=== PATIENT | female | born 1935 | race Caucasian/White ===

== ENCOUNTER → 2016-10-25 | Outpatient (CLI) | payer OTHER ==
[~2016-10-25] MED LIST: ARGI1CAP2 PO; B COCAP3 PO; BIOTCAP2 PO; CHOL100041 PO; COEN1CAP17 PO; CRAN1CHW PO; CRAN1TAB; DEXL60CA4 PO; DONE10TA12 PO; FLV400 PO; LEVO75TA5 PO; LUTE20CA PO; LXP10 PO; MELA1TAB5 PO; MISCTAB26 PO; POTA-327 PO; POTA10TA30 PO; TRAM-10 PO
--- NOTE | 2016-10-26 06:59 | SPLIT NIGHT TECHNICIAN REPORT ---
[facility] Split Night Polysomnogram - Dev Technical Mgr Report Study date: 10/25/2016 Referring Physician: Jm Galo M.D. Name: QUAN CASTRO Dev Technical Mgr: Janny Childs, PSGT. Date of : 1935 Height: 81 years, Height 4' 9" Sex: Female Weight: 156 lbs Age: 81 BMI: Medications: 33.75 SEE LIST OF 24 MEDICATIONS LISTED IN CHART Patient History 81 YR. OLD FEMALE IN ROOM 5 WITH DAMIAN , IS HERE FOR A SPLIT NIGHT STUDY.PT. STATES THAT HER C-PAP MACHINE HAS STOPPED WORKING. SHE HAS LOST WEIGHT SINCE HER LAST STUDY AND FEELS SHE MAY NO LONGER NEED THE MACHINE. Parameters Monitored NPSG: E1-M2, E2-M1, Fp1-M2, Fp2-M1, F3-M2, F4-M2, F4-M1, C3-M2, C4-M2, C4-M1, O1-M2, O2-M2, O2-M1, T3-M2, T4-M1, P3-M2, P4-M1, CHIN1, CHIN2, HR, EKG, Legs, PFLOW, SNOR, FLOW, CFLOW, Tidal Volume, THOR, ABDO, SpO2, PLTH, CPRESS, ETCO2 Wave, ETCO2, pH SLEEP SUMMARY DATA DIAGNOSTIC TREATMENT Lights Out: 11:15:41 PM 2:23:11 AM Lights On: 1:56:11 AM 5:23:11 AM Total Recording Time (TRT): 160.8 min. 205.2 min. Total Sleep Time (TST): 136.5 min. 153.5 min. NREM Time: 100.5 min. 116.0 min. REM Time: 36.0 min. 37.5 min. Sleep Period Time (SPT): 140.5 min. 178.0 min. Sleep Efficiency (SE): 85 % 86 % Sleep Latency: 19.5 min. 0.0 min. Arousal Index: 5.7 14.1 PAP Treatment Levels: 5, 7, 9, 8/4, 9/4, 10/5, 11/5 * Optimal Pressure(s) SLEEP STAGING DATA DIAGNOSTIC TREATMENT Duration (min) TST % Duration (min) TST % Stage Wake: 24.3 min. -- 51.7 min. -- WASO: 4.5 min. -- 24.5 min. -- NREM: 100.5 min. 74 % 116.0 min. 76 % Stage N1: 1.5 min. 1 % 20.5 min. 13 % Stage N2: 99.0 min. 73 % 95.5 min. 62 % Stage N3: 0.0 min. 0 % 0.0 min. 0 % REM: 36.0 min. 26 % 37.5 min. 24 % POSITIONAL DATA Event Count Index Event Count Index Supine: N/A N/A 71 27.8 Supine NREM: N/A N/A 56 29.0 Supine REM: N/A N/A 15 24 Non-Supine: 76 33.4 N/A N/A Non-Supine NREM: 50 29.9 N/A N/A Non-Supine REM: 26 43.3 N/A N/A AROUSAL SUMMARY DATA: Event Count Index Event Count Index Apnea Arousals: 1 5.3 2 15.2 Hypopnea Arousals: 1 0.4 2 0.8 Snore Arousals: 1 0.4 7 2.7 PLM Arousals: 0 0.0 3 1.2 Non-Specific Arousals: 9 4.0 19 7.4 Total Arousals: 13 5.7 36 14.1 MYOCLONUS (PLM) Event Count Index Event Count Index PLM: 59 25.9 76 29.7 PLM AROUSAL: 0 0.0 3 1.2 PLM W/O AROUSAL 59 25.9 73 28.5 PLM W/RESP EVENT 2 0.0 4 0.0 MYOCLONUS (PLM) Event Count Index Event Count Index LM: 1 16.7 54 21.1 LM AROUSAL: 1 0.4 3 1.2 LM W/O AROUSAL LM W/RESP EVENT LM NON SPECIFIC 90 39.6 110 43.0 HEART RATE DATA DIAGNOSTIC TREATMENT Sleep (bpm): 52 52 REM (bpm): 90 92 NREM (bpm): 91 93 Tachycardia Count: 0 0 Tachycardia Duration: 0.00 0 Bradycardia Count: 0 0 Bradycardia Duration: 0.00 0 DIAGNOSTIC PORTION TREATMENT PORTION RESPIRATORY DATA Event Count Index Event Count Index AHI: -- 33.4 -- 27.8 RDI: -- 33.4 -- 28 Obstructive Apnea: 12 5.3 4 1.6 Central Apnea: 0 0.0 35 13.7 Mixed Apnea: 0 0.0 0 0.0 Hypopnea: 64 28.1 32 12.5 RERA: 0 0.0 0 0.0 Total Apneas: 12 5.3 39 15.2 RESPIRATORY DATA REM NREM SLEEP REM NREM SLEEP Supine Position: Obstructive Apneas: N/A N/A N/A 0 4 4 Central Apneas: N/A N/A N/A 1 34 35 Mixed Apneas: N/A N/A N/A 0 0 0 Hypopneas: N/A N/A N/A 14 18 32 RERA N/A N/A N/A 0 0 0 Total Supine Events: N/A N/A N/A 15 56 71 Supine AHI: N/A N/A N/A 24 29.0 27.8 Supine RDI: N/A N/A N/A 24.0 29.0 27.8 REM NREM SLEEP REM NREM SLEEP Non-Supine Position: Obstructive Apneas: 0 12 12 N/A N/A N/A Central Apneas: 0 0 0 N/A N/A N/A Mixed Apneas: 0 0 0 N/A N/A N/A Hypopneas: 26 38 64 N/A N/A N/A RERA 0 0 0 N/A N/A N/A Total Supine Events: 26 50 76 N/A N/A N/A Supine AHI: 43.3 29.9 33.4 N/A N/A N/A Supine RDI: 43.3 29.9 33.4 N/A N/A N/A OXYGEN DESTAURATION DATA: Event Count Index Event Count Index REM Desaturations: 23 38.3 15 24.0 NREM Desaturations: 51 30.4 54 27.9 SNORE DATA DIAGNOSTIC TREATMENT Snore Time: 8.9 2:23:11 AM Snore TST%: 4 2 Snore Arousal Count: 1 7 Snore Arousal Index: 0.4 2.7 Desaturation Event Summary: Minimum %SpO2 Event Count Mean/Min/Max Duration(sec.) Desaturation Index % Time In Bed > 90 140 31.1 / 12.0 / 60.0 33.4 74.8 86 - 90 17 20.6 / 6.0 / 38.3 12.7 23.8 81 - 85 0 N/A 0.0 1.3 76 - 80 0 N/A 0.0 0.1 71 - 75 0 N/A 0.0 0.0 66 - 70 0 N/A 0.0 0.0 61 - 65 0 N/A 0.0 0.0 56 - 60 0 N/A 0.0 0.0 51 - 55 0 N/A 0.0 0.0 < 50 0 N/A 0.0 0.0 OXYGEN SATURATION DATA DIAGNOSTIC TREATMENT SpO2 Mean Sleep: 91 % 93 % SpO2 Mean REM: 90 % 92 % SpO2 Mean NREM: 91 % 93 % SpO2 Minimum Sleep: 79 % 83 % SpO2 Minimum REM: 80 % 83 % SpO2 Minimum NREM: 79 % 85 % Time Below 90% (TST): 35.6 12.2 Time Below 88% (TST): 12.2 3.4 Total REM NREM Awake <50% 0.0 min. 0.0 min. 0.0 min. 0.0 min. 51 - 60% 0.0 min. 0.0 min. 0.0 min. 0.0 min. 61 - 70% 0.0 min. 0.0 min. 0.0 min. 0.0 min. 71 - 80% 0.3 min. 0.1 min. 0.2 min. 0.0 min. 81 - 90% 84.6 min. 24.4 min. 56.6 min. 3.5 min. 91 - 100% 251.7 min. 49.0 min. 159.5 min. 43.2 min. Average 92 91 92 93 Minimum SpO2 79 80 79 81 Desaturation Event Index 25.3 31.0 29.1 0.0 # Desat. Events below 89% 85 30 55 N/A Time(%) with Saturation below 89% 8.1 3.3 4.6 0.2 Time(min.) with Saturation below 89% 27.4 11.2 15.6 0.6 Recording Dev Technical Mgr Comments: Split -Night: MS. Castro slept in the right, left, and supine positions. No cardiac arrhythmia or PLM's noted. No bruxism noted. Snoring was noted and scored as a 2 on a scale of 1 through 5. (0=no snoring, 5=snoring loud enough to be heard through a closed door or down the rodriguez way) At 1:56 am, MS. Castro has met specific Split-Night criteria during the diagnostic portion of this study. CPAP was initiated at +4 CMH2O and up-titrated to an l level of +9 CMH2O, which central apneas continued so Bi-pap was started at 8/4 cm h20 ending at I-pap 11 cm E-pap 5 cm. A F&P small Simplus was used during titration Ms. Castro awoke to use the restroom one time during the night. The final report will be interpreted and signed by a sleep physician. The completed physician report will then be placed in the patient medical record. It was difficult to get the pt. into bed, her blood sugar dropped and she had to eat and drink before bed and that took her awhile to accomplish. slept supine the entire night, she displays severe DAMIAN. C-pap was started with nasal pillows but patient was not able to keep her mouth closed so a full face mask was used, which she tolerated well.Pt. was up titrated on c-pap to 9 cm, she continued to have central apneas so bi-pap was started and she was only able to get to 11/8 cm H20 before test ended, pt. had to get up at 5:30 am to be ready for her ride at 6:00 am.Titration was inconclusive at that time, patient will need to come back for a full night of titration to achieve the proper settings needed. Therapy Event: Therapy (cm H20) 0 5 7 9 8/4 9/4 10/5 11/5 Total Time at Pressure (min.) 160.0 41.5 25.2 7.3 20.3 7.8 16.3 60.0 TST at Pressure (min.) 136.5 23.0 23.2 7.3 17.8 7.8 16.3 58.0 # Periods 1 1 1 1 1 1 1 1 Sleep Onset (min.) 19.5 0.0 2.3 0.0 0.0 0.0 0.0 0.0 REM Onset (min.) 68.0 N/A N/A N/A N/A 5.1 0.0 0.0 Sleep Efficiency % 85 55 92 100 87 100 100 96 Wakefulness (%) 14.7 44.6 7.9 0.0 12.3 0.0 0.0 3.3 Wakefulness (min.) 23.5 18.5 2.0 0.0 2.5 0.0 0.0 2.0 NREM 1 (%) 0.9 30.1 21.8 0.0 4.9 0.0 0.0 2.5 NREM 1 (min.) 1.5 12.5 5.5 0.0 1.0 0.0 0.0 1.5 NREM 2 (%) 61.9 25.3 70.3 100.0 82.8 65.8 0.0 63.3 NREM 2 (min.) 99.0 10.5 17.7 7.3 16.8 5.1 0.0 38.0 NREM 3 (%) 0.0 0.0 0.0 0.0 0.0 0.0 0.0 0.0 NREM 3 (min.) 0.0 0.0 0.0 0.0 0.0 0.0 0.0 0.0 REM (%) 22.5 0.0 0.0 0.0 0.0 34.2 100.0 30.8 REM (min.) 36.0 0.0 0.0 0.0 0.0 2.7 16.3 18.5 # Arousals 13 3 5 1 8 1 5 13 Arousal Index 5.7 7.8 12.9 8.2 26.9 7.7 18.4 13.4 # Snore 446 5 5 4 9 2 18 83 Snore Index 196.0 13.0 12.9 33.0 30.3 15.4 66.1 85.9 AHI 33.4 23.5 23.2 8.2 33.6 38.4 36.7 27.9 AHI Supine N/A 23.5 23.2 8.2 33.6 38.4 36.7 27.9 AHI Non-Supine 33.4 N/A N/A N/A N/A N/A N/A N/A NREM AHI 29.9 23.5 23.2 8.2 33.6 23.3 N/A 38.0 REM AHI 43.3 N/A N/A N/A N/A 67.5 36.7 6.5 RDI 33.4 23.5 23.2 8.2 33.6 38.4 36.7 27.9 # Obstructive 12 2 2 0 0 0 0 0 # Central Ap 0 2 5 0 8 1 1 18 # Mixed 0 0 0 0 0 0 0 0 # Hypopneas 64 5 2 1 2 4 9 9 RERAS 0 0 0 0 0 0 0 0 Total Respiratory Events 76 9 9 1 10 5 10 27 Time Below SpO2 89.00% (min.) 20.0 0.0 0.5 0.0 1.9 0.9 1.8 1.7 Mean NREM SpO2 (%) 91 93 92 92 92 91 N/A 94 Mean REM SpO2 (%) 90 N/A N/A N/A N/A 90 92 92 Mean Sleep SpO2 (%) 91 93 92 92 92 91 92 93 Min NREM SpO2 (%) 79 89 87 91 85 86 N/A 86 Min REM SpO2 (%) 80 N/A N/A N/A N/A 83 85 87 Position Supine (min.) 0.0 23.0 23.2 7.3 17.8 7.8 16.3 58.0 Position Non-supine (min.) 136.5 0.0 0.0 0.0 0.0 0.0 0.0 0.0 LM Index Sleep 42.6 36.5 74.9 98.9 70.6 30.7 18.4 46.6 LM Index NREM 47.8 36.5 74.9 98.9 70.6 35.0 N/A 62.3 LM Index REM 28.3 N/A N/A N/A N/A 22.5 18.4 13.0 Mean Heart Rate (bpm) 52 50 51 48 50 55 58 52 Min Heart Rate (bpm) 43 45 45 45 44 46 45 41
--- NOTE | 2016-10-27 15:21 | POLYSOMNOGRAPH REPORT ---
CLINICAL DATA: A 81-year-old female with BMI of 33.75 referred for a split night study. Her CPAP has stopped working. She has lost weight since her last study and thought she may not need it. This was a split night study. SLEEP ARCHITECTURE: For the diagnostic portion of the study, total sleep period was 140.5 minutes. Total sleep time was 136.5 minutes divided between 100.5 minutes of non-REM sleep and 36 minutes of REM sleep. Sleep latency was 19.5 minutes. Sleep efficiency was 85%. Sleep consisted of stage N1 1%, N2 73%, REM 26%. For the treatment portion of the study, total sleep period was 178 minutes. Total sleep time was 153.5 minutes divided between 116 minutes of non-REM sleep and 37.5 minutes of REM sleep. Sleep latency was immediate. Sleep efficiency was 86%. Sleep consisted of stage N1 12%, N2 62%, REM 24%. AROUSAL DATA: Prior to treatment, 38 arousals were recorded for an index of 5.7 per hour. Following treatment, 36 arousals were recorded for an index of 14.1 per hour. PERIODIC LIMB MOVEMENT DATA: Prior to treatment, 90 limb movements during sleep were noted for an index of 39.6 per hour. Following treatment, 110 limb movements were noted for an index of 43 per hour. ELECTROCARDIOGRAM: Heart rates ranged from 52-93 beats per minute. No arrhythmias were noted. RESPIRATORY DATA: Prior to treatment, severe sleep apnea was documented. The AHI was 33.4. There were 12 obstructive apneic episodes and 64 hypopneic episodes recorded. Following treatment, the mean AHI was 27.8. There were 4 obstructive, and 35 central apneic episodes. There were 32 hypopneic episodes. OXIMETRY DATA: Nocturnal hypoxemia was seen prior to treatment. Oxygen belkys was 79%. Mean saturation after treatment was 93%. SYSTEMS INTEGRATION ADVISOR'S COMMENTS AND TREATMENT SUMMARY: The patient slept in the right, left, and supine positions. Snoring was [id number], rated 2 on a scale of 1-5. At 1:56 a.m., she met split night criteria. She was started on CPAP 4 cm of water pressure and was then titrated up to 9 cm of water pressure. She then developed central apneic episodes and BiPAP was started initially at 8/4 and then ending at 11/5. A [employer] small Simplus mask was used. She had difficulty with low blood sugars prior to sleep. She could not use nasal pillows because her mouth kept opening. She did not reach an adequate level of BiPAP prior to end of the study. At her final pressure setting of 11/5, she slept for 58 minutes with an AHI of 27.9. Her best AHI achieved was 8.2 at 9 cm of water pressure. 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 RECOMMENDATIONS: The patient could be considered for use of auto CPAP with a full facemask or a repeat sleep study with BiPAP titration. Clinical correlation is needed. IVAN
== END | disposition home or self-care (01) ==
LOC: C.NEUR 21:00
PROVIDERS: ATTEND Internal Medicine Pulmonary Disease
DX: G47.33 Obstructive sleep apnea (adult) (pediatric) (principal)

== ENCOUNTER → 2016-12-14 | Outpatient (CLI) | payer OTHER ==
[~2016-12-14] VITALS: Ht 152.4 cm; Wt 66.3 kg
[2016-12-14 12:52] VITALS: BP 122/62; PULSE 71; Ht 152.4 cm; Wt 66.3 kg
== END | disposition home or self-care (01) ==
LOC: C.NEUR 11:54
PROVIDERS: ATTEND Internal Medicine Pulmonary Disease
DX: G47.33 Obstructive sleep apnea (adult) (pediatric) (principal)

== ENCOUNTER → 2017-01-11 | Outpatient (CLI) | payer OTHER ==
[~2017-01-11] MED LIST changes: +ULT50X PO
[2017-01-11 13:11] LABS: HEMATOCRIT 29.4 % (37-47); MEAN CELL VOLUME 83.5 fL (80-100); MEAN CORPUSCULAR HEMOGLOBIN 24.1 pg (25-34); MEAN CORPUSCULAR HGB CONC 28.9 g/dl (32-36); MEAN PLATELET VOLUME 10.2 fL (7.4-10.4); PLATELET COUNT 478 K/uL (130-400); RED BLOOD COUNT 3.52 M/uL (4.2-5.4); WHITE BLOOD COUNT 5.94 K/uL (4.8-10.8)
[2017-01-11 13:13] LABS: ANISOCYTOSIS PRESENT; BASO % 0.5 %; BASO ABS # 0.03 K/uL (0-0.2); COMPLETE YES; EOS % 1.7 %; IG% 0.3 %; LYMPH % 9.3 %; LYMPH ABS # 0.55 K/uL (1.2-3.4); MONO % 10.9 %; NEUT % 77.3 %; POLYCHROMASIA 1+
[2017-01-11 15:08] LABS: TOTAL IRON BINDING CAPACITY 429 mcg/dl (250-450)
== END | disposition home or self-care (01) ==
LOC: C.LAB1850 09:47
PROVIDERS: ATTEND Internal Medicine Cardiovascular Disease
DX: D50.9 Iron deficiency anemia, unspecified (principal)

== ENCOUNTER → 2017-03-03 | Outpatient (CLI) | payer OTHER ==
--- NOTE | 2017-03-03 12:06 | DIAGNOSTIC IMAGING REPORT ---
SINGLE VIEW PELVIS; 2 VIEWS RIGHT HIP; 2 VIEWS LEFT HIP CLINICAL HISTORY: Pelvic pain. FINDINGS: An AP view of the pelvis with AP and frog-leg views of the right hip as well as AP and frog-leg views of the left hip are correlated with pelvic CT dated 12/14/2015. The skeletal structures are osteopenic. No fracture is seen in the hips or bony pelvis. Mild arthritic change and joint space narrowing is seen in both hips. Small enthesophytes arise from the greater trochanters of the proximal femora and the anterior superior iliac spine bilaterally. The sacroiliac joints and pubic symphysis are normal as imaged. Lumbosacral spondylosis and fusion hardware is partially visualized. The overlying soft tissues are within normal limits. Suture material projects over the right lower quadrant. There is a nonobstructed abdominal bowel gas pattern. A pill fragment projects of the sacrum. IMPRESSION: 1. No acute bony abnormal is seen in the hips or pelvis. 2. Osteopenia and degenerative change as above. Electronically signed by: Luc Michaud M.D. 03/03/2017 12:04 PM Dictated Date/Time: 03/03/2017 12:02 PM
[2017-03-03 12:40] LABS: URINE APPEARANCE CLEAR (CLEAR); URINE BILIRUBIN NEG (NEG); URINE COLOR YELLOW; URINE NITRITE NEG (NEG); URINE SPECIFIC GRAVITY 1.007 (1.000-1.030); UROBILINOGEN NEG (NEG)
[2017-03-03 12:54] LABS: MANUAL MICROSCOPIC REQUIRED? NO; REVIEW REQ? NO
--- NOTE | 2017-03-03 13:02 | DIAGNOSTIC IMAGING REPORT ---
KUB CLINICAL HISTORY: Pelvic pain. COMPARISON STUDY: CT of the abdomen and pelvis December 15, 2015 and KUB March 28, 2016. FINDINGS: Cholecystectomy clips and lumbosacral fusion are incidentally noted. There is a moderate amount of stool within the colon and the rectum. There is no evidence for a bowel obstruction. Bowel anastomoses projecting over the gastroesophageal junction are noted. Pelvic calcifications likely reflect phleboliths. A 3 mm right pelvic calcification is indeterminate. A 9 x 3 mm calculus within lower pole of the right kidney is noted. There is a punctate adjacent calculus. IMPRESSION: 1. 9 mm x 3 mm right renal calculus. 2. 3 mm right pelvic calcific density. This could reflect a phlebolith or distal right ureteral calculus. 3. No bowel obstruction. Electronically signed by: Joe Galvin M.D. 03/03/2017 1:01 PM Dictated Date/Time: 03/03/2017 12:07 PM
[2017-03-03 14:18] LABS: ALB/GLOB RATIO 1.1 (0.9-2); ALKALINE PHOSPHATASE 112 U/L (45-117); ALT/SGPT 36 U/L (12-78); AST/SGOT 28 U/L (15-37); BLOOD UREA NITROGEN 13 mg/dl (7-18); BUN/CREATININE RATIO 26.9 (10-20); CARBON DIOXIDE 31 mmol/L (21-32); CHLORIDE 104 mmol/L (98-107); GLUCOSE 80 mg/dl (70-99); POTASSIUM 4.1 mmol/L (3.5-5.1); SODIUM 140 mmol/L (136-145)
== END | disposition home or self-care (01) ==
LOC: C.RAD 11:07
PROVIDERS: ATTEND Nurse Practitioner Family
DX: R10.2 Pelvic and perineal pain (principal); M85.88 Other specified disorders of bone density and structure, other site; N20.0 Calculus of kidney

== ENCOUNTER → 2017-03-08 | Outpatient (CLI) | payer OTHER ==
[~2017-03-08] VITALS: Ht 149.9 cm; Wt 65.0 kg
[2017-03-08 14:13] VITALS: BP 110/61; PULSE 60; Ht 149.9 cm; Wt 65.0 kg
== END | disposition home or self-care (01) ==
LOC: C.NEUR 13:00
PROVIDERS: ATTEND Physician Assistant Medical
DX: G47.33 Obstructive sleep apnea (adult) (pediatric) (principal)

== ENCOUNTER 2017-05-03 14:16 | Emergency (ER) | payer OTHER ==
[~2017-05-03] VITALS: Ht 149.9 cm; Wt 65.5 kg
[~2017-05-03 14:16] MED LIST changes: -ARGI1CAP2 PO; -B COCAP3 PO; -BIOTCAP2 PO; -CHOL100041 PO; -COEN1CAP17 PO; -CRAN1CHW PO; -CRAN1TAB; -DONE10TA12 PO; -LEVO75TA5 PO; -LUTE20CA PO; -LXP10 PO; -MELA1TAB5 PO; -MISCTAB26 PO; -POTA10TA30 PO; -ULT50X PO
[2017-05-03 14:28] VITALS: TEMP 36.6; Ht 149.9 cm; Wt 65.5 kg
[2017-05-03] MEDS ORDERED: SODIUM CHLORIDE 0.9% 1000ML 1,000 ML IV STA (14:43)
[2017-05-03] MEDS ORDERED: OPTIRAY 320 IV PRN (15:00)
[2017-05-03 15:26] LABS: BASO % 0.3 %; BASO ABS # 0.02 K/uL (0-0.2); COMPLETE YES; EOS % 0.6 %; HEMATOCRIT 34.2 % (37-47); IG% 0.3 %; LYMPH % 3.6 %; LYMPH ABS # 0.29 K/uL (1.2-3.4); MEAN CELL VOLUME 88.6 fL (80-100); MEAN CORPUSCULAR HEMOGLOBIN 27.2 pg (25-34); MEAN CORPUSCULAR HGB CONC 30.7 g/dl (32-36); MEAN PLATELET VOLUME 9.2 fL (7.4-10.4); MONO % 4.3 %; NEUT % 90.9 %; PLATELET COUNT 403 K/uL (130-400); RED BLOOD COUNT 3.86 M/uL (4.2-5.4)
--- NOTE | 2017-05-03 15:26 | EMERGENCY ROOM VISIT NOTE ---
History Report prepared by Christiane: Leydi Hernandez Under the Supervision of: Dr. Ena Cruz M.D. 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 She started to get upset while talking and was not looking where she was going. She states that her foot twisted underneath her and she tripped, landing in a laundry basket full of clothes. The patient hit her lower back on the edge of the basket when she fell. She is currently complaining of lower back pain that she rates as a 10/10 in severity. She has a history of lower back surgery and states that she has hardware in her back. She did not walk after the incident. The patient was brought to the ED by ambulance for further evaluation. She denies any other injury occurring from her fall. She denies hitting her head or LOC. She does not take any blood thinners. She does not take any pain medications regularly. 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 Review of Systems See HPI for pertinent positives & negatives. A total of 10 systems reviewed and were otherwise negative. 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 Family History Kidney disease Social History Smoking Status: Never Smoker Alcohol Use: none Drug Use: none Marital Status: Housing Status: lives alone Occupation Status: retired Current/Historical Medications Scheduled Arginine (L-Arginine), 1 CAP PO DAILY B Complex W/ C (Vitamin B Complex-C), 1 CAP PO DAILY Biotin (Biotin 5000), 5 MG PO DAILY Cholecalciferol (D 1000), 1 CAP PO BID Coenzyme Q10 (Ubidecarenone) (Co Q 10), 200 MG PO DAILY Cranberry (Vaccinium Macrocarp (Cranberry Soft Chews), 1 TAB PO DAILY Dexlansoprazole (Dexilant), 1 TAB PO BID Donepezil Hydrochloride (Aricept), 10 MG PO BID Escitalopram Oxalate (Escitalopram Oxalate), 10 MG PO DAILY Folic Acid (Folic Acid), 1 TAB PO DAILY Levothyroxine Sodium (Levothyroxine Sodium), 75 MCG PO QAM Lutein (Lutein), 20 MG PO DAILY Melatonin (Kp Melatonin), 1 TAB PO HS Misc Natural Products (Ginkgo Biloba), 1 TAB PO DAILY Potassium Chloride (Potassium Chloride Cr), 10 MEQ PO QID Scheduled PRN Tramadol (Ultram), 50 MG PO Q8H PRN for Pain Tramadol (Ultram), 1 TABS PO Q6 PRN for Pain Allergies Coded Allergies: Iron (Verified Allergy, Severe, chest pain, felt hot (tolerates Venofer), 08/17/16) Procaine (Verified Allergy, Severe, THROAT SWELLING WITH NOVOCAINE, ) Hydrocodone (Verified Allergy, Unknown, 08/17/16) Oxycodone (Verified Allergy, Unknown, 08/17/16) Codeine (Verified Adverse Reaction, Unknown, NAUSEA, 08/17/16) Physical Exam Vital Signs Date Time Temp Pulse Resp B/P (MAP) Pulse Ox O2 Delivery O2 Flow Rate FiO2 05/03/17 17:52 89 18 128/71 97 05/03/17 17:15 61 18 126/63 98 Room Air 05/03/17 15:31 53 19 160/69 96 Room Air 05/03/17 14:28 36.6 55 20 127/51 98 Room Air Physical Exam Vital signs reviewed. General: Well-appearing elderly female, in no significant distress. HEENT: No scleral icterus, PERRLA, neck supple. Atraumatic. Cardiovascular: Regular rate and rhythm, no extra sounds. Pulmonary: Clear to auscultation bilaterally, normal work of breathing. Abdomen: Soft, nontender, nondistended, positive bowel sounds. Musculoskeletal: Tender to the left lower ribs. Cervical/thoracic/lumbar spine nontender, no step-offs, no deformity. Neurologic: Patient awake alert and oriented x 3, full strength in all 4 extremities. Cranial nerves 2 through 12 grossly intact. Skin: Warm, dry, no rash Medical Decision & Procedures ER Provider Diagnostic Interpretation: Radiology results as stated below per my review and radiologist interpretation: (CHEST) THORAX WITH CT DOSE: 610.41 mGy.cm HISTORY: Trauma. Pain. trauma TECHNIQUE: Multiaxial CT images of the chest were performed following the intravenous administration of contrast. A dose lowering technique was utilized adhering to the principles of ALARA. COMPARISON: 06/29/2016 FINDINGS: Nondisplaced cortical fractures left ninth 10th and 11th ribs. Considerable degenerative change of the thoracic spine with no acute bony abnormality. Prior gastric bypass type procedure. Unchanging left lower lobe nodule having a maximum diameter of 11 mm. Additional nodularity which has been described previously is stable. There are no new or interval findings. Lungs are considered clear. There are no focal infiltrative changes. There is no evidence for parenchymal contusion. IMPRESSION: 1. Nondisplaced fractures left ninth 10th and 11th ribs. 2. No evidence pneumothorax. 3. Stable pulmonary nodularity. The above report was generated using voice recognition software. It may contain grammatical, syntax or spelling errors. Electronically signed by: Lemuel Gunn M.D. 05/03/2017 4:28 PM Dictated Date/Time: 05/03/2017 4:23 PM ABD/PELVIS IV AND ORAL CONT HISTORY: 81 years-old Female trauma prep, LUQ pain, fall COMPARISON: CT chest of same day, CTA abdomen and pelvis 12/15/2015 TECHNIQUE: Multiple axial CT images of the abdomen and pelvis were obtained following the intravenous administration of 119 mL Optiray 320. A dose lowering technique was used consistent with the principals of ALARA. FINDINGS: The exam is mildly limited secondary to patient motion, position of patient's arms and streak artifact from lumbar spine hardware. Circumscribed noncalcified pulmonary nodule of the posterior basal segment left lower lobe is redemonstrated, 11 x 7 mm which appears unchanged from comparison study dated 12/15/2015. Additional scattered noncalcified pulmonary nodules are again seen within the left lung base with subsegmental dependent bibasilar atelectasis. No pneumoperitoneum is identified. Inferior cardiac chambers demonstrate no acute abnormality. Prior cholecystectomy. 8 mm low attenuating lesion of the medial left hepatic lobe is again seen, unchanged and nonspecific statistically favoring a cyst or hemangioma. The spleen, pancreas and adrenal glands are unremarkable. Dilation of the common bile duct is likely secondary to reservoir effect status post cholecystectomy. Calculus of the inferior pole right kidney is again seen, 7 x 5 mm. No hydronephrosis or renal parenchymal injury. There is moderate atherosclerosis and tortuosity of the abdominal aorta without bulky adenopathy. Urinary bladder is unremarkable. Prior hysterectomy. 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 No bowel obstruction. Noninflamed appearing colonic diverticula are noted. There is been prior posterior decompression with interbody fusion at the L4-S1 levels. There is grade 2 anterolisthesis of L4 on L5 with hardware appearing to be intact. This is an unchanged finding from comparison. Bones are moderately demineralized without acute fracture identified. Multilevel advanced degenerative changes of the spine are seen. IMPRESSION: 1. No acute intra-abdominal or pelvic abnormality identified. No evidence of solid organ injury or acute displaced fracture. 2. 11 x 7 mm noncalcified pulmonary nodule of the posterior basal segment left lower lobe redemonstrated, unchanged from comparison study dated 12/15/2015. 3. 7 mm right renal calculus. 4. Postsurgical changes of prior cholecystectomy, hysterectomy and Luciano-en-Y gastric bypass. The above report was generated using voice recognition software. It may contain grammatical, syntax or spelling errors. Electronically signed by: Kirk Padilla M.D. 05/03/2017 4:33 PM Dictated Date/Time: 05/03/2017 4:23 PM Laboratory Results 05/03/17 15:15 Red Blood Count 3.86, Mean Corpuscular Volume 88.6, Mean Corpuscular Hemoglobin 27.2, Mean Corpuscular Hemoglobin Concent 30.7, Mean Platelet Volume 9.2, Neutrophils (%) (Auto) 90.9, Lymphocytes (%) (Auto) 3.6, Monocytes (%) (Auto) 4.3, Eosinophils (%) (Auto) 0.6, Basophils (%) (Auto) 0.3, Neutrophils # (Auto) 7.28, Lymphocytes # (Auto) 0.29, Monocytes # (Auto) 0.34, Eosinophils # (Auto) 0.05, Basophils # (Auto) 0.02 05/03/17 15:15 Test 05/03/17 15:15 White Blood Count 8.00 K/uL (4.8-10.8) Red Blood Count 3.86 M/uL (4.2-5.4) Hemoglobin 10.5 g/dL (12.0-16.0) Hematocrit 34.2 % (37-47) Mean Corpuscular Volume 88.6 fL (80-100) Mean Corpuscular Hemoglobin 27.2 pg (25-34) Mean Corpuscular Hemoglobin Concent 30.7 g/dl (32-36) Platelet Count 403 K/uL (130-400) Mean Platelet Volume 9.2 fL (7.4-10.4) Neutrophils (%) (Auto) 90.9 % Lymphocytes (%) (Auto) 3.6 % Monocytes (%) (Auto) 4.3 % Eosinophils (%) (Auto) 0.6 % Basophils (%) (Auto) 0.3 % Neutrophils # (Auto) 7.28 K/uL (1.4-6.5) Lymphocytes # (Auto) 0.29 K/uL (1.2-3.4) Monocytes # (Auto) 0.34 K/uL (0.11-0.59) Eosinophils # (Auto) 0.05 K/uL (0-0.5) Basophils # (Auto) 0.02 K/uL (0-0.2) RDW Standard Deviation 47.1 fL (36.4-46.3) RDW Coefficient of Variation 14.5 % (11.5-14.5) Immature Granulocyte % (Auto) 0.3 % Immature Granulocyte # (Auto) 0.02 K/uL (0.00-0.02) Prothrombin Time 10.5 SECONDS (9.0-12.0) Prothromb Time International Ratio 1.0 (0.9-1.1) Activated Partial Thromboplast Time 29.2 SECONDS (21.0-31.0) Partial Thromboplastin Ratio 1.1 Urine Color YELLOW Urine Appearance CLEAR (CLEAR) Urine pH 5.5 (4.5-7.5) Urine Specific Harmon 1.017 (1.000-1.030) Urine Protein NEG (NEG) Urine Glucose (UA) NEG (NEG) Urine Ketones NEG (NEG) Urine Occult Blood NEG (NEG) Urine Nitrite NEG (NEG) Urine Bilirubin NEG (NEG) Urine Urobilinogen NEG (NEG) Urine Leukocyte Esterase TRACE (NEG) Urine WBC (Auto) 1-5 /hpf (0-5) Urine RBC (Auto) 5-10 /hpf (0-4) Urine Hyaline Casts (Auto) 1-5 /lpf (0-5) Urine Epithelial Cells (Auto) >30 /lpf (0-5) Urine Bacteria (Auto) NEG (NEG) Anion Gap 5.0 mmol/L (3-11) Est Creatinine Clear Calc Drug Dose 76.6 ml/min Estimated GFR () 107.4 Estimated GFR (Non- 92.7 BUN/Creatinine Ratio 23.2 (10-20) Calcium Level 9.8 mg/dl (8.5-10.1) Magnesium Level 2.2 mg/dl (1.8-2.4) Total Bilirubin 0.4 mg/dl (0.2-1) Direct Bilirubin 0.1 mg/dl (0-0.2) Aspartate Amino Transf (AST/SGOT) 19 U/L (15-37) Alanine Aminotransferase (ALT/SGPT) 25 U/L (12-78) Alkaline Phosphatase 126 U/L (45-117) Total Creatine Kinase 62 U/L (26-192) Total Protein 6.6 gm/dl (6.4-8.2) Albumin 2.9 gm/dl (3.4-5.0) Laboratory results per my review. Medications Administered Medications (Trade) Dose Ordered Sig/Ricardo Route Start Time Stop Time Status Last Admin Dose Admin Sodium Chloride 1,000 ml @ 150 mls/hr Q6H40M STAT IV 05/03/17 14:43 05/03/17 18:31 DC 05/03/17 14:43 150 MLS/HR Tramadol HCl (Ultram Tab) 50 mg NOW STAT PO 05/03/17 17:01 05/03/17 17:02 DC 05/03/17 17:12 50 MG ECG Indication: back/shoulder pain Rate (beats per minute): 49 Rhythm: sinus bradycardia Findings: no acute ischemic change, no ectopy ED Course 1439: Past medical records reviewed. The patient was evaluated in room C12B. A complete history and physical examination was performed. 1443: NSS 1000 ml @ 150 mls/hr IV 1701: Ultram 50 mg PO 1749: I reassessed the patient at this time. She is feeling better and resting comfortably. I discussed the results and treatment plan with the patient. I answered all pertaining questions that she had. She expressed understanding and verbalized agreement. The patient will be discharged home. Medical Decision Differential diagnosis: Etiologies such as fracture, dislocation, intra-abdominal, pneumothorax, intrathoracic , intracranial, neurologic, as well as other traumatic pathologies were entertained. This patient was evaluated and appeared to be in no significant distress. IV access was obtained and laboratory work was drawn. The patient was placed on the threat monitoring analyst and found to be in a normal sinus rhythm. EKG reveals no evidence of acute ischemia. Patient was hydrated with normal saline solution. CT scan of the chest and abdomen/pelvis was performed and reveals 3 left-sided nondisplaced rib fractures. This is consistent with the location of the patient 's pain. There is no evidence of pneumothorax or solid organ injury. Patient was advised of the findings. She was instructed on the incentive spirometer given a prescription for Ultram to use as needed for pain. She will follow-up with her physician this week for reevaluation return to the ER for worsening of symptoms or any medical concerns. Medication Reconcilliation Current Medication List: was personally reviewed by me Blood Pressure Screening Patient's blood pressure: Normal blood pressure Impression Primary Impression: Multiple fractures of ribs, left side, initial encounter for closed fracture Scribe Attestation The scribe's documentation has been prepared under my direction and personally reviewed by me in its entirety. I confirm that the note above accurately reflects all work, treatment, procedures, and medical decision making performed by me. Departure Information Dispostion Home / Self-Care Prescriptions Tramadol (Ultram) 50 Mg Tab 1 TABS PO Q6 Y for Pain, #30 TAB Prov: Ena Cruz M.D. 05/03/17 Referrals Kiki Foy DO (PCP) Forms HOME CARE DOCUMENTATION FORM, IMPORTANT VISIT INFORMATION Patient Instructions Fx Rib, My [facility] Additional Instructions Diagnosis: Left rib fractures, 9, 10 and 11. Please drink plenty of clear fluids. Use your incentive spirometer several times every hour while awake. Tylenol 650 mg every 6 hours as needed for pain. Ultram 50 mg every 6 hours as needed for more severe pain. Follow-up with your primary care physician this week for reevaluation. Return to the ER for worsening of symptoms or any medical concerns
[2017-05-03 15:36] LABS: PARTIAL THROMBOPLASTIN RATIO 1.1; PROTHROMBIN TIME (PATIENT) 10.5 SECONDS (9.0-12.0)
[2017-05-03 15:48] LABS: BUN/CREATININE RATIO 23.2 (10-20); CALCIUM 9.8 mg/dl (8.5-10.1)
[2017-05-03 15:49] LABS: CREATININE 0.49 mg/dl (0.60-1.20)
[2017-05-03 15:56] LABS: URINE APPEARANCE CLEAR (CLEAR); URINE BILIRUBIN NEG (NEG); URINE COLOR YELLOW; URINE EPITHELIAL CELL AUTO >30 /lpf (0-5); URINE NITRITE NEG (NEG); URINE PH 5.5 (4.5-7.5); URINE SPECIFIC GRAVITY 1.017 (1.000-1.030); UROBILINOGEN NEG (NEG); ZZUR CULT IF INDIC CLEAN CATCH NO
[2017-05-03 16:12] LABS: MAGNESIUM 2.2 mg/dl (1.8-2.4); POTASSIUM 4.6 mmol/L (3.5-5.1)
[2017-05-03 16:13] LABS: MANUAL MICROSCOPIC REQUIRED? NO; REVIEW REQ? NO
--- NOTE | 2017-05-03 16:30 | DIAGNOSTIC IMAGING REPORT ---
(CHEST) THORAX WITH CT DOSE: 610.41 mGy.cm HISTORY: Trauma. Pain. trauma TECHNIQUE: Multiaxial CT images of the chest were performed following the intravenous administration of contrast. A dose lowering technique was utilized adhering to the principles of ALARA. COMPARISON: 06/29/2016 FINDINGS: Nondisplaced cortical fractures left ninth 10th and 11th ribs. Considerable degenerative change of the thoracic spine with no acute bony abnormality. Prior gastric bypass type procedure. Unchanging left lower lobe nodule having a maximum diameter of 11 mm. Additional nodularity which has been described previously is stable. There are no new or interval findings. Lungs are considered clear. There are no focal infiltrative changes. There is no evidence for parenchymal contusion. IMPRESSION: 1. Nondisplaced fractures left ninth 10th and 11th ribs. 2. No evidence pneumothorax. 3. Stable pulmonary nodularity. The above report was generated using voice recognition software. It may contain grammatical, syntax or spelling errors. Electronically signed by: Lemuel Gunn M.D. 05/03/2017 4:28 PM Dictated Date/Time: 05/03/2017 4:23 PM
--- NOTE | 2017-05-03 16:34 | DIAGNOSTIC IMAGING REPORT ---
ABD/PELVIS IV AND ORAL CONT HISTORY: 81 years-old Female trauma prep, LUQ pain, fall COMPARISON: CT chest of same day, CTA abdomen and pelvis 12/15/2015 TECHNIQUE: Multiple axial CT images of the abdomen and pelvis were obtained following the intravenous administration of 119 mL Optiray 320. A dose lowering technique was used consistent with the principals of FAHAD. FINDINGS: The exam is mildly limited secondary to patient motion, position of patient's arms and streak artifact from lumbar spine hardware. Circumscribed noncalcified pulmonary nodule of the posterior basal segment left lower lobe is redemonstrated, 11 x 7 mm which appears unchanged from comparison study dated 12/15/2015. Additional scattered noncalcified pulmonary nodules are again seen within the left lung base with subsegmental dependent bibasilar atelectasis. No pneumoperitoneum is identified. Inferior cardiac chambers demonstrate no acute abnormality. Prior cholecystectomy. 8 mm low attenuating lesion of the medial left hepatic lobe is again seen, unchanged and nonspecific statistically favoring a cyst or hemangioma. The spleen, pancreas and adrenal glands are unremarkable. Dilation of the common bile duct is likely secondary to reservoir effect status post cholecystectomy. Calculus of the inferior pole right kidney is again seen, 7 x 5 mm. No hydronephrosis or renal parenchymal injury. There is moderate atherosclerosis and tortuosity of the abdominal aorta without bulky adenopathy. Urinary bladder is unremarkable. Prior hysterectomy. 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 No bowel obstruction. Noninflamed appearing colonic diverticula are noted. There is been prior posterior decompression with interbody fusion at the L4-S1 levels. There is grade 2 anterolisthesis of L4 on L5 with hardware appearing to be intact. This is an unchanged finding from comparison. Bones are moderately demineralized without acute fracture identified. Multilevel advanced degenerative changes of the spine are seen. IMPRESSION: 1. No acute intra-abdominal or pelvic abnormality identified. No evidence of solid organ injury or acute displaced fracture. 2. 11 x 7 mm noncalcified pulmonary nodule of the posterior basal segment left lower lobe redemonstrated, unchanged from comparison study dated 12/15/2015. 3. 7 mm right renal calculus. 4. Postsurgical changes of prior cholecystectomy, hysterectomy and Luciano-en-Y gastric bypass. The above report was generated using voice recognition software. It may contain grammatical, syntax or spelling errors. Electronically signed by: Kirk Padilla M.D. 05/03/2017 4:33 PM Dictated Date/Time: 05/03/2017 4:23 PM
[2017-05-03] MEDS ORDERED: TRAMADOL HCL 50 MG TAB PO STA (17:01)
[2017-05-03] MEDS ORDERED: TRAM-10 PO (17:28)
[2017-05-03 17:52] VITALS: BP 128/71; PULSE 89; O2SAT 97
[2017-05-10] MEDS ORDERED: COEN1CAP17 PO (00:30)
[2017-05-10] MEDS ORDERED: BIOTCAP2 PO (00:30)
[2017-05-10] MEDS ORDERED: MELA1TAB5 PO (08:09)
[2017-05-10] MEDS ORDERED: DONE10TA12 PO (08:09)
[2017-05-10] MEDS ORDERED: ARGI1CAP2 PO (08:09)
[2017-05-10] MEDS ORDERED: B COCAP3 PO (08:09)
[2017-05-10] MEDS ORDERED: MISCTAB26 PO (08:09)
[2017-05-10] MEDS ORDERED: CHOL100041 PO (08:09)
[2017-06-13] MEDS ORDERED: CRAN1TAB (13:41)
== END 2017-05-03 17:55 | disposition home or self-care (01) ==
LOC: EDBD 14:16 → C.EDC 14:17
DX: S22.42XA Multiple fractures of ribs, left side, initial encounter for closed fracture (principal); W01.0XXA Fall on same level from slipping, tripping and stumbling without subsequent striking against object, initial encounter; Y92.009 Unspecified place in unspecified non-institutional (private) residence as the place of occurrence of the external cause; I11.0 Hypertensive heart disease with heart failure; I50.9 Heart failure, unspecified; E11.9 Type 2 diabetes mellitus without complications; D50.9 Iron deficiency anemia, unspecified; R00.1 Bradycardia, unspecified; Z87.442 Personal history of urinary calculi; Z98.84 Bariatric surgery status; Z86.73 Personal history of transient ischemic attack (TIA), and cerebral infarction without residual deficits

== ENCOUNTER 2017-05-10 09:22 | Emergency (ER) | payer OTHER ==
[~2017-05-10] VITALS: Ht 149.9 cm; Wt 67.0 kg
[~2017-05-10 09:22] MED LIST changes: +ARGI1CAP2 PO; +B COCAP3 PO; +BIOTCAP2 PO; +CHOL100041 PO; +COEN1CAP17 PO; +DONE10TA12 PO; +MELA1TAB5 PO; +MISCTAB26 PO; -POTA-327 PO
[2017-05-10 09:25] VITALS: TEMP 37; O2SAT 97; Ht 149.9 cm; Wt 67.0 kg
--- NOTE | 2017-05-10 09:44 | EMERGENCY ROOM VISIT NOTE ---
History Report prepared by Christiane: Deidra Rivers Under the Supervision of: Dr. Santana Villa D.O. First contact with patient: 09:32 Chief Complaint: SYNCOPE (NEAR SYNCOPE) Stated Complaint: NEAR SYNCOPE History of Present Illness The patient is a 81 year old female who presents to the Emergency Room with complaints of an episode of near syncope that occurred prior to arrival. She reports she woke up later than normal this morning and after using the bathroom , as she went to get up off the toilet, she became very diaphoretic and experienced a near syncopal episode. She does feel better here in the ED currently, stating "I feel good now". The patient denies any headache, neck pain or abdominal. She also denies any recent illnesses or dehydration. She has not experienced any hematuria or dysuria. The patient lives alone at [facility] with her cat. She notes she fell recently and experienced "3 cracked ribs" which are still causing her pain. 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 A total of 10 systems reviewed and were otherwise negative. 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 Family History Kidney disease Social History Smoking Status: Never Smoker Alcohol Use: none Drug Use: none Marital Status: Housing Status: lives alone Occupation Status: retired Current/Historical Medications Scheduled Arginine (L-Arginine), 1 CAP PO DAILY B Complex W/ C (Vitamin B Complex-C), 1 CAP PO DAILY Biotin (Biotin 5000), 5 MG PO DAILY Cholecalciferol (D 1000), 1 CAP PO BID Coenzyme Q10 (Ubidecarenone) (Co Q 10), 200 MG PO DAILY Cranberry (Vaccinium Macrocarp (Cranberry Soft Chews), 1 TAB PO DAILY Donepezil Hydrochloride (Aricept), 10 MG PO BID Escitalopram Oxalate (Escitalopram Oxalate), 10 MG PO DAILY Levothyroxine Sodium (Levothyroxine Sodium), 75 MCG PO QAM Lutein (Lutein), 20 MG PO DAILY Melatonin (Kp Melatonin), 1 TAB PO HS Misc Natural Products (Ginkgo Biloba), 1 TAB PO DAILY Potassium Chloride (Potassium Chloride Cr), 10 MEQ PO QID Allergies Coded Allergies: Iron (Verified Allergy, Severe, chest pain, felt hot (tolerates Venofer), 05/10/17) Procaine (Verified Allergy, Severe, THROAT SWELLING WITH NOVOCAINE, ) Hydrocodone (Verified Allergy, Unknown, 05/10/17) Oxycodone (Verified Allergy, Unknown, 05/10/17) Codeine (Verified Adverse Reaction, Unknown, NAUSEA, 05/10/17) Physical Exam Vital Signs Date Time Temp Pulse Resp B/P (MAP) Pulse Ox O2 Delivery O2 Flow Rate FiO2 05/10/17 12:35 70 20 117/53 94 05/10/17 11:10 63 15 117/58 96 Room Air 05/10/17 09:34 65 05/10/17 09:25 37.0 60 16 118/56 97 Room Air 05/10/17 09:25 97 Room Air 05/10/17 09:25 60 118/56 71 92/48 Physical Exam GENERAL: Patient is awake, alert, in no acute distress patient is resting comfortably and showing no signs of anxiety EYES: The conjunctivae are clear. The pupils are round and reactive. EARS, NOSE, MOUTH AND THROAT: The nose is without any evidence of any deformity. Mucous membranes are dry, tongue is midline NECK: The neck is nontender and supple. RESPIRATORY: Normal respiratory effort is noted there is no evidence of wheezing rhonchi or rales CARDIOVASCULAR: Regular rate and rhythm noted there no murmurs rubs or gallops normal S1 normal S2 GASTROINTESTINAL: The abdomen is soft. Bowel sounds are present in all quadrants. Abdomen is nontender BACK: There was no midline tenderness noted, tenderness over the left lower rib cage. Range of motion in flexion, extension as well as rotation no signs of muscle spasm noted MUSCULOSKELETAL/EXTREMITIES: There is no evidence of gross deformity full range of motion is noted in the hips and shoulders SKIN: Pedal edema bilaterally. No calf tenderness. There is no obvious evidence of any rash. There are no petechiae, pallor or cyanosis noted. NEUROLOGIC: Patient is awake alert and oriented x3 strength is symmetric, no drift or facial droop noted. Medical Decision & Procedures ER Provider Diagnostic Interpretation: Radiology results as stated below per my review and radiologist interpretation: SINGLE VIEW CHEST CLINICAL HISTORY: Weakness. Change in mental status. FINDINGS: An AP, portable, upright chest radiograph is compared to study dated 08/17/2016 and correlated with chest CT dated 05/03/2017. The examination is degraded by portable technique and patient rotation. The heart is enlarged. The pulmonary vasculature is noncongested. Chronic interstitial thickening is similar to previous. No airspace consolidation or pleural effusion is identified. No pneumothorax is seen. The skeletal structures are osteopenic. Advanced arthritic change and deformity is present in the shoulders. Degenerative change is also seen throughout the thoracic spine. IMPRESSION: Cardiomegaly with no active disease in the chest. Electronically signed by: Luc Michaud M.D. 05/10/2017 10:04 AM HEAD WITHOUT CONTRAST (CT) CLINICAL HISTORY: 81 years-old Female presenting with EVALUATE ALTERED MENTAL STATUS/WEAKNESS. TECHNIQUE: Multidetector CT imaging of the head was performed without the use of intravenous contrast. IV contrast: None. A dose lowering technique was used consistent with the principles of ALARA (as low as reasonably achievable). COMPARISON: 04/20/2016. CT DOSE (mGy.cm): The estimated cumulative dose is 729.78 mGycm. 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 Mild asymmetric prominence of the left lateral ventricle within the range of normal. Proportional ventricular and sulcal prominence likely indicating age-related parenchymal volume loss. Brain parenchyma normal in appearance with preserved bansal-white differentiation. No mass effect or midline shift. No hemorrhage or acute territorial infarct. No extra-axial fluid collection. Paranasal sinuses and mastoid air cells clear. Calvarium intact. Calcification or surgical material noted at the lateral globes bilaterally. IMPRESSION: 1. No acute intracranial pathology. Electronically signed by: Blane Crane M.D. 05/10/2017 10:[address] SCAN OF THE ABDOMEN AND PELVIS WITHOUT IV CONTRAST CLINICAL HISTORY: Syncope. COMPARISON STUDY: Abdominal CT dated 05/03/2017. TECHNIQUE: CT scan of the abdomen and pelvis is performed from the lung bases to the proximal femora. Images are reviewed in the axial, sagittal, and coronal planes. IV contrast was not administered for this examination as per the referring clinician. Note that the examination was performed in significantly suboptimal fashion without oral and IV contrast. The examination is also degraded by streak artifact from the patient's arms which could not be elevated above the abdomen as well as motion artifact. Automated dose control exposure was utilized. A dose lowering technique was utilized adhering to the principles of ALARA. CT DOSE: 669.41 mGycm FINDINGS: Lung bases: The heart is normal in size and without pericardial effusion. There is diminished attenuation of the cardiac blood pool as compared to the myocardium suggesting anemia. Coronary artery calcifications are observed. There is a trace left pleural effusion. Scarring/atelectasis is present at both lung bases. Liver: Evaluation of the liver is degraded by streak artifact. The unenhanced liver is normal in size, contour, and attenuation. There is mild central intrahepatic biliary ductal dilatation. Gallbladder: Surgically absent noting clips in the gallbladder fossa. Spleen: Normal in size and attenuation. Pancreas: The unenhanced pancreas is grossly unremarkable. Adrenal glands: Unremarkable. Kidneys: The unenhanced kidneys are atrophic. 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 A calcification seen on image #186 is likely related to the gonadal vein. No ureteral calculus is clearly identified. A 7 mm nonobstructing calculus is present in the right lower pole. No left renal calculi are identified and there is no left-sided hydronephrosis. There is no evidence of contour deforming renal mass lesion. Abdominal vasculature: The abdominal aorta is normal in course and caliber noting advanced atherosclerotic calcification. Bowel: Postoperative changes suggest a history of Luciano-en-Y gastric bypass surgery. No bowel obstruction is seen. There is moderate colonic fecal retention. There is mild sigmoid diverticulosis without CT evidence of acute diverticulitis. The appendix is not visualized. Peritoneum: There is no intraperitoneal free air or abdominal ascites. Lymphadenopathy: None. Pelvic viscera: The bladder is normal as visualized. The uterus is surgically absent. No adnexal lesion is seen. Findings suggest pelvic floor prolapse. Skeletal structures: The skeletal structures are osteopenic. There is advanced lumbosacral spondylosis as well as mild scoliosis. There are postoperative changes from L4 to S1 spinal fusion. Grade 1 anterolisthesis is present at L4-L5. No lytic or blastic lesions are seen. IMPRESSION: 1. Suboptimal examination without oral and IV contrast. The examination is also degraded by streak and motion artifact. 2. No acute posttraumatic and around is identified. Note that assessment for subtle renal injury is suboptimal without IV contrast. 3. There is mild right-sided hydronephrosis. 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 4. A nonobstructing right renal calculus is observed. No left renal calculi are seen. 5. Trace left pleural effusion. 6. Moderate constipation. 7. Additional findings as above. Electronically signed by: Luc Michaud M.D. 05/10/2017 11:16 AM Laboratory Results 05/10/17 09:55 Red Blood Count 3.14, Mean Corpuscular Volume 90.4, Mean Corpuscular Hemoglobin 28.0, Mean Corpuscular Hemoglobin Concent 31.0, Mean Platelet Volume 9.5, Neutrophils (%) (Auto) 89.5, Lymphocytes (%) (Auto) 4.4, Monocytes (%) (Auto) 5.0, Eosinophils (%) (Auto) 0.3, Basophils (%) (Auto) 0.3, Neutrophils # (Auto) 10.24, Lymphocytes # (Auto) 0.50, Monocytes # (Auto) 0.57, Eosinophils # (Auto) 0.03, Basophils # (Auto) 0.03 05/10/17 09:55 Test 05/10/17 09:28 05/10/17 09:55 05/10/17 10:55 Bedside Glucose 170 mg/dl (70-90) White Blood Count 11.43 K/uL (4.8-10.8) Red Blood Count 3.14 M/uL (4.2-5.4) Hemoglobin 8.8 g/dL (12.0-16.0) Hematocrit 28.4 % (37-47) Mean Corpuscular Volume 90.4 fL (80-100) Mean Corpuscular Hemoglobin 28.0 pg (25-34) Mean Corpuscular Hemoglobin Concent 31.0 g/dl (32-36) Platelet Count 397 K/uL (130-400) Mean Platelet Volume 9.5 fL (7.4-10.4) Neutrophils (%) (Auto) 89.5 % Lymphocytes (%) (Auto) 4.4 % Monocytes (%) (Auto) 5.0 % Eosinophils (%) (Auto) 0.3 % Basophils (%) (Auto) 0.3 % Neutrophils # (Auto) 10.24 K/uL (1.4-6.5) Lymphocytes # (Auto) 0.50 K/uL (1.2-3.4) Monocytes # (Auto) 0.57 K/uL (0.11-0.59) Eosinophils # (Auto) 0.03 K/uL (0-0.5) Basophils # (Auto) 0.03 K/uL (0-0.2) RDW Standard Deviation 48.8 fL (36.4-46.3) RDW Coefficient of Variation 14.9 % (11.5-14.5) Immature Granulocyte % (Auto) 0.5 % Immature Granulocyte # (Auto) 0.06 K/uL (0.00-0.02) Polychromasia 1+ Hypochromasia PRESENT Prothrombin Time 11.2 SECONDS (9.0-12.0) Prothromb Time International Ratio 1.0 (0.9-1.1) Activated Partial Thromboplast Time 24.9 SECONDS (21.0-31.0) Partial Thromboplastin Ratio 1.0 Anion Gap 5.0 mmol/L (3-11) Est Creatinine Clear Calc Drug Dose 76.0 ml/min Estimated GFR () 106.7 Estimated GFR (Non- 92.1 BUN/Creatinine Ratio 72.3 (10-20) Calcium Level 9.0 mg/dl (8.5-10.1) Magnesium Level 2.0 mg/dl (1.8-2.4) Total Bilirubin 0.5 mg/dl (0.2-1) Direct Bilirubin 0.1 mg/dl (0-0.2) Aspartate Amino Transf (AST/SGOT) 13 U/L (15-37) Alanine Aminotransferase (ALT/SGPT) 19 U/L (12-78) Alkaline Phosphatase 102 U/L (45-117) Total Creatine Kinase 31 U/L (26-192) Creatine Kinase MB 0.5 ng/ml (0.5-3.6) Creatine Kinase MB Ratio 1.6 (0-3.0) Troponin I < 0.015 ng/ml (0-0.045) Total Protein 6.0 gm/dl (6.4-8.2) Albumin 2.5 gm/dl (3.4-5.0) Thyroid Stimulating Hormone (TSH) 3.070 uIu/ml (0.300-4.500) Urine Color YELLOW Urine Appearance CLEAR (CLEAR) Urine pH 5.5 (4.5-7.5) Urine Specific [place] 1.018 (1.000-1.030) Urine Protein NEG (NEG) Urine Glucose (UA) NEG (NEG) Urine Ketones NEG (NEG) Urine Occult Blood NEG (NEG) Urine Nitrite NEG (NEG) Urine Bilirubin NEG (NEG) Urine Urobilinogen NEG (NEG) Urine Leukocyte Esterase NEG (NEG) Laboratory results per my review. Medications Administered Medications (Trade) Dose Ordered Sig/Ricardo Route Start Time Stop Time Status Last Admin Dose Admin Sodium Chloride 1,000 ml @ 999 mls/hr Q1H1M STAT IV 05/10/17 09:45 05/10/17 10:45 DC 05/10/17 09:53 999 MLS/HR ECG Indication: syncope Rate (beats per minute): 64 Rhythm: normal sinus (normal sinus rhythm) Findings: no ectopy, other (No acute ST segment abnormalities) Change: no significant change (No change from May 03, 2017) ED Course 0936: The patient was evaluated in room A10. A complete history and physical examination were performed. 0945: NSS 1000 ml @ 999 mls/hr IV. 1141: I reevaluated the patient. She is feeling much better. I discussed her results and discharge instructions and she verbalized complete understanding and agreement. Medical Decision Prior records/ancillary studies reviewed. Triage Nursing notes reviewed. The patient's history was concerning for syncope. Differential diagnosis: Etiologies such as vasovagal event, infection, hypoglycemia, electrolyte abnormalities, cardiac sources, intracerebral event, toxicologic, neurologic, as well as others were entertained. The patient is a 81-year-old female who presented to the emergency department after a syncopal episode. The patient had no complaints but she was recently seen for a fall and had rib fractures. She has no abdominal pain but I was concerned there could be some delayed injury to her intra-abdominal compartment so a CT was obtained. No free fluid was noted. The patient was treated with IV fluids in the emergency department. I discussed the patient's laboratory and radiographic studies with her. She does have a history of anemia and her hemoglobin is slightly decreased from previous. She has a follow-up appointment scheduled with her family doctor already. She is encouraged to keep this appointment and discuss the possibility of having repeat laboratory studies done to compare to today's findings. She was also encouraged to return to the emergency Department immediately if symptoms change worsen or the need arises. Medication Reconcilliation Current Medication List: was personally reviewed by me Blood Pressure Screening Patient's blood pressure: Low blood pressure Blood pressure disposition: Elevated BP felt to be situational Impression Primary Impression: Syncope Additional Impression: Anemia Scribe Attestation The scribe's documentation has been prepared under my direction and personally reviewed by me in its entirety. I confirm that the note above accurately reflects all work, treatment, procedures, and medical decision making performed by me. Departure Information Dispostion Home / Self-Care Referrals No Doctor, Assigned (PCP) Patient Instructions ED Anemia Type Not Specified, My [facility], Syncope Additional Instructions Follow-up with your family tomorrow as scheduled. I would recommend a repeat of your orthostatic vital signs as well as a recheck of your hemoglobin this week. Rest and avoid any strenuous activity. Drink plenty clear liquids. Return to the emergency department immediately if symptoms change worsen or the need arises. Problem Qualifiers Primary Impression: Syncope Syncope type: unspecified Qualified Codes: R55 - Syncope and collapse Additional Impression: Anemia Anemia type: unspecified type Qualified Codes: D64.9 - Anemia, unspecified
[2017-05-10] MEDS ORDERED: SODIUM CHLORIDE 0.9% 1000ML 1,000 ML IV STA (09:45)
[2017-05-10 10:05] LABS: BASO % 0.3 %; BASO ABS # 0.03 K/uL (0-0.2); EOS % 0.3 %; HEMATOCRIT 28.4 % (37-47); IG% 0.5 %; LYMPH % 4.4 %; MEAN CELL VOLUME 90.4 fL (80-100); MEAN PLATELET VOLUME 9.5 fL (7.4-10.4); NEUT % 89.5 %; PLATELET COUNT 397 K/uL (130-400); RED BLOOD COUNT 3.14 M/uL (4.2-5.4); WHITE BLOOD COUNT 11.43 K/uL (4.8-10.8)
--- NOTE | 2017-05-10 10:05 | DIAGNOSTIC IMAGING REPORT ---
SINGLE VIEW CHEST CLINICAL HISTORY: Weakness. Change in mental status. FINDINGS: An AP, portable, upright chest radiograph is compared to study dated 08/17/2016 and correlated with chest CT dated 05/03/2017. The examination is degraded by portable technique and patient rotation. The heart is enlarged. The pulmonary vasculature is noncongested. Chronic interstitial thickening is similar to previous. No airspace consolidation or pleural effusion is identified. No pneumothorax is seen. The skeletal structures are osteopenic. Advanced arthritic change and deformity is present in the shoulders. Degenerative change is also seen throughout the thoracic spine. IMPRESSION: Cardiomegaly with no active disease in the chest. Electronically signed by: Luc Michaud M.D. 05/10/2017 10:04 AM Dictated Date/Time: 05/10/2017 10:03 AM
[2017-05-10 10:14] LABS: PROTHROMBIN TIME (PATIENT) 11.2 SECONDS (9.0-12.0)
[2017-05-10 10:26] LABS: ALT/SGPT 19 U/L (12-78); AST/SGOT 13 U/L (15-37); BLOOD UREA NITROGEN 36 mg/dl (7-18); BUN/CREATININE RATIO 72.3 (10-20); CARBON DIOXIDE 28 mmol/L (21-32); CHLORIDE 106 mmol/L (98-107); GLUCOSE 150 mg/dl (70-99); POTASSIUM 4.7 mmol/L (3.5-5.1); SODIUM 139 mmol/L (136-145)
[2017-05-10 10:30] LABS: COMPLETE YES; HYPOCHROMIA PRESENT; POLYCHROMASIA 1+
[2017-05-10 10:37] LABS: ALKALINE PHOSPHATASE 102 U/L (45-117); CKMB/CK RATIO 1.6 (0-3.0)
--- NOTE | 2017-05-10 10:45 | DIAGNOSTIC IMAGING REPORT ---
HEAD WITHOUT CONTRAST (CT) CLINICAL HISTORY: 81 years-old Female presenting with EVALUATE ALTERED MENTAL STATUS/WEAKNESS. TECHNIQUE: Multidetector CT imaging of the head was performed without the use of intravenous contrast. IV contrast: None. A dose lowering technique was used consistent with the principles of ALARA (as low as reasonably achievable). COMPARISON: 04/20/2016. CT DOSE (mGy.cm): The estimated cumulative dose is 729.78 mGycm. 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 Mild asymmetric prominence of the left lateral ventricle within the range of normal. Proportional ventricular and sulcal prominence likely indicating age-related parenchymal volume loss. Brain parenchyma normal in appearance with preserved bansal-white differentiation. No mass effect or midline shift. No hemorrhage or acute territorial infarct. No extra-axial fluid collection. Paranasal sinuses and mastoid air cells clear. Calvarium intact. Calcification or surgical material noted at the lateral globes bilaterally. IMPRESSION: 1. No acute intracranial pathology. Electronically signed by: Blane Crane M.D. 05/10/2017 10:44 AM Dictated Date/Time: 05/10/2017 10:41 AM
[2017-05-10 11:11] LABS: URINE APPEARANCE CLEAR (CLEAR); URINE BILIRUBIN NEG (NEG); URINE COLOR YELLOW; URINE NITRITE NEG (NEG); URINE PH 5.5 (4.5-7.5); URINE SPECIFIC GRAVITY 1.018 (1.000-1.030); UROBILINOGEN NEG (NEG)
--- NOTE | 2017-05-10 11:18 | DIAGNOSTIC IMAGING REPORT ---
CT SCAN OF THE ABDOMEN AND PELVIS WITHOUT IV CONTRAST CLINICAL HISTORY: Syncope. COMPARISON STUDY: Abdominal CT dated 05/03/2017. TECHNIQUE: CT scan of the abdomen and pelvis is performed from the lung bases to the proximal femora. Images are reviewed in the axial, sagittal, and coronal planes. IV contrast was not administered for this examination as per the referring clinician. Note that the examination was performed in significantly suboptimal fashion without oral and IV contrast. The examination is also degraded by streak artifact from the patient's arms which could not be elevated above the abdomen as well as motion artifact. Automated dose control exposure was utilized. A dose lowering technique was utilized adhering to the principles of ALARA. CT DOSE: 669.41 mGycm FINDINGS: Lung bases: The heart is normal in size and without pericardial effusion. There is diminished attenuation of the cardiac blood pool as compared to the myocardium suggesting anemia. Coronary artery calcifications are observed. There is a trace left pleural effusion. Scarring/atelectasis is present at both lung bases. Liver: Evaluation of the liver is degraded by streak artifact. The unenhanced liver is normal in size, contour, and attenuation. There is mild central intrahepatic biliary ductal dilatation. Gallbladder: Surgically absent noting clips in the gallbladder fossa. Spleen: Normal in size and attenuation. Pancreas: The unenhanced pancreas is grossly unremarkable. Adrenal glands: Unremarkable. Kidneys: The unenhanced kidneys are atrophic. 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 A calcification seen on image #186 is likely related to the gonadal vein. No ureteral calculus is clearly identified. A 7 mm nonobstructing calculus is present in the right lower pole. No left renal calculi are identified and there is no left-sided hydronephrosis. There is no evidence of contour deforming renal mass lesion. Abdominal vasculature: The abdominal aorta is normal in course and caliber noting advanced atherosclerotic calcification. Bowel: Postoperative changes suggest a history of Ulciano-en-Y gastric bypass surgery. No bowel obstruction is seen. There is moderate colonic fecal retention. There is mild sigmoid diverticulosis without CT evidence of acute diverticulitis. The appendix is not visualized. Peritoneum: There is no intraperitoneal free air or abdominal ascites. Lymphadenopathy: None. Pelvic viscera: The bladder is normal as visualized. The uterus is surgically absent. No adnexal lesion is seen. Findings suggest pelvic floor prolapse. Skeletal structures: The skeletal structures are osteopenic. There is advanced lumbosacral spondylosis as well as mild scoliosis. There are postoperative changes from L4 to S1 spinal fusion. Grade 1 anterolisthesis is present at L4-L5. No lytic or blastic lesions are seen. IMPRESSION: 1. Suboptimal examination without oral and IV contrast. The examination is also degraded by streak and motion artifact. 2. No acute posttraumatic and around is identified. Note that assessment for subtle renal injury is suboptimal without IV contrast. 3. There is mild right-sided hydronephrosis. 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 4. A nonobstructing right renal calculus is observed. No left renal calculi are seen. 5. Trace left pleural effusion. 6. Moderate constipation. 7. Additional findings as above. Electronically signed by: Luc Michaud M.D. 05/10/2017 11:16 AM Dictated Date/Time: 05/10/2017 10:47 AM
[2017-05-10 11:19] LABS: MANUAL MICROSCOPIC REQUIRED? NO; REVIEW REQ? NO
[2017-05-10 12:35] VITALS: BP 117/53; PULSE 70; O2SAT 94
[2017-05-10] MEDS ORDERED: LXP10 PO (15:07)
[2017-05-10] MEDS ORDERED: POTA10TA30 PO (15:07)
[2017-05-10] MEDS ORDERED: CRAN1CHW PO (15:37)
[2017-05-10] MEDS ORDERED: LUTE20CA PO (15:59)
[2017-05-10] MEDS ORDERED: LEVO75TA5 PO (22:12)
[2017-06-13] MEDS ORDERED: CRAN1TAB (13:41)
== END 2017-05-10 12:35 | disposition home or self-care (01) ==
LOC: EDBD 09:22 → C.EDA 09:23
DX: R55 Syncope and collapse (principal); D64.9 Anemia, unspecified; Z87.442 Personal history of urinary calculi; E11.9 Type 2 diabetes mellitus without complications; Z86.73 Personal history of transient ischemic attack (TIA), and cerebral infarction without residual deficits; I11.0 Hypertensive heart disease with heart failure; Z84.1 Family history of disorders of kidney and ureter; Z79.899 Other long term (current) drug therapy

== ENCOUNTER → 2017-05-24 | Outpatient (CLI) | payer OTHER ==
[~2017-05-24] MED LIST changes: +CRAN1CHW PO; +CRAN1TAB; -DEXL60CA4 PO; -FLV400 PO; +LEVO75TA5 PO; +LUTE20CA PO; +LXP10 PO; +POTA10TA30 PO; -TRAM-10 PO
--- NOTE | 2017-05-24 14:39 | DIAGNOSTIC IMAGING REPORT ---
LEFT WRIST MIN 3 VIEWS ROUTINE, RIGHT WRIST MIN 3 VIEWS ROUTINE CLINICAL HISTORY: M25.539 Pain and swelling of wrist COMPARISON STUDY: None. FINDINGS: The bones are osteopenic. No acute fracture or dislocation within the right or left wrist. Bilateral soft tissue swelling, left greater than right. Left-sided scapholunate dissociation. Severe degenerative changes at the first carpometacarpal joints. Focal erosions seen within the bilateral distal radii, ulnar, and scaphoid bones. IMPRESSION: 1. No acute fracture dislocation within the right or left wrist. 2. Bilateral soft tissue swelling, left greater than right. 3. Nearly symmetric erosions within the bilateral wrists as described above. This raises the possibility of superimposed inflammatory arthropathy such as rheumatoid arthritis. 4. Left-sided scapholunate dissociation. Electronically signed by: Slava Bishop M.D. 05/24/2017 2:37 PM Dictated Date/Time: 05/24/2017 2:33 PM
== END | disposition home or self-care (01) ==
LOC: C.RAD1850 14:16
PROVIDERS: ATTEND Internal Medicine
DX: M25.539 Pain in unspecified wrist (principal); M79.9 Soft tissue disorder, unspecified; M15.4 Erosive (osteo)arthritis; M24.232 Disorder of ligament, left wrist

== ENCOUNTER → 2017-06-07 | Outpatient (CLI) | payer OTHER ==
--- NOTE | 2017-06-07 11:37 | DIAGNOSTIC IMAGING REPORT ---
LEFT SHOULDER MIN 2 VIEWS ROUTINE CLINICAL HISTORY: 81 years-old Female presenting with L SHOULDER PAIN. TECHNIQUE: Internal rotation, external rotation, and Grashey views of the left shoulder were obtained. COMPARISON: Chest x-ray from 05/10/2017. FINDINGS: Degenerative changes of the glenohumeral joint including complete joint space loss, subchondral sclerosis and cystic change, and osteophytosis. Resulting deformity of the humeral head. Near complete effacement of the acromiohumeral interval, likely indicating complete rotator cuff tear. Acromioclavicular joint grossly intact. Osteopenia suspected. No acute fracture or malalignment. Visualized portion of the left hemithorax normal. IMPRESSION: Advanced degenerative change of the glenohumeral joint with suspected complete rotator cuff tear. No acute osseous injury. Electronically signed by: Blane Crane M.D. 06/07/2017 11:35 AM Dictated Date/Time: 06/07/2017 11:33 AM
--- NOTE | 2017-06-07 11:39 | DIAGNOSTIC IMAGING REPORT ---
LEFT RIBS UNILATERAL WITH PA CHEST CLINICAL HISTORY: CLOSED FX OF 3 RIBS, L SIDE, SEQUELA trauma COMPARISON STUDY: CT chest 88 2016 FINDINGS: Nondisplaced cortical fractures left eighth and ninth ribs. Postoperative changes low lumbar spine. Severe degenerative change left shoulder. Lungs are considered clear. IMPRESSION: Nondisplaced cortical fracture left eighth and ninth ribs. No evidence pneumothorax. The above report was generated using voice recognition software. It may contain grammatical, syntax or spelling errors. Electronically signed by: Lemuel Gunn M.D. 06/07/2017 11:38 AM Dictated Date/Time: 06/07/2017 11:35 AM
== END | disposition home or self-care (01) ==
LOC: C.RADBC 10:42
PROVIDERS: ATTEND Nurse Practitioner Family
DX: M25.512 Pain in left shoulder (principal); S22.42XD Multiple fractures of ribs, left side, subsequent encounter for fracture with routine healing; X58.XXXD Exposure to other specified factors, subsequent encounter; R41.0 Disorientation, unspecified

== ENCOUNTER → 2017-06-07 | Outpatient (CLI) | payer OTHER ==
[2017-06-07 12:21] LABS: URINE APPEARANCE CLOUDY (CLEAR); URINE BILIRUBIN NEG (NEG); URINE COLOR DK YELLOW; URINE EPITHELIAL CELL AUTO >30 /lpf (0-5); URINE NITRITE NEG (NEG); URINE SPECIFIC GRAVITY 1.022 (1.000-1.030); UROBILINOGEN NEG (NEG)
[2017-06-07 12:27] LABS: MANUAL MICROSCOPIC REQUIRED? NO; REVIEW REQ? YES
== END | disposition home or self-care (01) ==
LOC: C.LABSPEC 11:29
PROVIDERS: ATTEND Nurse Practitioner Family
DX: R41.0 Disorientation, unspecified (principal)

== ENCOUNTER → 2017-07-05 | Outpatient (CLI) | payer OTHER ==
[~2017-07-05] MED LIST changes: -CRAN1CHW PO
[2017-07-05 18:17] LABS: URINE APPEARANCE CLOUDY (CLEAR); URINE BILIRUBIN NEG (NEG); URINE COLOR DK YELLOW; URINE EPITHELIAL CELL AUTO >30 /lpf (0-5); URINE NITRITE NEG (NEG); URINE PH 5.5 (4.5-7.5); URINE SPECIFIC GRAVITY 1.021 (1.000-1.030); UROBILINOGEN NEG (NEG)
[2017-07-05 18:28] LABS: MANUAL MICROSCOPIC REQUIRED? NO; REVIEW REQ? YES
[2017-07-05 18:39] LABS: RATIO 14.9 mcg/mg (0-30.0)
== END | disposition home or self-care (01) ==
LOC: C.LABSPEC 17:42
PROVIDERS: ATTEND Nurse Practitioner Family
DX: R41.0 Disorientation, unspecified (principal); K21.9 Gastro-esophageal reflux disease without esophagitis; E11.9 Type 2 diabetes mellitus without complications; E03.9 Hypothyroidism, unspecified; E06.3 Autoimmune thyroiditis

== ENCOUNTER → 2017-07-08 | Outpatient (CLI) | payer OTHER ==
--- NOTE | 2017-07-08 13:38 | DIAGNOSTIC IMAGING REPORT ---
CT OF THE HEAD WITHOUT CONTRAST CLINICAL HISTORY: Headache. Confusion. COMPARISON STUDY: Head CT May 10, 2017. CT DOSE: 614.27 mGy.cm TECHNIQUE: Helical axial images of the head were obtained without IV contrast. Automated exposure control was utilized for the study. A dose lowering technique was utilized adhering to the principles of ALARA. FINDINGS: No acute intracranial hemorrhage, midline shift or mass effect is present. Ventricular system is stable. Basilar cisterns are patent. There are no extra-axial collections. Calle-white differentiation is maintained. There are no findings to suggest acute dural sinus thrombosis or acute territorial infarct. There are no significant calvarial abnormalities. Visualized portions of the sinuses and mastoid air cells are clear. IMPRESSION: No acute intracranial findings. Electronically signed by: Joe Galvin M.D. 07/08/2017 1:37 PM Dictated Date/Time: 07/08/2017 1:35 PM
== END | disposition home or self-care (01) ==
LOC: C.CTS 13:20
PROVIDERS: ATTEND Nurse Practitioner Family
DX: R41.0 Disorientation, unspecified (principal); R51 Headache

== ENCOUNTER → 2017-08-05 | Outpatient (CLI) | payer OTHER ==
[2017-08-05 15:05] LABS: BASO % 0.3 %; BASO ABS # 0.03 K/uL (0-0.2); COMPLETE YES; EOS % 0.2 %; HEMATOCRIT 30.7 % (37-47); IG% 0.2 %; LYMPH % 7.1 %; LYMPH ABS # 0.67 K/uL (1.2-3.4); MEAN CELL VOLUME 80.8 fL (80-100); MEAN CORPUSCULAR HEMOGLOBIN 23.9 pg (25-34); MEAN CORPUSCULAR HGB CONC 29.6 g/dl (32-36); MEAN PLATELET VOLUME 9.4 fL (7.4-10.4); MONO % 6.2 %; PLATELET COUNT 491 K/uL (130-400); WHITE BLOOD COUNT 9.39 K/uL (4.8-10.8)
[2017-08-05 15:19] LABS: ALT/SGPT 15 U/L (12-78); AST/SGOT 12 U/L (15-37); BLOOD UREA NITROGEN 14 mg/dl (7-18); BUN/CREATININE RATIO 26.3 (10-20); CALCIUM 9.3 mg/dl (8.5-10.1); CARBON DIOXIDE 28 mmol/L (21-32); CHLORIDE 103 mmol/L (98-107); CREATININE 0.52 mg/dl (0.60-1.20); GLUCOSE 106 mg/dl (70-99); POTASSIUM 4.4 mmol/L (3.5-5.1); SODIUM 136 mmol/L (136-145)
[2017-08-05 15:28] LABS: ALB/GLOB RATIO 0.6 (0.9-2); ALKALINE PHOSPHATASE 117 U/L (45-117); CHOLESTEROL 146 mg/dl (0-200); CHOLESTEROL/HDL RATIO 1.6; HDL CHOLESTEROL 92 mg/dl; LDL CHOLESTEROL CALCULATED 44 mg/dl; TRIGLYCERIDES 49 mg/dl (0-150); VERY LOW DENSITY LIPOPROT CALC 10 mg/dl
[2017-08-06 07:12] LABS: ESTIMATED AVERAGE GLUCOSE 103 mg/dl; HA1C FLAG Normal (Normal)
== END | disposition home or self-care (01) ==
LOC: C.LAB1850 13:17
PROVIDERS: ATTEND Internal Medicine Cardiovascular Disease
DX: K21.9 Gastro-esophageal reflux disease without esophagitis (principal); E11.9 Type 2 diabetes mellitus without complications; E03.9 Hypothyroidism, unspecified; E06.3 Autoimmune thyroiditis; R41.0 Disorientation, unspecified; I65.29 Occlusion and stenosis of unspecified carotid artery; D50.9 Iron deficiency anemia, unspecified; R41.89 Other symptoms and signs involving cognitive functions and awareness

== ENCOUNTER 2017-08-20 05:08 | Emergency (ER) | payer OTHER ==
[~2017-08-20] VITALS: Ht 149.9 cm; Wt 61.0 kg
[2017-08-20] MEDS ORDERED: MoRPHine SULFATE 4 MG/ML 1 ML CARP\\VIAL IV STA (05:48)
[2017-08-20] MEDS ORDERED: ONDANSETRON INJ 2 MG/ML 2 ML VIAL IV STA ×2 (05:56→07:53)
[2017-08-20] MEDS ORDERED: ONDANSETRON INJ 2 MG/ML 2 ML VIAL ONE (05:58)
[2017-08-20 06:02] LABS: BASO % 0.4 %; BASO ABS # 0.03 K/uL (0-0.2); COMPLETE YES; EOS % 0.6 %; IG% 0.4 %; LYMPH % 8.4 %; LYMPH ABS # 0.68 K/uL (1.2-3.4); MEAN CELL VOLUME 79.4 fL (80-100); MEAN CORPUSCULAR HEMOGLOBIN 23.6 pg (25-34); MEAN CORPUSCULAR HGB CONC 29.7 g/dl (32-36); MEAN PLATELET VOLUME 9.4 fL (7.4-10.4); NEUT % 84.2 %; PLATELET COUNT 521 K/uL (130-400); RED BLOOD COUNT 4.03 M/uL (4.2-5.4)
[2017-08-20 06:09] LABS: BUN/CREATININE RATIO 25.7 (10-20); CREATININE 0.65 mg/dl (0.60-1.20)
[2017-08-20 06:12] LABS: ALB/GLOB RATIO 0.6 (0.9-2)
[2017-08-20] MEDS ORDERED: OPTIRAY 320 IV PRN (07:00)
--- NOTE | 2017-08-20 07:21 | EMERGENCY ROOM VISIT NOTE ---
History Report prepared by Christiane: Keira Silverio Under the Supervision of: Dr. Maryjane Monk D.O. First contact with patient: 06:12 Chief Complaint: ABDOMINAL PAIN Stated Complaint: RT. HIP PAIN Nursing Triage Summary: Pt c/o RLQ pain that radiates into her back. History of Present Illness The patient is an 82 year old female who presents to the Emergency Room with complaints of persistent left sided abdominal pain starting [employer]. The patient states that she was trying to get out of bed to go to the bathroom. She got twisted up and fell to the ground. She was unable to make it to the bathroom and pressed the call duenas. She did not hit her head. The patient goes around to her back to the spine. She states that she had this pain before when she got tasered. She states that she was tasered again today. The patient is a difficult historian. Source of History: patient Onset: [employer] Position: abdomen (left sided) Quality: other (pain) Timing: other (persistent) Associated Symptoms: + back pain Review of Systems See HPI for pertinent positives & negatives. A total of 10 systems reviewed and were otherwise negative. Past Medical & Surgical Medical Problems: (1) BARIATRIC SURGERY STATUS (2) BENIGN HYPERTENSION (3) CALCULUS OF KIDNEY (4) Chronic diastolic (congestive) heart failure (5) Diabetes (6) GASTROINTEST HEMORR NOS (7) IRON DEFIC ANEMIA NOS (8) Renal colic (9) TRANS CEREB ISCHEMIA NEC Family History Kidney disease Social History Smoking Status: Never Smoker Alcohol Use: none Drug Use: none Marital Status: Housing Status: lives alone Occupation Status: retired Current/Historical Medications Scheduled Donepezil Hydrochloride (Aricept), 10 MG PO BID Escitalopram Oxalate (Escitalopram Oxalate), 10 MG PO HS Potassium Chloride (Potassium Chloride Cr), 10 MEQ PO QID Allergies Coded Allergies: Iron (Verified Allergy, Severe, chest pain, felt hot (tolerates Venofer), 08/20/17) Procaine (Verified Allergy, Severe, THROAT SWELLING WITH NOVOCAINE, ) Hydrocodone (Verified Allergy, Unknown, nausea, 08/20/17) Oxycodone (Verified Allergy, Unknown, nausea, 08/20/17) Codeine (Verified Adverse Reaction, Unknown, NAUSEA, 08/20/17) Physical Exam Vital Signs Date Time Temp Pulse Resp B/P (MAP) Pulse Ox O2 Delivery O2 Flow Rate FiO2 08/20/17 08:03 72 18 132/53 98 Room Air 08/20/17 05:11 36.8 64 18 150/62 100 Room Air Physical Exam GENERAL: alert, well appearing, well nourished, no distress, non-toxic EYE EXAM: normal conjunctiva, PERRL and EOM's grossly intact OROPHARYNX: no exudate, no erythema, lips, buccal mucosa, and tongue normal and mucous membranes are moist NECK: supple, no nuchal rigidity, no adenopathy, non-tender LUNGS: Clear to auscultation. Normal chest wall mechanics HEART: no murmurs, S1 normal and S2 normal ABDOMEN: abdomen soft, non-tender, normo-active bowel sounds, no masses, no rebound or guarding. BACK: Back is symmetrical on inspection and there is no deformity, no midline tenderness, no CVA tenderness. SKIN: no rashes and no bruising UPPER EXTREMITIES: upper extremities are grossly normal. LOWER EXTREMITIES: No pitting edema. NEURO EXAM: Normal sensorium, cranial nerves II-XII grossly intact, normal speech, moving all extremities. Patient would not cooperate for additional strength or neuro testing. Medical Decision & Procedures ER Provider Diagnostic Interpretation: Radiology results have been interpreted by the radiologist and reviewed by me. CT OF THE ABDOMEN AND PELVIS WITH CONTRAST CLINICAL HISTORY: Left lower quadrant abdominal pain. Right hip pain. COMPARISON STUDY: CT of the abdomen and pelvis May 10, 2017. TECHNIQUE: Following IV administration of 93 mL of Optiray-320, axial images of the abdomen and pelvis were obtained from the lung bases to the proximal femurs. Images were reviewed in the axial, sagittal, and coronal planes. IV contrast was administered without complication. A dose lowering technique was utilized adhering to the principles of ALARA. CT DOSE: 333.64 mGy.cm FINDINGS: A 1.1 cm left lower lobe pulmonary nodule shown on image 51 of 356 is unchanged since prior exam but increased in size from earlier studies. There are findings consistent with gastric bypass. Mild biliary ductal dilatation is unchanged. Dilatation of the main pancreatic duct has slightly increased. There are postoperative findings within the spine. There is no evidence for a bowel obstruction. There is no left hydronephrosis. Note is made of severe right hydroureteronephrosis due to a 7 mm distal right ureteral calculus. A few right renal calculi measure up to 6 mm. The right nephrogram is delayed. There are no left ureteral calculi. There is moderate plaque within the abdominal aorta. There is no lymphadenopathy. There are no suspicious osseous lesions. There is a moderate amount of stool within the colon. Note is made of sigmoid diverticulosis without evidence for acute diverticulitis. IMPRESSION: 1. 7 mm distal right ureteral calculus which results in severe right hydroureteronephrosis. Delayed right nephrogram. 2. Right-sided nephrolithiasis. 3. 1.1 cm left lower lobe pulmonary nodule which is unchanged since prior CT but increased in size from earlier studies. This nodule is indeterminate. Electronically signed by: Joe Galvin M.D. 08/20/2017 7:43 AM Dictated Date/Time: 08/20/2017 7:33 AM Laboratory Results 08/20/17 05:20 Red Blood Count 4.03, Mean Corpuscular Volume 79.4, Mean Corpuscular Hemoglobin 23.6, Mean Corpuscular Hemoglobin Concent 29.7, Mean Platelet Volume 9.4, Neutrophils (%) (Auto) 84.2, Lymphocytes (%) (Auto) 8.4, Monocytes (%) (Auto) 6.0, Eosinophils (%) (Auto) 0.6, Basophils (%) (Auto) 0.4, Neutrophils # (Auto) 6.82, Lymphocytes # (Auto) 0.68, Monocytes # (Auto) 0.49, Eosinophils # (Auto) 0.05, Basophils # (Auto) 0.03 08/20/17 05:20 Test 08/20/17 05:20 08/20/17 06:48 White Blood Count 8.10 K/uL (4.8-10.8) Red Blood Count 4.03 M/uL (4.2-5.4) Hemoglobin 9.5 g/dL (12.0-16.0) Hematocrit 32.0 % (37-47) Mean Corpuscular Volume 79.4 fL (80-100) Mean Corpuscular Hemoglobin 23.6 pg (25-34) Mean Corpuscular Hemoglobin Concent 29.7 g/dl (32-36) Platelet Count 521 K/uL (130-400) Mean Platelet Volume 9.4 fL (7.4-10.4) Neutrophils (%) (Auto) 84.2 % Lymphocytes (%) (Auto) 8.4 % Monocytes (%) (Auto) 6.0 % Eosinophils (%) (Auto) 0.6 % Basophils (%) (Auto) 0.4 % Neutrophils # (Auto) 6.82 K/uL (1.4-6.5) Lymphocytes # (Auto) 0.68 K/uL (1.2-3.4) Monocytes # (Auto) 0.49 K/uL (0.11-0.59) Eosinophils # (Auto) 0.05 K/uL (0-0.5) Basophils # (Auto) 0.03 K/uL (0-0.2) RDW Standard Deviation 49.2 fL (36.4-46.3) RDW Coefficient of Variation 17.1 % (11.5-14.5) Immature Granulocyte % (Auto) 0.4 % Immature Granulocyte # (Auto) 0.03 K/uL (0.00-0.02) Anion Gap 6.0 mmol/L (3-11) Est Creatinine Clear Calc Drug Dose 54.9 ml/min Estimated GFR () 97.2 Estimated GFR (Non- 83.9 BUN/Creatinine Ratio 25.7 (10-20) Calcium Level 10.0 mg/dl (8.5-10.1) Total Bilirubin 0.5 mg/dl (0.2-1) Aspartate Amino Transf (AST/SGOT) 12 U/L (15-37) Alanine Aminotransferase (ALT/SGPT) 13 U/L (12-78) Alkaline Phosphatase 116 U/L (45-117) Total Protein 7.0 gm/dl (6.4-8.2) Albumin 2.6 gm/dl (3.4-5.0) Globulin 4.4 gm/dl (2.5-4.0) Albumin/Globulin Ratio 0.6 (0.9-2) Lipase 191 U/L (73-393) Lactic Acid Level 1.9 mmol/L (0.4-2.0) Laboratory results per my review. Medications Administered Medications (Trade) Dose Ordered Sig/Ricardo Route Start Time Stop Time Status Last Admin Dose Admin Morphine Sulfate (MoRPHine SULFATE INJ) 4 mg NOW STAT IV 08/20/17 05:48 08/20/17 05:54 DC 08/20/17 06:00 4 MG Ondansetron HCl (Zofran Inj) 4 mg NOW STAT IV 08/20/17 05:56 08/20/17 05:58 DC 08/20/17 05:59 4 MG Ondansetron HCl (Zofran Inj) 4 mg NOW STAT IV 08/20/17 07:53 08/20/17 07:55 DC 08/20/17 09:20 4 MG Hydromorphone HCl (Dilaudid Inj) 0.5 mg NOW STAT IV 08/20/17 07:53 08/20/17 07:55 DC 08/20/17 09:21 0.5 MG Sodium Chloride 1,000 ml @ 250 mls/hr Q4H STAT IV 08/20/17 07:53 08/20/17 10:39 DC 08/20/17 09:19 250 MLS/HR ED Course 0548: Morphine Sulfate 4 mg IV. 0556: Zofran Inj 4 mg IV. 0614: The patient was evaluated in room B7. A complete history and physical exam was performed. 0749: Upon reevaluation, the patient is still having pain. I discussed the findings and the treatment plan with the patient. She expresses agreement and understanding. She will be evaluated for further management. 0753: NSS 1000 ml @ 250 mls/hr IV, Dilaudid Inj 0.5 mg IV, Zofran Inj 4 mg IV. 0801: I reviewed the patient's case with Dr. Hector, [facility] hospitalist. He will evaluate the patient for further management. Medical Decision Differential diagnoses includes but is not limited to gastritis, peptic ulcer disease, GERD, gallbladder disease, pancreatitis, small bowel obstruction, acute coronary syndrome, pericarditis, ischemic bowel, irritable bowel disease, irritable bowel syndrome, appendicitis, diverticulitis, malignancy, hernia, urinary tract infection, torsion, perforation, trauma, infectious. Patient found to have large obstructing renal stone on CT. Patient oriented, however very genetic and anxious regarding her level of pain. Patient admitted to medicine due to comorbidities and need for additional medical management. Patient states she did previously see urology for stone but doesn't remember who it was. At time of admission to hospitalist, UA still pending. I asked nursing staff to straight cath the pt for urine. No significant leukocytosis or fever noted here. I do not suspect bacteremia or sepsis, doubt pyelonephritis. Vital signs stable. Patient not responding well to morphine, changed to Dilaudid with improved pain control here. No vomiting while here. Medication Reconcilliation Current Medication List: was personally reviewed by me Blood Pressure Screening Patient's blood pressure: Elevated blood pressure Blood pressure disposition: Elevated BP felt to be situational Consults Time Called: 0759 Consulting Physician: Dr. Hector, [facility] hospitalist Returned Call: 0801 I reviewed the patient's case with him. He will evaluate the patient for further management. Impression Primary Impression: Ureterolithiasis Additional Impressions: Abdominal pain Nausea Dehydration Anemia Scribe Attestation The scribe's documentation has been prepared under my direction and personally reviewed by me in its entirety. I confirm that the note above accurately reflects all work, treatment, procedures, and medical decision making performed by me. Departure Information Dispostion Being Evaluated By Hospitalist Referrals Joselito Peralta III, CRNP (PCP) Patient Instructions My [facility] Problem Qualifiers Additional Impressions: Abdominal pain Abdominal location: right lower quadrant Qualified Codes: R10.31 - Right lower quadrant pain Anemia Anemia type: unspecified type Qualified Codes: D64.9 - Anemia, unspecified
--- NOTE | 2017-08-20 07:44 | DIAGNOSTIC IMAGING REPORT ---
CT OF THE ABDOMEN AND PELVIS WITH CONTRAST CLINICAL HISTORY: Left lower quadrant abdominal pain. Right hip pain. COMPARISON STUDY: CT of the abdomen and pelvis May 10, 2017. TECHNIQUE: Following IV administration of 93 mL of Optiray-320, axial images of the abdomen and pelvis were obtained from the lung bases to the proximal femurs. Images were reviewed in the axial, sagittal, and coronal planes. IV contrast was administered without complication. A dose lowering technique was utilized adhering to the principles of ALARA. CT DOSE: 333.64 mGy.cm FINDINGS: A 1.1 cm left lower lobe pulmonary nodule shown on image 51 of 356 is unchanged since prior exam but increased in size from earlier studies. There are findings consistent with gastric bypass. Mild biliary ductal dilatation is unchanged. Dilatation of the main pancreatic duct has slightly increased. There are postoperative findings within the spine. There is no evidence for a bowel obstruction. There is no left hydronephrosis. Note is made of severe right hydroureteronephrosis due to a 7 mm distal right ureteral calculus. A few right renal calculi measure up to 6 mm. The right nephrogram is delayed. There are no left ureteral calculi. There is moderate plaque within the abdominal aorta. There is no lymphadenopathy. There are no suspicious osseous lesions. There is a moderate amount of stool within the colon. Note is made of sigmoid diverticulosis without evidence for acute diverticulitis. IMPRESSION: 1. 7 mm distal right ureteral calculus which results in severe right hydroureteronephrosis. Delayed right nephrogram. 2. Right-sided nephrolithiasis. 3. 1.1 cm left lower lobe pulmonary nodule which is unchanged since prior CT but increased in size from earlier studies. This nodule is indeterminate. Electronically signed by: Joe Galvin M.D. 08/20/2017 7:43 AM Dictated Date/Time: 08/20/2017 7:33 AM
[2017-08-20] MEDS ORDERED: SODIUM CHLORIDE 0.9% 1000ML 1,000 ML IV STA (07:53)
[2017-08-20] MEDS ORDERED: HYDROmorphone INJ 0.5 MG/0.5 ML SYR IV STA (07:53)
[2017-08-20] MEDS ORDERED: TRAMADOL HCL 50 MG TAB PO PRN (09:00)
[2017-08-20] MEDS ORDERED: MoRPHine SULFATE 2 MG/ML CARP IV PRN (09:00)
[2017-08-20] MEDS ORDERED: ACETAMINOPHEN 325 MG TAB PO PRN (09:00)
[2017-08-20] MEDS ORDERED: ONDANSETRON INJ 2 MG/ML 2 ML VIAL IV PRN (09:00)
[2017-08-20] MEDS ORDERED: KETOROLAC TROMETHAMINE 15 MG/ML VIAL IV PRN (09:00)
[2017-08-20] MEDS: POLYETHYLENE (MIRALAX) 17 GM PACK PO SCH (09:00)
[2017-08-20] MEDS ORDERED: MoRPHine SULFATE 4 MG/ML 1 ML CARP\\VIAL IV PRN (09:00)
[2017-08-20] MEDS ORDERED: MAGNESIUM HYDROXIDE SUSP 30 ML UDC PO PRN (09:00)
[2017-08-20] MEDS ORDERED: ALUMINUM/MAGNESIUM/SIMETH (MAALOX MAX) 30 ML UDC PO PRN (09:00)
[2017-08-20] MEDS ORDERED: HYDROmorphone INJ 0.5 MG/0.5 ML SYR IV PRN (09:00)
[2017-08-20 09:09] VITALS: O2SAT 98; Ht 149.9 cm; Wt 61.0 kg
[2017-08-20] MEDS ORDERED: IV FLUIDS COMPLETED PRN (09:45)
[2017-08-20 10:15] VITALS: O2SAT 96
[2017-08-20 10:30] VITALS: BP 123/68; PULSE 60; TEMP 37; O2SAT 98
[2017-08-20] MEDS ORDERED: INFLUENZA ADMINISTRATION CHARGE ONE (11:00)
[2017-08-20] MEDS ORDERED: INFLUENZA VACCINE HIGH DOSE 65+ 0.5 ML SYR IM. ONE (11:00)
[2017-08-20 11:13] LABS: URINE APPEARANCE CLOUDY (CLEAR); URINE BILIRUBIN NEG (NEG); URINE COLOR YELLOW; URINE EPITHELIAL CELL AUTO >30 /lpf (0-5); URINE NITRITE NEG (NEG); URINE PH 7.5 (4.5-7.5); URINE SPECIFIC GRAVITY 1.024 (1.000-1.030); UROBILINOGEN NEG (NEG); ZZUR CULT IF INDIC CLEAN CATCH YES
[2017-08-20 11:14] LABS: MANUAL MICROSCOPIC REQUIRED? NO; REVIEW REQ? NO
[2017-08-20] MEDS: DONEPEZIL HCL 10 MG TAB PO SCH ×2 (11:44→20:49)
[2017-08-20] MEDS: SODIUM CHLORIDE 0.9% 1000ML 1,000 ML IV SCH ×2 (11:44→18:59)
--- NOTE | 2017-08-20 12:40 | History and Physical ---
History & Physical Date & Time of Service: Aug 20, 2017 at 12:34 Chief Complaint: Renal Colic Primary Care Physician: Joselito Peralta III, CRNP History of Present Illness 82-year-old female sitting in by family for worsened delirium on dementia and complains of abdominal pain. Initial complaints were nonfocal and the ER evaluation included CT scan of abdomen and pelvis that showed a 7 mm kidney stone on the right. The patient has a history of distant kidney stones in the past the family believes maybe even had lithotripsy but this was over 30 years ago. The patient has no other abnormalities of her labs that are new. She does suffer from chronic anemia for which she seen hematology in the past. In the emergency department she remains slightly confused her pain has improved with treatment of pain medicine and IV fluid her family was updated at bedside Past Medical/Surgical History Medical Problems: (1) BARIATRIC SURGERY STATUS Status: Chronic (2) BENIGN HYPERTENSION Status: Chronic (3) CALCULUS OF KIDNEY Status: Resolved (4) Diabetes Status: Chronic (5) GASTROINTEST HEMORR NOS Status: Resolved (6) IRON DEFIC ANEMIA NOS Status: Chronic (7) TRANS CEREB ISCHEMIA NEC Status: Resolved Family History Kidney disease Social History Smoking Status: Never Smoker Drug Use: none Marital Status: Occupational Status: retired Immunizations History of Influenza Vaccine: N/A Influenza Vaccine Date: Jul 11, 2007 History of Tetanus Vaccine?: unknown History of Pneumococcal: Yes Pneumococcal Date: Jul 11, 2006 History of Hepatitis B Vaccine: Unknown Multi-Drug Resistant Organisms History of MDRO: No Allergies Coded Allergies: Iron (Verified Allergy, Severe, chest pain, felt hot (tolerates Venofer), 08/20/17) Procaine (Verified Allergy, Severe, THROAT SWELLING WITH NOVOCAINE, ) Hydrocodone (Verified Allergy, Unknown, nausea, 08/20/17) Oxycodone (Verified Allergy, Unknown, nausea, 08/20/17) Codeine (Verified Adverse Reaction, Unknown, NAUSEA, 08/20/17) Home Medications Scheduled Donepezil Hydrochloride (Aricept), 10 MG PO BID Escitalopram Oxalate (Escitalopram Oxalate), 10 MG PO HS Potassium Chloride (Potassium Chloride Cr), 10 MEQ PO QID Review of Systems ROS: well nourished well developed No double vision blurry vision No problems with speech or swallowing No palpitations, chest pain or pressure No Wheezing or breathing issues Diffuse abdominal pain difficult to quantify, no nausea or vomiting No burning urine urine frequency or changes in color No focal joint pain or muscle pain No skin rashes or oral lesions No unusual bruising or bleeding No focused back pain or numbness or loss of strength Worsened memory and confusion Physical Exam Vital Signs Date Time Temp Pulse Resp B/P (MAP) Pulse Ox O2 Delivery O2 Flow Rate FiO2 08/20/17 10:30 Room Air 08/20/17 10:30 37.0 60 16 123/68 (86) 98 Room Air 08/20/17 10:15 72 18 127/73 96 08/20/17 09:09 98 Room Air 08/20/17 08:03 72 18 132/53 98 Room Air 08/20/17 05:11 36.8 64 18 150/62 100 Room Air General Appearance: WD/WN, + mild distress Head: normocephalic, atraumatic Eyes: PERRL, EOMI ENT: hearing grossly normal, pharynx normal Respiratory/Chest: chest non-tender, lungs clear, normal breath sounds Cardiovascular: regular rate, rhythm, no murmur Abdomen/GI: normal bowel sounds, soft, + pertinent finding (right side greater than left side only to palpation) Back: normal inspection, + right CVA tenderness Extremities/Musculoskelatal: no pedal edema, normal range of motion Neurologic/Psych: alert, + disoriented (oriented to person and place but not time) Skin: normal color, warm/dry, no rash Diagnostics Laboratory Results Results Past 24 Hours Test 08/20/17 05:20 08/20/17 06:48 08/20/17 10:50 Range/Units White Blood Count 8.10 4.8-10.8 K/uL Red Blood Count 4.03 4.2-5.4 M/uL Hemoglobin 9.5 12.0-16.0 g/dL Hematocrit 32.0 37-47 % Mean Corpuscular Volume 79.4 80-100 fL Mean Corpuscular Hemoglobin 23.6 25-34 pg Mean Corpuscular Hemoglobin Concent 29.7 32-36 g/dl Platelet Count 521 130-400 K/uL Mean Platelet Volume 9.4 7.4-10.4 fL Neutrophils (%) (Auto) 84.2 % Lymphocytes (%) (Auto) 8.4 % Monocytes (%) (Auto) 6.0 % Eosinophils (%) (Auto) 0.6 % Basophils (%) (Auto) 0.4 % Neutrophils # (Auto) 6.82 1.4-6.5 K/uL Lymphocytes # (Auto) 0.68 1.2-3.4 K/uL Monocytes # (Auto) 0.49 0.11-0.59 K/uL Eosinophils # (Auto) 0.05 0-0.5 K/uL Basophils # (Auto) 0.03 0-0.2 K/uL RDW Standard Deviation 49.2 36.4-46.3 fL RDW Coefficient of Variation 17.1 11.5-14.5 % Immature Granulocyte % (Auto) 0.4 % Immature Granulocyte # (Auto) 0.03 0.00-0.02 K/uL Sodium Level 139 136-145 mmol/L Potassium Level 4.0 3.5-5.1 mmol/L Chloride Level 104 98-107 mmol/L Carbon Dioxide Level 29 21-32 mmol/L Anion Gap 6.0 3-11 mmol/L Blood Urea Nitrogen 17 7-18 mg/dl Creatinine 0.65 0.60-1.20 mg/dl Est Creatinine Clear Calc Drug Dose 54.9 ml/min Estimated GFR () 97.2 Estimated GFR (Non- 83.9 BUN/Creatinine Ratio 25.7 10-20 Random Glucose 119 70-99 mg/dl Calcium Level 10.0 8.5-10.1 mg/dl Total Bilirubin 0.5 0.2-1 mg/dl Aspartate Amino Transf (AST/SGOT) 12 15-37 U/L Alanine Aminotransferase (ALT/SGPT) 13 12-78 U/L Alkaline Phosphatase 116 45-117 U/L Total Protein 7.0 6.4-8.2 gm/dl Albumin 2.6 3.4-5.0 gm/dl Globulin 4.4 2.5-4.0 gm/dl Albumin/Globulin Ratio 0.6 0.9-2 Lipase 191 73-393 U/L Lactic Acid Level 1.9 0.4-2.0 mmol/L Urine Color YELLOW Urine Appearance CLOUDY CLEAR Urine pH 7.5 4.5-7.5 Urine Specific [place] 1.024 1.000-1.030 Urine Protein NEG NEG Urine Glucose (UA) NEG NEG Urine Ketones NEG NEG Urine Occult Blood 3+ NEG Urine Nitrite NEG NEG Urine Bilirubin NEG NEG Urine Urobilinogen NEG NEG Urine Leukocyte Esterase MODERATE NEG Urine WBC (Auto) 10-30 0-5 /hpf Urine RBC (Auto) >30 0-4 /hpf Urine Hyaline Casts (Auto) 1-5 0-5 /lpf Urine Epithelial Cells (Auto) >30 0-5 /lpf Urine Bacteria (Auto) NEG NEG Microbiology Results 08/20/17 Urine Culture, Received Pending Diagnostic Radiology CT scan of abdomen and pelvis : 1. 7 mm distal right ureteral calculus which results in severe right hydroureteronephrosis. Delayed right nephrogram. 2. Right-sided nephrolithiasis. 3. 1.1 cm left lower lobe pulmonary nodule which is unchanged since prior CT but increased in size from earlier studies. This nodule is indeterminate. follow up lung nodule program Impression Assessment and Plan 82-year-old female with renal colic history of the same right-sided hydronephrosis is seen Renal colic this stone is measured 7 mm it may not pass on its own we'll attempt pain control hydration cautiously and urology consultation. Chronic diastolic heart failure with history of aortic stenosis she is currently without symptoms that this makes excessive volume a concern and will be limited. Iron deficiency anemia this has been documented in hematology's notes will continue iron supplementation Dementia/depression we'll continue Aricept and Lexapro DVT prevention is heparin and can be held if urology procedures undertaken Advanced Directives Existing Living Will: Yes Existing Power of Card Hanger: Yes VTE Prophylaxis VTE Risk Assessment Done? Y/N: Yes Risk Level: Moderate
--- NOTE | 2017-08-20 12:53 | Urology Consultation ---
History General Date of Service: Aug 20, 2017. Chief Complaint: Right Stone Primary Care Physician: Joselito Peralta III, CRNP Pt seen a urologist before?: Yes If yes, why?: Obs Stone, many years ago. Does not remember details History of Present Illness Sudden onset of severe right flank pain radiating to the groin, severe in nature coming in waves with poor ability to have relief. Started at 5 am. Seen in ER and admitted for Colic. Currently greatly improved. Pain very minor at this point. No N/v. No pain with urinating. Tolerating IV. Complaining mostly of hunger pains at this time. Had stone many years ago that needed intervention but does not remember which side or what was done. Didnt have issues since. HPI - Stones Location: right, UVJ Pain: right flank Patient has: + microscopic hematuria, + hydronephrosis ER Visits: none Imaging Imaging: CT Laboratory Labs were reviewed and are within normal limits unless listed below. Labs are available in the chart and at [facility] Problem List Medical Problems: (1) Anemia Status: Acute (2) Anemia Status: Acute (3) Chest pain, precordial Status: Acute (4) Dehydration Status: Acute (5) Left sided chest pain Status: Acute (6) Multiple fractures of ribs, left side, initial encounter for closed fracture Status: Acute (7) Precordial chest pain Status: Acute (8) Shoulder pain, bilateral Status: Acute (9) Syncope Status: Acute Past History kidney stones Past Surgical History: ureteral stent Additional Comments: Medical, Surgical, Social, and family history all reviewed and agree with H&P. Please see that report for full list. Pertinent positives and negatives above. Family History Kidney disease Social History Hx Tobacco Use In Past Year?: No Marital status: Occupation status: retired Immunizations History of Influenza Vaccine: N/A Influenza Vaccine Date: Jul 11, 2007 History of Tetanus Vaccine?: unknown History of Pneumococcal: Yes Pneumococcal Date: Jul 11, 2006 History of Hepatitis B Vaccine: Unknown History of MDRO No Allergies Coded Allergies: Iron (Verified Allergy, Severe, chest pain, felt hot (tolerates Venofer), 08/20/17) Procaine (Verified Allergy, Severe, THROAT SWELLING WITH NOVOCAINE, ) Hydrocodone (Verified Allergy, Unknown, nausea, 08/20/17) Oxycodone (Verified Allergy, Unknown, nausea, 08/20/17) Codeine (Verified Adverse Reaction, Unknown, NAUSEA, 08/20/17) Medications Home Medications: Home Meds and Scripts Medications Dose Route/Sig Max Daily Dose Days Date Category Escitalopram Oxalate 10 Mg Tab 10 Mg PO HS 05/03/17 Reported Potassium Chloride Cr (Potassium Chloride) 10 Meq Tab 10 Meq PO QID 05/03/17 Reported Aricept (Donepezil Hydrochloride) 10 Mg Tab 10 Mg PO BID 04/26/16 Reported Inpatient Medications: Current Inpatient Medications Medications (Trade) Dose Ordered Sig/Ricardo Route Start Time Stop Time Status Last Admin Dose Admin Ioversol (Optiray 320) 125 ml UD PRN IV 08/20/17 07:00 08/24/17 06:59 Donepezil HCl (Aricept Tab) 10 mg BID PO 08/20/17 09:00 09/19/17 08:59 08/20/17 11:44 10 MG Escitalopram Oxalate (Lexapro Tab) 10 mg HS PO 08/20/17 21:00 09/19/17 20:59 Acetaminophen (Tylenol Tab) 650 mg Q4H PRN PO 08/20/17 09:00 09/19/17 08:59 Al Hydrox/Mg Hydrox/Simethicone (Maalox Max Susp) 15 ml Q4H PRN PO 08/20/17 09:00 09/19/17 08:59 Magnesium Hydroxide (Milk Of Magnesia Susp) 30 ml Q6H PRN PO 08/20/17 09:00 09/19/17 08:59 Ondansetron HCl (Zofran Inj) 4 mg Q6H PRN IV 08/20/17 09:00 09/19/17 08:59 Morphine Sulfate (MoRPHine SULFATE INJ) 2 mg Q4H PRN IV 08/20/17 09:00 09/03/17 08:59 Morphine Sulfate (MoRPHine SULFATE INJ) 4 mg Q4H PRN IV 08/20/17 09:00 09/03/17 08:59 Sodium Chloride 1,000 ml @ 100 mls/hr Q10H IV 08/20/17 11:00 09/19/17 10:59 08/20/17 11:44 100 MLS/HR Ketorolac Tromethamine (Toradol Inj) 15 mg Q6H PRN IV 08/20/17 09:00 08/25/17 08:59 Tramadol HCl (Ultram Tab) 50 mg Q4H PRN PO 08/20/17 09:00 09/19/17 08:59 Polyethylene (Miralax Powder Packet) 17 gm DAILY PO 08/20/17 09:00 09/19/17 08:59 Miscellaneous (Iv Fluids Completed) 1 ea PRN PRN N/A 08/20/17 09:45 08/20/18 09:44 Heparin Sodium (Porcine) (Heparin Sq 5000 Unit/0.5ml) 5,000 unit Q12 SQ 08/20/17 21:00 09/19/17 20:59 UNV Review of Systems Review of Systems All Other Systems: Reviewed and Negative Additional Comments: All reviewed in HPI. Pertinent positives and negatives above. Physical Exam Vital Signs: Vital Signs Past 12 Hours Date Time Temp Pulse Resp B/P (MAP) Pulse Ox O2 Delivery O2 Flow Rate FiO2 08/20/17 10:30 Room Air 08/20/17 10:30 37.0 60 16 123/68 (86) 98 Room Air 08/20/17 10:15 72 18 127/73 96 08/20/17 09:09 98 Room Air 08/20/17 08:03 72 18 132/53 98 Room Air 08/20/17 05:11 36.8 64 18 150/62 100 Room Air Physical Exam: General Appearance: WD/WN, no apparent distress Eyes: right eye normal inspection ENT: normal ENT inspection, hearing grossly normal Neck: supple, no JVD Respiratory/Chest: chest non-tender, no respiratory distress, no accessory muscle use Cardiovascular: regular rate, rhythm Gastrointestinal: Abdomen: normal abdomen Bladder: normal bladder Renal: normal renal Extremities: normal range of motion 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 Right distal stone 2. Hydronephrosis 3. Renal Colic. Long conversation with son and patient. Doing considerably better without pain or issues at this time. No white count, fever, chills, or hematuria. No n/v. Discussed restarting diet with plans for maximum expulsion therapy and hydration and 23 hour observation. If worsening or having major issues can attempt stone extraction or stent, other ambriz supportive care for stone passage. Patient is agreeable and will plan to place diet order with plan to make NPO at midnight in case patient develops issues. Otherwise plan 1-2 weeks of expulsion therapy and outpatient followup with imaging.
[2017-08-20 13:31] LABS: INR 1.1 (0.9-1.1); PROTHROMBIN TIME (PATIENT) 11.3 SECONDS (9.0-12.0)
[2017-08-20 15:04] VITALS: BP 104/59; PULSE 53; TEMP 36.6; O2SAT 96
[2017-08-20] MEDS: HEPARIN SOD 5000 UNIT/0.5 ML CARP SQ SCH (20:52)
[2017-08-20] MEDS ORDERED: ESCITALOPRAM OXALATE 10 MG TAB PO SCH (21:00)
[2017-08-20 22:45] VITALS: BP 117/65; PULSE 63; TEMP 36.7; O2SAT 97
[2017-08-21] MEDS: SODIUM CHLORIDE 0.9% 1000ML 1,000 ML IV SCH ×2 (04:54→06:32)
[2017-08-21 05:55] LABS: HEMATOCRIT 28.1 % (37-47); MEAN CELL VOLUME 80.1 fL (80-100); MEAN CORPUSCULAR HEMOGLOBIN 23.4 pg (25-34); MEAN CORPUSCULAR HGB CONC 29.2 g/dl (32-36); MEAN PLATELET VOLUME 9.3 fL (7.4-10.4); PLATELET COUNT 437 K/uL (130-400); RED BLOOD COUNT 3.51 M/uL (4.2-5.4); WHITE BLOOD COUNT 6.01 K/uL (4.8-10.8)
[2017-08-21 06:28] LABS: BUN/CREATININE RATIO 33.9 (10-20); CALCIUM 8.7 mg/dl (8.5-10.1); CREATININE 0.36 mg/dl (0.60-1.20); POTASSIUM 3.7 mmol/L (3.5-5.1)
[2017-08-21 08:14] VITALS: BP 121/58; PULSE 58; TEMP 37; O2SAT 96
[2017-08-21] MEDS: POLYETHYLENE (MIRALAX) 17 GM PACK PO SCH (08:51)
[2017-08-21] MEDS: DONEPEZIL HCL 10 MG TAB PO SCH (08:56)
[2017-08-21] MEDS: HEPARIN SOD 5000 UNIT/0.5 ML CARP SQ SCH (08:56)
[2017-08-21] MEDS ORDERED: IRON SUCROSE INJ 100 MG in SODIUM CHLORIDE 0.9% 100ML 100 ML IV SCH (09:00)
--- NOTE | 2017-08-21 11:12 | Progress Note ---
Subjective Date of Service: Aug 21, 2017. Subjective Pt evaluation today including: conversation w/ patient Pain: Improved, Minimal PO Intake: Good IMproved overall. Has not seen stone but thinks may have passed due to cessation of problems and improvement overall. Mild flank pain and groin discomfort. Mild and wave like with little bother. Ambulating and tolerating PO intake as well as iv hydration. Problem List Medical Problems: (1) Anemia Status: Acute (2) Anemia Status: Acute (3) Chest pain, precordial Status: Acute (4) Dehydration Status: Acute (5) Left sided chest pain Status: Acute (6) Multiple fractures of ribs, left side, initial encounter for closed fracture Status: Acute (7) Precordial chest pain Status: Acute (8) Shoulder pain, bilateral Status: Acute (9) Syncope Status: Acute Review of Systems All Other Systems: Reviewed and Negative Objective Vital Signs Date Time Temp Pulse Resp B/P (MAP) Pulse Ox O2 Delivery O2 Flow Rate FiO2 08/21/17 08:14 37.0 58 18 121/58 (79) 96 Room Air 08/21/17 07:15 Room Air 08/21/17 00:49 Room Air 08/20/17 22:45 36.7 63 16 117/65 (82) 97 Room Air 08/20/17 15:35 Room Air 08/20/17 15:04 36.6 53 16 104/59 (74) 96 Room Air Physical Exam General Appearance: WD/WN, no apparent distress Eyes: normal inspection ENT: normal ENT inspection Neck: supple, no JVD Respiratory/Chest: no respiratory distress, no accessory muscle use Cardiovascular: regular rate, rhythm Abdomen: non tender, soft Extremities: normal range of motion, non-tender 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, no motor/sensory deficits, alert, normal mood/affect, oriented x 3 Skin: normal color, warm/dry, no rash Lymphatic: no adenopathy Laboratory Results Last 24 Hours Test 08/20/17 13:11 08/21/17 05:34 Prothrombin Time 11.3 SECONDS Prothromb Time International Ratio 1.1 White Blood Count 6.01 K/uL Red Blood Count 3.51 M/uL Hemoglobin 8.2 g/dL Hematocrit 28.1 % Mean Corpuscular Volume 80.1 fL Mean Corpuscular Hemoglobin 23.4 pg Mean Corpuscular Hemoglobin Concent 29.2 g/dl RDW Standard Deviation 51.0 fL RDW Coefficient of Variation 17.3 % Platelet Count 437 K/uL Mean Platelet Volume 9.3 fL Sodium Level 139 mmol/L Potassium Level 3.7 mmol/L Chloride Level 106 mmol/L Carbon Dioxide Level 27 mmol/L Anion Gap 6.0 mmol/L Blood Urea Nitrogen 12 mg/dl Creatinine 0.36 mg/dl Est Creatinine Clear Calc Drug Dose 99.0 ml/min Estimated GFR () 118.0 Estimated GFR (Non- 101.8 BUN/Creatinine Ratio 33.9 Random Glucose 89 mg/dl Calcium Level 8.7 mg/dl Assessment and Plan 1. Obs Stone 2. Hydronephrosis Patient significantly improved and thinks she may have passed stone. Symptoms no longer bothersome and tolerating diet and fluids. Patient requesting to go home if possible. Recommend continuing supportive care with PO hydration, medications for pain and nausea, and close monitoring by family. Call or return with any fevers or severe pain or vomiting. Monitor input. Strain urine for stones. Follow up in 1-2 weeks to have DIANA to assess passage.
[2017-08-21] MEDS ORDERED: ULT50X PO ×2 (12:14)
[2017-08-21] MEDS ORDERED: NURSING VERBAL MED ORDER ONE (12:15)
--- NOTE | 2017-08-21 12:17 | Discharge Instructions ---
Discharge Instructions Date of Service Aug 21, 2017. Admission Reason for Admission: Renal Colic Discharge Discharge Diagnosis / Problem: left kidney stone, clinical dehydration Discharge Goals Goal(s): Diagnostic testing, Therapeutic intervention Activity Recommendations Activity Limitations: resume your previous activity . Instructions / Follow-Up Instructions / Follow-Up Please follow up with urology and your primary care, Please ask your primary care to follow up on your anemia You appeared dehydrated when you arrived, please be sure you are drinking plenty of liquids, water and other liquids, to try to help flush your kidney stone out Please try to strain you urine and if you catch a stone place it in the container given to take to your appointment Current Hospital Diet Patient's current hospital diet: Regular Diet Discharge Diet Recommended Diet: Regular Diet Pending Studies Studies pending at discharge: no Laboratory Results Hemoglobin A1c Test 08/05/17 13:30 Range/Units Estimated Average Glucose 103 mg/dl Hemoglobin A1c 5.2 4.5-5.6 % Lipid Panel Test 08/05/17 13:30 Range/Units Triglycerides Level 49 0-150 mg/dl Cholesterol Level 146 0-200 mg/dl HDL Cholesterol 92 mg/dl Cholesterol/HDL Ratio 1.6 LDL Cholesterol, Calculated 44 mg/dl Medical Emergencies . Who to Call and When: Medical Emergencies: If at any time you feel your situation is an emergency, please call 911 immediately. . Non-Emergent Contact Non-Emergency issues call your: Primary Care Provider Call Non-Emergent contact if: temperature is above 101, your pain is unusual for you . . "Provider Documentation" section prepared by Daquan Hector. . VTE Core Measure Inpt VTE Proph given/why not?: Unfractionated heparin SQ
[2017-08-21 13:24] VITALS: BP 121/58; PULSE 58; TEMP 37; O2SAT 96
--- NOTE | 2017-08-21 14:30 | Discharge Summary ---
Discharge Summary Date of Service Aug 21, 2017. Discharge Summary Admission Date: Aug 20, 2017 at 08:51 Discharge Date: Aug 21, 2017 Principal Diagnosis: renal colic Immunizations: Have You Had Influenza Vaccine: N/A Influenza Vaccine Date: Jul 11, 2007 History of Tetanus Vaccine?: unknown History of Pneumococcal: Yes Pneumococcal Date: Jul 11, 2006 History of Hepatitis B Vaccine: Unknown Consultations: Dr Escoto Medication Reconciliation New Medications: Tramadol HCl (Tramadol HCl) 50 Mg Tab 50 MG PO Q6H PRN for Pain, #20 TAB Continued Medications: Donepezil Hydrochloride (Aricept) 10 Mg Tab 10 MG PO BID, TAB Escitalopram Oxalate (Escitalopram Oxalate) 10 Mg Tab 10 MG PO HS Potassium Chloride (Potassium Chloride Cr) 10 Meq Tab 10 MEQ PO QID Discharge Exam Review of Systems: Constitutional: No fever, No chills Respiratory: No cough, No sputum, No shortness of breath Cardiovascular: No chest pain, No orthopnea, No edema Abdomen: No pain, No nausea, No vomiting Physical Exam: General Appearance: WD/WN, + mild distress Eyes: PERRL, EOMI Respiratory/Chest: chest non-tender, lungs clear, normal breath sounds Cardiovascular: regular rate, rhythm, no murmur Extremities: no pedal edema, normal range of motion Neurologic/Psychiatric: alert, + disoriented (but typicallyl at her baseline ) Hospital Course 82-year-old female with renal colic history of the same right-sided hydronephrosis is seen no symptoms or renal distress on labs Renal colic this stone is measured 7 mm urology consultation feels will try to continue Expulsive therapy, pain is controlled and patient and son want to try to go home with outpt treatment, does see Dr Van in the past Chronic diastolic heart failure with history of aortic stenosis she is currently without symptoms she had been hydrated, will encourage po intake Iron deficiency anemia this has been documented in hematology's notes, has some reduction since hydration, will dose one of Venofer Dementia/depression we'll continue Aricept and Lexapro will also recommend pcp follow up for anemia Pt ambulated in [facility] approval Total Time Spent: Greater than 30 minutes This includes examination of the patient, discharge planning, medication reconciliation, and communication with other providers. Discharge Instructions Please refer to the electronic Patient Visit Report (Discharge Instructions) for additional information.
== END 2017-08-21 14:19 | disposition home health service (06) ==
LOC: EDBD 05:08 → C.EDB 05:10 → C.MSN 08:51 → EDBEDREQ 09:16 → ENRESERV 09:25 → UNDOADMOB 10:32 → C.MSN 10:32
PROVIDERS: ADMIT Internal Medicine; ATTEND Internal Medicine
DX: N23 Unspecified renal colic (principal); I50.32 Chronic diastolic (congestive) heart failure; D50.9 Iron deficiency anemia, unspecified; F03.90 Unspecified dementia, unspecified severity, without behavioral disturbance, psychotic disturbance, mood disturbance, and anxiety; F32.9 Major depressive disorder, single episode, unspecified; Z98.84 Bariatric surgery status; I10 Essential (primary) hypertension; E11.9 Type 2 diabetes mellitus without complications; Z84.1 Family history of disorders of kidney and ureter; Z88.5 Allergy status to narcotic agent

== ENCOUNTER → 2017-08-26 | Outpatient (CLI) | payer OTHER ==
[~2017-08-26] MED LIST changes: -ARGI1CAP2 PO; -B COCAP3 PO; -BIOTCAP2 PO; -CHOL100041 PO; -COEN1CAP17 PO; -CRAN1TAB; -LEVO75TA5 PO; -LUTE20CA PO; -MELA1TAB5 PO; -MISCTAB26 PO; +ULT50X PO
== END | disposition home or self-care (01) ==
LOC: C.LABSPEC 14:55
PROVIDERS: ATTEND Urology
DX: N20.0 Calculus of kidney (principal); N39.0 Urinary tract infection, site not specified; N20.1 Calculus of ureter

== ENCOUNTER → 2017-08-29 | Outpatient (CLI) | payer OTHER ==
--- NOTE | 2017-08-29 13:37 | DIAGNOSTIC IMAGING REPORT ---
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 CT 08/20/2017 FINDINGS: Mild nonobstructive ileus. 1.3 cm rounded calcification left upper quadrant possibly related to bowel content. Renal and psoas shows difficult to evaluate due to overlying bowel content and bowel gas. No definite soft tissue pelvic calcifications. Postoperative changes to low lumbar spine. IMPRESSION: Mild reactive ileus. No definite calcifications within the urinary tracts within limitations of poor visibility due to overlying bowel content. The above report was generated using voice recognition software. It may contain grammatical, syntax or spelling errors. Electronically signed by: Lemuel Gunn M.D. 08/29/2017 1:36 PM Dictated Date/Time: 08/29/2017 1:34 PM
== END | disposition home or self-care (01) ==
LOC: C.RAD 13:10
PROVIDERS: ATTEND Urology
DX: N20.1 Calculus of ureter (principal)

== ENCOUNTER → 2017-09-01 | Outpatient (CLI) | payer OTHER ==
[~2017-09-01] MED LIST changes: +ARGI1CAP2 PO; +B COCAP3 PO; +BIOTCAP2 PO; +CHOL100041 PO; +COEN1CAP17 PO; +CRAN1TAB; +GADAVIST IV PRN; +LEVO75TA5 PO; +LUTE20CA PO; +MELA1TAB5 PO; +MISCTAB26 PO
--- NOTE | 2017-09-01 13:06 | DIAGNOSTIC IMAGING REPORT ---
BRAIN COMBO HISTORY: 82 years-old Female R41.3 Memory lossR26.81 Unsteady [id number] acute memory loss with gait disturbance COMPARISON: CT head 07/08/2017, MRI brain 01/21/2016 TECHNIQUE: Multiple and multisequence MRI the brain was obtained both with and without the use of 5.5 mL Gadavist FINDINGS: No restricted diffusion to suggest acute infarction. There is no pathologic blooming artifact. The midline structures including the corpus callosum, brainstem, optic chiasm, pituitary gland, infundibulum and pineal glands are unremarkable in the sagittal T1 sequence. No cerebellar tonsillar herniation. Degenerative changes of the cervical spine are noted. No acute intracranial hemorrhage, midline shift, abnormal extra-axial collections, hydrocephalus or intracranial mass. Mild atrophy. No convincing evidence of significant chronic microvascular ischemic changes. The major flow voids at the level of the skull base are patent. Orbits are symmetric. Small bilateral mastoid effusions. No significant paranasal sinus disease. Scalp, calvarium and soft tissues are unremarkable. There is no abnormal intra-axial or extra-axial enhancement. IMPRESSION: 1. No acute intracranial abnormality. No acute infarction or evidence of abnormal enhancement. 2. Mild brain atrophy. The above report was generated using voice recognition software. It may contain grammatical, syntax or spelling errors. Electronically signed by: Kirk Padilla M.D. 09/01/2017 1:05 PM Dictated Date/Time: 09/01/2017 1:01 PM
== END | disposition home or self-care (01) ==
LOC: C.MRIBC 11:23
PROVIDERS: ATTEND Psychiatry & Neurology Neurology
DX: R41.3 Other amnesia (principal); R26.81 Unsteadiness on feet

== ENCOUNTER → 2017-09-08 | Outpatient (CLI) | payer OTHER ==
[~2017-09-08] MED LIST changes: -ARGI1CAP2 PO; -B COCAP3 PO; -BIOTCAP2 PO; -CHOL100041 PO; -COEN1CAP17 PO; -CRAN1TAB; -GADAVIST IV PRN; -LEVO75TA5 PO; -LUTE20CA PO; -MELA1TAB5 PO; -MISCTAB26 PO
--- NOTE | 2017-09-08 17:13 | DIAGNOSTIC IMAGING REPORT ---
ABDOMEN AND PELVIS CT WITHOUT CONTRAST CT DOSE: 301.96 mGy.cm HISTORY: Follow-up study in a patient with kidney stones N20.1 Ureteric [id number] TECHNIQUE: Multiaxial CT images of the abdomen and pelvis were performed without contrast. A dose lowering technique was utilized adhering to the principles of ALARA. COMPARISON STUDY: CT abdomen and pelvis 08/20/2017, KUB 08/29/2017. FINDINGS: 1.1 x 0.8 cm circumscribed solid nodule of the left lower lobe on image 58 series 3 is unchanged from comparison. Additional smaller noncalcified solid nodules of the left lung base are seen measuring up to 3 mm which appear unchanged. There is no pneumatosis or pneumoperitoneum identified. Imaged inferior cardiac chambers are not significantly enlarged. Coronary arterial calcifications are present. Study is limited secondary to patient positioning. Prior cholecystectomy. 9 mm low attenuating lesion of the left hepatic lobe is unchanged suggesting hepatic cyst. Prior cholecystectomy with unchanged mild intrahepatic biliary ductal dilation, likely physiologic from postcholecystectomy state. Mild prominence of the pancreatic duct appears unchanged. Spleen and pancreas are otherwise unremarkable. Mild thickening of the adrenal glands. There are 2 calculi of the inferior pole right kidney which are nonobstructing measuring up to 4 mm. There is resolution of the previously described severe right-sided hydroureteronephrosis. No definite obstructing calculi identified. Evaluation of the ureters is limited secondary to streak artifact from spinal fusion hardware. Left kidney is unremarkable. Urinary bladder is partially collapsed. Uterus appears to be surgically absent. No adnexal mass lesions are identified. Moderate to severe atherosclerosis of the aorta without aneurysm identified. There is no bulky adenopathy identified. Prior gastric bypass. No bowel obstruction. Moderate stool volume of the colon. Moderate colonic diverticulosis without diverticulitis. Tiny fat filled periumbilical hernia. There is thinning of the abdominal musculature. The bones are moderately demineralized. Severe multilevel degenerative changes of the spine. Remote left-sided rib fractures are noted. Posterior mt and screw fusion hardware of the lumbosacral spine. Unchanged grade 1 anterolisthesis L4 on L5. IMPRESSION: 1. Right-sided nonobstructing nephrolithiasis with resolution of the previously described severe right-sided hydroureteronephrosis. No obstructing renal calculi identified. 2. Unchanged 1.1 cm solid nodule of the left lower lobe. 3. Additional findings as above. Electronically signed by: Kirk Padilla M.D. 09/08/2017 5:12 PM Dictated Date/Time: 09/08/2017 4:57 PM
== END | disposition home or self-care (01) ==
LOC: C.CTS 16:11
PROVIDERS: ATTEND Urology
DX: N20.1 Calculus of ureter (principal)

== ENCOUNTER → 2017-10-04 | Outpatient (CLI) | payer OTHER ==
[2017-10-04 15:31] LABS: BASO % 0.4 %; BASO ABS # 0.04 K/uL (0-0.2); EOS % 0.5 %; EOS ABS # 0.05 K/uL (0-0.5); HEMATOCRIT 32.2 % (37-47); HEMOGLOBIN 9.6 g/dL (12.0-16.0); IG# 0.01 K/uL (0.00-0.02); LYMPH % 7.4 %; MEAN CELL VOLUME 80.1 fL (80-100); MEAN CORPUSCULAR HEMOGLOBIN 23.9 pg (25-34); MEAN CORPUSCULAR HGB CONC 29.8 g/dl (32-36); MEAN PLATELET VOLUME 9.7 fL (7.4-10.4); MONO % 7.1 %; MONO ABS # 0.67 K/uL (0.11-0.59); NEUT % 84.5 %; NEUT ABS # 8.01 K/uL (1.4-6.5); PLATELET COUNT 507 K/uL (130-400); RED CELL DISTRIBUTION WIDTH CV 18.7 % (11.5-14.5); RED CELL DISTRIBUTION WIDTH SD 54.5 fL (36.4-46.3); WHITE BLOOD COUNT 9.48 K/uL (4.8-10.8)
[2017-10-04 16:13] LABS: ALBUMIN 2.7 gm/dl (3.4-5.0); ALT/SGPT 14 U/L (12-78); BLOOD UREA NITROGEN 20 mg/dl (7-18); CALCIUM 9.3 mg/dl (8.5-10.1); CARBON DIOXIDE 29 mmol/L (21-32); CREATININE 0.54 mg/dl (0.60-1.20); GLUCOSE 81 mg/dl (70-99); POTASSIUM 4.6 mmol/L (3.5-5.1); SODIUM 137 mmol/L (136-145)
[2017-10-04 16:24] LABS: ALKALINE PHOSPHATASE 126 U/L (45-117); AST/SGOT 13 U/L (15-37); TOTAL PROTEIN 7.2 gm/dl (6.4-8.2)
== END | disposition home or self-care (01) ==
LOC: C.LAB 14:11
PROVIDERS: ATTEND Nurse Practitioner Family
DX: R41.0 Disorientation, unspecified (principal)

== ENCOUNTER 2017-12-02 09:24 | Inpatient (IN) | payer OTHER ==
[2017-11-14 11:52] VITALS: BMI 27.0
[2017-11-17 13:13] LABS: BASO % 0.5 %; BASO ABS # 0.05 K/uL (0-0.2); EOS % 0.6 %; EOS ABS # 0.06 K/uL (0-0.5); HEMOGLOBIN 7.5 g/dL (12.0-16.0); IG# 0.03 K/uL (0.00-0.02); LYMPH % 6.5 %; LYMPH ABS # 0.67 K/uL (1.2-3.4); MEAN CORPUSCULAR HEMOGLOBIN 24.6 pg (25-34); MONO % 4.7 %; MONO ABS # 0.49 K/uL (0.11-0.59); NEUT % 87.4 %; NEUT ABS # 9.07 K/uL (1.4-6.5); PLATELET COUNT 543 K/uL (130-400); RED CELL DISTRIBUTION WIDTH CV 19.1 % (11.5-14.5); RED CELL DISTRIBUTION WIDTH SD 57.2 fL (36.4-46.3); WHITE BLOOD COUNT 10.37 K/uL (4.8-10.8)
[2017-11-17 13:29] LABS: PTT PATIENT 26.5 SECONDS (21.0-31.0)
--- NOTE | 2017-11-17 13:29 | DIAGNOSTIC IMAGING REPORT ---
CHEST 2 VIEWS ROUTINE CLINICAL HISTORY: Preoperative chest COMPARISON STUDY: 06/13/2017 FINDINGS: The cardiac and mediastinal contours are normal. There is no evidence of focal pulmonary consolidation. There is no evidence of failure. No pleural effusions are visualized.[ Arthritic changes involve the left shoulder. There is radiographic evidence of chronic rotator cuff tear. There is calcification of the anterior longitudinal ligament within the thoracic spine IMPRESSION: No active disease in the chest. Electronically signed by: Ty Brown M.D. 11/17/2017 1:28 PM Dictated Date/Time: 11/17/2017 1:27 PM
[2017-11-17 13:35] LABS: HEMOGLOBIN A1C 4.7 % (4.5-5.6)
[2017-11-17 13:38] LABS: ALBUMIN 2.8 gm/dl (3.4-5.0); CALCIUM 9.3 mg/dl (8.5-10.1); CREATININE 0.75 mg/dl (0.60-1.20); POTASSIUM 4.7 mmol/L (3.5-5.1)
[2017-11-18 09:52] VITALS: BMI 31.0
--- NOTE | 2017-11-28 10:41 | History and Physical ---
History & Physical Date Nov 28, 2017. Chief Complaint Left shoulder pain History of Present Illness The patient is a 82 year old female with complaints of left shoulder pain. She has failed conservative therapy and would like to proceed with scheduled surgery. 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 Additional History Hepatic Disease: No Endocrine Disorder: No Kidney Disease: No Hypertension: Yes Heart Disease: No Bleeding Tendencies: No Infectious Diseases: No Allergies Coded Allergies: Iron (Verified Allergy, Severe, chest pain, felt hot (tolerates Venofer), 11/14/17) Procaine (Verified Allergy, Severe, THROAT SWELLING WITH NOVOCAINE, ) Hydrocodone (Verified Allergy, Unknown, nausea, 11/14/17) Oxycodone (Verified Allergy, Unknown, nausea, 11/14/17) Codeine (Verified Adverse Reaction, Unknown, NAUSEA, 11/14/17) Home Medications Scheduled Donepezil Hydrochloride (Aricept), 10 MG PO BID Escitalopram Oxalate (Escitalopram Oxalate), 10 MG PO HS Memantine (Namenda), 5-10 MG PO UD Multivitamin (Multivitamin), 1 TAB PO QAM Scheduled PRN Furosemide (Lasix), 20 MG PO QAM PRN for EDEMA Naproxen (Naprosyn), 500 MG PO UD PRN for Pain Physical Examination Skin: warm/dry, no rash Eyes: normal inspection, EOMI ENT: normal ENT inspection Head: normocephalic, atraumatic Neck: supple, no adenopathy Respiratory/Chest: lungs clear, normal breath sounds Cardiovascular: regular rate, rhythm, + systolic murmur Abdomen / GI: normal bowel sounds, non tender Extremities: normal inspection, + pertinent finding (decreased ROM and strength of her left shoulder) Neurologic/Psych: no motor/sensory deficits, alert, oriented x 3 Diagnosis Left shoulder rotator cuff arthropathy Plan of Treatment Patient is schedule for a left reverse total shoulder arthroplasty. She has failed conservative measures and would like to proceed with scheduled surgery. Risks and benefits to surgery were discussed. She understands the risks and wishes to proceed. All questions were answered to her satisfaction.
[2017-11-29 12:28] LABS: HEMATOCRIT 27.1 % (37-47); HEMOGLOBIN 7.8 g/dL (12.0-16.0); MEAN CELL VOLUME 81.4 fL (80-100); MEAN CORPUSCULAR HEMOGLOBIN 23.4 pg (25-34); MEAN CORPUSCULAR HGB CONC 28.8 g/dl (32-36); MEAN PLATELET VOLUME 9.4 fL (7.4-10.4); PLATELET COUNT 582 K/uL (130-400); RED CELL DISTRIBUTION WIDTH CV 17.7 % (11.5-14.5); RED CELL DISTRIBUTION WIDTH SD 52.8 fL (36.4-46.3); WHITE BLOOD COUNT 8.28 K/uL (4.8-10.8)
[2017-11-29 12:31] LABS: PTT PATIENT 25.7 SECONDS (21.0-31.0)
[2017-11-29 12:39] LABS: CALCIUM 9.1 mg/dl (8.5-10.1); CREATININE 0.65 mg/dl (0.60-1.20); POTASSIUM 4.1 mmol/L (3.5-5.1)
[2017-11-29 12:51] LABS: BASO % 0.7 %; BASO ABS # 0.06 K/uL (0-0.2); EOS % 1.4 %; EOS ABS # 0.12 K/uL (0-0.5); IG# 0.02 K/uL (0.00-0.02); LYMPH % 6.6 %; LYMPH ABS # 0.55 K/uL (1.2-3.4); MONO % 6.5 %; MONO ABS # 0.54 K/uL (0.11-0.59); NEUT % 84.6 %; NEUT ABS # 6.99 K/uL (1.4-6.5)
[2017-11-29 12:59] LABS: HEMOGLOBIN A1C 4.6 % (4.5-5.6)
[2017-12-02] VITALS (8 sets, daily range): BP systolic 104–120; BP diastolic 48–68; PULSE 50–84; TEMP 36.4–37.1; O2SAT 96–100; Ht 149.9 cm; Wt 58.0 kg
[~2017-12-02] VITALS: Ht 149.9 cm; Wt 58.0 kg
[~2017-12-02 09:24] MED LIST changes: +ACETAMINOPHEN 500 MG TAB PO SCH; +BUPIVACAINE 0.5 % 5 MG/1 ML PF 10ML VIAL ONE; +CEFAZOLIN 2000MG IV PUSH 15 ML IV SCH; +CeleBREX 200 MG CAP PO SCH; +DEXAMETHASONE 4 MG TAB PO SCH; +EpINEphrine INJ 1MG/ML AMP 1 MG/ML AMP ONE; +FAMOTIDINE 20 MG TAB PO SCH; +FURO-85 PO; +GABAPENTIN 300 MG CAP PO SCH; +LACTATED RINGER'S 1000ML 1,000 ML IV SCH; +METOCLOPRAMIDE HCL 10 MG TAB PO SCH; +MULT-506 PO; +NAPR-1169 PO; +NMN5 PO; -POTA10TA30 PO; +ROPIVACAINE 0.5% 5 MG/ML 30 ML VIAL ONE; -ULT50X PO
--- NOTE | 2017-12-02 09:46 | History & Physical Bridge Note ---
H&P Re-Evaluation Bridge Note: I have examined the patient, reviewed the History & Physical and in the interval since the performance of the History & Physical I have noted the following changes of clinical significance: No changes noted
[2017-12-02] MEDS ORDERED: FENTANYL CITRATE INJ 50 MCG/1 ML 2 ML VIAL ONE (10:15)
[2017-12-02] MEDS ORDERED: MIDAZOLAM HCL 1 MG/ML 2ML VIAL ONE (10:15)
[2017-12-02] MEDS ORDERED: ACET650T97 (10:53)
[2017-12-02 12:19] LABS: HEMATOCRIT 26.5 % (37-47); HEMOGLOBIN 8.1 g/dL (12.0-16.0)
--- NOTE | 2017-12-02 17:08 | Anesthesiology Progress Note ---
Anesthesia Progress Note Date of Service Dec 02, 2017. Progress Notes The patient is an 82 y/o female with a history of DAMIAN, diastolic CHF, atrial fibrillation, GERD, hiatal hernia, esophageal strictures s/p dilations, TIA, dementia, hypothyroidism and anemia scheduled for L Shoulder Reversal Total Shoulder Arthroscopy with Dr. Boothe. The patient's hgb was 9.6 in September when she was seen at the preoperative clinic. The patient has a history of chronic iron deficiency anemia for which she received iron infusions every six months. Subsequently, her hemoglobin then dropped to 7.5. The patient's hemoglobin was again checked on 11/29/17 and was found to be 7.8. The anesthesia department and preoperative clinic were not notified of these more recent blood draws. Therefore, this morning when the patient's low hemoglobin was discovered this morning on computer chart review, the patient was called and told to come in early for a blood transfusion prior to surgery. We spoke to the patient's son who is POIngrid and he was agreeable and consent was obtained. The patient was found to have blood antibodies when her preoperative Type and Screen was done several days ago. The blood bank was able to obtain crossmatched blood from [facility] and three units were available for the patient. After the patient received 1 unit PRBC a hemoglobin was again checked and was found to have gone from 7.8 to 8.1. I told the patient and family that I was concerned that the hemoglobin did not rise appropriately and that her hemoglobin may have actually been lower to start. I explained that with a nearly two gram drop in her hemoglobin from September to October that she may have an unknown bleed such as a slow GI bleed. I called the patient's PCP, Joselito Walsh and he stated that he did not feel comfortable with the patient undergoing surgery today with such a low hemoglobin and that he was also concerned about a possible GI bleed. He recommended that the patient be admitted to medicine for further evaluation and treatment. Furthermore, I was also concerned that rapidly transfusing the patient could result place her into heart failure. I spoke to the patient and family including the patient's son who is POA and they were agreeable to the patient getting admitted as was Dr. Boothe. I spoke to Dr. Maddox from the medicine service who will be admitting the patient and gave him report.
[2017-12-02] MEDS ORDERED: PANTOprazole SOD 40 MG TAB PO ONE (18:40)
[2017-12-02] MEDS ORDERED: MAGNESIUM HYDROXIDE SUSP 30 ML UDC PO PRN (18:45)
[2017-12-02] MEDS ORDERED: ALUMINUM/MAGNESIUM/SIMETH (MAALOX MAX) 30 ML UDC PO PRN (18:45)
[2017-12-02] MEDS ORDERED: ONDANSETRON INJ 2 MG/ML 2 ML VIAL IV PRN (18:45)
[2017-12-02] MEDS ORDERED: FUROSEMIDE 20 MG TAB PO PRN (18:45)
[2017-12-02] MEDS ORDERED: MEMANTINE 5 MG TAB PO SCH (18:45)
--- NOTE | 2017-12-02 18:57 | History and Physical ---
History & Physical Date & Time of Service: Dec 02, 2017 at 18:32 Chief Complaint: Left Shoulder Osteoarthritis, Anemia Primary Care Physician: Joselito Peralta III, CRNP History of Present Illness Source: patient, clinic records, hospital records Patient is a pleasant 82 y/o female, with PMHx of anxiety, diastolic CHF, chronic iron deficient anemia, dementia, and GERD, who was admitted per Dr. Boothe's recommendations due to anemia. She was to have a R shoulder replacement today but hgb was found to be 7.8. She was transfused 1 unit PRBCs and hgb improved to 8.1. Per past records, baseline hgb around 9.0. She receives IV iron transfusions- she is unable to tell me how often, but states she "missed her last couple of treatments." She has been seen by hematology/ oncology in the past- confirmed iron deficiency anemia due to malnutrition and previous gastric bypass. She takes Naprosyn from R should pain. She does have a h/o GERD- no medications listed. She also admits to dark stools. She had an EGD in 2016 which reported esophageal stricture s/p dilation. Patient denies any fever, chills, sweats, lightheadedness, dizziness, vision changes, CP, palpitations, edema, SOB, wheezing, cough, abdominal pain, nausea, vomiting, diarrhea, urinary symptoms, numbness/tingling, weakness, muscle/joint pain, anxiety/depression, active bleeding, or new skin discoloration/changes. Past Medical/Surgical History Anxiety dementia diastolic CHF chronic iron deficient anemia GERD appendectomy cholecystectomy knee replacement tubal ligation hysterectomy gastric bypass EGD colonoscopy Family History Kidney disease Social History Smoking Status: Never Smoker Drug Use: none Marital Status: Occupational Status: retired Immunizations History of Influenza Vaccine: N/A Influenza Vaccine Date: Jul 11, 2007 History of Tetanus Vaccine?: unknown History of Pneumococcal: Yes Pneumococcal Date: Jul 11, 2006 History of Hepatitis B Vaccine: Unknown Allergies Coded Allergies: Iron (Verified Allergy, Severe, chest pain, felt hot (tolerates Venofer), 12/02/17) Procaine (Verified Allergy, Severe, THROAT SWELLING WITH NOVOCAINE, 12/02/17 ) Codeine (Verified Adverse Reaction, Mild, NAUSEA, 12/02/17) Hydrocodone (Verified Adverse Reaction, Mild, nausea, 12/02/17) Oxycodone (Verified Adverse Reaction, Mild, nausea, 12/02/17) Home Medications Scheduled Donepezil Hydrochloride (Aricept), 10 MG PO BID Escitalopram Oxalate (Escitalopram Oxalate), 10 MG PO HS Memantine (Namenda), 5-10 MG PO UD Multivitamin (Multivitamin), 1 TAB PO QAM Scheduled PRN Furosemide (Lasix), 20 MG PO QAM PRN for EDEMA Naproxen (Naprosyn), 500 MG PO UD PRN for Pain Miscellaneous Medications Acetaminophen (Tylenol 8 Hour Arthritis) Physical Exam Vital Signs Date Time Temp Pulse Resp B/P (MAP) Pulse Ox O2 Delivery O2 Flow Rate FiO2 12/02/17 16:15 37.0 57 18 111/67 (82) 97 Room Air 12/02/17 15:07 55 18 105/56 (72) 98 Room Air 12/02/17 11:56 37.0 66 17 110/64 99 12/02/17 11:05 37.1 50 111/53 100 12/02/17 10:35 36.7 54 18 119/62 100 12/02/17 10:15 36.4 65 20 120/56 99 12/02/17 10:02 37 84 18 109/68 96 Room Air 12/02/17 09:57 37.0 84 18 109/68 96 General Appearance: no apparent distress, + thin Head: normocephalic, atraumatic Eyes: normal inspection, PERRL ENT: hearing grossly normal Neck: supple Respiratory/Chest: lungs clear, no respiratory distress, no accessory muscle use Cardiovascular: regular rate, rhythm, + systolic murmur Abdomen/GI: normal bowel sounds, non tender, soft Back: normal inspection Extremities/Musculoskelatal: no calf tenderness, no pedal edema Neurologic/Psych: alert, normal mood/affect, oriented x 3 Skin: warm/dry, no rash, + pallor Diagnostics Laboratory Results Results Past 24 Hours Test 12/02/17 12:09 Range/Units Hemoglobin 8.1 12.0-16.0 g/dL Hematocrit 26.5 37-47 % Impression Assessment and Plan Patient is a pleasant 82 y/o female, with PMHx of anxiety, diastolic CHF, chronic iron deficient anemia, dementia, and GERD, who was admitted per Dr. Boothe's recommendations due to anemia. Acute on chronic iron deficient anemia- baseline hgb 9.0: - Admitted to med/surg - s/p transfusion of 1 u PRBC on 12/01 - Hgb currently at 8.1 from 7.8- continue to follow H&H and transfuse PRN for hgb < 8.0 - Check stool heme occult - Start Protonix daily - Stop Naprosyn; Tylenol PRN for pain management - TSH and B12 WNL in 09/2017 - Surgery requested GI consultation- will place consult, appreciate recommendations- will keep NPO after midnight pending GI evaluation Chronic diastolic CHF- STABLE- follows w/ Dr. Julian: Continue Lasix Anxiety: Continue Lexapro Dementia: Continue Namenda and Aricept GI prophylaxis, h/o GERD: Protonix DVT prophylaxis: JOSE R/SCDs; hold chemical anticoagulation due to anemia Dispo: Discharge uncertain- PT/OT and CM consulted 82 y/o F Hx diastolic CHF, Iron deficient anemia, dementia, GERD - Admitted per request of Dr. Boothe due to anemia. The pt receives iron infusions and states that she had missed a fe. She was transfused a unit of PRBCs in prep for shoulder surgery, however, her Hb did not increase and for this reason she was sent to the hospital. The surgery is delayed. She denies any symptoms. OE AAO x 2 S1,2 R CTAB NT, ND No CCE No deficits P: The pt is euvolemic reg her CHF - she will cont Lasix as scheduled We will obtain stool samples for occult blood and consult GI We will trend her Hb Advanced Directives Existing Living Will: No Existing Power of Newspaper Illustrator: Yes Resuscitation Status LEVEL I, FULL VTE Prophylaxis Will order VTE Prophylaxis: Yes
[2017-12-02] MEDS ORDERED: POLYETHYLENE (MIRALAX) 17 GM PACK PO PRN (19:00)
[2017-12-02 21:00] LABS: HEMATOCRIT 26.2 % (37-47)
[2017-12-02] MEDS: DONEPEZIL HCL 10 MG TAB PO SCH (21:23)
[2017-12-02] MEDS: ESCITALOPRAM OXALATE 10 MG TAB PO SCH (21:23)
[2017-12-03 07:34] VITALS: BP 106/69; PULSE 46; TEMP 36.7; O2SAT 97
[2017-12-03 07:45] VITALS: O2SAT 97
[2017-12-03] MEDS: PANTOprazole SOD 40 MG TAB PO SCH (09:05)
[2017-12-03] MEDS: DONEPEZIL HCL 10 MG TAB PO SCH ×2 (09:05→20:31)
[2017-12-03] MEDS: MULTIVITAMIN TAB PO SCH (09:05)
[2017-12-03 09:45] LABS: HEMATOCRIT 28.8 % (37-47); HEMOGLOBIN 8.6 g/dL (12.0-16.0); MEAN CELL VOLUME 80.9 fL (80-100); MEAN CORPUSCULAR HEMOGLOBIN 24.2 pg (25-34); MEAN CORPUSCULAR HGB CONC 29.9 g/dl (32-36); MEAN PLATELET VOLUME 9.3 fL (7.4-10.4); PLATELET COUNT 466 K/uL (130-400); RED CELL DISTRIBUTION WIDTH CV 17.1 % (11.5-14.5); RED CELL DISTRIBUTION WIDTH SD 50.6 fL (36.4-46.3); WHITE BLOOD COUNT 6.88 K/uL (4.8-10.8)
[2017-12-03 09:59] LABS: CALCIUM 9.4 mg/dl (8.5-10.1); CREATININE 0.74 mg/dl (0.60-1.20); POTASSIUM 3.5 mmol/L (3.5-5.1)
--- NOTE | 2017-12-03 11:07 | GASTROINTESTINAL CONSULTATION ---
DATE OF CONSULTATION: 12/03/2017 REASON FOR CONSULTATION: Anemia. HISTORY OF PRESENT ILLNESS: The patient is an 82-year-old with degenerative changes causing severe pain in her left shoulder. She was scheduled to have surgery yesterday but was found to have hemoglobin in the 7 range which was at least 2-3 grams lower than it was in September, 2 months ago. She was hospitalized and transfused 1 unit with the anticipation that she will be getting more blood prior to considering rescheduling the surgery. In the meantime, GI consultation has been requested to evaluate her anemia. The patient reports having no vomiting. She has had some dark stools at times. Year and a half ago, in April 2016, she was seen by Dr. Nuñez and had an esophageal stricture dilated, but there was no bleeding or source of blood loss. She had a gastric bypass operation with a Luciano-en-Y anastomosis in the 1960s and has lost a lot of weight. She was seen by hematology and oncology in the past and has been getting iron infusions about every 6 months, presumably for a nutritional deficiency. Since she has been in the hospital, stool for Hemoccults were obtained and it was negative. The patient has Naprosyn for use but uses it very rarely. She is not on any aspirin. PAST MEDICAL HISTORY: Remarkable for gastric bypass with a Luciano-en-Y anastomosis, hypertension, kidney stones, congestive heart failure, diabetes, history of esophageal stricture, ischemic stroke. MEDICATIONS: Aricept, Namenda, escitalopram, multiple vitamin, Lasix p.r.n., Naprosyn p.r.n. ALLERGIES: IRON, PROCAINAMIDE, HYDROCODONE, OXYCODONE, AND CODEINE. FAMILY HISTORY: Noncontributory. SOCIAL HISTORY: The patient lives in assisted living apartment. REVIEW OF SYSTEMS: Positive for left shoulder pain. She has difficulty lying on the left side. PHYSICAL EXAMINATION: GENERAL: The patient appears in no acute distress. LUNGS: Clear. HEART: Showed a normal S1 and S2. Regular rate and rhythm with a grade 1-2/6 systolic murmur at the apex. ABDOMEN: Showed appendectomy scar. No masses, tenderness, or hepatosplenomegaly. She also had an epigastric scar from her bypass surgery. IMPRESSION: The patient has anemia. Stool is heme negative. She has had gastric bypass in the past and this could potentially cause a nutritional deficiency. Plan on checking iron studies, B12 and folate. Her MCV is normal. We will schedule her for an EGD on Tuesday to make sure she does not have an occult ulcer it could be causing her to be anemic. We will also check a celiac panel to make sure she is not having malabsorptive process from this disease as well.
[2017-12-03] MEDS ORDERED: PANTOprazole SOD 40 MG TAB PO STA (13:09)
[2017-12-03] MEDS ORDERED: PANTOprazole SOD 40 MG TAB PO PRN (13:15)
--- NOTE | 2017-12-03 13:26 | Orthopedic Progress Note ---
Orthopedic Progress Note Date of Service Dec 03, 2017. Subjective Reports: feeling well, Denies: chest pain, SOB, nausea / vomiting, light headedness, calf pain Objective Date Time Temp Pulse Resp B/P (MAP) Pulse Ox O2 Delivery O2 Flow Rate FiO2 12/03/17 07:45 97 Room Air 12/03/17 07:34 36.7 46 18 106/69 (81) 97 Room Air 12/02/17 23:30 Room Air 12/02/17 23:25 36.6 53 16 104/48 (66) 98 Room Air 12/02/17 16:15 Room Air 12/02/17 16:15 37.0 57 18 111/67 (82) 97 Room Air 12/02/17 15:07 55 18 105/56 (72) 98 Room Air Laboratory Results 24 Hours: Test 12/02/17 20:25 12/03/17 09:08 Hematocrit 26.2 % 28.8 % Hemoglobin 8.0 g/dL 8.6 g/dL Assessment & Plan Plan: TSA was cancelled on tuesday due to low H/H. Patient being evaluated by medicine and under medicine service. Advised pt to f/u in [facility] office after discharge to re-evaluate and reschedule surgery. Ortho will sign off for now.
[2017-12-03 15:07] VITALS: BP 96/59; PULSE 60; TEMP 36.7; O2SAT 98
--- NOTE | 2017-12-03 15:58 | Hospitalist Progress Note ---
Hospitalist Progress Note Date of Service Dec 03, 2017. (Talia Joya PA-C) Subjective Pt evaluation today including: conversation w/ patient, conversation w/ family (children at bedside), physical exam, chart review, lab review, review of inpatient medication list Pain: None PO Intake: Tolerating PO diet Voiding: no voiding problems Patient reports feeling well. She states she feels generally weak and fatigued but otherwise denies complaints. The patient denies fevers, chills, sweats, chest pain, palpitations, claudication, cough, wheezing, shortness of breath, nausea, vomiting, abdominal pain, dysuria, hematuria, urinary retention, paralysis, weakness, numbness and tingling. Additional Comments: See HPI for pertinent positives and negatives. All other systems reviewed and negative. (Talia Joya PA-C) Objective Vital Signs Date Time Temp Pulse Resp B/P (MAP) Pulse Ox O2 Delivery O2 Flow Rate FiO2 12/03/17 15:07 36.7 60 16 96/59 (71) 98 Room Air 12/03/17 07:45 97 Room Air 12/03/17 07:34 36.7 46 18 106/69 (81) 97 Room Air 12/02/17 23:30 Room Air 12/02/17 23:25 36.6 53 16 104/48 (66) 98 Room Air 12/02/17 16:15 Room Air 12/02/17 16:15 37.0 57 18 111/67 (82) 97 Room Air (Talia Joya PA-C) Physical Exam Notes: General appearance: Well-developed, well-nourished, no apparent distress Head: Normocephalic, atraumatic Eyes: Normal inspection, PERRL, EOMI ENT: Normal ENT inspection, hearing grossly normal, pharynx normal Neck: Supple, no JVD, trachea midline Respiratory/Chest: Lungs clear to auscultation, normal breath sounds, no respiratory distress Cardiovascular: +Systolic murmur. Regular rate & rhythm, no gallop Abdomen/GI: Normal bowel sounds, non-tender, soft Extremities/Musculoskeletal: Normal inspection, no calf tenderness, no pedal edema Neurological/Psych: Alert, normal mood/affect, oriented x 3 Skin: Normal color, warm/dry, no rash (Talia Joya PA-C) Laboratory Results Last 24 Hours Test 12/02/17 20:25 12/03/17 09:08 12/03/17 09:33 12/03/17 11:20 Hemoglobin 8.0 g/dL 8.6 g/dL Hematocrit 26.2 % 28.8 % White Blood Count 6.88 K/uL Red Blood Count 3.56 M/uL Mean Corpuscular Volume 80.9 fL Mean Corpuscular Hemoglobin 24.2 pg Mean Corpuscular Hemoglobin Concent 29.9 g/dl RDW Standard Deviation 50.6 fL RDW Coefficient of Variation 17.1 % Platelet Count 466 K/uL Mean Platelet Volume 9.3 fL Sodium Level 136 mmol/L Potassium Level 3.5 mmol/L Chloride Level 103 mmol/L Carbon Dioxide Level 23 mmol/L Anion Gap 10.0 mmol/L Blood Urea Nitrogen 16 mg/dl Creatinine 0.74 mg/dl Est Creatinine Clear Calc Drug Dose 47.0 ml/min Estimated GFR () 88.7 Estimated GFR (Non- 76.5 BUN/Creatinine Ratio 21.4 Random Glucose 146 mg/dl Calcium Level 9.4 mg/dl Stool Occult Blood NEGATIVE Iron Level 16 mcg/dl Total Iron Binding Capacity 398 mcg/dl Ferritin 12.1 ng/ml Vitamin B12 Level 605 pg/mL Folate 15.95 ng/mL (Talia Joya ., KEKE) Assessment and Plan 82 y/o female with a history of chronic diastolic CHF, anxiety/depression, iron deficiency anemia, dementia, and GERD who presented with acute anemia. Pt had initially presented for a right TSA with Dr. Boothe. Acute on chronic iron deficient anemia--improving - Admitted to med/surg - Baseline Hgb around 9 - Hgb down to 7.8, transfused 1 unit PRBC. Hgb up to 8.6 on 12/03 - Heme occult negative - Stop Naprosyn; Tylenol PRN for pain management - TSH and B12 WNL in 09/2017 - GI consulted, appreciate recs: will plan for EGD on Tuesday. Check iron studies, B12, folate, and celiac panel given h/o gastric bypass Chronic diastolic CHF--stable -Continue Lasix 20 mg PO qd prn edema Anxiety/depression -Continue Lexapro 10 mg PO hs Dementia--stable, alert and oriented x 3 -Continue Aricept 10 mg PO BID DVT prophylaxis -Hold chemical ppx due to acute anemia -JOSE R toney and SCDs Code Status -Level I, FULL RESUSCITATION STATUS (Talia Joya ., PA-C) Reviewed: Pt Seen/Exam by Me (Sally Goel, ) History Pt is feeling overall improved. She has no further SOB. Tolerating PO without issue. Denies chest pain. She note some indigestion s/p lunch today. She states this happens at times and she takes prilosec PRN for this issue. Agree with HPI/ROS as noted by PA. (Sally Goel, ) General Appearance: WD/WN, no apparent distress Eye Exam: bilateral eye normal inspection, bilateral eye other (nmll sclera) Respiratory: normal breath sounds, no respiratory distress Cardiovascular: normal peripheral pulses, regular rate, rhythm Gastrointestinal: non tender, soft Extremities: non-tender, no pedal edema Neurologic/Psychiatric: alert, normal mood/affect, oriented x 3 Skin Characteristics: normal color, warm/dry (Sally Goel DO) Assessment/Plan Agree with plan as outlined above Hb noted to be low on preop labs Improved s/p 1 unit PRBC GI planning for EGD on Tuesday Add prilose PRN (Sally Goel, )
[2017-12-03] MEDS: ESCITALOPRAM OXALATE 10 MG TAB PO SCH (20:31)
[2017-12-03 23:50] VITALS: BP 94/56; PULSE 60; TEMP 36.7; O2SAT 97
[2017-12-04 07:08] VITALS: BP 116/66; PULSE 56; TEMP 36.7; O2SAT 96
[2017-12-04 07:24] LABS: HEMATOCRIT 25.6 % (37-47); HEMOGLOBIN 7.7 g/dL (12.0-16.0); MEAN CELL VOLUME 80.3 fL (80-100); MEAN CORPUSCULAR HEMOGLOBIN 24.1 pg (25-34); MEAN CORPUSCULAR HGB CONC 30.1 g/dl (32-36); MEAN PLATELET VOLUME 8.6 fL (7.4-10.4); PLATELET COUNT 355 K/uL (130-400); RED CELL DISTRIBUTION WIDTH CV 17.3 % (11.5-14.5); RED CELL DISTRIBUTION WIDTH SD 50.6 fL (36.4-46.3); WHITE BLOOD COUNT 5.69 K/uL (4.8-10.8)
[2017-12-04 07:55] LABS: CALCIUM 8.6 mg/dl (8.5-10.1); CREATININE 0.48 mg/dl (0.60-1.20); POTASSIUM 3.7 mmol/L (3.5-5.1)
[2017-12-04] MEDS: MULTIVITAMIN TAB PO SCH (08:56)
[2017-12-04] MEDS: PANTOprazole SOD 40 MG TAB PO SCH (08:56)
[2017-12-04] MEDS: DONEPEZIL HCL 10 MG TAB PO SCH ×2 (08:56→21:08)
[2017-12-04] MEDS: ACETAMINOPHEN 325 MG TAB PO PRN ×2 (08:57→13:25)
[2017-12-04] MEDS: IRON SUCROSE INJ 100 MG in SODIUM CHLORIDE 0.9% 100ML 100 ML IV SCH (10:37)
--- NOTE | 2017-12-04 10:37 | Hospitalist Progress Note ---
Hospitalist Progress Note Date of Service Dec 04, 2017. (Talia Joya ., JENNIFERC) Subjective Pt evaluation today including: conversation w/ patient, conversation w/ family (daughters at bedside), physical exam, chart review, lab review, review of inpatient medication list The patient reports feeling well, although she notes she is somewhat more weak and fatigued today compared to yesterday. She also states that she woke up this morning with a "nagging" 5/10 left chest pain located under her left breast. She denies any other associated symptoms. The patient denies fevers, chills, sweats, palpitations, claudication, cough, wheezing, shortness of breath , nausea, vomiting, abdominal pain, dysuria, hematuria, urinary retention, paralysis, weakness, numbness and tingling. Additional Comments: See HPI for pertinent positives and negatives. All other systems reviewed and negative. (Talia Joya ., WILFRID-C) Objective Vital Signs Date Time Temp Pulse Resp B/P (MAP) Pulse Ox O2 Delivery O2 Flow Rate FiO2 12/04/17 07:08 36.7 56 17 116/66 (83) 96 Room Air 12/04/17 00:30 Room Air 12/03/17 23:50 36.7 60 16 94/56 (69) 97 Room Air 12/03/17 15:53 Room Air 12/03/17 15:07 36.7 60 16 96/59 (71) 98 Room Air (Talia Joya, WILFRID-C) Physical Exam Notes: General appearance: Well-developed, well-nourished, no apparent distress Head: Normocephalic, atraumatic Eyes: Normal inspection, PERRL, EOMI ENT: Normal ENT inspection, hearing grossly normal, pharynx normal Neck: Supple, no JVD, trachea midline Respiratory/Chest: Lungs clear to auscultation, normal breath sounds, no respiratory distress Cardiovascular: +Systolic murmur. Regular rate & rhythm, no gallop Abdomen/GI: Normal bowel sounds, non-tender, soft Extremities/Musculoskeletal: Normal inspection, no calf tenderness, no pedal edema Neurological/Psych: Alert, normal mood/affect, oriented x 3 Skin: Normal color, warm/dry, no rash (Talia Joya PA-C) Laboratory Results Last 24 Hours Test 12/03/17 11:20 12/04/17 07:07 Iron Level 16 mcg/dl Total Iron Binding Capacity 398 mcg/dl Ferritin 12.1 ng/ml Vitamin B12 Level 605 pg/mL Folate 15.95 ng/mL White Blood Count 5.69 K/uL Red Blood Count 3.19 M/uL Hemoglobin 7.7 g/dL Hematocrit 25.6 % Mean Corpuscular Volume 80.3 fL Mean Corpuscular Hemoglobin 24.1 pg Mean Corpuscular Hemoglobin Concent 30.1 g/dl RDW Standard Deviation 50.6 fL RDW Coefficient of Variation 17.3 % Platelet Count 355 K/uL Mean Platelet Volume 8.6 fL Sodium Level 139 mmol/L Potassium Level 3.7 mmol/L Chloride Level 107 mmol/L Carbon Dioxide Level 26 mmol/L Anion Gap 6.0 mmol/L Blood Urea Nitrogen 19 mg/dl Creatinine 0.48 mg/dl Est Creatinine Clear Calc Drug Dose 72.5 ml/min Estimated GFR () 107.4 Estimated GFR (Non- 92.6 BUN/Creatinine Ratio 39.0 Random Glucose 86 mg/dl Calcium Level 8.6 mg/dl (Talia Joya, JENNIFERC) Assessment and Plan 82 y/o female with a history of chronic diastolic CHF, anxiety/depression, iron deficiency anemia, dementia, and GERD who presented with acute anemia. Pt had initially presented for a right TSA with Dr. Boothe. Acute on chronic iron deficient anemia--ongoing - Admitted to med/surg - Baseline Hgb around 9 - Hgb down to 7.8, transfused 1 unit PRBC - Hgb 7.7 on 12/04, down from 8.6 - Trend H&H q6h - Iron low at 16. Pt has h/o iron transfusions, per family last one was around May. - Restart Venofer, 500 mg IV x1 (recommended 500 mg IV [id number] x 2 doses) - TIBC, ferritin, B12, folate WNL - Heme occult negative - Stop Naprosyn; Tylenol PRN for pain management - GI consulted, appreciate recs: will plan for EGD on Tuesday. Check iron studies, B12, folate, and celiac panel given h/o gastric bypass Left chest pain -Check EKG and troponin now Chronic diastolic CHF--stable -Continue Lasix 20 mg PO qd prn edema Anxiety/depression -Continue Lexapro 10 mg PO hs Dementia--stable, alert and oriented x 3 but at times confused -Continue Aricept 10 mg PO BID -Pt had completed Namenda titration pack but did not receive any refills/ further prescriptions. Unclear if patient did not tolerate or this was missed DVT prophylaxis -Hold chemical ppx due to acute anemia -JOSE R toney and SCDs Code Status -Level I, FULL RESUSCITATION STATUS Dispo -Pt lives alone at home. Daughter pulled me aside stating that she is not safe to return home due to her dementia and mobility issues. [facility] has evaluated her at home, family is working at getting her to a rehab facility in [place]. -PT/OT evaluate and treat, case management following (Talia Joya ., PA-C) Reviewed: Pt Seen/Exam by Me (Sally Goel, ) History Pt feeling overall improved. Tolerating PO without issue. Denies chest pain, SOB. Agree with HPI/ROS as noted by PA. (Sally Goel DO) Comments General Appearance: WD/WN, no apparent distress Eye Exam: bilateral eye normal inspection, bilateral eye other (nml sclera) Respiratory: normal breath sounds, no respiratory distress Cardiovascular: normal peripheral pulses, regular rate, rhythm Gastrointestinal: non tender, soft Extremities: non-tender, no pedal edema Neurologic/Psychiatric: alert, normal mood/affect, oriented x 3 Skin Characteristics: normal color, warm/dry (Sally Goel DO) Assessment/Plan Agree with plan as outlined above Hb noted to be low on preop labs Improved s/p 1 unit PRBC, however trending back down IV iron infusion given today and Hb improved GI planning for EGD on Tuesday Add protonix PRN Family was planning for rehab placement asa outpt, CM to assist further (Sally Goel, DO)
[2017-12-04 10:55] VITALS: BP 112/59; PULSE 62; O2SAT 97
--- NOTE | 2017-12-04 11:25 | PROGRESS NOTE ---
DATE: 12/04/2017 SUBJECTIVE: The patient received 1 unit of blood and her hemoglobin today is 7.7 indicating there was probably some equilibration rather than blood loss. Her stool is heme negative. Iron is low with an iron saturation of probably about 5%, ferritin is in the low normal range of 12. B12 and folate are normal. Celiac panel is pending. IMPRESSION: The patient has iron deficiency anemia with a normal MCV. I suspect that this is nutritional in nature, but I planned on scheduling her for an esophagogastroduodenoscopy tomorrow to make sure she does not have an occult ulcer or other potential upper gastrointestinal source for blood loss. IVAN
[2017-12-04 12:26] LABS: HEMATOCRIT 28.4 % (37-47); HEMOGLOBIN 8.3 g/dL (12.0-16.0)
[2017-12-04 15:06] VITALS: BP 98/59; PULSE 64; TEMP 36.8; O2SAT 98
[2017-12-04 20:19] LABS: HEMATOCRIT 27.3 % (37-47); HEMOGLOBIN 8.2 g/dL (12.0-16.0)
[2017-12-04] MEDS: ESCITALOPRAM OXALATE 10 MG TAB PO SCH (21:08)
[2017-12-04 23:05] VITALS: BP 116/67; PULSE 66; TEMP 36.7; O2SAT 98
[2017-12-05 01:15] LABS: HEMATOCRIT 24.7 % (37-47); HEMOGLOBIN 7.3 g/dL (12.0-16.0)
[2017-12-05 07:15] LABS: HEMATOCRIT 26.2 % (37-47); HEMOGLOBIN 7.7 g/dL (12.0-16.0); MEAN CELL VOLUME 81.1 fL (80-100); MEAN CORPUSCULAR HEMOGLOBIN 23.8 pg (25-34); MEAN CORPUSCULAR HGB CONC 29.4 g/dl (32-36); MEAN PLATELET VOLUME 9.3 fL (7.4-10.4); PLATELET COUNT 399 K/uL (130-400); RED CELL DISTRIBUTION WIDTH CV 17.5 % (11.5-14.5); RED CELL DISTRIBUTION WIDTH SD 51.8 fL (36.4-46.3); WHITE BLOOD COUNT 5.28 K/uL (4.8-10.8)
[2017-12-05 07:28] LABS: CALCIUM 8.3 mg/dl (8.5-10.1); CREATININE 0.52 mg/dl (0.60-1.20)
[2017-12-05 07:37] VITALS: BP 102/60; PULSE 57; TEMP 36.6; O2SAT 99
[2017-12-05 07:43] VITALS: O2SAT 99
[2017-12-05] MEDS: IRON SUCROSE INJ 100 MG in SODIUM CHLORIDE 0.9% 100ML 100 ML IV SCH (09:55)
[2017-12-05] MEDS ORDERED: EpHEDrine SULFATE INJ 50 MG/ML AMP IV PRN (11:45)
[2017-12-05] MEDS ORDERED: ATROPINE SULFATE 0.1 MG/ML 5ML SYR IV PRN (11:45)
--- NOTE | 2017-12-05 12:00 | Endo History and Physical ---
History & Physical Date of Service: Dec 05, 2017. Chief Complaint: anemia Referring Physician: Joselito Peralta History of Present Illness For EGD Past Medical History Atrial Fibrillation, Diabetes, Osteoporosis, Arthritis, Reflux, Thyroid Disease Past Surgical History Hx Cardiac Surgery: Yes (HEART CATH, NO STENT) Hx Internal Defibrillator: No Hx Pacemaker: No Hx Abdominal Surgery: Yes (GASTRIC BYPASS, hysterectomy, APPE, JASBIR) Hx Post-Op Nausea and Vomiting: No Hx Cancer Surgery: No Hx Thoracic Surgery: No Hx Orthopedic: Yes (L/R TKA AND LT KNEE REPAIR, LOW BACK SURGERY) Hx Urinary Tract Surgery: Yes (KIDNEY STONE REMOVAL) Social History Smoking Status: Never Smoker Hx Substance Use: No Hx Alcohol Use: No Allergies Coded Allergies: Iron (Verified Allergy, Severe, chest pain, felt hot (tolerates Venofer), 12/02/17) Procaine (Verified Allergy, Severe, THROAT SWELLING WITH NOVOCAINE, 12/02/17 ) Codeine (Verified Adverse Reaction, Mild, NAUSEA, 12/02/17) Hydrocodone (Verified Adverse Reaction, Mild, nausea, 12/02/17) Oxycodone (Verified Adverse Reaction, Mild, nausea, 12/02/17) Current Medications Reported Home Medications Medications Dose Route/Sig Max Daily Dose Days Date Category Dose Instructions Tylenol 8 Hour Arthritis (Acetaminophen) 650 Mg Tab 12/02/17 Reported Multivitamin (Multivitamins) Tab 1 Tab PO QAM 11/18/17 Reported Namenda (Memantine) 5 Mg Tab 5-10 Mg PO UD 11/18/17 Reported Lasix (Furosemide) 20 Mg Tab 20 Mg PO QAM PRN 11/18/17 Reported Naprosyn (Naproxen) 500 Mg Tab 500 Mg PO UD PRN 11/14/17 Reported PT INSTRUCTED TO CONTACT SURGEON OFFICE FOR PRE OP INSTRUCTIONS REGARDING THIS MED. PATIENT VOICES UNDERSTANDING. Escitalopram Oxalate 10 Mg Tab 10 Mg PO HS 05/03/17 Reported Aricept (Donepezil Hydrochloride) 10 Mg Tab 10 Mg PO BID 04/26/16 Reported Vital Signs Weight (Kilograms): 58.000 Height (Feet): 4 Height (Inches): 11 Date Time Temp Pulse Resp B/P (MAP) Pulse Ox O2 Delivery O2 Flow Rate FiO2 12/05/17 11:34 37.1 52 18 147/55 (85) 100 Room Air 12/05/17 08:05 Room Air 3/12/18 07:43 99 Room Air 12/05/17 07:37 36.6 57 18 102/60 (74) 99 Room Air 12/04/17 23:20 Room Air 12/04/17 23:05 36.7 66 16 116/67 (83) 98 Room Air 12/04/17 16:10 Room Air 12/04/17 15:06 36.8 64 22 98/59 (72) 98 Room Air Physical Exam General Appearance: WD/WN Respiratory/Chest: Respiratory effort: no dyspnea Cardiovascular: Heart Auscultation: RRR Abdomen: Bowel Sounds: pertinent finding (Gastric bypass) Inspection & Palpation: soft Assessment and Plan Anemia for EGD
[2017-12-05] MEDS ORDERED: PROPOFOL IV EMULSION 10 MG/ML 20 ML VIAL IV ONE (12:06)
[2017-12-05] MEDS ORDERED: LIDOCAINE HCL 2% 2 ML VIAL (20MG/ML) ONE (12:06)
--- NOTE | 2017-12-05 12:11 | Hospitalist Progress Note ---
Hospitalist Progress Note Date of Service Dec 05, 2017. Subjective Pt evaluation today including: conversation w/ patient, conversation w/ family , physical exam, lab review, review of studies, review of inpatient medication list Voiding: no voiding problems Patient feeling well. NPO for EGD today. Patient denies any fever, chills, sweats, lightheadedness, dizziness, vision changes, CP, palpitations, edema, SOB, wheezing, cough, abdominal pain, nausea, vomiting, diarrhea, urinary symptoms, melena, numbness/tingling, weakness, muscle/joint pain, anxiety/depression, active bleeding, or new skin discoloration/changes. Medications Current Inpatient Medications Medications (Trade) Dose Ordered Sig/Ricardo Route Start Time Stop Time Status Last Admin Dose Admin Acetaminophen (Tylenol Tab) 650 mg Q4H PRN PO 12/02/17 18:45 01/01/18 18:44 12/04/17 13:25 650 MG Al Hydrox/Mg Hydrox/Simethicone (Maalox Max Susp) 15 ml Q4H PRN PO 12/02/17 18:45 01/01/18 18:44 Magnesium Hydroxide (Milk Of Magnesia Susp) 30 ml Q6H PRN PO 12/02/17 18:45 01/01/18 18:44 Polyethylene (Miralax Powder Packet) 17 gm DAILY PRN PO 12/02/17 19:00 01/01/18 18:59 Ondansetron HCl (Zofran Inj) 4 mg Q6H PRN IV 12/02/17 18:45 01/01/18 18:44 Donepezil HCl (Aricept Tab) 10 mg BID PO 12/02/17 21:00 01/01/18 20:59 12/04/17 21:08 10 MG Escitalopram Oxalate (Lexapro Tab) 10 mg HS PO 12/02/17 21:00 01/01/18 20:59 12/04/17 21:08 10 MG Furosemide (Lasix Tab) 20 mg QAM PRN PO 12/02/17 18:45 01/01/18 18:44 Multivitamins (Multivitamin Tab) 1 tab QAM PO 12/03/17 09:00 01/01/18 08:59 12/04/17 08:56 1 TAB Pantoprazole Sodium (Protonix Tab) 40 mg QAM PO 12/03/17 09:00 12/06/17 08:59 12/04/17 08:56 40 MG Miscellaneous Information (Order Awaiting Action) 1 ea QS N/A 12/03/17 00:00 01/02/18 00:00 Pantoprazole Sodium (Protonix Tab) 40 mg DAILY PRN PO 12/03/17 13:15 Iron Sucrose 100 mg/Sodium Chloride 105 ml @ 420 mls/hr DAILY@1000 IV 12/04/17 10:00 12/08/17 10:14 12/05/17 09:55 420 MLS/HR Ephedrine Sulfate (EpHEDrine SULFATE INJ) 5 mg Q5M PRN IV 12/05/17 11:45 12/06/17 11:44 UNV Atropine Sulfate (Atropine Sulfate 0.1mg/ml Inj) 0.5 mg Q1M PRN IV 12/05/17 11:45 12/06/17 11:44 UNV Objective Vital Signs Date Time Temp Pulse Resp B/P (MAP) Pulse Ox O2 Delivery O2 Flow Rate FiO2 12/05/17 11:34 37.1 52 18 147/55 (85) 100 Room Air 12/05/17 08:05 Room Air 12/05/17 07:43 99 Room Air 12/05/17 07:37 36.6 57 18 102/60 (74) 99 Room Air 12/04/17 23:20 Room Air 12/04/17 23:05 36.7 66 16 116/67 (83) 98 Room Air 12/04/17 16:10 Room Air 12/04/17 15:06 36.8 64 22 98/59 (72) 98 Room Air Physical Exam General Appearance: no apparent distress Eyes: normal inspection, PERRL ENT: hearing grossly normal Neck: supple Respiratory/Chest: lungs clear, no respiratory distress, no accessory muscle use Cardiovascular: regular rate, rhythm, + systolic murmur Abdomen: normal bowel sounds, non tender, soft Extremities: no pedal edema, no calf tenderness Neurologic/Psychiatric: alert, normal mood/affect, oriented x 3 Skin: normal color, warm/dry, no rash Laboratory Results Last 24 Hours Test 12/04/17 11:58 12/04/17 14:50 12/04/17 19:11 12/05/17 00:53 Hemoglobin 8.3 g/dL 8.2 g/dL 7.3 g/dL Hematocrit 28.4 % 27.3 % 24.7 % Urine Color DK YELLOW Urine Appearance CLEAR Urine pH 5.0 Urine Specific [place] 1.029 Urine Protein NEG Urine Glucose (UA) NEG Urine Ketones TRACE Urine Occult Blood 2+ Urine Nitrite NEG Urine Bilirubin NEG Urine Urobilinogen NEG Urine Leukocyte Esterase TRACE Urine WBC (Auto) 1-5 /hpf Urine RBC (Auto) 0-4 /hpf Urine Hyaline Casts (Auto) 0 /lpf Urine Epithelial Cells (Auto) >30 /lpf Urine Bacteria (Auto) NEG Test 12/05/17 06:43 12/05/17 07:40 White Blood Count 5.28 K/uL Red Blood Count 3.23 M/uL Hemoglobin 7.7 g/dL Hematocrit 26.2 % Mean Corpuscular Volume 81.1 fL Mean Corpuscular Hemoglobin 23.8 pg Mean Corpuscular Hemoglobin Concent 29.4 g/dl RDW Standard Deviation 51.8 fL RDW Coefficient of Variation 17.5 % Platelet Count 399 K/uL Mean Platelet Volume 9.3 fL Sodium Level 138 mmol/L Potassium Level mmol/L 3.7 mmol/L Chloride Level 106 mmol/L Carbon Dioxide Level 27 mmol/L Anion Gap 5.0 mmol/L Blood Urea Nitrogen 14 mg/dl Creatinine 0.52 mg/dl Est Creatinine Clear Calc Drug Dose 66.9 ml/min Estimated GFR () 104.6 Estimated GFR (Non- 90.2 BUN/Creatinine Ratio 26.9 Random Glucose 84 mg/dl Calcium Level 8.3 mg/dl Assessment and Plan Patient is a pleasant 82 y/o female, with PMHx of anxiety, diastolic CHF, chronic iron deficient anemia, dementia, and GERD, who was admitted per Dr. Boothe's recommendations due to anemia. Acute on chronic iron deficient anemia- baseline hgb 9.0: - Admitted to med/surg - s/p transfusion of 1 u PRBC on 12/01 - Hgb currently at 7.7- continue to follow H&H and transfuse PRN for hgb < 7.0- 8.0 - Stool heme occult- negative - Protonix daily - Stop Naprosyn; Tylenol PRN for pain management - TSH, B12, TIBC, Ferritin- WNL - Restart Venofer, 500 mg IV x1 (recommended 500 mg IV q2kvrch x 2 doses) - Surgery requested GI consultation- EGD today, celiac panel pending Left chest pain- RESOLVED: Check EKG and troponin unremarkable, continue to follow Chronic diastolic CHF- STABLE- follows w/ Dr. Julian: Continue Lasix PRN for edema Anxiety: Continue Lexapro Dementia: - Continue Aricept - Pt had completed Namenda titration pack but did not receive any refills/ further prescriptions. Unclear if patient did not tolerate or this was missed - Continued outpatient Neurology f/u GI prophylaxis, h/o GERD: Protonix DVT prophylaxis: JOSE R/SCDs; hold chemical anticoagulation due to anemia Code status: LEVEL I, FULL Dispo: Planning for placement at discharge- PT/OT and CM consulted
--- NOTE | 2017-12-05 12:18 | Discharge Instructions ---
Endoscopy Patient Instructions Date / Procedure(s) Performed Dec 05, 2017. EGD Allergy Information Coded Allergies: Iron (Verified Allergy, Severe, chest pain, felt hot (tolerates Venofer), 12/02/17) Procaine (Verified Allergy, Severe, THROAT SWELLING WITH NOVOCAINE, 12/02/17 ) Codeine (Verified Adverse Reaction, Mild, NAUSEA, 12/02/17) Hydrocodone (Verified Adverse Reaction, Mild, nausea, 12/02/17) Oxycodone (Verified Adverse Reaction, Mild, nausea, 12/02/17) Discharge Date / Findings Dec 05, 2017. small bowel ulcers Medication Instructions Restart Stopped Medication(s): resume meds Current Inpatient Medications Medications (Trade) Dose Ordered Sig/Ricardo Route Start Time Stop Time Status Last Admin Dose Admin Acetaminophen (Tylenol Tab) 650 mg Q4H PRN PO 12/02/17 18:45 01/01/18 18:44 12/04/17 13:25 650 MG Al Hydrox/Mg Hydrox/Simethicone (Maalox Max Susp) 15 ml Q4H PRN PO 12/02/17 18:45 01/01/18 18:44 Magnesium Hydroxide (Milk Of Magnesia Susp) 30 ml Q6H PRN PO 12/02/17 18:45 01/01/18 18:44 Polyethylene (Miralax Powder Packet) 17 gm DAILY PRN PO 12/02/17 19:00 01/01/18 18:59 Ondansetron HCl (Zofran Inj) 4 mg Q6H PRN IV 12/02/17 18:45 01/01/18 18:44 Donepezil HCl (Aricept Tab) 10 mg BID PO 12/02/17 21:00 01/01/18 20:59 12/04/17 21:08 10 MG Escitalopram Oxalate (Lexapro Tab) 10 mg HS PO 12/02/17 21:00 01/01/18 20:59 12/04/17 21:08 10 MG Furosemide (Lasix Tab) 20 mg QAM PRN PO 12/02/17 18:45 01/01/18 18:44 Multivitamins (Multivitamin Tab) 1 tab QAM PO 12/03/17 09:00 01/01/18 08:59 12/04/17 08:56 1 TAB Pantoprazole Sodium (Protonix Tab) 40 mg QAM PO 12/03/17 09:00 12/06/17 08:59 12/04/17 08:56 40 MG Miscellaneous Information (Order Awaiting Action) 1 ea QS N/A 12/03/17 00:00 01/02/18 00:00 Pantoprazole Sodium (Protonix Tab) 40 mg DAILY PRN PO 12/03/17 13:15 Iron Sucrose 100 mg/Sodium Chloride 105 ml @ 420 mls/hr DAILY@1000 IV 12/04/17 10:00 12/08/17 10:14 12/05/17 09:55 420 MLS/HR Ephedrine Sulfate (EpHEDrine SULFATE INJ) 5 mg Q5M PRN IV 12/05/17 11:45 12/06/17 11:44 UNV Atropine Sulfate (Atropine Sulfate 0.1mg/ml Inj) 0.5 mg Q1M PRN IV 12/05/17 11:45 12/06/17 11:44 UNV Provider Instructions Activity Restrictions - No exercising or heavy lifting for 24 hours. - Do not drink alcohol the day of the procedure. - Do not drive a car or operate machinery until the day after the procedure. - Do not make any important decisions or sign important papers in 24 hours after the procedure. Following Day: - Return to full activity which may include returning to work/school. Diet Start your diet with liquids and light foods (jello, soup, juice, toast). Then eat your usual diet if not nauseated. Treatment For Common After Affects For mild abdominal pain, bloating, or excessive gas: - Rest - Eat lightly - Lie on right side Follow-Up Information Follow-up with as scheduled Anesthesia Information What You Should Know You have had a procedure that required some medicine to reduce anxiety and discomfort. This treatment is called moderate sedation. After receiving the treatment, you may be sleepy, but you will be able to breathe on your own. The effects of the treatment may last for several hours. Follow these instructions along with Activity/Diet recommendations noted above: * Do NOT do anything where dizziness or clumsiness would be dangerous. * Rest quietly at home today, then you can be up and about tomorrow. * Have a responsible person stay with you the rest of today. * You may have had an I.V. today. If so, you may take the dressing off later today. Recommendations Call your doctor if: * Trouble breathing * Continuous vomiting for more than 24 hours * Temperature above 101 degrees * Severe abdominal pain or bloating * Pain not relieved by pain medicine ordered * There is increased drainage or redness from any incision * A large amount of rectal bleeding greater than 2-3 tablespoons. (If you had a polyp/s removed or have hemorrhoids, a small amount of blood - from the rectum is to be expected.) * You have any unanswered questions or concerns. IN THE EVENT OF A SERIOUS EMERGENCY, GO TO THE NEAREST EMERGENCY ROOM Your discharge instructions were prepared by provider Nishant Torres. Patient Instructions Signature Page Jan Salazar Patient (or Guardian) Signature/Date: I have read and understand the instructions given to me by my caregivers. Caregiver/RN/Doctor Signature/Date: The above-named patient and/or guardian has received patient instructions on this date. + Original Patient Signature Page (only) stays with chart. Please make copy for patient.
--- NOTE | 2017-12-05 12:24 | GI REPORT ---
Procedure Date: 12/05/2017 12:02 PM Procedure: Upper GI endoscopy Indications: Iron deficiency anemia Medicines: Propofol total dose 50 mg IV, Lidocaine 40 mg IV Complications: No immediate complications. Estimated Blood Loss: Estimated blood loss: none. Procedure: Pre-Anesthesia Assessment: - Prior to the procedure, a History and Physical was performed, and patient medications, allergies and sensitivities were reviewed. The patient's tolerance of previous anesthesia was reviewed. - The risks and benefits of the procedure and the sedation options and risks were discussed with the patient. All questions were answered and informed consent was obtained. After obtaining informed consent, the endoscope was passed under direct vision. Throughout the procedure, the patient's blood pressure, pulse, and oxygen saturations were monitored continuously. The scope was introduced through the mouth, and advanced to the third part of duodenum. The upper GI endoscopy was accomplished without difficulty. The patient tolerated the procedure well. Findings: The examined esophagus was normal. The Z-line was regular and was found 31 cm from the incisors. 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 This was traversed. Two non-bleeding cratered duodenal ulcers with no stigmata of bleeding were found at the anastomosis. The largest lesion was 15 mm in largest dimension. Impression: - Normal esophagus. - Z-line regular, 31 cm from the incisors. - Luciano-en-Y gastrojejunostomy. - Multiple non-bleeding duodenal ulcers with no stigmata of bleeding. - No specimens collected. Recommendation: - Return patient to [facility] for ongoing care. - Use sucralfate tablets 1 gram PO QID for 2 months. Nishant Torres M.D. Nishant Torres MD 12/05/2017 12:24:33 PM This report has been signed electronically. Note Initiated On: 12/05/2017 12:02 PM I attest to the content of the Intraoperative Record and orders documented therein, exceptions below
--- NOTE | 2017-12-05 12:41 | Anesthesiology Progress Note ---
Anesthesia Post Op Note Date & Time Dec 05, 2017 at 12:41 Vital Signs Pain Intensity: 8 Vital Signs Past 12 Hours Date Time Temp Pulse Resp B/P (MAP) Pulse Ox O2 Delivery O2 Flow Rate FiO2 12/05/17 12:26 52 18 99/55 (70) 98 Room Air 12/05/17 11:34 37.1 52 18 147/55 (85) 100 Room Air 12/05/17 08:05 Room Air 12/05/17 07:43 99 Room Air 12/05/17 07:37 36.6 57 18 102/60 (74) 99 Room Air Notes Mental Status: alert / awake / arousable, participated in evaluation Pt Amnestic to Procedure: Yes Nausea / Vomiting: adequately controlled Pain: adequately controlled Airway Patency, RR, SpO2: stable & adequate BP & HR: stable & adequate Hydration State: stable & adequate Anesthetic Complications: no major complications apparent
--- NOTE | 2017-12-05 12:45 | PROGRESS NOTE ---
DATE: 12/05/2017 SUBJECTIVE: The patient underwent an EGD today for her anemia. The patient was found to have 2 large deep ulcers on the small bowel side of her Luciano-en-Y gastric bypass anastomosis. There was no stigmata of bleeding. The patient is currently on Protonix and I planned on adding Carafate orally 4 times a day, should be on a bland diet. We will check a stool for H. pylori. She will obviously need to avoid aspirin and nonsteroidals going forward and we should probably rescope her in a couple of months to make sure the ulcers have completely healed and she will need to stay on a proton pump inhibitor as a maintenance medication once the ulcers are healed.
[2017-12-05 13:00] VITALS: BP 108/62; PULSE 50; TEMP 36.7; O2SAT 97
[2017-12-05 13:07] VITALS: BP 108/62; PULSE 50; TEMP 36.7; O2SAT 97
[2017-12-05] MEDS: MULTIVITAMIN TAB PO SCH (13:38)
[2017-12-05] MEDS: PANTOprazole SOD 40 MG TAB PO SCH (13:38)
[2017-12-05] MEDS: DONEPEZIL HCL 10 MG TAB PO SCH ×2 (13:39→20:51)
[2017-12-05] MEDS: SUCRALFATE 1 GM TAB PO SCH ×3 (14:07→20:51)
[2017-12-05 15:14] VITALS: BP 133/83; PULSE 53; TEMP 36.7; O2SAT 98
[2017-12-05] MEDS: ESCITALOPRAM OXALATE 10 MG TAB PO SCH (20:51)
[2017-12-05 23:10] VITALS: BP 107/66; PULSE 55; TEMP 36.8; O2SAT 96
[2017-12-06 03:58] VITALS: BP 118/58; PULSE 56; TEMP 36.6; O2SAT 97
[2017-12-06 06:55] LABS: HEMATOCRIT 25.1 % (37-47); HEMOGLOBIN 7.5 g/dL (12.0-16.0); MEAN CELL VOLUME 81.2 fL (80-100); MEAN CORPUSCULAR HEMOGLOBIN 24.3 pg (25-34); MEAN CORPUSCULAR HGB CONC 29.9 g/dl (32-36); MEAN PLATELET VOLUME 8.8 fL (7.4-10.4); PLATELET COUNT 367 K/uL (130-400); RED CELL DISTRIBUTION WIDTH CV 17.4 % (11.5-14.5); RED CELL DISTRIBUTION WIDTH SD 51.4 fL (36.4-46.3); WHITE BLOOD COUNT 5.39 K/uL (4.8-10.8)
[2017-12-06 07:06] VITALS: BP 111/63; PULSE 53; TEMP 36.8; O2SAT 98
[2017-12-06 07:30] LABS: CALCIUM 8.6 mg/dl (8.5-10.1); CREATININE 0.42 mg/dl (0.60-1.20); POTASSIUM 3.6 mmol/L (3.5-5.1)
[2017-12-06] MEDS: MULTIVITAMIN TAB PO SCH (09:02)
[2017-12-06] MEDS: SUCRALFATE 1 GM TAB PO SCH ×4 (09:02→20:47)
[2017-12-06] MEDS: DONEPEZIL HCL 10 MG TAB PO SCH ×2 (09:02→20:47)
[2017-12-06] MEDS: IRON SUCROSE INJ 100 MG in SODIUM CHLORIDE 0.9% 100ML 100 ML IV SCH (10:32)
--- NOTE | 2017-12-06 13:43 | Hospitalist Progress Note ---
Hospitalist Progress Note Date of Service Dec 06, 2017. Subjective Pt evaluation today including: conversation w/ patient, conversation w/ family ([id number] on phone ), physical exam, lab review, review of studies, review of inpatient medication list Voiding: no voiding problems Patient resting in bed. Feeling well. IV iron infusing- tolerating well. Eating and drinking OK. Patient denies any fever, chills, sweats, lightheadedness, dizziness, vision changes, CP, palpitations, edema, SOB, wheezing, cough, abdominal pain, nausea, vomiting, diarrhea, urinary symptoms, melena, numbness/tingling, weakness, muscle/joint pain, anxiety/depression, active bleeding, or new skin discoloration/changes. Medications Current Inpatient Medications Medications (Trade) Dose Ordered Sig/Ricardo Route Start Time Stop Time Status Last Admin Dose Admin Acetaminophen (Tylenol Tab) 650 mg Q4H PRN PO 12/02/17 18:45 01/01/18 18:44 12/04/17 13:25 650 MG Al Hydrox/Mg Hydrox/Simethicone (Maalox Max Susp) 15 ml Q4H PRN PO 12/02/17 18:45 01/01/18 18:44 Magnesium Hydroxide (Milk Of Magnesia Susp) 30 ml Q6H PRN PO 12/02/17 18:45 01/01/18 18:44 Polyethylene (Miralax Powder Packet) 17 gm DAILY PRN PO 12/02/17 19:00 01/01/18 18:59 Ondansetron HCl (Zofran Inj) 4 mg Q6H PRN IV 12/02/17 18:45 01/01/18 18:44 Donepezil HCl (Aricept Tab) 10 mg BID PO 12/02/17 21:00 01/01/18 20:59 12/06/17 09:02 10 MG Escitalopram Oxalate (Lexapro Tab) 10 mg HS PO 12/02/17 21:00 01/01/18 20:59 12/05/17 20:51 10 MG Furosemide (Lasix Tab) 20 mg QAM PRN PO 12/02/17 18:45 01/01/18 18:44 Multivitamins (Multivitamin Tab) 1 tab QAM PO 12/03/17 09:00 01/01/18 08:59 12/06/17 09:02 1 TAB Miscellaneous Information (Order Awaiting Action) 1 ea QS N/A 12/03/17 00:00 01/02/18 00:00 Pantoprazole Sodium (Protonix Tab) 40 mg DAILY PRN PO 12/03/17 13:15 Iron Sucrose 100 mg/Sodium Chloride 105 ml @ 420 mls/hr DAILY@1000 IV 12/04/17 10:00 12/08/17 10:14 12/06/17 10:32 420 MLS/HR Sucralfate (Carafate Tab) 1 gm QID PO 12/05/17 13:00 01/04/18 12:59 12/06/17 12:40 1 GM Diclofenac Sodium (Voltaren 1% Top Gel) 1 appln QID PRN EXT 12/06/17 11:00 01/05/18 10:59 Objective Vital Signs Date Time Temp Pulse Resp B/P (MAP) Pulse Ox O2 Delivery O2 Flow Rate FiO2 12/06/17 07:35 Room Air 12/06/17 07:06 36.8 53 16 111/63 (79) 98 Room Air 12/06/17 03:58 36.6 56 16 118/58 (78) 97 Room Air 12/06/17 01:15 Room Air 12/05/17 23:10 36.8 55 16 107/66 (80) 96 Room Air 12/05/17 17:22 Room Air 12/05/17 15:14 36.7 53 18 133/83 (100) 98 Room Air Physical Exam General Appearance: no apparent distress, + thin Eyes: normal inspection, PERRL ENT: hearing grossly normal Neck: supple Respiratory/Chest: lungs clear, no respiratory distress, no accessory muscle use Cardiovascular: regular rate, rhythm, + systolic murmur Abdomen: normal bowel sounds, non tender, soft Extremities: no pedal edema, no calf tenderness Neurologic/Psychiatric: alert, normal mood/affect, oriented x 3 Skin: normal color, warm/dry, no rash Laboratory Results Last 24 Hours Test 12/05/17 14:30 12/06/17 06:35 White Blood Count 5.39 K/uL Red Blood Count 3.09 M/uL Hemoglobin 7.5 g/dL Hematocrit 25.1 % Mean Corpuscular Volume 81.2 fL Mean Corpuscular Hemoglobin 24.3 pg Mean Corpuscular Hemoglobin Concent 29.9 g/dl RDW Standard Deviation 51.4 fL RDW Coefficient of Variation 17.4 % Platelet Count 367 K/uL Mean Platelet Volume 8.8 fL Sodium Level 141 mmol/L Potassium Level 3.6 mmol/L Chloride Level 107 mmol/L Carbon Dioxide Level 29 mmol/L Anion Gap 5.0 mmol/L Blood Urea Nitrogen 13 mg/dl Creatinine 0.42 mg/dl Est Creatinine Clear Calc Drug Dose 82.9 ml/min Estimated GFR () 112.2 Estimated GFR (Non- 96.8 BUN/Creatinine Ratio 30.1 Random Glucose 86 mg/dl Calcium Level 8.6 mg/dl Magnesium Level 2.1 mg/dl Assessment and Plan Patient is a pleasant 82 y/o female, with PMHx of anxiety, diastolic CHF, chronic iron deficient anemia, dementia, and GERD, who was admitted per Dr. Boothe's recommendations due to anemia. Acute on chronic iron deficient anemia- baseline hgb 9.0: - Admitted to med/surg - s/p transfusion of 1 u PRBC on 12/01 - Hgb currently at 7.5- continue to follow H&H and transfuse PRN for hgb < 7.0- 8.0 -- Planned to transfuse 1 u PRBC on 12/06 but according to blood bank, won't be ready until 12/07- will transfuse tomorrow - Stop Naprosyn; Tylenol PRN for pain management - TSH, B12, TIBC, Ferritin- WNL - Venofer, 500 mg IV x1 (recommended 500 mg IV f0oknmy x 2 doses) - Stool heme occult- negative; celiac panel pending; h. pylori pending - Surgery requested GI consultation- s/p EGD on 12/05 w/ Dr. Torres -- Duodenal ulcers, non-bleeding- Carafate 1 gm QID x2 months + Protonix daily -- Avoid NSAIDs -- Outpatient f/u within 2 months Left chest pain- RESOLVED: Check EKG and troponin unremarkable, continue to follow Chronic diastolic CHF- STABLE- follows w/ Dr. Julian: Continue Lasix PRN for edema Anxiety: Continue Lexapro Dementia: - Continue Aricept - Pt had completed Namenda titration pack but did not receive any refills/ further prescriptions. Unclear if patient did not tolerate or this was missed - Continued outpatient Neurology f/u GI prophylaxis, h/o GERD: Protonix + Carafate DVT prophylaxis: JOSE R/SCDs; hold chemical anticoagulation due to anemia Code status: LEVEL I, FULL Dispo: Planning for placement at discharge- PT/OT and CM consulted
[2017-12-06 14:50] VITALS: BP 124/73; PULSE 68; TEMP 36.8; O2SAT 99
[2017-12-06] MEDS: DICLOFENAC SOD 1% GEL 100 GM TUBE EXT PRN (15:02)
[2017-12-06] MEDS: ESCITALOPRAM OXALATE 10 MG TAB PO SCH (20:47)
--- NOTE | 2017-12-06 21:20 | GASTROENTEROLOGY PROGRESS NOTE ---
DATE: 12/06/2017 SUBJECTIVE: Chart reviewed, patient examined. 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 Torres. There were 2 large deep ulcers on the small bowel side of the anastomosis at the gastrojejunal region. The patient was placed on Carafate 4 times daily as well as PPI and stool for H. pylori are pending. The patient reported a bowel movement today but denied any melena or bright red blood per rectum. She is without abdominal pain, nausea or vomiting. Her hemoglobin level today was 7.5, which is essentially unchanged over the past 24 hours. I spoke with the patient and her daughter and although the patient reports that she has only been taking extra strength arthritis formula which contains acetaminophen, the daughter is concerned that there may have been use of Aleve and perhaps other traditional NSAIDs prior to admission. The patient lives alone and at times forgetful. ALLERGIES: REVIEWED AND INCLUDE CODEINE, ORAL IRON, OXYCODONE, PROCAINE, HYDROCODONE. REVIEW OF SYSTEMS: Otherwise noncontributory based on 13-point exam except for mentioned above. OBJECTIVE: VITAL SIGNS: Today, patient's blood pressure is 124/73, heart rate 60, respirations 16, temperature 36.8, room 99% on room air. GENERAL: The patient is awake, alert and oriented to person and place. HEENT: Sclerae are anicteric, conjunctiva moist. Oral mucosa moist. HEART: Normal S1, S2. LUNGS: Clear to auscultation. ABDOMEN: Soft, flat, nontender, nondistended with normal bowel sounds. There is no rebound or guarding. I do not appreciate hepatosplenomegaly. EXTREMITIES: Without clubbing or cyanosis. There is lip edema bilaterally. RECTAL: Deferred. LABORATORY DATA: Review of other laboratory studies show a pending H. pylori antigen, although interestingly stool occult blood was negative on December 03. The patient received a total of 1 unit of packed red blood cells. IMPRESSION AND PLAN: At this point would be acceptable to advance diet as tolerated. She should continue the Carafate 1 tablet 4 times daily at least for 8-12 weeks and await the stool for Helicobacter pylori, although I believe this is a less likely source. I did speak with the daughter at length this evening to convey the importance of looking to her medications and redirecting her mother if there is any question about the types of medications taken. Although Tylenol is satisfactory, any nonsteroidal anti-inflammatory drugs over the counter or prescription especially those contained other combination product such as cough and cold preps or aspirin should be avoided in the setting of gastric bypass and with her ulcers. If Helicobacter pylori is positive, this will need treatment. Regarding her hemoglobin, she did receive IV iron. Her additional medications in addition to those above include pantoprazole, Aricept, Lexapro, Zofran p.r.n. and Lasix 20 mg as needed for diuresis. We will follow with you. The patient herself describes that she has no chest pain, shortness of breath or dyspnea on exertion with ambulation despite her hemoglobin of 7.5. However, it may be reasonable to provide an additional 1 or 2 units of packed red blood cells prior to discharge to improve her hemodynamics and cardiopulmonary function. The patient does not smoke. All questions answered for the patient and her daughter.
[2017-12-06 23:20] VITALS: BP 123/71; PULSE 67; TEMP 36.9; O2SAT 97
[2017-12-06 23:37] VITALS: BP 123/71; PULSE 67; TEMP 36.7; O2SAT 97
[2017-12-06 23:50] VITALS: BP 115/61; PULSE 66; TEMP 36.8; O2SAT 96
[2017-12-07] VITALS (7 sets, daily range): BP systolic 96–120; BP diastolic 59–74; PULSE 51–67; TEMP 36.7–36.9; O2SAT 96–100
[2017-12-07 08:46] LABS: HEMATOCRIT 31.5 % (37-47); HEMOGLOBIN 9.5 g/dL (12.0-16.0); MEAN CELL VOLUME 82.2 fL (80-100); MEAN CORPUSCULAR HEMOGLOBIN 24.8 pg (25-34); MEAN CORPUSCULAR HGB CONC 30.2 g/dl (32-36); MEAN PLATELET VOLUME 9.2 fL (7.4-10.4); PLATELET COUNT 407 K/uL (130-400); RED CELL DISTRIBUTION WIDTH CV 17.6 % (11.5-14.5); RED CELL DISTRIBUTION WIDTH SD 51.9 fL (36.4-46.3); WHITE BLOOD COUNT 6.21 K/uL (4.8-10.8)
[2017-12-07] MEDS: DONEPEZIL HCL 10 MG TAB PO SCH ×2 (08:59→21:13)
[2017-12-07] MEDS: SUCRALFATE 1 GM TAB PO SCH ×4 (08:59→21:13)
[2017-12-07] MEDS: MULTIVITAMIN TAB PO SCH (08:59)
[2017-12-07] MEDS: DICLOFENAC SOD 1% GEL 100 GM TUBE EXT PRN (09:00)
[2017-12-07] MEDS: IRON SUCROSE INJ 100 MG in SODIUM CHLORIDE 0.9% 100ML 100 ML IV SCH (09:45)
--- NOTE | 2017-12-07 14:40 | Hospitalist Progress Note ---
Hospitalist Progress Note Date of Service Dec 07, 2017. Subjective Pt evaluation today including: conversation w/ patient, conversation w/ family (Blanca- [id number] on phone ), physical exam, lab review, review of studies, review of inpatient medication list Voiding: no voiding problems Patient sitting in bedside chair. Feeling well. Anxious for discharge. Eating and drinking OK. No more episodes of chest pain. Patient denies any fever, chills, sweats, lightheadedness, dizziness, vision changes, CP, palpitations, edema, SOB, wheezing, cough, abdominal pain, nausea, vomiting, diarrhea, urinary symptoms, melena, numbness/tingling, weakness, muscle/joint pain, anxiety/depression, active bleeding, or new skin discoloration/changes. Discussed placement with family- PT/OT recommend return home w/ [facility]. Does not qualify for SNF. Could do [facility] but would be out of pocket cost. Agreeable to home w/ [facility]. Will plan for tomorrow after last IV Iron transfusion. Medications Current Inpatient Medications Medications (Trade) Dose Ordered Sig/Ricardo Route Start Time Stop Time Status Last Admin Dose Admin Acetaminophen (Tylenol Tab) 650 mg Q4H PRN PO 12/02/17 18:45 01/01/18 18:44 12/04/17 13:25 650 MG Al Hydrox/Mg Hydrox/Simethicone (Maalox Max Susp) 15 ml Q4H PRN PO 12/02/17 18:45 01/01/18 18:44 Magnesium Hydroxide (Milk Of Magnesia Susp) 30 ml Q6H PRN PO 12/02/17 18:45 01/01/18 18:44 Polyethylene (Miralax Powder Packet) 17 gm DAILY PRN PO 12/02/17 19:00 01/01/18 18:59 Ondansetron HCl (Zofran Inj) 4 mg Q6H PRN IV 12/02/17 18:45 01/01/18 18:44 Donepezil HCl (Aricept Tab) 10 mg BID PO 12/02/17 21:00 01/01/18 20:59 12/07/17 08:59 10 MG Escitalopram Oxalate (Lexapro Tab) 10 mg HS PO 12/02/17 21:00 01/01/18 20:59 12/06/17 20:47 10 MG Furosemide (Lasix Tab) 20 mg QAM PRN PO 12/02/17 18:45 01/01/18 18:44 Multivitamins (Multivitamin Tab) 1 tab QAM PO 12/03/17 09:00 01/01/18 08:59 12/07/17 08:59 1 TAB Miscellaneous Information (Order Awaiting Action) 1 ea QS N/A 12/03/17 00:00 01/02/18 00:00 Pantoprazole Sodium (Protonix Tab) 40 mg DAILY PRN PO 12/03/17 13:15 Iron Sucrose 100 mg/Sodium Chloride 105 ml @ 420 mls/hr DAILY@1000 IV 12/04/17 10:00 12/08/17 10:14 12/07/17 09:45 420 MLS/HR Sucralfate (Carafate Tab) 1 gm QID PO 12/05/17 13:00 01/04/18 12:59 12/07/17 13:03 1 GM Diclofenac Sodium (Voltaren 1% Top Gel) 1 appln QID PRN EXT 12/06/17 11:00 01/05/18 10:59 12/07/17 09:00 1 APPLN Objective Vital Signs Date Time Temp Pulse Resp B/P (MAP) Pulse Ox O2 Delivery O2 Flow Rate FiO2 12/07/17 08:03 96 Room Air 12/07/17 07:50 Room Air 12/07/17 07:39 36.9 52 18 96/60 (72) 96 Room Air 12/07/17 00:50 36.7 62 16 96/59 97 12/07/17 00:19 36.8 65 16 120/68 97 12/06/17 23:50 36.8 66 16 115/61 96 12/06/17 23:37 36.7 67 16 123/71 97 12/06/17 23:20 36.9 67 16 123/71 (88) 97 Room Air 12/06/17 20:00 Room Air 12/06/17 14:50 36.8 68 16 124/73 (90) 99 Room Air Physical Exam General Appearance: no apparent distress, + thin Eyes: normal inspection, PERRL ENT: hearing grossly normal Neck: supple Respiratory/Chest: lungs clear, no respiratory distress, no accessory muscle use Cardiovascular: regular rate, rhythm, + systolic murmur Abdomen: normal bowel sounds, non tender, soft Extremities: no pedal edema, no calf tenderness, + pertinent finding (L arm in sling ) Neurologic/Psychiatric: alert, oriented x 3 Skin: normal color, warm/dry, no rash Laboratory Results Last 24 Hours Test 12/07/17 08:12 White Blood Count 6.21 K/uL Red Blood Count 3.83 M/uL Hemoglobin 9.5 g/dL Hematocrit 31.5 % Mean Corpuscular Volume 82.2 fL Mean Corpuscular Hemoglobin 24.8 pg Mean Corpuscular Hemoglobin Concent 30.2 g/dl RDW Standard Deviation 51.9 fL RDW Coefficient of Variation 17.6 % Platelet Count 407 K/uL Mean Platelet Volume 9.2 fL Assessment and Plan Patient is a pleasant 82 y/o female, with PMHx of anxiety, diastolic CHF, chronic iron deficient anemia, dementia, and GERD, who was admitted per Dr. Boothe's recommendations due to anemia. Acute on chronic iron deficient anemia- baseline hgb 9.0: - Admitted to med/surg - s/p transfusion of 1 u PRBC on 12/01 and 1 u PRBC on 12/06 - Hgb currently at 9.5- continue to follow H&H and transfuse PRN for hgb < 7.0- 8.0 - Stop Naprosyn; Tylenol PRN for pain management - TSH, B12, TIBC, Ferritin- WNL - Venofer, 500 mg IV x1 (recommended 500 mg IV [id number] x 2 doses) - Stool heme occult- negative; celiac panel pending; h. pylori negative - Surgery requested GI consultation- s/p EGD on 12/05 w/ Dr. Torres -- Duodenal ulcers, non-bleeding- Carafate 1 gm QID x2 months + Protonix daily -- Avoid NSAIDs -- Outpatient f/u within 2 months Left chest pain- RESOLVED: Check EKG and troponin unremarkable, continue to follow Chronic diastolic CHF- STABLE- follows w/ Dr. Julian: Continue Lasix PRN for edema Anxiety- STABLE: Continue Lexapro Dementia- STABLE: - Continue Aricept - Pt had completed Namenda titration pack but did not receive any refills/ further prescriptions. Unclear if patient did not tolerate or this was missed - Continued outpatient Neurology f/u GI prophylaxis, h/o GERD: Protonix + Carafate DVT prophylaxis: JOSE R/SCDs; hold chemical anticoagulation due to anemia Code status: LEVEL I, FULL Dispo: Discharge to home w/ [facility]- likely tomorrow- PT/OT and CM consulted
--- NOTE | 2017-12-07 18:04 | GASTROENTEROLOGY PROGRESS NOTE ---
DATE: 12/07/2017 GASTROENTEROLOGY INPATIENT PROGRESS NOTE SUBJECTIVE: Chart reviewed, patient examined. The patient doing well overall. Received 2 units of packed red blood cells since admission and her hemoglobin is up to 9.5 today. The patient denies any abdominal pain, hematemesis, coffee-ground emesis, nausea, vomiting, tolerates food well. Had a bowel movement earlier today. There are no reports of melena or bright red blood per rectum. REVIEW OF SYSTEMS: Otherwise noncontributory based on 13-point exam except for mentioned above. MEDICATIONS: Reviewed and include iron sucrose, sucralfate 4 times daily, pantoprazole 40 mg daily, multivitamins, Aricept, Lexapro, and p.r.n. Lasix. PHYSICAL EXAMINATION: VITAL SIGNS: Today - afebrile 36.7, blood pressure 108/64, 100% on room air, respirations 18, heart rate 51. GENERAL: The patient awake, alert and oriented to time, person and place. HEART: Normal S1, S2. LUNGS: Clear to auscultation. ABDOMEN: Soft, flat, nontender, nondistended. Good bowel sounds. EXTREMITIES: Without edema. RECTAL: Deferred. LABORATORY STUDIES: Show white count 6.21, hemoglobin 9.5 and there were no electrolytes performed. IMPRESSION AND PLAN: The patient with gastric ulcers on the distal side of the gastrojejunal anastomosis following her gastric bypass surgery 16 years ago. She does not smoke. As discussed yesterday with the patient's daughter, would strongly monitor her for the use of any type of nonsteroidal anti-inflammatory drugs (Tylenol is OK to use ) and that her medications at home upon arrival should be reviewed to ensure that she is not taking any products over the counter prescription that may contain a nonsteroidal anti-inflammatory drug other than acetaminophen. Her stools were negative for Helicobacter pylori on this admission. Would continue Carafate 1 gram 4 times daily for approximately 12 weeks and continue Protonix 40 mg daily. All questions answered for the patient. Will sign off at this time. Please contact us if we can be of further assistance. Thank you for allowing us to participate in your patient's care. IVAN
[2017-12-07] MEDS: ESCITALOPRAM OXALATE 10 MG TAB PO SCH (21:13)
[2017-12-08 06:29] LABS: HEMATOCRIT 27.9 % (37-47); HEMOGLOBIN 8.4 g/dL (12.0-16.0); MEAN CORPUSCULAR HGB CONC 30.1 g/dl (32-36); MEAN PLATELET VOLUME 8.7 fL (7.4-10.4); PLATELET COUNT 329 K/uL (130-400); RED CELL DISTRIBUTION WIDTH CV 18.2 % (11.5-14.5); RED CELL DISTRIBUTION WIDTH SD 52.8 fL (36.4-46.3)
[2017-12-08 07:52] VITALS: BP 106/67; PULSE 53; TEMP 36.7; O2SAT 98
[2017-12-08] MEDS: SUCRALFATE 1 GM TAB PO SCH ×2 (10:28→13:00)
[2017-12-08] MEDS: MULTIVITAMIN TAB PO SCH (10:28)
[2017-12-08] MEDS: DONEPEZIL HCL 10 MG TAB PO SCH (10:28)
[2017-12-08] MEDS: IRON SUCROSE INJ 100 MG in SODIUM CHLORIDE 0.9% 100ML 100 ML IV SCH (10:31)
[2017-12-08] MEDS ORDERED: SUCR1TAB PO (10:57)
[2017-12-08] MEDS ORDERED: PANT40TA PO (10:57)
--- NOTE | 2017-12-08 11:03 | Discharge Instructions ---
Discharge Instructions Date of Service Dec 08, 2017. Admission Reason for Admission: Left Shoulder Osteoarthritis, Anemia Discharge Discharge Diagnosis / Problem: Anemia, duodenal ulcers Discharge Goals Goal(s): Decrease discomfort, Improve function, Increase independence, Improve disease control, Learn about illness, Diagnostic testing, Therapeutic intervention, Prevent Disease Progression Activity Recommendations Activity Limitations: resume your previous activity . Instructions / Follow-Up Instructions / Follow-Up Duodenal ulcers: Carafate 1 gm four times daily for 3 months Protonix daily NO NSAIDs use (Ibuprofen, Motrin, Aspirin, Naprosyn, etc...) Anemia: You will need to follow-up with your PCP for continued Iron transfusions. Pain: Again, NO NSAID use. You may use Tylenol as needed for pain management ( do NOT exceed more than 4000 mg per day). Resume all other regular home medications as prescribed. FOLLOW-UPS: Please follow-up with your PCP within 5-7 days Please follow-up with GI within 2 months Please follow-up/keep all of your subspecialty appointments Current Hospital Diet Patient's current hospital diet: AHA Diet (Heart Healthy) Discharge Diet Recommended Diet: AHA Diet (Heart Healthy) Procedures Procedures Performed: Esophagogastroduodenoscopy, Dr Torres Pending Studies Studies pending at discharge: no Laboratory Results Hemoglobin A1c Test 11/29/17 10:30 Range/Units Estimated Average Glucose 85 mg/dl Hemoglobin A1c 4.6 4.5-5.6 % Medical Emergencies . Who to Call and When: Medical Emergencies: If at any time you feel your situation is an emergency, please call 911 immediately. . Non-Emergent Contact Non-Emergency issues call your: Primary Care Provider, Regulator Operator Call Non-Emergent contact if: you have a fever, you have any medication questions . . "Provider Documentation" section prepared by Inocencia Hernandes. .
--- NOTE | 2017-12-08 11:12 | Discharge Summary ---
Discharge Summary Date of Service Dec 08, 2017. Discharge Summary Admission Date: Dec 02, 2017 at 18:21 Discharge Date: Dec 08, 2017 Discharge Disposition: Home with services Principal Diagnosis: Anemia Problems/Secondary Diagnoses: Acute on chronic iron deficient anemia Duodenal ulcers Left chest pain Chronic diastolic CHF Anxiety Dementia L shoulder pain Immunizations: Have You Had Influenza Vaccine: N/A Influenza Vaccine Date: Jul 11, 2007 History of Tetanus Vaccine?: unknown History of Pneumococcal: Yes Pneumococcal Date: Jul 11, 2006 History of Hepatitis B Vaccine: Unknown Procedures: CHEST 2 VIEWS ROUTINE CLINICAL HISTORY: Preoperative chest COMPARISON STUDY: 06/13/2017 FINDINGS: The cardiac and mediastinal contours are normal. There is no evidence of focal pulmonary consolidation. There is no evidence of failure. No pleural effusions are visualized.[ Arthritic changes involve the left shoulder. There is radiographic evidence of chronic rotator cuff tear. There is calcification of the anterior longitudinal ligament within the thoracic spine IMPRESSION: No active disease in the chest. Electronically signed by: Ty Brown M.D. 11/17/2017 1:28 PM Dictated Date/Time: 11/17/2017 1:27 PM The status of this report is Signed. Draft = Not yet reviewed or approved by Radiologist. Signed = Reviewed and approved by Radiologist. Findings: The examined esophagus was normal. The Z-line was regular and was found 31 cm from the incisors. 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 This was traversed. Two non-bleeding cratered duodenal ulcers with no stigmata of bleeding were found at the anastomosis. The largest lesion was 15 mm in largest dimension. Impression: - Normal esophagus. - Z-line regular, 31 cm from the incisors. - Luciano-en-Y gastrojejunostomy. - Multiple non-bleeding duodenal ulcers with no stigmata of bleeding. - No specimens collected. Recommendation: - Return patient to hospital [facility] for ongoing care. - Use sucralfate tablets 1 gram PO QID for 2 months. Nishant Torres M.D. Nishant Torres MD 12/05/2017 12:24:33 PM This report has been signed electronically. Note Initiated On: 12/05/2017 12:02 PM I attest to the content of the Intraoperative Record and orders documented therein, exceptions below Dictated: 12/05/17 1202 Signed: 12/05/17 1224 The status of this report is Signed. Draft = Not yet reviewed or approved by Medical Physician. Signed = Reviewed and approved by Medical Physician. Consultations: GI- Dr. Hayward/Dr. Torres Medication Reconciliation New Medications: Pantoprazole (Protonix) 40 Mg Tab 40 MG PO DAILY, #30 TAB Sucralfate (Sucralfate) 1 Gm Tab 1 GM PO QID for 90 Days, #360 TAB Continued Medications: Acetaminophen (Tylenol 8 Hour Arthritis) 650 Mg Tab Donepezil Hydrochloride (Aricept) 10 Mg Tab 10 MG PO BID, TAB Escitalopram Oxalate (Escitalopram Oxalate) 10 Mg Tab 10 MG PO HS Furosemide (Lasix) 20 Mg Tab 20 MG PO QAM PRN for EDEMA, TAB Multivitamin (Multivitamin) Tab 1 TAB PO QAM, TAB Discontinued Medications: Memantine (Namenda) 5 Mg Tab 5-10 MG PO UD, TAB Naproxen (Naprosyn) 500 Mg Tab 500 MG PO UD PRN for Pain, TAB PT INSTRUCTED TO CONTACT SURGEON OFFICE FOR PRE OP INSTRUCTIONS REGARDING THIS MED. PATIENT VOICES UNDERSTANDING. Discharge Exam Review of Systems: Constitutional: No fever, No chills, No sweats, No weakness, No fatigue Eyes: No worsening of vision ENT: No hearing loss, No sore throat, No trouble swallowing Respiratory: No cough, No shortness of breath, No hemoptysis Cardiovascular: No chest pain, No edema, No palpitations Abdomen: No pain, No nausea, No vomiting, No diarrhea, No constipation, No GI bleeding Musculoskeletal: No joint pain, No muscle pain, No swelling, No calf pain Genitourinary - Female: No dysuria, No hematuria Neurologic: No weakness, No numbness/tingling Psychiatric: No depression symptoms, No anxiety Endocrine: No fatigue Hematologic / Lymphatic: No abnormal bleeding/bruising Integumentary: No rash, No itch, No new/changing skin lesions Physical Exam: General Appearance: no apparent distress Eyes: normal inspection, PERRL ENT: hearing grossly normal Neck: supple Respiratory/Chest: lungs clear, no respiratory distress, no accessory muscle use Cardiovascular: regular rate, rhythm, + systolic murmur Abdomen / GI: normal bowel sounds, non tender, soft Extremities: no calf tenderness, no pedal edema, + pertinent finding (L arm in sling ) Neurologic/Psychiatric: alert, normal mood/affect, oriented x 3 Skin: normal color, warm/dry, no rash Hospital Course Patient is a pleasant 82 y/o female, with PMHx of anxiety, diastolic CHF, chronic iron deficient anemia, dementia, and GERD, who was admitted per Dr. Boothe's recommendations due to anemia. Acute on chronic iron deficient anemia- baseline hgb 9.0: - Admitted to med/surg - s/p transfusion of 1 u PRBC on 12/01 and 1 u PRBC on 12/06 - Hgb currently at 8.4- continue to follow H&H and transfuse PRN for hgb < 7.0- 8.0 - Stop Naprosyn; Tylenol PRN for pain management - TSH, B12, TIBC, Ferritin- WNL - Venofer 500 mg IV x1- continue outpatient f/u and iron transfusions - Stool heme occult- negative; celiac panel negative; h. pylori negative - Surgery requested GI consultation- s/p EGD on 12/05 w/ Dr. Torres -- Duodenal ulcers, non-bleeding- Carafate 1 gm QID x3 months + Protonix daily -- Avoid NSAIDs -- Outpatient f/u within 2 months Left chest pain- RESOLVED: Check EKG and troponin unremarkable, continue to follow Chronic diastolic CHF- STABLE- follows w/ Dr. Julian: Continue Lasix PRN for edema Anxiety- STABLE: Continue Lexapro Dementia- STABLE: - Continue Aricept - Pt had completed Namenda titration pack but did not receive any refills/ further prescriptions. Unclear if patient did not tolerate or this was missed - Continued outpatient Neurology f/u L shoulder pain: - Avoid NSAIDs, Tylenol for pain management - Sling for comfort - f/u w/ orthopedics outpatient GI prophylaxis, h/o GERD: Protonix + Carafate DVT prophylaxis: JOSE R/SCDs; hold chemical anticoagulation due to anemia Code status: LEVEL I, FULL Dispo: Discharge to home w/ [facility] Total Time Spent: Greater than 30 minutes This includes examination of the patient, discharge planning, medication reconciliation, and communication with other providers. Discharge Instructions Please refer to the electronic Patient Visit Report (Discharge Instructions) for additional information. Follow-Up Please follow-up with your PCP within 5-7 days Please follow-up with GI within 2 months Please follow-up/keep all of your subspecialty appointments Additional Copies To Joselito Peralta III, CRNP
[2017-12-08 14:16] VITALS: BP 106/67; PULSE 53; TEMP 36.7; O2SAT 98
== END 2017-12-08 16:06 | disposition home health service (06) | DRG 812 ==
LOC: C.ACU 09:24 → EDBEDREQ 14:17 → ENRESERV 15:32 → C.MSW 18:21
PROVIDERS: ADMIT Internal Medicine; ATTEND Hospitalist
PROC: 0DJ08ZZ Inspection of Upper Intestinal Tract, Via Natural or Artificial Opening Endoscopic (ICD-10-PCS; principal; 2017-12-05 12:30)
DX: D50.8 Other iron deficiency anemias (principal); I50.32 Chronic diastolic (congestive) heart failure; K26.9 Duodenal ulcer, unspecified as acute or chronic, without hemorrhage or perforation; R07.9 Chest pain, unspecified; F41.9 Anxiety disorder, unspecified; F03.90 Unspecified dementia, unspecified severity, without behavioral disturbance, psychotic disturbance, mood disturbance, and anxiety; K21.9 Gastro-esophageal reflux disease without esophagitis; M19.012 Primary osteoarthritis, left shoulder; G47.33 Obstructive sleep apnea (adult) (pediatric); Z98.84 Bariatric surgery status; Z86.73 Personal history of transient ischemic attack (TIA), and cerebral infarction without residual deficits; Z87.442 Personal history of urinary calculi; Z87.19 Personal history of other diseases of the digestive system; Z90.49 Acquired absence of other specified parts of digestive tract; Z96.653 Presence of artificial knee joint, bilateral; Z90.710 Acquired absence of both cervix and uterus; Z98.51 Tubal ligation status; Z79.899 Other long term (current) drug therapy; Z88.4 Allergy status to anesthetic agent; Z88.5 Allergy status to narcotic agent; Z88.8 Allergy status to other drugs, medicaments and biological substances; Z84.1 Family history of disorders of kidney and ureter

== ENCOUNTER → 2018-02-07 | Outpatient (CLI) | payer OTHER ==
[~2018-02-07] MED LIST changes: +ACET650T97; -ACETAMINOPHEN 500 MG TAB PO SCH; -BUPIVACAINE 0.5 % 5 MG/1 ML PF 10ML VIAL ONE; -CEFAZOLIN 2000MG IV PUSH 15 ML IV SCH; -CeleBREX 200 MG CAP PO SCH; -DEXAMETHASONE 4 MG TAB PO SCH; -EpINEphrine INJ 1MG/ML AMP 1 MG/ML AMP ONE; -FAMOTIDINE 20 MG TAB PO SCH; -GABAPENTIN 300 MG CAP PO SCH; -LACTATED RINGER'S 1000ML 1,000 ML IV SCH; -METOCLOPRAMIDE HCL 10 MG TAB PO SCH; -NAPR-1169 PO; -NMN5 PO; +PANT40TA PO; -ROPIVACAINE 0.5% 5 MG/ML 30 ML VIAL ONE; +SUCR1TAB PO
[2018-02-07 12:24] LABS: BASO % 0.4 %; BASO ABS # 0.03 K/uL (0-0.2); EOS % 0.9 %; EOS ABS # 0.06 K/uL (0-0.5); HEMATOCRIT 34.5 % (37-47); HEMOGLOBIN 10.6 g/dL (12.0-16.0); IG# 0.02 K/uL (0.00-0.02); LYMPH ABS # 0.56 K/uL (1.2-3.4); MEAN CELL VOLUME 87.8 fL (80-100); MEAN CORPUSCULAR HGB CONC 30.7 g/dl (32-36); MEAN PLATELET VOLUME 9.5 fL (7.4-10.4); MONO ABS # 0.49 K/uL (0.11-0.59); NEUT % 83.4 %; NEUT ABS # 5.87 K/uL (1.4-6.5); PLATELET COUNT 396 K/uL (130-400); RED CELL DISTRIBUTION WIDTH CV 19.1 % (11.5-14.5); RED CELL DISTRIBUTION WIDTH SD 62.1 fL (36.4-46.3); RETIC COUNT % 2.2 % (0.5-2.0); WHITE BLOOD COUNT 7.03 K/uL (4.8-10.8)
== END | disposition home or self-care (01) ==
LOC: C.LAB1850 11:21
PROVIDERS: ATTEND Nurse Practitioner Family
DX: D64.9 Anemia, unspecified (principal)

== ENCOUNTER 2018-11-28 15:13 | Inpatient (IN) ==
[2018-11-28] MEDS ORDERED: SODIUM CHLORIDE 0.9% 500 ML IV SCH (16:15)
[2018-11-28 16:28] LABS: Basophils # (auto) 0.02 K/uL (0-0.2); Basophils % (auto) 0.3 %; Eosinophils # (auto) 0.05 K/uL (0-0.5); Eosinophils % (auto) 0.7 %; Hematocrit (blood only) 33.7 % (37-47); Hemoglobin 10.7 g/dL (12.0-16.0); Immature Granulocytes # (auto) 0.03 K/uL (0.00-0.02); Immature Granulocytes % (auto) 0.4 %; Lymphocytes # (auto) 0.54 K/uL (1.2-3.4); Lymphocytes % (auto) 7.2 %; Mean Corpuscular Hgb Conc 31.8 g/dL (32-36); Mean Corpuscular Volume 87.1 fL (80-100); Mean Platelet Volume 9.5 fL (7.4-10.4); Monocytes # (auto) 0.47 K/uL (0.11-0.59); Monocytes % (auto) 6.2 %; Neutrophils # (auto) 6.43 K/uL (1.4-6.5); Neutrophils % (auto) 85.2 %; Platelet Count 407 K/uL (130-400); RDW Coefficient of Variation 16.3 % (11.5-14.5); RDW Standard Deviation 51.9 fL (36.4-46.3); Red Blood Count 3.87 M/uL (4.2-5.4); White Blood Count 7.54 K/uL (4.8-10.8)
--- NOTE | 2018-11-28 16:33 | XRay Report ---
XR pelvis 1-2V routine CLINICAL HISTORY: 83 years-old Female presenting with fall. TECHNIQUE: Single frontal view of the pelvis was obtained. COMPARISON: Correlation made to CT of abdomen and pelvis from 06/20/2018. FINDINGS: Bilateral posterior transpedicular screw and mt fixation of L4-S1 with interlocking mt at L5. Degen erative changes of L3-4. Sacroiliac joints, pubic symphysis, and hip joints congruent. Osteopenia jb pected. Arcuate lines of the sacrum poorly delineated. Bony pelvis intact. Femoral necks grossly inta ct. Radiopaque sutures noted in the right lower quadrant. IMPRESSION: No acute osseous injury of the pelvis. Electronically signed by: Blane Crane M.D. 11/28/2018 4:32 PM
[2018-11-28 16:36] LABS: Appearance Urine Clear (Clear); Bilirubin Urine Negative (Negative); Blood Urine Negative (Negative); Color Urine Yellow; Glucose Urine UA Negative (Negative); Ketones Urine Negative (Negative); Leukocyte Esterase Urine Negative (Negative); Nitrite Urine Negative (Negative); Protein Urine Negative (Negative); Specific Gravity Urine 1.013 (1.000-1.030); Urobilinogen Urine Negative (Negative); pH Urine 7.5 (4.5-7.5)
--- NOTE | 2018-11-28 16:36 | XRay Report ---
XR chest 1V portable CLINICAL HISTORY: 83 years-old Female presenting with ams. TECHNIQUE: Portable upright AP view of the chest was obtained. COMPARISON: 09/29/2018. FINDINGS: Atherosclerosis of the aortic arch. Cardiac silhouette enlarged. Prominence of the right paratracheal mediastinal contour. Pulmonary artery enlargement suggested. Heterogeneous lung parenchyma with mild hyperinflation. No new focal opacity. No large effusion or pneumothorax. Advanced degenerative norman es of the glenohumeral joints. Suspected underlying osteopenia. Degenerative changes of the thoracic spine. Upper abdomen normal. IMPRESSION: 1. Prominence of the right paratracheal mediastinal contour may relate to slight DEANA patient rotatio n or abnormal soft tissue. If there is clinical concern, consider contrast-enhanced chest CT for furt her evaluation. 2. Cardiomegaly with enlargement of the pulmonary arteries raising concern for pulmonary artery hype rtension. No diane pulmonary edema. 3. Hyperinflation may suggest underlying emphysema. No focal infiltrate to suggest pneumonia. Electronically signed by: Blane Crane M.D. 11/28/2018 4:34 PM
[2018-11-28 16:42] LABS: Prothrombin Time 10.2 Seconds (9.0-12.0)
[2018-11-28 16:46] LABS: Alanine Aminotransferase 21 U/L (12-78); Aspartate Aminotransferase 19 U/L (15-37); BUN Creatinine Ratio 29.5 (10-20); Blood Urea Nitrogen 18 mg/dl (7-18); Calcium 8.9 mg/dl (8.5-10.1); Carbon Dioxide 28 mmol/L (21-32); Chloride 101 mmol/L (98-107); Est GFR (Non-African American) 84.6; Glucose 107 mg/dl (70-99); Sodium 135 mmol/L (136-145)
[2018-11-28 16:51] LABS: Albumin Globulin Ratio 0.8 (0.9-2); Alkaline Phosphatase 126 U/L (45-117); Bilirubin,Total 0.7 mg/dl (0.2-1); Troponin I < 0.015 ng/ml (0-0.045)
--- NOTE | 2018-11-28 17:06 | CT Scan Report ---
CT head/brain wo con CLINICAL HISTORY: 83 years-old Female presenting with ams, fall, hit head. TECHNIQUE: Multidetector CT imaging of the head was performed without the use of intravenous contrast . IV contrast: None. One or more dose lowering techniques were used consistent with the principles of ALARA (as low as reasonably achievable), including automatic exposure control, mA or kV adjustment t o individual patient size, and/or use of iterative reconstruction. COMPARISON: 09/29/2018. CT DOSE (mGy.cm): The estimated cumulative dose is 537.48 mGy.cm. FINDINGS: [employer] Cook topogram: Unremarkable. Ventricles and sulci normal in size. No hemorrhage. Brain parenchyma normal in appearance with preser jane bansal-white differentiation. No acute territorial infarct. No mass effect or midline shift. No ext ra-axial fluid collection. Paranasal sinuses and mastoid air cells clear. Calvarium intact. IMPRESSION: 1. No acute intracranial abnormality. Electronically signed by: Blane Crane M.D. 11/28/2018 5:05 PM
[2018-11-28] MEDS ORDERED: IOVERSOL 100ml IV PRN (17:59)
--- NOTE | 2018-11-28 18:25 | CT Scan Report ---
CT SCAN OF THE CHEST, ABDOMEN, AND PELVIS WITH IV CONTRAST CLINICAL HISTORY: Abnormal chest x-ray. Abdominal CT dated 06/20/2018. Generalized abdominal pain. COMPARISON STUDY: Chest x-ray dated 11/28/2018. Chest CT scans dated 05/03/2017 and 06/29/2016. TECHNIQUE: Following the IV administration of 98 of Optiray 320, CT scan of the chest, abdomen, and p lexii was performed from the thoracic inlet to the proximal femora. Images are reviewed in the axial, sagittal, and coronal planes. IV contrast was administered without complication. A dose lowering t echnique was utilized adhering to the principles of ALARA. The examination is a greater by streak art ifact from the arms which could not be elevated above the chest, abdomen, or pelvis. Evaluation of th e abdomen is also degraded by streak artifact from metallic orthopedic spinal hardware. CT DOSE: 766.43 mGy.cm FINDINGS: CHEST: Thyroid: Imaged portions of the thyroid gland are normal in size and attenuation. Thoracic aorta: There is mild atherosclerotic calcification of the thoracic aorta, which is normal in caliber and demonstrates bovine variant arch anatomy. No dissection is seen. Pulmonary vasculature: The main pulmonary arteries are mildly dilated suggesting pulmonary artery hyp ertension. There is pulmonary embolus identified within a segmental branch of the right middle lobe p ulmonary artery seen on image #130. No additional pulmonary emboli are identified. Heart: The heart is top normal in size and without pericardial effusion. The coronary arteries are de nsely calcified. Lungs and pleural spaces: There is no airspace consolidation or pleural effusion. There are foci of b ibasilar scarring/atelectasis. The trachea and central airways are clear. There are scattered calcifi ed granulomas. A 12 mm nodule at the left lung base is again seen on image #221. This has not appreci ably changed from 2016 and appears to contain foci of macroscopic fat. This likely represents a small hamartoma. Additional scattered noncalcified nodules measure to 3 mm and is also not appreciably cinthya nged. These findings are doubtful significance. Mediastinum: There is no mediastinal lymphadenopathy. Chasity: Clear. Axillae: There are shotty axillary lymph nodes. Bony thorax: The skeletal structures are osteopenic. Advanced arthritic change with chronic bursal fl uid is noted in the shoulders. 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 No lytic or blastic lesions are identified. ABDOMEN AND PELVIS: Liver: The contrast-enhanced liver is normal in size, contour, and attenuation. There is mild central intrahepatic or ductal dilatation. The hepatic veins and portal veins are patent. A subcentimeter he patic hypodensity seen on image #72 likely represents a cyst but is too small for definitive characte rization. This is unchanged from previous. Gallbladder: Surgically absent noting clips in the gallbladder fossa. Spleen: Normal in size and attenuation. Pancreas: There is mild to moderate glandular atrophy of the pancreas. Prominence of the pancreatic d uct is similar to previous. This measures up to 6 mm. Adrenal glands: Unremarkable. Kidneys: The contrast enhanced kidneys are atrophic and without hydronephrosis. The kidneys enhance s ymmetrically. There is a 6 mm nonobstructing calculus in the lower pole of the right kidney. Abdominal vasculature: The abdominal aorta is normal in course and caliber noting advanced atheroscle rotic calcification. Stomach and bowel: There is a small hiatal hernia. There is moderate colonic fecal retention. There a re postoperative changes consistent with a Luciano-en-Y gastric bypass procedure. No bowel obstruction i s seen. There is moderate sigmoid diverticulosis without CT evidence of acute diverticulitis. The terri endix is not identified. Peritoneum: There is no intraperitoneal free air or abdominal ascites. Lymphadenopathy: None. Pelvic viscera: The bladder is partially decompressed and grossly unremarkable. The uterus is surgica lly absent. No adnexal lesion is seen. Skeletal structures: The skeletal structures are osteopenic. There is a advanced lumbosacral spondylo sis with previous L4-S1 spinal fusion. No lytic or blastic lesions are seen. IMPRESSION: 1. There is segmental pulmonary embolus within a branch of the right middle lobe pulmonary artery. 2. No additional pulmonary emboli are clearly identified. 3. There is no airspace consolidation or pleural effusion. 4. There is no abnormality corresponding to the questioned chest x-ray finding. The x-ray finding lik barbie represented overlapping vascular structures. 5. There are no acute infectious or inflammatory findings in the abdomen or pelvis. 6. Right-sided nephrolithiasis. 7. Findings are consistent with previous Luicano-en-Y gastric bypass surgery. No bowel obstruction is se en. 8. Additional findings as above. Electronically signed by: Luc Michaud M.D. 11/28/2018 6:23 PM
[2018-11-28 19:53] LABS: Partial Thromboplastin Ratio 1.1; Partial Thromboplastin Time 29.6 Seconds (21.0-31.0)
--- NOTE | 2018-11-28 20:45 | History & Physical Report ---
Date of Service November 28, 2018 Assessment & Plan (1) Pulmonary embolism: Ms. Castro is a 83-year-old female with a history of dementia, anxiety, GERD and history of peptic ulcers, diabetes mellitus, chronic iron deficiency anemia and recurrent pancreatitis who presents to the emergency department due to chest pain and shortness of breath. ED course: 500 mL bolus of normal saline -Admit to Med/Surg -Chest CT showed segmental pulmonary embolus within a branch of the right middle lobe pulmonary artery -Bilateral LE venous Dopplers ordered -Will not place the patient on a heparin drip due to significant history of GI bleed, necessitating multiple EGDs, blood and iron transfusions. Patient has a history of duodenal ulcers, as well as ulcers of gastrojejunal anastomosis. -Vital signs within normal limits, not tachycardic. No oxygen demand. Peptic ulcer disease -Continue home Protonix twice daily Anxiety -Continue home Lexapro Chronic iron deficiency anemia -Hemoglobin 10.7 on admission, stable -Per review of outpatient records, likely secondary to history of Luciano-en-Y gastric bypass, in addition to hx of GI bleeds -Prior B12 and folate levels both normal Dementia -Continue home donepezil and memantine Chronic diastolic CHF -Not currently volume overloaded, monitor volume status Diabetes mellitus -Patient's problem list includes a history of diabetes mellitus, however upon review of outpatient records, HbA1c in November 2017 was 4.6 Pulmonary nodule -12 mm nodule seen at left lung base, this is unchanged from 2016. Per radiologist, likely a small hamartoma CODE STATUS: Patient lacks capacity to discuss code status. Per review of chart, patient was full code at last hospital visit. We will keep full code for now, pending discussion with family Disposition: Admit to med/surg. Per review of records, patient was meant to be discharged to [facility], however patient presents today from [facility]. Per review of Daniella Case's outpatient notes (neurology PA), patient had signed herself out AMA from [facility]. Her note also mentions an outpatient family meeting, where her family reports that they were concerned about her not taking her medications properly, not eating, and having poor hygiene. Her PCP has also expressed concern that the patient is living alone without supervision and with worsening dementia. PT and OT evals ordered. Consider social service agency director consult. DVT prophylaxis: SCDs given negative venous dopplers. F/E/N: Regular diet ordered. No IV fluids ordered. (2) PUD (peptic ulcer disease): (3) GERD (gastroesophageal reflux disease): (4) Recurrent pancreatitis: (5) Anxiety: (6) Chronic iron deficiency anemia: (7) Dementia: (8) Chronic diastolic (congestive) heart failure: (9) Pulmonary nodule: History of Present Illness Primary Care Provider: Janey Spaulding MD Ms. Castro is a 83-year-old female with a history of dementia, anxiety, GERD and history of peptic ulcers, diabetes mellitus, chronic iron deficiency anemia and recurrent pancreatitis who presents to the emergency department due to chest pain and shortness of breath. The patient lives at [facility], and per EMS, the patient had reported to a nurse on the phone that she had shortness of breath and chest pain, prompting the nurse to call 911. There was also some concern about the patient having fallen at home. History is limited secondary to patient's dementia, she however she denies any current chest pain or shortness of breath. She states that around lunchtime, she felt weak, and was concerned that she may fall over. She states that she went to lay on her sofa, and reported a brief period of chest pain and shortness of breath which soon resolved. She denies any complaints at the current time, aside from being hungry. She states she does not wear oxygen at home. She denies a recent history of falls. She is unsure why she is in the hospital. Allergies Allergy/AdvReac Type Severity Reaction Status Date / Time iron Allergy Severe chest Verified 11/28/18 17:28 pain, felt hot (tolerates Venofer) procaine Allergy Severe THROAT Verified 11/28/18 17:28 SWELLING WITH NOVOCAINE codeine AdvReac Mild NAUSEA Verified 11/28/18 17:28 hydrocodone AdvReac Mild nausea Verified 11/28/18 17:28 oxycodone AdvReac Mild nausea Verified 11/28/18 17:28 Home Medications Home Medications Medication Instructions Recorded Confirmed Type donepezil [Aricept] 10 mg PO BID 06/10/18 11/28/18 History escitalopram oxalate [Lexapro] 10 mg PO DAILY 06/10/18 11/28/18 History furosemide [Lasix] 20 mg PO DAILY PRN 06/10/18 11/28/18 History cholecalciferol (vitamin D3) 1,000 unit PO DAILY 11/28/18 11/28/18 History [Vitamin D3] memantine [Namenda] 5 mg PO BID 11/28/18 11/28/18 History multivitamin 1 tab PO DAILY 11/28/18 11/28/18 History pantoprazole 40 mg PO BID 11/28/18 11/28/18 History vitamins A,C,O-iany-fglxdx 1 tab PO BID 11/28/18 11/28/18 History [PreserVision AREDS] Past Med/Surg History Medical History Pulmonary nodule PUD (peptic ulcer disease) GERD (gastroesophageal reflux disease) Recurrent pancreatitis Anxiety (Chronic) Chronic iron deficiency anemia (Chronic) Dementia (Chronic) Chronic diastolic (congestive) heart failure (Chronic) Diabetic peripheral neuropathy associated with type 2 diabetes mellitus Acute pancreatitis Atrial fibrillation, transient Diabetes GERD (gastroesophageal reflux disease) Headache Hypothyroidism Non-cardiac chest pain Pancreatitis Pulmonary hypertension Sleep apnea TIA (transient ischemic attack) 1993 Weakness Surgical History H/O colonoscopy H/O gastric bypass H/O total knee replacement History of appendectomy History of cholecystectomy History of esophagogastroduodenoscopy (EGD) Family History Other No pertinent family history Social History Communication Ability: Effective Beliefs That Will Affect Care: None and Church marital status: / Current Living Situation: Alone Current Living Situation Comment: lives at [facility] Other Information That Helps Us Care for You: No Feels Safe at Home: Yes Safety Concerns: Feels Safe At This Time Smoking Status: Never smoker Hx Alcohol Use: Yes Hx Substance Use: No Review of Systems Constitutional: + weakness; no fever, no chills and no fatigue Respiratory: no cough, no chest congestion, no dyspnea and no wheezing Cardiovascular: no chest pain, no syncope, no edema and no calf pain Gastrointestinal: + belching; no abdominal pain, no nausea and no vomiting Integumentary: no rash and no lesions Physical Exam Vital Signs (Past 24 Hours): Last Vital Signs Temp 36.5 C 11/28/18 15:26 Pulse 64 11/28/18 19:27 Resp 18 11/28/18 19:27 BP 159/77 H 11/28/18 19:27 Pulse Ox 95 11/28/18 19:27 Constitutional: WD/WN, vitals as above + frail appearing, cooperative and comfortable Eyes: PERRL, conjunctivae normal, anicteric sclerae ENMT: external ear and nose normal, oropharynx normal Respiratory: normal respiratory effort, lungs clear to auscultation Cardiovascular: RRR, no murmur, no edema Vessels: radial pulses present Extremities: normal capillary refill; no calf tenderness and no pedal edema Gastrointestinal (Abdomen): normal bowel sounds, soft, nontender, no hepatosplenomegaly Skin: no rashes, warm and dry Neurologic: moves all extremities and awake Motor/Sensory: no tremor 5 out of 5, equal strength in upper and lower extremities. Finger to nose test normal. Patient is alert and oriented x1. She is able to tell me that she is in the hospital in [place], but unable to name the hospital. She states that it is the year "20". Results & Data Laboratory Results Laboratory Results - last 24 hr 11/28/18 11/28/18 11/28/18 16:11 16:11 16:11 WBC 7.54 RBC 3.87 L Hgb 10.7 L Hct 33.7 L MCV 87.1 MCH 27.6 MCHC 31.8 L RDW Std Deviation 51.9 H RDW Coeff of Sebastian 16.3 H Plt Count 407 H MPV 9.5 Immature Gran % (Auto) 0.4 Neut % (Auto) 85.2 Lymph % (Auto) 7.2 [place] % (Auto) 6.2 Eos % (Auto) 0.7 Baso % (Auto) 0.3 Immature Gran # (Auto) 0.03 H Neut # (Auto) 6.43 Lymph # (Auto) 0.54 L [place] # (Auto) 0.47 Eos # (Auto) 0.05 Baso # (Auto) 0.02 PT 10.2 INR 1.0 APTT PTT Ratio Sodium 135 L Potassium 4.0 Chloride 101 Carbon Dioxide 28 Anion Gap 6.0 BUN 18 Creatinine 0.62 Est Cr Clr Drug Dosing 61.0 Est GFR ( Amer) 98.0 Est GFR (Non-Af Amer) 84.6 BUN/Creatinine Ratio 29.5 H Glucose 107 H Calcium 8.9 Total Bilirubin 0.7 AST 19 ALT 21 Alkaline Phosphatase 126 H Troponin I < 0.015 Total Protein 7.0 Albumin 3.0 L Globulin 4.0 Albumin/Globulin Ratio 0.8 L Urine Color Urine Appearance Urine pH Ur Specific [place] Urine Protein Urine Glucose (UA) Urine Ketones Urine Blood Urine Nitrite Urine Bilirubin Urine Urobilinogen Ur Leukocyte Esterase 11/28/18 11/28/18 16:11 16:11 WBC RBC Hgb Hct MCV MCH MCHC RDW Std Deviation RDW Coeff of [place] Plt Count MPV Immature Gran % (Auto) Neut % (Auto) Lymph % (Auto) [place] % (Auto) Eos % (Auto) Baso % (Auto) Immature Gran # (Auto) Neut # (Auto) Lymph # (Auto) [place] # (Auto) Eos # (Auto) Baso # (Auto) PT INR APTT 29.6 PTT Ratio 1.1 Sodium Potassium Chloride Carbon Dioxide Anion Gap BUN Creatinine Est Cr Clr Drug Dosing Est GFR ( Amer) Est GFR (Non-Af Amer) BUN/Creatinine Ratio Glucose Calcium Total Bilirubin AST ALT Alkaline Phosphatase Troponin I Total Protein Albumin Globulin Albumin/Globulin Ratio Urine Color Yellow Urine Appearance Clear Urine pH 7.5 Ur Specific [place] 1.013 Urine Protein Negative Urine Glucose (UA) Negative Urine Ketones Negative Urine Blood Negative Urine Nitrite Negative Urine Bilirubin Negative Urine Urobilinogen Negative Ur Leukocyte Esterase Negative Supervising Physician Co-Signing Physician Notes Attending addendum: I have physically seen this patient, have supervised the medical residents activities, and agree with the H&P unless as otherwise noted. Assessment and Plan: Pulmonary embolus within segmental branch of right middle lobe pulmonary artery-- Ordered bilateral lower extremity venous Dopplers. Patient has had significant history of GI bleeding, presumptively small bowel although never actually determined, with multiple negative EGDs and colonoscopy. She is also with history of duodenal ulcers and ulcers of the gastrojejunal anastomosis. We will consult gastroenterology for their opinion. Oxygenation and vital signs are well controlled at this point, and there is no signs of right ventricular strain on imaging or EKG. Peptic ulcer disease/iron deficiency anemia-- Continue pantoprazole 40 mg p.o. twice daily. Follow serial laboratories. Remainder of orders and notations as noted. Resident Activity Tracking Resident Involvement: Resident Care Provided Care Provided: Adult Hospital Medicine (1) Dementia Dementia behavioral disturbance: without behavioral disturbance Dementia type: unspecified type Qualified Code(s): F03.90 - Unspecified dementia without behavioral disturbance
[2018-11-28] MEDS ORDERED: FUROSEMIDE 20 MG TAB PO PRN (21:28)
[2018-11-28] MEDS ORDERED: ACETAMINOPHEN 325 MG TAB PO PRN (21:28)
--- NOTE | 2018-11-28 22:27 | Emergency Department Note ---
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 The patient reports that she was walking to the kitchen to get food when she suddenly felt weak. She states that she then quickly went to the sofa to lie down for a bit. She denies any falls, headaches, neck pain, shortness of breath, chest pain, back pain or dizziness. Prior to arrival she was complaining of chest pain shortness of breath to the medics. She was also complaining of hip pain but currently denies any hip pain. She does not remember having any chest pain or shortness of breath either. No other exacerbating or remitting factors. Home Medications Home Medications Medication Instructions Recorded Confirmed Type donepezil [Aricept] 10 mg PO BID 06/10/18 11/28/18 History escitalopram oxalate [Lexapro] 10 mg PO DAILY 06/10/18 11/28/18 History furosemide [Lasix] 20 mg PO DAILY PRN 06/10/18 11/28/18 History cholecalciferol (vitamin D3) 1,000 unit PO DAILY 11/28/18 11/28/18 History [Vitamin D3] memantine [Namenda] 5 mg PO BID 11/28/18 11/28/18 History multivitamin 1 tab PO DAILY 11/28/18 11/28/18 History pantoprazole 40 mg PO BID 11/28/18 11/28/18 History vitamins A,C,H-dtdm-hwgghw 1 tab PO BID 11/28/18 11/28/18 History [PreserVision AREDS] Allergies Allergy/AdvReac Type Severity Reaction Status Date / Time iron Allergy Severe chest Verified 11/28/18 17:28 pain, felt hot (tolerates Venofer) procaine Allergy Severe THROAT Verified 11/28/18 17:28 SWELLING WITH NOVOCAINE codeine AdvReac Mild NAUSEA Verified 11/28/18 17:28 hydrocodone AdvReac Mild nausea Verified 11/28/18 17:28 oxycodone AdvReac Mild nausea Verified 11/28/18 17:28 Past Med/Surg History Medical History Pulmonary nodule PUD (peptic ulcer disease) GERD (gastroesophageal reflux disease) Recurrent pancreatitis Anxiety (Chronic) Chronic iron deficiency anemia (Chronic) Dementia (Chronic) Chronic diastolic (congestive) heart failure (Chronic) Diabetic peripheral neuropathy associated with type 2 diabetes mellitus Acute pancreatitis Atrial fibrillation, transient Diabetes GERD (gastroesophageal reflux disease) Headache Hypothyroidism Non-cardiac chest pain Pancreatitis Pulmonary hypertension Sleep apnea TIA (transient ischemic attack) 1993 Weakness Surgical History H/O colonoscopy H/O gastric bypass H/O total knee replacement History of appendectomy History of cholecystectomy History of esophagogastroduodenoscopy (EGD) Family History Other No pertinent family history Social History Preferred Language: Brazilian 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 and A total of 10 systems reviewed and were otherwise negative Physical Exam Vital Signs Vital Signs - 24 hr 11/28/18 15:21 11/28/18 15:24 11/28/18 15:26 Temperature 36.5 C Temperature Source Oral Sepsis Recent Fever Within 48 Hours No Sepsis New/Unexplained Change in Mental Status No Sepsis Action Taken by Nursing No Action Required Pulse Rate - Lying Pulse Rate - Sitting Pulse Rate - Standing Pulse Rate 63 74 63 Pulse Rate [Apical] Pulse Rate from SpO2 Sensor 65 73 Pulse Rhythm Pulse Rhythm [Apical] Pulse Strength [Apical] Respiratory Rate 26 H 22 20 Respiratory Effort / Characteristics Respiratory Depth Respiratory Pattern Blood Pressure - Lying Blood Pressure - Sitting Blood Pressure- Standing Blood Pressure 161/71 H 161/71 H Blood Pressure [Right Arm] Blood Pressure Mean 101 101 Blood Pressure Mean [Right Arm] Blood Pressure Position [Right Arm] Pulse Oximetry 99 100 99 Oxygen Delivery Method Room Air 11/28/18 16:00 11/28/18 16:21 11/28/18 17:15 Temperature Temperature Source Sepsis Recent Fever Within 48 Hours Sepsis New/Unexplained Change in Mental Status Sepsis Action Taken by Nursing Pulse Rate - Lying Pulse Rate - Sitting Pulse Rate - Standing Pulse Rate 67 66 Pulse Rate [Apical] 67 Pulse Rate from SpO2 Sensor 68 Pulse Rhythm Regular Pulse Rhythm [Apical] Regular Pulse Strength [Apical] Normal Respiratory Rate 14 20 18 Respiratory Effort / Characteristics Non-Labored Spontaneous Respiratory Depth Normal Respiratory Pattern Regular Blood Pressure - Lying Blood Pressure - Sitting Blood Pressure- Standing Blood Pressure Blood Pressure [Right Arm] 112/73 Blood Pressure Mean Blood Pressure Mean [Right Arm] 86 Blood Pressure Position [Right Arm] Lying Pulse Oximetry 96 99 98 Oxygen Delivery Method Room Air Room Air 11/28/18 17:36 11/28/18 18:57 11/28/18 19:10 Temperature Temperature Source Sepsis Recent Fever Within 48 Hours Sepsis New/Unexplained Change in Mental Status Sepsis Action Taken by Nursing Pulse Rate - Lying 68 Pulse Rate - Sitting 63 Pulse Rate - Standing 68 Pulse Rate Pulse Rate [Apical] 60 Pulse Rate from SpO2 Sensor Pulse Rhythm Pulse Rhythm [Apical] Regular Pulse Strength [Apical] Normal Respiratory Rate 18 Respiratory Effort / Characteristics Non-Labored Spontaneous Respiratory Depth Normal Respiratory Pattern Regular Regular Blood Pressure - Lying 134/66 Blood Pressure - Sitting 142/75 H Blood Pressure- Standing 162/70 H Blood Pressure Blood Pressure [Right Arm] 151/72 H Blood Pressure Mean Blood Pressure Mean [Right Arm] 98 Blood Pressure Position [Right Arm] Lying Pulse Oximetry 97 Oxygen Delivery Method Room Air Room Air 11/28/18 19:27 11/28/18 21:15 Temperature 36.9 C Temperature Source Oral Sepsis Recent Fever Within 48 Hours Sepsis New/Unexplained Change in Mental Status Sepsis Action Taken by Nursing Pulse Rate - Lying Pulse Rate - Sitting Pulse Rate - Standing Pulse Rate Pulse Rate [Apical] 64 70 Pulse Rate from SpO2 Sensor Pulse Rhythm Pulse Rhythm [Apical] Pulse Strength [Apical] Respiratory Rate 18 18 Respiratory Effort / Characteristics Respiratory Depth Respiratory Pattern Blood Pressure - Lying Blood Pressure - Sitting Blood Pressure- Standing Blood Pressure Blood Pressure [Right Arm] 159/77 H 136/56 L Blood Pressure Mean Blood Pressure Mean [Right Arm] 104 82 Blood Pressure Position [Right Arm] Pulse Oximetry 95 96 Oxygen Delivery Method Room Air GENERAL: Sitting up in bed, disheveled, no acute distress, non-toxic EYE EXAM: normal conjunctiva. PERRL and EOM's intact. OROPHARYNX: no exudate, no erythema, lips, buccal mucosa, and tongue normal and mucous membranes are moist NECK: supple, no nuchal rigidity, no adenopathy, non-tender LUNGS: Clear to auscultation. Normal chest wall mechanics HEART: no murmurs, S1 normal and S2 normal ABDOMEN: abdomen soft, non-tender, normo-active bowel, sounds, no masses, no rebound or guarding. BACK: Back is symmetrical on inspection and there is no deformity, no midline tenderness, no CVA tenderness. SKIN: no rashes and no bruising UPPER EXTREMITIES: bruising on the left shoulder, proximal humerus with minimal tenderness to palpation. Radial pulses are equal bilaterally. LOWER EXTREMITIES: No pitting edema. NEURO EXAM: Awake, alert, and oriented to person, place, but not month. Cranial nerves II-XII grossly intact, normal speech, no gross weakness of arms, no gross weakness of legs. Course ED COURSE: Vital signs were reviewed and are within normal limits. The patients medical record was reviewed The above diagnostic studies were performed and reviewed. ED treatments and interventions as stated above. 1602: The patient was evaluated in room A11B. A complete history and physical examination was performed. 1855: Upon reevaluation, the patient appeared to have improvement of her symptoms. I discussed my findings with the patient and she understands and agrees with the treatment plan. Based on the patients age, coexisting illnesses, exam and lab findings the decision to treat as an inpatient was made. The patient remained stable while under my care. The patient will be evaluated for further management. Administered Medications Ioversol (Optiray 320 100ml) 98 ml IV ONCE PRN PRN Reason: Interaction Checking Stop: 12/02/18 17:58 Last Admin: 11/28/18 18:00 Dose: 98 ml Documented by: [id number] Discontinued Medications Heparin Sodium/Dextrose () 1 ea IV NOW STA; Protocol Stop: 11/28/18 18:31 Last Admin: 11/28/18 19:55 Dose: Not Given Documented by: [id number] Sodium Chloride (Nss) 500 mls @ 999 mls/hr IV .Q31M SHERRIE Stop: 11/28/18 16:45 Last Infusion: 11/28/18 17:16 Dose: 0 mls/hr Documented by: [id number] Admin: 11/28/18 16:45 Dose: 999 mls/hr Documented by: [id number] Medical Decision Making Differential Diagnosis Differential Diagnosis includes: metabolic, infection, hypoglycemia, electrolyte abnormalities, cardiac sources, intracerebral event, toxicologic, neurologic, as well as others were entertained. Medical Records Attestation: I reviewed the patient's medical records. Home Medications Current Medication List: was personally reviewed by me Laboratory Data Attestation: I reviewed the patient's lab results. Result diagrams: 11/28/18 16:11 11/28/18 16:11 Lab Results 11/28/18 11/28/18 11/28/18 Range/Units 16:11 16:11 16:11 WBC 7.54 (4.8-10.8) K/uL RBC 3.87 L (4.2-5.4) M/uL Hgb 10.7 L (12.0-16.0) g/dL Hct 33.7 L (37-47) % MCV 87.1 (80-100) fL MCH 27.6 (25-34) pg MCHC 31.8 L (32-36) g/dL RDW Std Deviation 51.9 H (36.4-46.3) fL RDW Coeff of Sebastian 16.3 H (11.5-14.5) % Plt Count 407 H (130-400) K/uL MPV 9.5 (7.4-10.4) fL Immature Gran % (Auto) 0.4 % Neut % (Auto) 85.2 % Lymph % (Auto) 7.2 % Chase % (Auto) 6.2 % Eos % (Auto) 0.7 % Baso % (Auto) 0.3 % Immature Gran # (Auto) 0.03 H (0.00-0.02) K/uL Neut # (Auto) 6.43 (1.4-6.5) K/uL Lymph # (Auto) 0.54 L (1.2-3.4) K/uL Chase # (Auto) 0.47 (0.11-0.59) K/uL Eos # (Auto) 0.05 (0-0.5) K/uL Baso # (Auto) 0.02 (0-0.2) K/uL PT 10.2 (9.0-12.0) Seconds INR 1.0 (0.9-1.1) APTT (21.0-31.0) Seconds PTT Ratio Sodium 135 L (136-145) mmol/L Potassium 4.0 (3.5-5.1) mmol/L Chloride 101 (98-107) mmol/L Carbon Dioxide 28 (21-32) mmol/L Anion Gap 6.0 (3-11) BUN 18 (7-18) mg/dl Creatinine 0.62 (0.6-1.2) mg/dl Est Cr Clr Drug Dosing 61.0 ml/min Est GFR ( Amer) 98.0 Est GFR (Non-Af Amer) 84.6 BUN/Creatinine Ratio 29.5 H (10-20) Glucose 107 H (70-99) mg/dl Calcium 8.9 (8.5-10.1) mg/dl Total Bilirubin 0.7 (0.2-1) mg/dl AST 19 (15-37) U/L ALT 21 (12-78) U/L Alkaline Phosphatase 126 H (45-117) U/L Troponin I < 0.015 (0-0.045) ng/ml Total Protein 7.0 (6.4-8.2) gm/dl Albumin 3.0 L (3.4-5.0) gm/dl Globulin 4.0 (2.5-4.0) gm/dl Albumin/Globulin Ratio 0.8 L (0.9-2) Urine Color Urine Appearance (Clear) Urine pH (4.5-7.5) Ur Specific [place] (1.000-1.030) Urine Protein (Negative) Urine Glucose (UA) (Negative) Urine Ketones (Negative) Urine Blood (Negative) Urine Nitrite (Negative) Urine Bilirubin (Negative) Urine Urobilinogen (Negative) Ur Leukocyte Esterase (Negative) 11/28/18 11/28/18 Range/Units 16:11 16:11 WBC (4.8-10.8) K/uL RBC (4.2-5.4) M/uL Hgb (12.0-16.0) g/dL Hct (37-47) % MCV (80-100) fL MCH (25-34) pg MCHC (32-36) g/dL RDW Std Deviation (36.4-46.3) fL RDW Coeff of Sebastian (11.5-14.5) % Plt Count (130-400) K/uL MPV (7.4-10.4) fL Immature Gran % (Auto) % Neut % (Auto) % Lymph % (Auto) % Chase % (Auto) % Eos % (Auto) % Baso % (Auto) % Immature Gran # (Auto) (0.00-0.02) K/uL Neut # (Auto) (1.4-6.5) K/uL Lymph # (Auto) (1.2-3.4) K/uL Chase # (Auto) (0.11-0.59) K/uL Eos # (Auto) (0-0.5) K/uL Baso # (Auto) (0-0.2) K/uL PT (9.0-12.0) Seconds INR (0.9-1.1) APTT 29.6 (21.0-31.0) Seconds PTT Ratio 1.1 Sodium (136-145) mmol/L Potassium (3.5-5.1) mmol/L Chloride (98-107) mmol/L Carbon Dioxide (21-32) mmol/L Anion Gap (3-11) BUN (7-18) mg/dl Creatinine (0.6-1.2) mg/dl Est Cr Clr Drug Dosing ml/min Est GFR ( Amer) Est GFR (Non-Af Amer) BUN/Creatinine Ratio (10-20) Glucose (70-99) mg/dl Calcium (8.5-10.1) mg/dl Total Bilirubin (0.2-1) mg/dl AST (15-37) U/L ALT (12-78) U/L Alkaline Phosphatase (45-117) U/L Troponin I (0-0.045) ng/ml Total Protein (6.4-8.2) gm/dl Albumin (3.4-5.0) gm/dl Globulin (2.5-4.0) gm/dl Albumin/Globulin Ratio (0.9-2) Urine Color Yellow Urine Appearance Clear (Clear) Urine pH 7.5 (4.5-7.5) Ur Specific [place] 1.013 (1.000-1.030) Urine Protein Negative (Negative) Urine Glucose (UA) Negative (Negative) Urine Ketones Negative (Negative) Urine Blood Negative (Negative) Urine Nitrite Negative (Negative) Urine Bilirubin Negative (Negative) Urine Urobilinogen Negative (Negative) Ur Leukocyte Esterase Negative (Negative) Imaging Data Radiologist's Impression: Radiology results as stated below per my review and the radiologist's interpretation: CT head/brain wo con CLINICAL HISTORY: 83 years-old Female presenting with ams, fall, hit head. TECHNIQUE: Multidetector CT imaging of the head was performed without the use of intravenous contrast. IV contrast: None. One or more dose lowering techniques were used consistent with the principles of ALARA (as low as reasonably achievable), including automatic exposure control, mA or kV adjustment to individual patient size, and/or use of iterative reconstruction. COMPARISON: 09/29/2018. CT DOSE (mGy.cm): The estimated cumulative dose is 537.48 mGy.cm. 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 Ventricles and sulci normal in size. No hemorrhage. Brain parenchyma normal in appearance with preserved bansal-white differentiation. No acute territorial infarct. No mass effect or midline shift. No extra-axial fluid collection. Paranasal sinuses and mastoid air cells clear. Calvarium intact. IMPRESSION: 1. No acute intracranial abnormality. Electronically signed by: Blane Crane M.D. 11/28/2018 5:05 PM XR pelvis 1-2V routine CLINICAL HISTORY: 83 years-old Female presenting with fall. TECHNIQUE: Single frontal view of the pelvis was obtained. COMPARISON: Correlation made to CT of abdomen and pelvis from 06/20/2018. FINDINGS: Bilateral posterior transpedicular screw and mt fixation of L4-S1 with interlocking mt at L5. Degenerative changes of L3-4. Sacroiliac joints, pubic symphysis, and hip joints congruent. Osteopenia suspected. Arcuate lines of the sacrum poorly delineated. Bony pelvis intact. Femoral necks grossly intact. Radiopaque sutures noted in the right lower quadrant. IMPRESSION: No acute osseous injury of the pelvis. Electronically signed by: Blane Crane M.D. 11/28/2018 4:32 PM XR chest 1V portable CLINICAL HISTORY: 83 years-old Female presenting with ams. TECHNIQUE: Portable upright AP view of the chest was obtained. COMPARISON: 09/29/2018. FINDINGS: Atherosclerosis of the aortic arch. Cardiac silhouette enlarged. Prominence of the right paratracheal mediastinal contour. Pulmonary artery enlargement suggested. Heterogeneous lung parenchyma with mild hyperinflation. No new focal opacity. No large effusion or pneumothorax. Advanced degenerative changes of the glenohumeral joints. Suspected underlying osteopenia. Degenerative changes of the thoracic spine. Upper abdomen normal. IMPRESSION: 1. Prominence of the right paratracheal mediastinal contour may relate to slight [place] patient rotation or abnormal soft tissue. If there is clinical concern, consider contrast-enhanced chest CT for further evaluation. 2. Cardiomegaly with enlargement of the pulmonary arteries raising concern for pulmonary artery hypertension. No diane pulmonary edema. 3. Hyperinflation may suggest underlying emphysema. No focal infiltrate to suggest pneumonia. Electronically signed by: Blane Crane M.D. 11/28/2018 4:[address] SCAN OF THE CHEST, ABDOMEN, AND PELVIS WITH IV CONTRAST CLINICAL HISTORY: Abnormal chest x-ray. Abdominal CT dated 06/20/2018. Generalized abdominal pain. COMPARISON STUDY: Chest x-ray dated 11/28/2018. Chest CT scans dated 05/03/2017 and 06/29/2016. TECHNIQUE: Following the IV administration of 98 of Optiray 320, CT scan of the chest, abdomen, and pelvis was performed from the thoracic inlet to the proximal femora. Images are reviewed in the axial, sagittal, and coronal planes. IV contrast was administered without complication. A dose lowering technique was utilized adhering to the principles of ALARA. The examination is a greater by streak artifact from the arms which could not be elevated above the chest, abdomen, or pelvis. Evaluation of the abdomen is also degraded by streak artifact from metallic orthopedic spinal hardware. CT DOSE: 766.43 mGy.cm FINDINGS: CHEST: Thyroid: Imaged portions of the thyroid gland are normal in size and attenuation. Thoracic aorta: There is mild atherosclerotic calcification of the thoracic aorta, which is normal in caliber and demonstrates bovine variant arch anatomy. No dissection is seen. Pulmonary vasculature: The main pulmonary arteries are mildly dilated suggesting pulmonary artery hypertension. There is pulmonary embolus identified within a segmental branch of the right middle lobe pulmonary artery seen on image #130. No additional pulmonary emboli are identified. Heart: The heart is top normal in size and without pericardial effusion. The coronary arteries are densely calcified. Lungs and pleural spaces: There is no airspace consolidation or pleural effusion. There are foci of bibasilar scarring/atelectasis. The trachea and central airways are clear. There are scattered calcified granulomas. A 12 mm nodule at the left lung base is again seen on image #221. This has not appr eciably changed from 2016 and appears to contain foci of macroscopic fat. This likely represents a small hamartoma. Additional scattered noncalcified nodules measure to 3 mm and is also not appreciably changed. These findings are doubtful significance. Mediastinum: There is no mediastinal lymphadenopathy. Chasity: Clear. Axillae: There are shotty axillary lymph nodes. Bony thorax: The skeletal structures are osteopenic. Advanced arthritic change with chronic bursal fluid is noted in the shoulders. 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 No lytic or blastic lesions are identified. ABDOMEN AND PELVIS: Liver: The contrast-enhanced liver is normal in size, contour, and attenuation. There is mild central intrahepatic or ductal dilatation. The hepatic veins and portal veins are patent. A subcentimeter hepatic hypodensity seen on image #72 likely represents a cyst but is too small for definitive characterization. This is unchanged from previous. Gallbladder: Surgically absent noting clips in the gallbladder fossa. Spleen: Normal in size and attenuation. Pancreas: There is mild to moderate glandular atrophy of the pancreas. Prominence of the pancreatic duct is similar to previous. This measures up to 6 mm. Adrenal glands: Unremarkable. Kidneys: The contrast enhanced kidneys are atrophic and without hydronephrosis. The kidneys enhance symmetrically. There is a 6 mm nonobstructing calculus in the lower pole of the right kidney. Abdominal vasculature: The abdominal aorta is normal in course and caliber noting advanced atherosclerotic calcification. Stomach and bowel: There is a small hiatal hernia. There is moderate colonic fe corey retention. There are postoperative changes consistent with a Luciano-en-Y gastric bypass procedure. No bowel obstruction is seen. There is moderate sigmoid diverticulosis without CT evidence of acute diverticulitis. The appendix is not identified. Peritoneum: There is no intraperitoneal free air or abdominal ascites. Lymphadenopathy: None. Pelvic viscera: The bladder is partially decompressed and grossly unremarkable. The uterus is surgically absent. No adnexal lesion is seen. Skeletal structures: The skeletal structures are osteopenic. There is a advanced lumbosacral spondylosis with previous L4-S1 spinal fusion. No lytic or blastic lesions are seen. IMPRESSION: 1. There is segmental pulmonary embolus within a branch of the right middle lobe pulmonary artery. 2. No additional pulmonary emboli are clearly identified. 3. There is no airspace consolidation or pleural effusion. 4. There is no abnormality corresponding to the questioned chest x-ray finding. The x-ray finding likely represented overlapping vascular structures. 5. There are no acute infectious or inflammatory findings in the abdomen or pelvis. 6. Right-sided nephrolithiasis. 7. Findings are consistent with previous Luciano-en-Y gastric bypass surgery. No bowel obstruction is seen. 8. Additional findings as above. Electronically signed by: Luc Michaud M.D. 11/28/2018 6:23 PM ECG Data Attestation: I personally reviewed and interpreted this ECG as follows: Indication: weakness Rate (beats per minute): 61 Rhythm: sinus rhythm Findings: + other (normal axis, poor baseline) and + PAC Blood Pressure Blood Pressure Findings: Elevated blood pressure Blood Pressure Disposition: further management by hospitalist VALENTINE Narrative Patient is an 83-year-old female who presents the ER for initially hip pain and complained to the EMS for chest pain shortness of breath. First she notes that she felt weak. No other exacerbating or remitting factors. Labs were obtained and showed no significant leukocytosis or anemia. INR was unremarkable. BMP along with LFTs bilirubin was unremarkable. UA was negative. CT of the abdomen and chest shows PEs. Initially ordered IV heparin drip and bolus. Discussed with hospitalist who knows her very well who recommended not starting heparin due to previous GI bleed. I did ask patient if she had been coughing up blood, vomiting blood, urinating blood or having blood or any blood in her stool and she denied all this. Patient has no other complaints at this time. She is updated bedside and admitted to hospice for further workup. Impression & Plan Bilateral pulmonary embolism Discharge Plan Visit Data *Final* Discharge Date/Time: 11/28/18 21:09 Chief Complaint: Hip Pain Stated Complaint: SOB, CHEST PAIN ED Provider: Christophe Abdalla Discharge Problem: Bilateral pulmonary embolism Patient Disposition: Being Evaluated by Hospitalist Discharge Instructions Interventions: ED Discharge Assessment Last Done: 11/28/18 21:09 The scribe's documentation has been prepared under my direction and personally reviewed by me in its entirety. I confirm that the note above accurately reflects all work, treatment, procedures, and medical decision making performed by me.
--- NOTE | 2018-11-28 22:28 | Ultrasound Report ---
ULTRASOUND BILATERAL LOWER EXTREMITY VENOUS CLINICAL HISTORY: Pulmonary embolus. COMPARISON STUDY: Bilateral lower extremity venous ultrasound dated 11/29/2014. TECHNIQUE: Real-time, grayscale, and color Doppler sonography of the deep veins of the right and left lower extremity was performed from the inguinal crease to the calf. Compression and augmentation wer e utilized. FINDINGS: There is no sonographic evidence of deep venous thrombosis identified in the right or left lower extremity. The common femoral, superficial femoral, and popliteal veins are patent and normally compressible bilaterally. The greater saphenous vein and the profunda femoris vein at the junction w ith the common femoral vein are clear in both legs. The visualized calf veins are patent bilaterally. A complex popliteal cyst on the right measures 7.1 x 4.7 x 5.0 cm, and a complex cyst on the left me asures 6.2 x 2.2 x 4.3 cm. IMPRESSION: 1. There is no sonographic evidence of deep venous thrombosis identified in the right or left lower e xtremity. 2. Bilateral complex popliteal cyst. Electronically signed by: Luc Michaud M.D. 11/28/2018 10:27 PM
[2018-11-28] MEDS: PANTOprazole 40 MG TAB PO SCH (22:52)
[2018-11-28] MEDS: MEMANTINE HCL 5 MG TAB PO SCH (22:52)
[2018-11-28] MEDS: DONEPEZIL HCL 10 MG TAB PO SCH (22:53)
--- NOTE | 2018-11-29 07:58 | Hospitalist Progress Note ---
Date of Service November 29, 2018 Assessment & Plan (1) Pulmonary embolism: Ms. Castro is a 83-year-old female with a history of dementia, anxiety, GERD and history of peptic ulcers, diabetes mellitus, chronic iron deficiency anemia and recurrent pancreatitis who presents to the emergency department due to chest pain and shortness of breath. -Chest CT showed segmental pulmonary embolus within a branch of the right middle lobe pulmonary artery, pt has stable vital signs and her symptoms have resolved -Bilateral LE venous Dopplers negative at this point time since there is only one lesion is difficult to attribute all of her clinical symptoms is presentation we will continue to follow her likely perform a repeat CT scan on 11/30 -On presentation vital signs within normal limits, not tachycardic. No oxygen demand. Peptic ulcer disease -Continue home Protonix twice daily Anxiety -Continue home Lexapro Chronic iron deficiency anemia -Hemoglobin, stable -Per review of outpatient records, likely secondary to history of Luciano-en-Y gastric bypass, in addition to hx of GI bleeds -Prior B12 and folate levels both normal Dementia -Continue home donepezil and memantine Chronic diastolic CHF -Not currently volume overloaded, monitor volume status Diabetes mellitus -Patient's problem list includes a history of diabetes mellitus, however upon review of outpatient records, HbA1c in November 2017 was 4.6 Pulmonary nodule -12 mm nodule seen at left lung base, this is unchanged from 2016. Per radiologist, likely a small hamartoma CODE STATUS: Full Disposition may be challenging given the lack of local support (2) PUD (peptic ulcer disease): (3) GERD (gastroesophageal reflux disease): (4) Recurrent pancreatitis: (5) Anxiety: (6) Chronic iron deficiency anemia: (7) Dementia: (8) Chronic diastolic (congestive) heart failure: (9) Pulmonary nodule: Subjective Patient is confused at times requiring a sitter she cannot provide me much in the way of focal descriptions other than her head feels hot at times she feels unsteady she states she has no local family and only lives at home with her cat Review of Systems ROS: well nourished well developed. No double vision blurry vision he states her head feels hot and she has to lay down No problems with speech or swallowing No palpitations, chest pain or pressure No Wheezing or breathing issues No abdominal pain nausea vomiting diarrhea changes in appetite or weight No burning urine urine frequency or changes in color No focal joint pain or muscle pain No skin rashes or oral lesions No unusual bruising or bleeding No focused back pain or numbness or loss of strength Symptoms of mild memory impairment Physical Exam Vital Signs (Past 24 Hours): Last Vital Signs Temp 37 C 11/29/18 06:55 Pulse 74 11/29/18 06:55 Resp 18 11/29/18 06:55 BP 126/71 11/29/18 06:55 Pulse Ox 94 11/29/18 06:55 The patient appeared well nourished and normally developed. Vital signs as documented. Head exam is unremarkable. normocephalic, atraumatic Neck is without jugular venous distension, thyromegaly, or lymphademopathy Lungs are clear to auscultation and percussion. Cardiac exam reveals Rhythm is regular. First and second heart sounds normal. Systolic murmur is heard Abdominal exam reveals normal bowel sounds, no masses, no organomegaly Extremities are nonedematous and both pedal pulses are present Neurologic exam is A&Ox3 she does have some difficulty with complex questions, no focal deficits, strength is equal bilateral Psychologically seems anxious Skin is warm Dry without bruises or lesions (1) Dementia Dementia behavioral disturbance: without behavioral disturbance Dementia type: unspecified type Qualified Code(s): F03.90 - Unspecified dementia without behavioral disturbance
[2018-11-29] MEDS: MEMANTINE HCL 5 MG TAB PO SCH ×2 (08:05→22:21)
[2018-11-29] MEDS: ESCITALOPRAM OXALATE 10 MG TAB PO SCH (08:05)
[2018-11-29] MEDS: PANTOprazole 40 MG TAB PO SCH ×2 (08:05→22:21)
[2018-11-29] MEDS: CEROVITE ADV FORMULA TAB PO SCH (08:05)
[2018-11-29] MEDS: MULTIVITAMIN TAB PO SCH (08:05)
[2018-11-29] MEDS: DONEPEZIL HCL 10 MG TAB PO SCH ×2 (08:05→22:21)
[2018-11-29] MEDS: CHOLECALCIFEROL 1,000 UNITS TAB PO SCH (08:05)
[2018-11-30] MEDS: CEROVITE ADV FORMULA TAB PO SCH (08:18)
[2018-11-30] MEDS: MULTIVITAMIN TAB PO SCH (08:18)
[2018-11-30] MEDS: DONEPEZIL HCL 10 MG TAB PO SCH (08:18)
[2018-11-30] MEDS: ESCITALOPRAM OXALATE 10 MG TAB PO SCH (08:18)
[2018-11-30] MEDS: MEMANTINE HCL 5 MG TAB PO SCH (08:19)
[2018-11-30] MEDS: PANTOprazole 40 MG TAB PO SCH (08:19)
[2018-11-30] MEDS: CHOLECALCIFEROL 1,000 UNITS TAB PO SCH (08:19)
[2018-11-30] MEDS ORDERED: OPTIRAY 320 125ml IV PRN (09:46)
--- NOTE | 2018-11-30 10:01 | CT Scan Report ---
CT angio chest PE protocol CT DOSE: 340.24 mGy.cm HISTORY: Chest pain. Dyspnea. PE TECHNIQUE: Multiaxial CT images of the chest were performed following the intravenous administration of contrast to evaluate the pulmonary arteries. Maximal intensity projection images were also obtaine d. A dose lowering technique was utilized adhering to the principles of ALARA. COMPARISON STUDY: 11/28/2017 FINDINGS: Mild atherosclerotic change thoracic aorta. No evidence for focal aneurysm or dissection. Evaluation of pulmonary arterial vasculature shows mild prominence of the central pulmonary vasculatu re. A small filling defect of the right middle lobe pulmonary artery is unchanged. No additional embo li are present. Lung parenchyma shows persistent interstitial prominence of the mid to lower lung regions bilaterally . Nodularity previously described is unchanged. Unchanged bilateral axillary adenopathy. IMPRESSION: Study confirms the prior CT findings dated 11/28/2018 of a pulmonary embolus involving a segmental bran ch of the right middle lobe pulmonary artery. No new or additional findings are identified. The above report was generated using voice recognition software. It may contain grammatical, syntax or spelling errors. Electronically signed by: Lemuel Gunn M.D. 11/30/2018 9:59 AM
[2018-11-30] MEDS ORDERED: APIXABAN 5 MG TABLET PO ONE (14:00)
[2018-12-01] MEDS ORDERED: APIXABAN 5 MG TABLET PO SCH
--- NOTE | 2018-12-05 15:55 | Discharge Summary ---
Date of Service December 05, 2018 Admission HPI Per Admitting Provider Ms. Castro is a 83-year-old female with a history of dementia, anxiety, GERD and history of peptic ulcers, diabetes mellitus, chronic iron deficiency anemia and recurrent pancreatitis who presents to the emergency department due to chest pain and shortness of breath. The patient lives at [facility], and per EMS, the patient had reported to a nurse on the phone that she had shortness of breath and chest pain, prompting the nurse to call 911. There was also some concern about the patient having fallen at home. History is limited secondary to patient's dementia, she however she denies any current chest pain or shortness of breath. She states that around lunchtime, she felt weak, and was concerned that she may fall over. She states that she went to lay on her sofa, and reported a brief period of chest pain and shortness of breath which soon resolved. She denies any complaints at the current time, aside from being hungry. She states she does not wear oxygen at home. She denies a recent h istory of falls. She is unsure why she is in the hospital. Principal Diagnosis pulmonary embolism Discharge Exam Constitutional well developed and average body habitus Eyes no conjunctival abnormality and no scleral abnormality Neck normal visual inspection and trachea midline Respiratory normal respiratory effort; no respiratory distress Auscultation: lungs clear to auscultation bilaterally Cardiovascular RRR, no murmur, no edema Gastrointestinal (Abdomen) normal bowel sounds, soft, nontender, no hepatosplenomegaly Musculoskeletal no cyanosis or clubbing, extremities motor strength 5/5 Discharge Data Allergies Allergy/AdvReac Type Severity Reaction Status Date / Time iron Allergy Severe chest Verified 11/28/18 17:28 pain, felt hot (tolerates Venofer) procaine Allergy Severe THROAT Verified 11/28/18 17:28 SWELLING WITH NOVOCAINE codeine AdvReac Mild NAUSEA Verified 11/28/18 17:28 hydrocodone AdvReac Mild nausea Verified 11/28/18 17:28 oxycodone AdvReac Mild nausea Verified 11/28/18 17:28 Consultations 11/28/18 18:46 ED Decision to Admit Stat 11/28/18 21:28 Consult Case Management - Discharge Planning Routine Ordered Studies 11/28/18 16:06 CT head/brain wo con Stat 11/28/18 17:43 CT abd pelvis IV con only Stat CT chest w con Stat 11/28/18 21:28 US venous doppler LE BI Routine 11/30/18 08:33 CT angio chest PE protocol Stat Hospital Course (1) Pulmonary embolism: Ms. Castro is a 83-year-old female with a history of dementia, anxiety, GERD and history of peptic ulcers, diabetes mellitus, chronic iron deficiency anemia and recurrent pancreatitis who presents to the emergency department due to chest pain and shortness of breath. -Chest CT showed segmental pulmonary embolus within a branch of the right middle lobe pulmonary artery, pt has stable vital signs and her symptoms have resolved -Bilateral LE venous Dopplers negative repeat CT scan on 11/30 shows persistent PE, started on Eliquis an tolerated well Peptic ulcer disease -Continue home Protonix twice daily Anxiety -Continue home Lexapro Chronic iron deficiency anemia -Hemoglobin, stable -Per review of outpatient records, likely secondary to history of Luciano-en-Y gastric bypass, in addition to hx of GI bleeds -Prior B12 and folate levels both normal Dementia -Continue home donepezil and memantine Chronic diastolic CHF -euvolemic Diabetes mellitus -Patient's problem list includes a history of diabetes mellitus, however upon review of outpatient records, HbA1c in November 2017 was 4.6 Pulmonary nodule -12 mm nodule seen at left lung base, this is unchanged from 2016. Per radiologist, likely a small hamartoma CODE STATUS: Full Disposition home health (2) PUD (peptic ulcer disease): (3) GERD (gastroesophageal reflux disease): (4) Recurrent pancreatitis: (5) Anxiety: (6) Chronic iron deficiency anemia: (7) Dementia: (8) Chronic diastolic (congestive) heart failure: (9) Pulmonary nodule: Total Time Total Time Spent Total Time Spent (In Minutes): greater than 30 minutes were required to prepare discharge Discharge Plan Discharge Items Patient Disposition: Home - Home Health Services Reason For Visit: PULMONARY EMBOLISM Discharge Diagnosis: pulmonary embolism ( blood clot in lung) Discharge Goals: Decrease discomfort, Diagnostic testing and Improve disease control Activity: Resume your previous activity Non-emergency contact: Primary Care Provider Call non-emergency contact if: you have any medication questions Follow-up/Referrals: Janey Spaulding MD [Primary Care Provider] - 12/04/18 1:40 pm (Please, follow up with Dr. Spaulding on TuesdayDecember 04 at 1:40 pm. *If you need to change this appointment, call the office at [phone].) Diet: Regular Addtl Provider Instructions: please follow up with Dr Spaulding Prescriptions: New Eliquis 5 mg (74 tabs) tablets,dose pack 5 mg PO UD Qty: 74 RF: 0 Continued donepezil [Aricept] 10 mg tablet 10 mg PO BID RF: 0 furosemide [Lasix] 20 mg tablet 20 mg PO DAILY PRN (Reason: Edema) RF: 0 escitalopram oxalate [Lexapro] 10 mg tablet 10 mg PO DAILY RF: 0 multivitamin Tablet 1 tab PO DAILY RF: 0 pantoprazole 40 mg tablet,delayed release (DR/EC) 40 mg PO BID RF: 0 memantine [Namenda] 5 mg tablet 5 mg PO BID RF: 0 cholecalciferol (vitamin D3) [Vitamin D3] 1,000 unit Tablet 1,000 unit PO DAILY RF: 0 PreserVision AREDS 7,160-113-100 [id number] Tablet 1 tab PO BID RF: 0 Stand-Alone Forms: [facility] Discharge Orders: Discharge Order (Routine); Ordered 11/30/18 Ordered By: Daquan Hector Admission Data Admit Date/Time: 11/28/18 20:38 Attending Provider: Daquan Hector Admit Provider: Charles Boyle Primary Care Provider: Janey Spaulding Other Providers: Janes Griggs Service: Medical Other Interventions: Discharge Summary Assessment (RN) Last Done: 11/30/18 14:35 DC Date/Time DO NOT enter until pt leaves facility: 11/30/18 18:00
== END 2018-11-30 18:00 | disposition home health service (06) | DRG 176 ==
LOC: ED 15:13 → SUATTDRO 20:38 → 2N 20:38
DX: I26.99 Other pulmonary embolism without acute cor pulmonale; F03.90 Unspecified dementia, unspecified severity, without behavioral disturbance, psychotic disturbance, mood disturbance, and anxiety; Z86.73 Personal history of transient ischemic attack (TIA), and cerebral infarction without residual deficits; Z88.8 Allergy status to other drugs, medicaments and biological substances; F41.9 Anxiety disorder, unspecified; Z87.11 Personal history of peptic ulcer disease; I27.20 Pulmonary hypertension, unspecified; K21.9 Gastro-esophageal reflux disease without esophagitis; I50.32 Chronic diastolic (congestive) heart failure; Z88.5 Allergy status to narcotic agent; Q85.9 Phakomatosis, unspecified; E11.40 Type 2 diabetes mellitus with diabetic neuropathy, unspecified; D50.9 Iron deficiency anemia, unspecified; Z98.0 Intestinal bypass and anastomosis status; E03.9 Hypothyroidism, unspecified

== ENCOUNTER 2019-08-09 12:15 | Inpatient (IN) ==
[2019-08-09] MEDS ORDERED: SODIUM CHLORIDE 0.9% 1000ML 1,000 ML IV SCH (13:00)
[2019-08-09 13:47] LABS: Basophils # (auto) 0.03 K/uL (0-0.2); Basophils % (auto) 0.4 %; Eosinophils # (auto) 0.08 K/uL (0-0.5); Eosinophils % (auto) 1.2 %; Hematocrit (blood only) 27.6 % (37-47); Hemoglobin 8.1 g/dL (12.0-16.0); Immature Granulocytes # (auto) 0.02 K/uL (0.00-0.02); Immature Granulocytes % (auto) 0.3 %; Lymphocytes # (auto) 0.51 K/uL (1.2-3.4); Lymphocytes % (auto) 7.5 %; Mean Corpuscular Hemoglobin 23.2 pg (25-34); Mean Corpuscular Hgb Conc 29.3 g/dL (32-36); Mean Corpuscular Volume 79.1 fL (80-100); Mean Platelet Volume 8.9 fL (7.4-10.4); Monocytes % (auto) 7.4 %; Neutrophils # (auto) 5.65 K/uL (1.4-6.5); Neutrophils % (auto) 83.2 %; Platelet Count 436 K/uL (130-400); RDW Coefficient of Variation 18.8 % (11.5-14.5); RDW Standard Deviation 53.4 fL (36.4-46.3); Red Blood Count 3.49 M/uL (4.2-5.4); White Blood Count 6.79 K/uL (4.8-10.8)
[2019-08-09 13:59] LABS: Partial Thromboplastin Time 26.9 Seconds (21.0-31.0); Prothrombin Time 10.7 Seconds (9.0-12.0)
[2019-08-09 14:04] LABS: Albumin Level 3.3 gm/dl (3.4-5.0); BUN Creatinine Ratio 26.3 (10-20); Calcium 9.7 mg/dl (8.5-10.1); Creatinine Clr Calc Pharmacy 65.8 ml/min; Est GFR (African American) 98.4; Est GFR (Non-African American) 84.9; Potassium 4.3 mmol/L (3.5-5.1)
[2019-08-09 14:07] LABS: Albumin Globulin Ratio 0.8 (0.9-2); Bilirubin,Total 0.9 mg/dl (0.2-1); Globulin 3.9 gm/dl (2.5-4.0); Total Protein 7.2 gm/dl (6.4-8.2)
[2019-08-09] MEDS ORDERED: SODIUM CHLORIDE 0.9% 250 ML IV PRN ×2 (14:54→16:34)
--- NOTE | 2019-08-09 15:52 | Emergency Department Note ---
General (ED) Blank Date of Service August 09, 2019 ED Visit Note I attest that I saw and examined this patient and participated in her care under the direction of Dr. Richards. Please see his note for clinical assessment and course. Resident Activity Tracking Resident Involvement: Resident Care Provided Care Provided: Adult ED
[2019-08-09] MEDS ORDERED: ALUMINUM/MAGNESIUM SUSP 30 ML UDC PO PRN (16:29)
[2019-08-09] MEDS ORDERED: ACETAMINOPHEN 325 MG TAB PO PRN (16:29)
[2019-08-09] MEDS ORDERED: NON-FORMULARY MEDICATION (Acetaminophen [Tylenol Arthritis Pain] 650 MG) PO SCH (16:30)
--- NOTE | 2019-08-09 16:46 | History & Physical Report ---
Date of Service August 09, 2019 Assessment & Plan (1) Symptomatic anemia: Likely chronic blood loss Patient is on Eliquis for pulmonary embolism, since there is no obvious bleeding, will continue Eliquis We will order anemia study including ferritin, serum iron, total iron binding capacity, B12, folate and occult blood in stool 1 unit blood transfusion ordered in ED, will add another unit transfusion aiming for hemoglobin above 9.5 Also because of her generalized weakness will order PT/OT (2) Shortness of breath: Likely secondary to anemia Will reevaluate after anemia improved Ordered PT/OT (3) Substernal chest pain: Likely demand ischemia Currently denies any chest pain We will order serial troponin EKG reviewed, nonspecific changes (4) Acid reflux disease: Continue Protonix 40 mg p.o. twice daily Give 1 dose of Pepcid IV now (5) Depression with anxiety: Appears to be stable Continue Lexapro 10 mg p.o. daily (6) Dementia: Continue Aricept and Namenda Appears to be stable Pleasant no paranoid or aggressive behavior. History of Present Illness 83-year-old female with past medical history of dementia, and anxiety, GERD, chronic iron deficiency anemia with recurrent transfusions in the past, recurrent pancreatitis, essential hypertension, pulmonary embolism diagnosed in November 2018 currently on Eliquis. Patient presented to the hospital with generalized weakness and fatigue, also had some chest tightness yesterday. Her primary care physician sent her to do basal blood work yesterday that showed hemoglobin of 7.8, her baseline has been more than 10, primary care physician asked her to come to the ED for further evaluation, and ED her low hemoglobin was confirmed, hemoglobin was 8.1. She denies any melena, any blood in stool any hematemesis although her dementia made her a little bit poor historian. She also denied any chest pain here in the ED. Primary Care Provider: Janey Spaulding MD Allergies Allergy/AdvReac Type Severity Reaction Status Date / Time iron Allergy Severe chest Verified 08/09/19 12:48 pain, felt hot (tolerates Venofer) procaine Allergy Severe THROAT Verified 08/09/19 12:48 SWELLING WITH NOVOCAINE acetaminophen [From Lortab] Allergy Verified 08/09/19 12:48 codeine AdvReac Mild NAUSEA Verified 08/09/19 12:48 hydrocodone AdvReac Mild nausea Verified 08/09/19 12:48 oxycodone AdvReac Mild nausea Verified 08/09/19 12:48 Home Medications Home Medications Medication Instructions Recorded Confirmed Type escitalopram oxalate [Lexapro] 10 mg PO DAILY 06/10/18 08/09/19 History acetaminophen 650 mg 650 mg PO Q12H #60 tab 05/04/19 08/09/19 Rx tablet,extended release cholecalciferol (vitamin D3) 25 1,000 unit PO DAILY #30 tab 05/04/19 08/09/19 Rx mcg (1,000 unit) tablet ranitidine HCl 300 mg tablet 300 mg PO DAILY #90 tab 05/04/19 08/09/19 Rx apixaban 5 mg tablet 5 mg PO BID #180 tab 07/05/19 08/09/19 Rx vitamins A,C,A-jdot-wrqaoe 7,160 1 tab PO BID #60 tab 07/05/19 08/09/19 Rx unit-113 mg-100 unit tablet cranberry extract [Cranberry 500 mg PO DAILY 08/09/19 08/09/19 History Concentrate] donepezil [Aricept] 10 mg PO BID 08/09/19 08/09/19 History memantine [Namenda] 10 mg PO BID 08/09/19 08/09/19 History multivitamin [Daily-Tone] 1 tab PO DAILY 08/09/19 08/09/19 History pantoprazole [Protonix] 40 mg PO BID 08/09/19 08/09/19 History Past Med/Surg History Medical History Anxiety (Chronic) Atrial fibrillation, transient Chronic diastolic (congestive) heart failure (Chronic) Chronic iron deficiency anemia (Chronic) Diabetes Diabetic peripheral neuropathy associated with type 2 diabetes mellitus (Chronic) GERD (gastroesophageal reflux disease) Hypothyroidism Pancreatitis PUD (peptic ulcer disease) (Resolved) Pulmonary hypertension Pulmonary nodule (Resolved) Recurrent pancreatitis (Chronic) Sleep apnea TIA (transient ischemic attack) 1992 Surgical History H/O colonoscopy H/O gastric bypass H/O total knee replacement History of appendectomy History of cholecystectomy History of esophagogastroduodenoscopy (EGD) Family History Unknown Myocardial infarction Mother Diabetes Other No pertinent family history Social History Preferred Language: [place]ambian Communication Ability: Effective 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 Beliefs That Will Affect Care: None and Sabianism Sabianism Beliefs: Anglican marital status: / Current Living Situation: Alone Current Living Situation Comment: lives at [facility], [facility] Residence Feels Safe at Home: Yes Smoking Status: Never smoker Hx Alcohol Use: Yes Hx Substance Use: No Review of Systems Review of Systems: Review of system Constitutional: Positive for generalized weakness and fatigue Eyes: no blurring of vision / no eye pain / no discharge / no redness ENT: no hearing loss / no epistaxis /no swallowing problems Respiratory: no cough / no wheezing /positive for shortness of breath/ no hemoptysis Cardiovascular: Per history there was some chest tightness yesterday, currently denies any/ no lower extremity edema / no palpitation Abdomen: no pain / no nausea / no vomiting / no constipation Musculoskeletal: no joint pain / no muscle pain / no joint swelling Genitourinary: no dysuria / no incontinence / no urinary retention Neurologic: no focal weakness / no numbness/tingling / no ataxia Psychiatric: no depression symptoms / no anxiety / no insomnia Endocrine: no excessive thirst / no excessive urination Hematologic: no abnormal bleeding / no bruising / no LN swelling Skin: No rash / no pallor Physical Exam Physical Exam: Physical examination General frail elderly female appears to be in mild distress, appears to be pale HEENT: Atraumatic , normocephalic /no jaundice /positive for pallor, dry mucous membrane /normal external ear inspection Neck: Supple /no swelling /central trach Heart: S1/S2 normal/regular rate and rhythm/no gallop /no rub /no murmur Lungs: Clear to auscultation bilaterally/normal chest with expansion/no rhonchi/no rales/no wheezing/no use of accessory muscles of respiration Abdomen: Soft/nontender/no guarding/no rebound/no organomegaly/no pulsatile mass Musculoskeletal: No swelling/no edema/no tenderness/normal range of motion Neuro exam: Awake alert oriented 3/cranial nerves II through XII appear to be intact/sensation intact/moves all extremities/no abnormal movements Psychiatric evaluation: No depressed mood/normal affect Skin: No rash on exposed skin area/no erythema Extremity: Normal pulse/no pitting edema/no clubbing or cyanosis Results & Data Vital Signs (Past 12 Hours) Vital Signs Temp Pulse Pulse Resp BP BP Pulse Ox 08/09/19 16:12 74 24 160/68 H 99 08/09/19 14:06 77 15 100 08/09/19 13:44 97 08/09/19 13:43 60 27 H 145/65 H 98 08/09/19 13:42 62 22 100 08/09/19 13:39 64 23 111/95 96 08/09/19 12:20 36.7 C 66 22 143/70 H 100 Code Status & VTE Plan VTE Prophylaxis Plan VTE Prophylaxis will be ordered: Yes PG Care Time/CCT Total # of Minutes Spent Total Time Spent with Patient: 35 minutes total time spent is greater than 50% in coordination of care (as documented) at patient's floor/unit and/or counseling patient/family discussion of care with nursing staff
[2019-08-09 17:12] LABS: Reticulocyte % 3.2 % (0.5-2.0); Reticulocytes # 0.11 10^6/uL (0.02-0.10)
[2019-08-09 17:37] LABS: Ferritin 13.3 ng/ml (8-388)
--- NOTE | 2019-08-09 20:42 | Emergency Department Note ---
Entered by Deidra Rivers acting as a scribe for ED Provider Note CHIEF COMPLAINT: Weakness HISTORY OF PRESENT ILLNESS: The patient is an 84 year old female who presents to the Emergency Room with complaints of weakness. She does take daily Eliquis for a history of PE and admits to a history of anemia. She saw her PCP, Dr. Spaulding, yesterday and was called today and told her Hemoglobin was 7.8 and to come here to the ED for evaluation. She states she did have some mid-sternal chest pain yesterday. She had a chemical laboratory tester come check her out, but the patient did not want to come to the hospital then. She denies any recent epistaxis, vaginal bleeding or hematuria. The patient also complains of some increased shortness of breath. Pt denies LOC, headache, fevers, chills, diaphoresis, visual changes, neck pain, nausea, vomiting, abdominal pain, back pain, melena, hematochezia, urinary symptoms, numbness, lymphadenopathy, rash, or other complaints. REVIEW OF SYSTEMS: See HPI for pertinent positives and negatives. A total of ten systems were reviewed and were otherwise negative. PMHx/PSHx: Anemia. Alzheimer's. Anxiety. Depression. Diabetic neuropathy. DM. Mitral regurgitation. GERD. SOCIAL HISTORY: Patient lives at home. PHYSICAL EXAM: GENERAL: Awake, alert, tired-appearing, in no distress HENT: Normocephalic, atraumatic. Oropharynx unremarkable. EYES: PERRL. Pale conjunctiva. Sclera non-icteric. NECK: Inspection normal. Non-tender. Supple. No nuchal rigidity. FROM. No masses. RESPIRATORY: Clear to auscultation. No wheezes. No rales. Normal respiratory effort. CARDIAC: Normal rate. Normal rhythm. Systolic ejection murmur. No rubs. Extremities warm and well perfused. Pulses equal. No JVD. GI: Soft, non-distended. No tenderness to palpation. No rebound or guarding. No masses. RECTAL: Deferred. MUSCULOSKELETAL: Atraumatic. Chest examination reveals no tenderness. The back i s symmetrical on inspection without obvious abnormality. There is no CVA tenderness to palpation. No joint edema. LOWER EXTREMITIES: Calves are equal size bilaterally and non-tender. No edema. No discoloration. NEURO: Normal sensorium. No sensory or motor deficits noted. SKIN: No rash or jaundice noted. EMERGENCY DEPARTMENT COURSE: 1307: Past medical records reviewed. The patient was evaluated in room A12B, and a complete history and physical examination were performed. 1450: I reevaluated the patient. She is resting comfortably. She signed a consent for blood products. I discussed my recommendation she remain in the hospital for further evaluation and management and she is agreeable wtih the plan. 1514: I discussed the patients case with Dr. Anibal Crump, [facility] Hospitalist. The patient will be further evaluated. MEDICAL DECISION MAKING: Prior records/ancillary studies reviewed. Recent hemoglobins revealed the patient was in the 10 range. Yesterday her hemoglobin was 7.8. Triage Nursing notes reviewed and agree them. Additional history obtained from the family. The patient's history was concerning for shortness of breath and anemia per Differential diagnosis: Etiologies such as symptomatic anemia, pneumonia, COPD, reactive airway disease, CHF, cardiac ischemia, pulmonary embolism, pneumothorax, musculoskeletal, infections, gastrointestinal, as well as others were entertained. Physical examination: As above. ER treatment provided: Normal saline hydration Packed red blood cell transfusion On reassessment the patient was stable. Diagnostic interpretation by me: The electrocardiogram was negative for pathologic change. The labs revealed a significant anemia on CBC with a hemoglobin of 8.1. The patient's chemistry and LFTs were negative. INR negative Consultation: A consultation was placed with the hospitalist. The case was discussed and diagnostics were reviewed. The patient was evaluated in the ER for further treatment. IMPRESSION: Symptomatic anemia. Shortness of breath. PLAN: Evaluation by hospitalist The scribe's documentation has been prepared under my direction and personally reviewed by me in its entirety. I confirm that the note above accurately reflects all work, treatment, procedures, and medical decision making performed by me. Impression & Plan Symptomatic anemia, Shortness of breath, Substernal chest pain Past Med/Surg History Medical History Anxiety (Chronic) Atrial fibrillation, transient Chronic diastolic (congestive) heart failure (Chronic) Chronic iron deficiency anemia (Chronic) Diabetes Diabetic peripheral neuropathy associated with type 2 diabetes mellitus (Chronic) GERD (gastroesophageal reflux disease) Hypothyroidism Pancreatitis PUD (peptic ulcer disease) (Resolved) Pulmonary hypertension Pulmonary nodule (Resolved) Recurrent pancreatitis (Chronic) Sleep apnea TIA (transient ischemic attack) 1992 Surgical History H/O colonoscopy H/O gastric bypass H/O total knee replacement History of appendectomy History of cholecystectomy History of esophagogastroduodenoscopy (EGD) Family History Unknown Myocardial infarction Mother Diabetes Other No pertinent family history Social History Preferred Language: Kyrgyz Communication Ability: Effective Insurance Legal Assistant Required: No Beliefs That Will Affect Care: None marital status: / Current Living Situation: Family Current Living Situation Comment: lives at [facility], [facility] Residence Feels Safe at Home: Yes Smoking Status: Never smoker Second Hand Exposure: No ; Hx Alcohol Use: No Hx Substance Use: No Results & Data Vital Signs Vital Signs - 24 hr 08/09/19 12:20 08/09/19 13:39 08/09/19 13:42 Temperature 36.7 C Temperature Source Oral Pulse Rate 66 64 62 Pulse Rate [Apical] Pulse Rate from SpO2 Sensor 61 62 Pulse Rhythm Regular Pulse Rhythm [Apical] Pulse Strength Normal Pulse Strength [Apical] Respiratory Rate 22 23 22 Respiratory Effort / Characteristics Non-Labored Spontaneous Respiratory Depth Normal Respiratory Pattern Regular Blood Pressure 143/70 H 111/95 Blood Pressure [Right Arm] Blood Pressure Mean 94 102 Blood Pressure Mean [Right Arm] Blood Pressure Position Sitting Pulse Oximetry 100 96 100 Oxygen Delivery Method Room Air Sepsis Recent Fever Within 48 Hours No Sepsis New/Unexplained Change in Mental Status No Sepsis Action Taken by Nursing No Action Required 08/09/19 13:43 08/09/19 13:44 08/09/19 14:06 Temperature Temperature Source Pulse Rate 60 77 Pulse Rate [Apical] Pulse Rate from SpO2 Sensor 60 63 Pulse Rhythm Pulse Rhythm [Apical] Pulse Strength Pulse Strength [Apical] Respiratory Rate 27 H 15 Respiratory Effort / Characteristics Respiratory Depth Respiratory Pattern Blood Pressure 145/65 H Blood Pressure [Right Arm] Blood Pressure Mean 92 Blood Pressure Mean [Right Arm] Blood Pressure Position Pulse Oximetry 98 97 100 Oxygen Delivery Method Room Air Sepsis Recent Fever Within 48 Hours Sepsis New/Unexplained Change in Mental Status Sepsis Action Taken by Nursing 08/09/19 16:12 Temperature Temperature Source Pulse Rate Pulse Rate [Apical] 74 Pulse Rate from SpO2 Sensor Pulse Rhythm Pulse Rhythm [Apical] Regular Pulse Strength Pulse Strength [Apical] Normal Respiratory Rate 24 Respiratory Effort / Characteristics Spontaneous Respiratory Depth Respiratory Pattern Regular Blood Pressure Blood Pressure [Right Arm] 160/68 H Blood Pressure Mean Blood Pressure Mean [Right Arm] 98 Blood Pressure Position Pulse Oximetry 99 Oxygen Delivery Method Room Air Sepsis Recent Fever Within 48 Hours Sepsis New/Unexplained Change in Mental Status Sepsis Action Taken by Custodial Medications Current Medication List: was personally reviewed by me Laboratory Data Attestation: I reviewed the patient's lab results. Result diagrams: 08/09/19 13:32 08/09/19 13:32 Lab Results 08/09/19 08/09/19 08/09/19 Range/Units 13:32 13:32 13:32 WBC 6.79 (4.8-10.8) K/uL RBC 3.49 L (4.2-5.4) M/uL Hgb 8.1 L (12.0-16.0) g/dL Hct 27.6 L (37-47) % MCV 79.1 L (80-100) fL MCH 23.2 L (25-34) pg MCHC 29.3 L (32-36) g/dL RDW Std Deviation 53.4 H (36.4-46.3) fL RDW Coeff of Sebastian 18.8 H (11.5-14.5) % Plt Count 436 H (130-400) K/uL MPV 8.9 (7.4-10.4) fL Immature Gran % (Auto) 0.3 % Neut % (Auto) 83.2 % Lymph % (Auto) 7.5 % [place] % (Auto) 7.4 % Eos % (Auto) 1.2 % Baso % (Auto) 0.4 % Immature Gran # (Auto) 0.02 (0.00-0.02) K/uL Neut # (Auto) 5.65 (1.4-6.5) K/uL Lymph # (Auto) 0.51 L (1.2-3.4) K/uL [place] # (Auto) 0.50 (0.11-0.59) K/uL Eos # (Auto) 0.08 (0-0.5) K/uL Baso # (Auto) 0.03 (0-0.2) K/uL PT 10.7 (9.0-12.0) Seconds INR 1.0 (0.9-1.1) APTT 26.9 (21.0-31.0) Seconds PTT Ratio 1.0 Sodium 137 (136-145) mmol/L Potassium 4.3 (3.5-5.1) mmol/L Chloride 104 (98-107) mmol/L Carbon Dioxide 25 (21-32) mmol/L Anion Gap 8.0 (3-11) BUN 16 (7-18) mg/dl Creatinine 0.60 (0.6-1.2) mg/dl Est Cr Clr Drug Dosing 65.8 ml/min Est GFR ( Amer) 98.4 Est GFR (Non-Af Amer) 84.9 BUN/Creatinine Ratio 26.3 H (10-20) Glucose 90 (70-99) mg/dl Calcium 9.7 (8.5-10.1) mg/dl Total Bilirubin 0.9 (0.2-1) mg/dl AST 21 (15-37) U/L ALT 22 (12-78) U/L Alkaline Phosphatase 125 H (45-117) U/L Total Protein 7.2 (6.4-8.2) gm/dl Albumin 3.3 L (3.4-5.0) gm/dl Globulin 3.9 (2.5-4.0) gm/dl Albumin/Globulin Ratio 0.8 L (0.9-2) Blood Type Antibody Screen Crossmatch 08/09/19 Range/Units 13:32 WBC (4.8-10.8) K/uL RBC (4.2-5.4) M/uL Hgb (12.0-16.0) g/dL Hct (37-47) % MCV (80-100) fL MCH (25-34) pg MCHC (32-36) g/dL RDW Std Deviation (36.4-46.3) fL RDW Coeff of Sebastian (11.5-14.5) % Plt Count (130-400) K/uL MPV (7.4-10.4) fL Immature Gran % (Auto) % Neut % (Auto) % Lymph % (Auto) % [place] % (Auto) % Eos % (Auto) % Baso % (Auto) % Immature Gran # (Auto) (0.00-0.02) K/uL Neut # (Auto) (1.4-6.5) K/uL Lymph # (Auto) (1.2-3.4) K/uL [place] # (Auto) (0.11-0.59) K/uL Eos # (Auto) (0-0.5) K/uL Baso # (Auto) (0-0.2) K/uL PT (9.0-12.0) Seconds INR (0.9-1.1) APTT (21.0-31.0) Seconds PTT Ratio Sodium (136-145) mmol/L Potassium (3.5-5.1) mmol/L Chloride (98-107) mmol/L Carbon Dioxide (21-32) mmol/L Anion Gap (3-11) BUN (7-18) mg/dl Creatinine (0.6-1.2) mg/dl Est Cr Clr Drug Dosing ml/min Est GFR ( Amer) Est GFR (Non-Af Amer) BUN/Creatinine Ratio (10-20) Glucose (70-99) mg/dl Calcium (8.5-10.1) mg/dl Total Bilirubin (0.2-1) mg/dl AST (15-37) U/L ALT (12-78) U/L Alkaline Phosphatase (45-117) U/L Total Protein (6.4-8.2) gm/dl Albumin (3.4-5.0) gm/dl Globulin (2.5-4.0) gm/dl Albumin/Globulin Ratio (0.9-2) Blood Type A Positive Antibody Screen POSITIVE A Crossmatch See Detail Administered Medications Sodium Chloride (Nss 1000ml) 1,000 mls @ 100 mls/hr IV .Q10H SHERRIE Stop: 08/09/19 22:59 Last Infusion: 08/09/19 17:00 Dose: 0 mls/hr Documented by: [id number] Admin: 08/09/19 14:09 Dose: 100 mls/hr Documented by: [id number] Ranitidine HCl (Zantac) 300 mg PO QDD SHERRIE Stop: 09/08/19 18:14 Last Admin: 08/09/19 18:22 Dose: 300 mg Documented by: [id number] ECG Data Attestation: I personally reviewed and interpreted this ECG as follows: Indication: + weakness Rate (beats per minute): 59 ECG Intervals/blocks: + Normal QRS ECG [place]: + Normal ECG ST segments: no ST depression and no ST elevation ECG Findings: no PACs and no PVCs Discharge Plan Visit Data *Final* Discharge Date/Time: 08/09/19 17:04 Chief Complaint: Referred by Doctor Stated Complaint: NEEDS BLOOD PUMPED ED Provider: Jm Richards ED Midlevel Provider: Nori Banegas Discharge Problem: Symptomatic anemia, Shortness of breath, Substernal chest pain Patient Disposition: Admitted As Inpatient Discharge Instructions Interventions: ED Discharge Assessment Last Done: 08/09/19 17:04 The scribe's documentation has been prepared under my direction and personally reviewed by me in its entirety. I confirm that the note above accurately reflects all work, treatment, procedures, and medical decision making performed by me.
[2019-08-09] MEDS: DONEPEZIL HCL 10 MG TAB PO SCH (21:18)
[2019-08-09] MEDS: APIXABAN 5 MG TABLET PO SCH (21:18)
[2019-08-09] MEDS: MEMANTINE HCL 10 MG TAB PO SCH (21:18)
[2019-08-09] MEDS: PANTOprazole 40 MG TAB PO SCH (21:19)
[2019-08-10] MEDS ORDERED: SODIUM CHLORIDE 0.9% 250 ML IV PRN (03:17)
[2019-08-10] MEDS ORDERED: IRON SUCROSE 300 MG in SODIUM CHLORIDE 0.9% 250 ML IV SCH (08:00)
[2019-08-10] MEDS: PANTOprazole 40 MG TAB PO SCH (08:09)
[2019-08-10 08:10] LABS: Hematocrit (blood only) 29.4 % (37-47); Hemoglobin 8.7 g/dL (12.0-16.0); Mean Corpuscular Hemoglobin 23.5 pg (25-34); Mean Corpuscular Hgb Conc 29.6 g/dL (32-36); Mean Corpuscular Volume 79.2 fL (80-100); Platelet Count 388 K/uL (130-400); RDW Coefficient of Variation 18.8 % (11.5-14.5); RDW Standard Deviation 54.6 fL (36.4-46.3); Red Blood Count 3.71 M/uL (4.2-5.4); White Blood Count 5.63 K/uL (4.8-10.8)
[2019-08-10] MEDS: APIXABAN 5 MG TABLET PO SCH (08:10)
[2019-08-10] MEDS: DONEPEZIL HCL 10 MG TAB PO SCH (08:10)
[2019-08-10] MEDS: MEMANTINE HCL 10 MG TAB PO SCH (08:10)
[2019-08-10 08:39] LABS: Alanine Aminotransferase 19 U/L (12-78); Albumin Level 3.1 gm/dl (3.4-5.0); Aspartate Aminotransferase 18 U/L (15-37); BUN Creatinine Ratio 18.3 (10-20); Blood Urea Nitrogen 13 mg/dl (7-18); Calcium 9.4 mg/dl (8.5-10.1); Carbon Dioxide 24 mmol/L (21-32); Chloride 106 mmol/L (98-107); Cholesterol 140 mg/dl (0-200); Creatinine Clr Calc Pharmacy 55.6 ml/min; Est GFR (African American) 93.5; Est GFR (Non-African American) 80.7; Glucose 135 mg/dl (70-99); Magnesium 2.2 mg/dl (1.8-2.4); Potassium 4.3 mmol/L (3.5-5.1); Sodium 139 mmol/L (136-145)
[2019-08-10 08:48] LABS: Albumin Globulin Ratio 0.9 (0.9-2); Alkaline Phosphatase 117 U/L (45-117); Bilirubin,Total 1.4 mg/dl (0.2-1); Chol HDL Ratio 2; Globulin 3.6 gm/dl (2.5-4.0); HDL Cholesterol 79 mg/dl; LDL Cholesterol Calculated 49 mg/dl; Total Protein 6.7 gm/dl (6.4-8.2); Triglycerides 58 mg/dl (0-150); Troponin I < 0.015 ng/ml (0-0.045); VLDL Cholesterol 12 mg/dl
[2019-08-10] MEDS ORDERED: ESCITALOPRAM OXALATE 10 MG TAB PO SCH (09:00)
[2019-08-10] MEDS ORDERED: CHOLECALCIFEROL 1,000 UNITS TAB PO SCH (09:00)
[2019-08-10] MEDS ORDERED: MULTIVITAMIN TAB PO SCH (09:00)
[2019-08-10] MEDS ORDERED: CRANBERRY EXTRACT 500 MG PO SCH (09:00)
--- NOTE | 2019-08-10 17:42 | Discharge Summary ---
Date of Service August 10, 2019 Principal Diagnosis Symptomatic anemia Discharge Exam In general she is awake and alert seems easily confused but once the son is present this is her baseline mentation according to him. No distress. HEENT normocephalic atraumatic mucous members moist. Breathing unlabored no accessory muscle use good effort. Gait is steady and fast uses a walker with striking proficiency and shows no dyspnea on exertion. Skin shows no rashes no pallor or icterus. Discharge Data Allergies Allergy/AdvReac Type Severity Reaction Status Date / Time procaine Allergy Severe THROAT Verified 08/09/19 12:48 SWELLING WITH NOVOCAINE acetaminophen [From Lortab] Allergy Unknown Unknown Verified 08/10/19 09:57 codeine AdvReac Mild NAUSEA Verified 08/09/19 12:48 hydrocodone AdvReac Mild nausea Verified 08/09/19 12:48 oxycodone AdvReac Mild nausea Verified 08/09/19 12:48 Hospital Course (1) Symptomatic anemia: Likely chronic blood loss Patient is on Eliquis for pulmonary embolism and more than likely the source of her bleeding is chronic GI oozing accentuated by being on an anticoagulants. She improved nicely after transfusion and now appears back to baseline and stable for home. We discussed that right now she did not show a need for an EGD given that she is not showing significant active bleeding, but we would resume her Carafate (son noted that 4 times daily dosing was difficult to get her to follow through with, I discussed to have her take as much as they could remember or possibly succeeded doing), continue her Protonix twice daily, and follow. If there is any worsening, certainly an EGD could be done in future, but again does not appear warranted right now. We also discussed lower GI bleeding and the role of colonoscopy and evaluating this. With her age and dementia certainly deferring would be quite reasonable, but we did discuss that on the chance of a smaller polyp that could be intervened on it could be a worthwhile test to do but the odds of exactly the scenario is fairly low. 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 Because she has had full dosing of anticoagulation for 6 months it is reasonable to change dosing. Newer chest guidelines suggest that unprovoked clots have a 30% chance of recurrence by 5 years, so doing nothing seems to not be the best option given that her bleeding is slow at worst, but continuing at full dosing may put her at unnecessary risk for ongoing bleeding. To this and we will reduce her Eliquis from twice daily to daily. Follow CBC next week and then periodically thereafter, titrate dosing of her blood thinner based on how she is doing clinically as well as how fast or slow her hemoglobin declines. (2) Shortness of breath: Appears to have been secondary to her anemia, and improved after transfusion. (3) Substernal chest pain: Probably just symptoms from the anemia, troponins were negative. (4) Acid reflux disease: See above with twice daily Protonix and 4 times daily Carafate (5) Depression with anxiety: Appears to be stable Continue Lexapro 10 mg p.o. daily (6) Dementia: Continue Aricept and Namenda Appears to be stable Total Time Total Time Spent Total Time Spent (In Minutes): >30 Discharge Plan Discharge Items Patient Disposition: Home - Self-Care Reason For Visit: SEVERE ANEMIA Discharge Diagnosis: anemia - improved. see below Activity: Resume your previous activity Non-emergency contact: Primary Care Provider Call non-emergency contact if: you have any medication questions Follow-up/Referrals: Janey Spaulding MD [Primary Care Provider] - 08/17/19 10:20 am (Please, follow up with Dr. Spaulding on TuesdayAugust 17 at 10:20 am. *If you need to change this appointment, call the office at [phone].) Diet: Regular Addtl Attending Provider Instructions: anemia -your blood counts dropped to about 7.8, and fortunately improved to 8.7 with transfusion. most people don't have symptoms in this range - and watching you walk you did well/did not appear short of breath or weak - so we're at a range that we don't need to give you more blood (as a general rule of the science of transfusions, you don't transfuse "the number" unless it's less than 7, but if the patient has symptoms (like you had) then you transfuse to get numbers up to improve your symptoms -we'll want to have dr spaulding keep an eye on your blood counts, since the concern is that you could trickle down again over time -- for now we'll ask her to check counts again next week and then depending on results, she'll follow periodically thereafter (somewhere in the area of once a week to every other week) -as we discussed, the anemia most likely is a slow trickle into your GI tract -- either from the little ulcer they saw last year or possibly from a bleed in the colon. because there's no serious hemorrhage going on, there's no need for us to get gastroenterology involved and put you through scopes urgently but we'll definitely want to take the following steps: -carafate - you used to be on this in addition to the pantoprazole. in a perfect world, carafate is a four time a day med -- do the best you can at remembering it but we totally understand that perfect in taking a four time a day med is nearly impossible! -Dr Spaulding will then think about, and talk to you about, the possible benefits versus problems of considering a colonoscopy (like we discussed, the main reason to do it would be if there's bleeding coming from a small polyp/early cancer that could be "fixed" by scope, but the downside would be putting you through a colonoscopy that's actually not that likely to find anything, or the possibility that they find something that you don't want to go through taking care of) -- again there, the best next step will be guidance from Dr Spaulding since she knows your situation far better -we can also reduce the chances of bleeding seriously by reducing the blood thinner -- since you formed the clot without a whole lot of reason, if we have you off of a blood thinner altogether the chances of forming clots again over the next five years is about 30%, but since we've already treated this clot, and now the goal is looking at preventing the next clot (instead of treating the current one), low doses of blood thinners work almost as well as full dose, but with a lot less bleeding. to this end, we'd suggest dropping the eliquis to once a day instead of twice day. Pending Studies at Discharge: No Stand-Alone Forms: My [facility] [employer], Smoking Cessation Medications and DC Order Prescriptions: New sucralfate [Carafate] 1 gram tablet 1 gm PO ACHS 28 Days Qty: 28 RF: 0 Continued acetaminophen [Tylenol Arthritis Pain] 650 mg tablet extended release 650 mg PO Q12H Qty: 60 RF: 5 cholecalciferol (vitamin D3) [Vitamin D3] 1,000 unit (25 mcg) tablet 1,000 unit PO DAILY Qty: 30 RF: 5 ranitidine HCl 300 mg tablet 300 mg PO DAILY Qty: 90 RF: 1 PreserVision AREDS [id number] tablet 1 tab PO BID Qty: 60 RF: 1 escitalopram oxalate [Lexapro] 10 mg tablet 10 mg PO DAILY RF: 0 donepezil [Aricept] 10 mg tablet 10 mg PO BID RF: 0 pantoprazole [Protonix] 40 mg tablet,delayed release (DR/EC) 40 mg PO BID RF: 0 memantine [Namenda] 10 mg tablet 10 mg PO BID RF: 0 multivitamin [Daily-Tone] tablet 1 tab PO DAILY RF: 0 cranberry extract [Cranberry Concentrate] 500 mg capsule 500 mg PO DAILY RF: 0 Changed Eliquis 5 mg tablet 5 mg PO DAILY Qty: 180 RF: 1 Discharge Orders: Discharge Order (Routine); Ordered 08/10/19 Ordered By: Christophe Baxter Admission Data Admit Date/Time: 08/09/19 16:30 Attending Provider: Christophe Baxter Admit Provider: Dona Smith Primary Care Provider: Janey Spaulding Other Providers: Dona Smith Other Interventions: Discharge Summary Assessment (RN) Last Done: 08/10/19 17:06
--- NOTE | 2019-08-10 17:57 | Communication Note ---
Date of Service: August 10, 2019 in hindsight pt should have been observation status due to how quickly she improved with transfusion -- there was concern on need for full admission due to anemia, anticoagulation, and prior history - but really only needed observation status
--- NOTE | 2019-08-10 17:59 | Communication Note ---
Date of Service: August 10, 2019 Two physician review completed and patient does not meet medical necessity for acute inpatient status. Observation status is appropriate. Chandrakant Bonner MD
[2019-08-10] MEDS ORDERED: CEROVITE ADV FORMULA TAB PO SCH (21:00)
== END 2019-08-10 17:50 | disposition home or self-care (01) | DRG 812 ==
LOC: ED 12:15 → SUATTDRO 16:30 → 2E 16:30

== ENCOUNTER 2020-03-23 13:56 | Inpatient (IN) ==
[2020-03-23 15:02] LABS: Basophils # (auto) 0.02 K/uL (0-0.2); Basophils % (auto) 0.3 %; Eosinophils # (auto) 0.03 K/uL (0-0.5); Eosinophils % (auto) 0.4 %; Hematocrit (blood only) 33.4 % (37-47); Hemoglobin 10.3 g/dL (12.0-16.0); Immature Granulocytes # (auto) 0.02 K/uL (0.00-0.02); Immature Granulocytes % (auto) 0.3 %; Lymphocytes # (auto) 0.55 K/uL (1.2-3.4); Lymphocytes % (auto) 7.7 %; Mean Corpuscular Hemoglobin 25.6 pg (25-34); Mean Corpuscular Hgb Conc 30.8 g/dL (32-36); Mean Corpuscular Volume 82.9 fL (80-100); Mean Platelet Volume 10.1 fL (7.4-10.4); Monocytes # (auto) 0.45 K/uL (0.11-0.59); Monocytes % (auto) 6.3 %; Neutrophils # (auto) 6.07 K/uL (1.4-6.5); Platelet Count 330 K/uL (130-400); RDW Coefficient of Variation 17.9 % (11.5-14.5); RDW Standard Deviation 53.8 fL (36.4-46.3); Red Blood Count 4.03 M/uL (4.2-5.4); White Blood Count 7.14 K/uL (4.8-10.8)
--- NOTE | 2020-03-23 15:15 | XRay Report ---
XR chest 1V portable HISTORY: weakness COMPARISON: Chest 03/21/2020. FINDINGS: No pneumothorax. No pleural effusions. Stable mild chronic interstitial thickening. Left ba silar linear densities favor scarring or atelectasis. This remains unchanged. No new focal lung conso lidations to suggest pneumonia. No evidence for pulmonary edema. Degenerative changes within the shou lders with chronic deformity of the right humeral head. This remains unchanged. The heart remains mil dly enlarged. IMPRESSION: No significant change compared to the prior study. No acute process. ACT 112: Negative or not required by law. Electronically signed by: Slava Bishop M.D. 03/23/2020 3:14 PM
[2020-03-23 15:18] LABS: Alanine Aminotransferase 17 U/L (12-78); Albumin Level 3.1 gm/dl (3.4-5.0); Aspartate Aminotransferase 17 U/L (15-37); BUN Creatinine Ratio 15.8 (10-20); Blood Urea Nitrogen 12 mg/dl (7-18); Calcium 9.4 mg/dl (8.5-10.1); Carbon Dioxide 23 mmol/L (21-32); Chloride 107 mmol/L (98-107); Creatinine Clr Calc Pharmacy 59.4 ml/min; Est GFR (African American) 87.4; Est GFR (Non-African American) 75.4; Glucose 98 mg/dl (70-99); Magnesium 2.1 mg/dl (1.8-2.4); Potassium 3.9 mmol/L (3.5-5.1); Sodium 141 mmol/L (136-145)
[2020-03-23 15:29] LABS: Albumin Globulin Ratio 0.8 (0.9-2); Alkaline Phosphatase 117 U/L (45-117); Bilirubin,Total 0.9 mg/dl (0.2-1); Globulin 3.8 gm/dl (2.5-4.0); Total Protein 6.9 gm/dl (6.4-8.2); Troponin I < 0.015 ng/ml (0-0.045)
[2020-03-23 15:59] LABS: Appearance Urine Cloudy (Clear); Bacteria Urine Automated 1+ (Negative); Bilirubin Urine Negative (Negative); Blood Urine Trace (Negative); Color Urine Dark Yellow; Epithelial Cell Urine Auto >30 /lpf (0-5); Glucose Urine UA Negative (Negative); Ketones Urine Trace (Negative); Leukocyte Esterase Urine Negative (Negative); Nitrite Urine Negative (Negative); Protein Urine Trace (Negative); Specific Gravity Urine 1.027 (1.000-1.030); Urobilinogen Urine Negative (Negative); pH Urine 5.5 (4.5-7.5)
--- NOTE | 2020-03-23 16:13 | CT Scan Report ---
HEAD CT NONCONTRAST CT DOSE: 537.48 mGy.cm HISTORY: confusion TECHNIQUE: Multiaxial CT images of the head were performed without the use of intravenous contrast. A utomated exposure control was utilized for this study. A dose lowering technique was utilized adheri ng to the principles of ALARA. Comparison: Head CT 09/22/2019. Findings: Mild motion artifact. The paranasal sinuses and mastoid air cells are clear. The calvarium and skull base are intact. The ventricles and sulci are within normal limits. There is no mass, hemat yousuf, midline shift, or acute infarct. Impression: Motion artifact. No definite acute intracranial abnormality. ACT 112: Negative or not required by law. Electronically signed by: Slava Bishop M.D. 03/23/2020 4:11 PM
[2020-03-23 16:36] LABS: Cast Urine Automated 0 /lpf (0-5); Mucus Urine Present (None Prsent)
--- NOTE | 2020-03-23 17:42 | Emergency Department Note ---
Impression & Plan Confusion, Dementia ED Provider Note Provider: Rohit Fay MD DATE OF SERVICE: 03/23/2020 CHIEF COMPLAINT: Confusion HISTORY OF PRESENT ILLNESS: Patient is a 84-year-old female with a history of dementia, cardiomyopathy, diabetes, thyroiditis, gastric bypass, and aortic sclerosis presenting via ambulance today from home where neighbors are concerned about confusion issues. Patient was seen here 2 days ago in the emergency department reportedly complained of chest pain but did not have this complaint and she got to the ER just hot according to the notes about her dentures. Today she does not know why she is here either. Patient states that she had something come out of her urethra but states that is gone now and she feels fine. She is quite confused and her speech is tangential. Difficult to get a clear history from her. Does later complain about having some issues with her denture/plates. She denies any pain. There is no trauma reported. Later was able to obtain history from patient's [id number] who states that patient had home aids but has been through many agencies and many aids and she sometimes through to them they have stopped coming. She is not been compliant with her home medications. States that she has been calling them at various times and then forgetting what she is calling with them. They have concerns about her safety were going to get the area agency on aging involved tomorrow and consider placement. REVIEW OF SYSTEMS: A total of 10 review of systems was obtained and negative except as stated above in the HPI. PAST MEDICAL HISTORY: As noted above MEDICATIONS: Reviewed medication of the question of compliance exists SOCIAL HISTORY: Currently is at home by herself, former smoker PHYSICAL EXAM: GENERAL: alert and oriented in no acute distress laying in the stretcher, intermittently will call out Head: normocephalic and atraumatic EYES: No injection, discharge or icterus. PERRL NECK: Trachea midline. Supple. ENT: Mucous membranes pink and moist. LUNGS: Airway patent. No retractions. Breath sounds clear with good air entry bilaterally. HEART: Regular rate and rhythm. No chest wall tenderness ABDOMEN: Soft and non-tender, without guarding or rebound. SKIN: Acyanotic, warm, dry, without rashes EXTREMITIES: Without swelling, tenderness or deformity NEUROLOGICAL: No focal deficits. No aphasia. No facial droop or slurred speech. Patient has tangential thoughts and states that she is going with family to state cannot. Patient states that she has had a trying day and does not know why she is here. Patient states she knows she is and that she is at the hospital but does not know her birthday. Patient is unsure of the president. Patient wants of her primary care doctor. EKG: Sinus bradycardia 59 bpm. No PVC. No acute ST segment elevation or depression. There is some tremor artifact in V2. Normal QTC. Patient's hypertension was referred to the [facility] COURSE: 1425 Patient was first seen and H&P performed. Some difficulty obtaining clear history from the patient. 1600 Patient reassessed after being called to the room by ER staff is that the patient received a monitor and IV and was yelling out. Nursing myself are at bedside she is able to be de-escalated. Will go for CT. 1700 after multiple attempts was able to get the patient's [id number] via phone. Discussed the current case and current presentation of her jnyook-[id number]. She states that the whole family has concerns about ability to go home. They are going to discuss with her agency on aging possible placement tomorrow. Discussed with the patient had the patient discuss with her [id number]-zr-[id number] via phone. Patient's laboratory studies and imaging reviewed. Differential includes Infection, dehydration, metabolic abnormality, hypo/hyperglycemia, electrolyte disturbance, anemia, hypoxia, cardiac sources, intracerebral event, toxicologic, neurologic, as well as other pathologies. IMPRESSION/MEDICAL DECISION MAKING: Patient presents concerned her neighbors for confusion. Was seen here several days ago. From that note appears patient had some memory issues at that time. Patient unable to give a very good history here and is tangential during discussion. No evidence of trauma on the patient. Given reported history broad work-up was entertained. Nodes of acute infection. No evidence of intracranial bleed. Urinalysis without evidence of infection. Did take some time to get a hold of family via phone but they later confirmed this is been more of a gradual decline and they were exploring options for possible placement and were planning to actually discuss with area agency tomorrow for possible [facility] placement. Patient has had home caregivers for the various agencies who now refused to, as she is somewhat demanding at times. Agree with the family I do of some concerns about ability to go home and live by herself. Family states there have been medication compliance issues as well. They do not feel she will be safe at home. Discussed via phone with family and the patient in her room and discussed the staying overnight for restarting her medicines and to consider case management help with possible placement. Discussed with the hospitalist. DIAGNOSIS: Confusion, dementia DISPOSITION: Hospitalist will evaluate Past Med/Surg History Social History Preferred Language: Surinamese Communication Ability: Impaired Steam Blocker Required: No Beliefs That Will Affect Care: None marital status: / Current Living Situation: Alone Current Living Situation Comment: lives at [facility], [facility] current occupational status: retired Feels Safe at Home: Yes Smoking Status: Never smoker Second Hand Exposure: No ; Hx Alcohol Use: No Hx Substance Use: No Dental Care, Regularly: No Physical Activity Frequency: 1-2 Times per Week Seatbelt Use: always Sunscreen Use: No Allergies Allergies Allergy/AdvReac Type Severity Reaction Status Date / Time procaine Allergy Severe THROAT Verified 03/23/20 14:23 SWELLING WITH NOVOCAINE acetaminophen [From Lortab] Allergy Unknown Unknown Verified 03/23/20 14:23 codeine AdvReac Mild NAUSEA Verified 03/23/20 14:23 hydrocodone AdvReac Mild nausea Verified 03/23/20 14:23 oxycodone AdvReac Mild nausea Verified 03/23/20 14:23 Home Meds Home Medications Medication Instructions Recorded Confirmed cranberry extract [Cranberry 500 mg PO DAILY 08/09/19 03/23/20 Concentrate] multivitamin [Daily-Tone] 1 tab PO DAILY 08/09/19 03/23/20 ferrous sulfate 325 mg PO HS 03/21/20 03/23/20 Previous Rx's Medication Instructions Recorded escitalopram oxalate 10 mg tablet See Rx Instructions .ROUTE 10/11/19 .COMPLEX #30 tablet acetaminophen 650 mg 650 mg PO Q12H #60 tab 10/12/19 tablet,extended release cholecalciferol (vitamin D3) 25 1,000 unit PO QAM #30 tab 10/12/19 mcg (1,000 unit) tablet pantoprazole 40 mg tablet,delayed 40 mg PO BID #60 tab 10/12/19 release memantine 10 mg tablet 10 mg PO BID 30 Days #60 tab 12/07/19 apixaban 5 mg tablet 5 mg PO DAILY #90 tab 01/30/20 diaper,brief,adult,disposable #160 ea 03/12/20 donepezil 10 mg tablet 10 mg PO BID #60 tab 03/12/20 vitamins A,C,A-opfn-ojhzxg 7,160 1 tab PO BID #60 tab 03/12/20 unit-113 mg-100 unit tablet Results & Data (ED) Vital Signs Vital Signs - 24 hr 03/23/20 14:12 03/23/20 14:13 03/23/20 14:15 Temperature 36.9 C Temperature Source Oral Pulse Rate 69 69 72 Pulse Rate [Apical] Pulse Rate from SpO2 Sensor 69 69 Respiratory Rate 21 22 16 Blood Pressure 139/65 139/65 Blood Pressure [Left Arm] Blood Pressure Mean 97 89 Blood Pressure Mean [Left Arm] Pulse Oximetry 98 98 98 Oxygen Delivery Method Room Air Sepsis Recent Fever Within 48 Hours No Sepsis New/Unexplained Change in Mental Status No Sepsis Action Taken by Nursing No Action Required 03/23/20 14:20 03/23/20 14:30 03/23/20 14:40 Temperature Temperature Source Pulse Rate 68 76 67 Pulse Rate [Apical] Pulse Rate from SpO2 Sensor 64 75 64 Respiratory Rate 23 22 Blood Pressure Blood Pressure [Left Arm] Blood Pressure Mean Blood Pressure Mean [Left Arm] Pulse Oximetry 99 98 99 Oxygen Delivery Method Sepsis Recent Fever Within 48 Hours Sepsis New/Unexplained Change in Mental Status Sepsis Action Taken by Nursing 03/23/20 14:50 03/23/20 14:51 03/23/20 15:00 Temperature Temperature Source Pulse Rate 63 58 L 74 Pulse Rate [Apical] Pulse Rate from SpO2 Sensor 58 L 60 69 Respiratory Rate 23 20 Blood Pressure 146/99 H Blood Pressure [Left Arm] Blood Pressure Mean 105 Blood Pressure Mean [Left Arm] Pulse Oximetry 100 98 100 Oxygen Delivery Method Sepsis Recent Fever Within 48 Hours Sepsis New/Unexplained Change in Mental Status Sepsis Action Taken by Nursing 03/23/20 15:01 03/23/20 15:10 03/23/20 15:20 Temperature Temperature Source Pulse Rate 71 63 68 Pulse Rate [Apical] Pulse Rate from SpO2 Sensor 68 Respiratory Rate 25 H 21 24 Blood Pressure 125/74 Blood Pressure [Left Arm] Blood Pressure Mean 99 Blood Pressure Mean [Left Arm] Pulse Oximetry 95 Oxygen Delivery Method Sepsis Recent Fever Within 48 Hours Sepsis New/Unexplained Change in Mental Status Sepsis Action Taken by Nursing 03/23/20 15:30 03/23/20 15:40 03/23/20 17:00 Temperature Temperature Source Pulse Rate 76 99 H Pulse Rate [Apical] 88 Pulse Rate from SpO2 Sensor Respiratory Rate 18 Blood Pressure Blood Pressure [Left Arm] 128/90 Blood Pressure Mean Blood Pressure Mean [Left Arm] 102 Pulse Oximetry 95 Oxygen Delivery Method Sepsis Recent Fever Within 48 Hours Sepsis New/Unexplained Change in Mental Status Sepsis Action Taken by Nursing 03/23/20 18:47 Temperature Temperature Source Pulse Rate Pulse Rate [Apical] 80 Pulse Rate from SpO2 Sensor Respiratory Rate 18 Blood Pressure Blood Pressure [Left Arm] 150/82 H Blood Pressure Mean Blood Pressure Mean [Left Arm] 104 Pulse Oximetry 95 Oxygen Delivery Method Room Air Sepsis Recent Fever Within 48 Hours Sepsis New/Unexplained Change in Mental Status Sepsis Action Taken by Nursing Laboratory Data Result diagrams: 03/23/20 14:50 03/23/20 14:50 Lab Results 03/23/20 03/23/20 03/23/20 Range/Units 14:12 14:50 14:50 WBC 7.14 (4.8-10.8) K/uL RBC 4.03 L (4.2-5.4) M/uL Hgb 10.3 L (12.0-16.0) g/dL Hct 33.4 L (37-47) % MCV 82.9 (80-100) fL MCH 25.6 (25-34) pg MCHC 30.8 L (32-36) g/dL RDW Std Deviation 53.8 H (36.4-46.3) fL RDW Coeff of Sebastian 17.9 H (11.5-14.5) % Plt Count 330 (130-400) K/uL MPV 10.1 (7.4-10.4) fL Immature Gran % (Auto) 0.3 % Neut % (Auto) 85.0 % Lymph % (Auto) 7.7 % [place] % (Auto) 6.3 % Eos % (Auto) 0.4 % Baso % (Auto) 0.3 % Neut # (Auto) 6.07 (1.4-6.5) K/uL Lymph # (Auto) 0.55 L (1.2-3.4) K/uL [place] # (Auto) 0.45 (0.11-0.59) K/uL Eos # (Auto) 0.03 (0-0.5) K/uL Baso # (Auto) 0.02 (0-0.2) K/uL Immature Gran # (Auto) 0.02 (0.00-0.02) K/uL PT 11.0 (9.0-12.0) Seconds INR 1.0 (0.9-1.1) Sodium (136-145) mmol/L Potassium (3.5-5.1) mmol/L Chloride (98-107) mmol/L Carbon Dioxide (21-32) mmol/L Anion Gap (3-11) BUN (7-18) mg/dl Creatinine (0.6-1.2) mg/dl Est Cr Clr Drug Dosing ml/min Est GFR ( Amer) Est GFR (Non-Af Amer) BUN/Creatinine Ratio (10-20) Glucose (70-99) mg/dl Calcium (8.5-10.1) mg/dl Magnesium (1.8-2.4) mg/dl Total Bilirubin (0.2-1) mg/dl AST (15-37) U/L ALT (12-78) U/L Alkaline Phosphatase (45-117) U/L Troponin I (0-0.045) ng/ml Total Protein (6.4-8.2) gm/dl Albumin (3.4-5.0) gm/dl Globulin (2.5-4.0) gm/dl Albumin/Globulin Ratio (0.9-2) TSH (0.300-4.500) uIu/ml Urine Color Dark Yellow Urine Appearance Cloudy A (Clear) Urine pH 5.5 (4.5-7.5) Ur Specific [place] 1.027 (1.000-1.030) Urine Protein Trace H (Negative) Urine Glucose (UA) Negative (Negative) Urine Ketones Trace H (Negative) Urine Blood Trace H (Negative) Urine Nitrite Negative (Negative) Urine Bilirubin Negative (Negative) Urine Urobilinogen Negative (Negative) Ur Leukocyte Esterase Negative (Negative) Urine WBC (Auto) 1-5 (0-5) /hpf Urine RBC (Auto) 10-30 H (0-4) /hpf U Hyaline Cast (Auto) 0 (0-5) /lpf U Epithel Cells (Auto) >30 H (0-5) /lpf Urine Bacteria (Auto) 1+ H (Negative) Granular Casts 1-5 H (0) /lpf Urine Mucus Present A (None Prsent) 03/23/20 Range/Units 14:50 WBC (4.8-10.8) K/uL RBC (4.2-5.4) M/uL Hgb (12.0-16.0) g/dL Hct (37-47) % MCV (80-100) fL MCH (25-34) pg MCHC (32-36) g/dL RDW Std Deviation (36.4-46.3) fL RDW Coeff of Sebastian (11.5-14.5) % Plt Count (130-400) K/uL MPV (7.4-10.4) fL Immature Gran % (Auto) % Neut % (Auto) % Lymph % (Auto) % [place] % (Auto) % Eos % (Auto) % Baso % (Auto) % Neut # (Auto) (1.4-6.5) K/uL Lymph # (Auto) (1.2-3.4) K/uL [place] # (Auto) (0.11-0.59) K/uL Eos # (Auto) (0-0.5) K/uL Baso # (Auto) (0-0.2) K/uL Immature Gran # (Auto) (0.00-0.02) K/uL PT (9.0-12.0) Seconds INR (0.9-1.1) Sodium 141 (136-145) mmol/L Potassium 3.9 (3.5-5.1) mmol/L Chloride 107 (98-107) mmol/L Carbon Dioxide 23 (21-32) mmol/L Anion Gap 11.0 (3-11) BUN 12 (7-18) mg/dl Creatinine 0.74 (0.6-1.2) mg/dl Est Cr Clr Drug Dosing 59.4 ml/min Est GFR ( Amer) 87.4 Est GFR (Non-Af Amer) 75.4 BUN/Creatinine Ratio 15.8 (10-20) Glucose 98 (70-99) mg/dl Calcium 9.4 (8.5-10.1) mg/dl Magnesium 2.1 (1.8-2.4) mg/dl Total Bilirubin 0.9 (0.2-1) mg/dl AST 17 (15-37) U/L ALT 17 (12-78) U/L Alkaline Phosphatase 117 (45-117) U/L Troponin I < 0.015 (0-0.045) ng/ml Total Protein 6.9 (6.4-8.2) gm/dl Albumin 3.1 L (3.4-5.0) gm/dl Globulin 3.8 (2.5-4.0) gm/dl Albumin/Globulin Ratio 0.8 L (0.9-2) TSH 3.250 (0.300-4.500) uIu/ml Urine Color Urine Appearance (Clear) Urine pH (4.5-7.5) Ur Specific [place] (1.000-1.030) Urine Protein (Negative) Urine Glucose (UA) (Negative) Urine Ketones (Negative) Urine Blood (Negative) Urine Nitrite (Negative) Urine Bilirubin (Negative) Urine Urobilinogen (Negative) Ur Leukocyte Esterase (Negative) Urine WBC (Auto) (0-5) /hpf Urine RBC (Auto) (0-4) /hpf U Hyaline Cast (Auto) (0-5) /lpf U Epithel Cells (Auto) (0-5) /lpf Urine Bacteria (Auto) (Negative) Granular Casts (0) /lpf Urine Mucus (None Prsent) Discharge Plan Visit Data Chief Complaint: Confusion Stated Complaint: Confusion ED Provider: Rohit Fay Discharge Problem: Confusion, Dementia Patient Disposition: Being Evaluated by Hospitalist Forms Stand Alone Forms: My [facility] Prescriptions Prescriptions: No Action escitalopram oxalate 10 mg tablet See Rx Instructions .ROUTE .COMPLEX Qty: 30 RF: 5 acetaminophen [Tylenol Arthritis Pain] 650 mg tablet extended release 650 mg PO Q12H Qty: 60 RF: 5 cholecalciferol (vitamin D3) [Vitamin D3] 25 mcg (1,000 unit) tablet 1,000 unit PO QAM Qty: 30 RF: 5 pantoprazole [Protonix] 40 mg tablet,delayed release (DR/EC) 40 mg PO BID Qty: 60 RF: 5 memantine [Namenda] 10 mg tablet 10 mg PO BID 30 Days Qty: 60 RF: 5 Eliquis 5 mg tablet 5 mg PO DAILY Qty: 90 RF: 1 (DME) diaper,brief,adult,disposable Misc See Rx Instructions .ROUTE .MEDSUPPLY Qty: 160 RF: 5 donepezil [Aricept] 10 mg tablet 10 mg PO BID Qty: 60 RF: 0 PreserVision AREDS 7,160-113-100 ipgr-hr-ffup tablet 1 tab PO BID Qty: 60 RF: 5 multivitamin [Daily-Tone] tablet 1 tab PO DAILY RF: 0 cranberry extract [Cranberry Concentrate] 500 mg capsule 500 mg PO DAILY RF: 0 ferrous sulfate 325 mg (65 mg iron) tablet,delayed release (DR/EC) 325 mg PO HS RF: 0 Referrals Referrals: Janey Spaulding MD [Primary Care Provider] - Discharge Problem: Dementia Qualifiers: Dementia type: Alzheimer's disease Alzheimer's disease onset: unspecified onset Dementia behavioral disturbance: without behavioral disturbance Qualified Code(s): G30.9 - Alzheimer's disease, unspecified
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
[2020-03-23] MEDS ORDERED: ALUMINUM/MAGNESIUM SUSP 30 ML UDC PO PRN (20:34)
[2020-03-23] MEDS ORDERED: MAGNESIUM HYDROXIDE SUSP 30 ML UDC PO PRN (20:34)
[2020-03-23] MEDS ORDERED: POLYETHYLENE (MIRALAX) 17 GM PACK PO PRN (20:34)
[2020-03-23] MEDS ORDERED: ACETAMINOPHEN 325 MG TAB PO PRN (20:34)
[2020-03-23] MEDS ORDERED: ONDANSETRON INJ 2 MG/ML 2 ML VIAL IV PRN (20:34)
--- NOTE | 2020-03-23 20:39 | Electrocardiogram Report ---
Test Reason : Blood Pressure : / mmHG Vent. Rate : 059 BPM Atrial Rate : 059 BPM P-R Int : 092 ms QRS Dur : 088 ms QT Int : 446 ms P-R-T Axes : 041 024 056 degrees QTc Int : 441 ms Poor data quality, interpretation may be adversely affected Sinus bradycardia with competing junctional pacemaker Nonspecific ST abnormality Abnormal ECG When compared with ECG of 21-MAR-2020 12:35, Premature ventricular complexes are no longer Present Confirmed by Brando Johnson ([id number]) on 03/23/2020 8:39:13 PM Referred By: REFERRED SELF Confirmed By:Mushtaq Johnson
[2020-03-23] MEDS ORDERED: NON-FORMULARY MEDICATION (Vitamins A,C,E-Zinc-Copper [Preservision Areds] 1 TAB) PO SCH (21:00)
[2020-03-23] MEDS: ACETAMINOPHEN 325 MG TAB PO SCH (21:21)
[2020-03-23] MEDS: DONEPEZIL HCL 10 MG TAB PO SCH (21:21)
[2020-03-23] MEDS: MEMANTINE HCL 10 MG TAB PO SCH (21:22)
[2020-03-23] MEDS: PANTOprazole 40 MG TAB PO SCH (21:22)
[2020-03-24] MEDS: MEMANTINE HCL 10 MG TAB PO SCH ×2 (07:27→21:17)
[2020-03-24] MEDS: DONEPEZIL HCL 10 MG TAB PO SCH ×2 (07:27→21:19)
[2020-03-24] MEDS: ESCITALOPRAM OXALATE 10 MG TAB PO SCH (07:28)
[2020-03-24] MEDS: MULTIVITAMIN TAB PO SCH ×2 (08:47→09:50)
[2020-03-24] MEDS: ACETAMINOPHEN 325 MG TAB PO SCH ×3 (08:47→21:18)
[2020-03-24] MEDS: CHOLECALCIFEROL 1,000 UNITS 25 MCG TAB PO SCH ×2 (08:47→09:50)
[2020-03-24] MEDS: PANTOprazole 40 MG TAB PO SCH ×3 (08:48→21:18)
[2020-03-24] MEDS ORDERED: APIXABAN 5 MG TABLET PO SCH (09:00)
[2020-03-24] MEDS: APIXABAN 5 MG TABLET PO SCH (21:17)
--- NOTE | 2020-03-25 00:11 | Hospitalist Progress Note ---
Date of Service March 24, 2020 Assessment & Plan (1) Alzheimer's disease: No longer coping at home Continue usual medications - donepezil and memantine TSH WNL PT/OT/discharge planning for likely need of placement (2) Confusion: as above, progressive over many months as per family reports (3) Obstructive sleep apnea: Noted history of this. Patient reports not on CPAP but unknown if this is reliable. Monitor for nocturnal hypoxia. (4) Constipation: Noted history of this. Monitor for BM (5) Generalized osteoarthritis of multiple sites: Noted history of this. Currently no pain noted by patient (6) Status post gastric bypass for obesity: Noted history of this. Prior B12 level WNL (7) DVT prophylaxis: SCDs Dispo-awaiting placement Admission and Anticipated Discharge Date Admission Date: March 23, 2020 Subjective Pt confused, Denies any problems or pain. has no idea where she is "Yeah, I'm in that familiar place." Denies dysuria or any urinary problems Review of Systems Review of Systems: All systems reviewed & are unremarkable except as noted in HPI & below Physical Exam Constitutional: WD/WN, vitals as above Eyes: + anicteric sclerae Neck: trachea midline, no thyromegaly Respiratory: normal respiratory effort, lungs clear to auscultation Cardiovascular: RRR, no murmur, no edema Chest (Breasts): Chest: normal inspection of chest Gastrointestinal (Abdomen): normal bowel sounds, soft, nontender, no hepatosplenomegaly Musculoskeletal: Extremities: extremities normal to inspection; no cyanosis and no clubbing Skin: no rashes, warm and dry Neurologic: moves all extremities and awake; no focal motor deficits Psychiatric: Orientation: alert, oriented to person and cooperative; + not oriented to place and + not oriented to time Lymphatic: no lymphedema Results & Data Results & Data ([facility]) Vital Signs (Past 12 Hours) Vital Signs Temp Pulse Resp BP Pulse Ox 03/24/20 23:40 36.4 C L 54 L 16 129/66 97 03/24/20 22:20 36.8 C 72 18 145/78 H 95 03/24/20 16:32 36.6 C 55 L 18 140/65 100 PG Care Time/CCT Total # of Minutes Spent Total Time Spent with Patient: Total time spent is greater than 50% in coordination of care (as documented) at patient's floor/unit and/or counseling patient: Coding Level of Care Code 39062 Subseq Hosp Care Lvl 1 Diagnoses Alzheimer's disease G30.9; F02.80 Confusion R41.0 Obstructive sleep apnea G47.33 Constipation K59.00 Generalized osteoarthritis of multiple sites M15.9 Status post gastric bypass for obesity Z98.84 DVT prophylaxis Z29.9
[2020-03-25] MEDS: MEMANTINE HCL 10 MG TAB PO SCH ×2 (10:14→21:27)
[2020-03-25] MEDS: PANTOprazole 40 MG TAB PO SCH ×2 (10:14→21:27)
[2020-03-25] MEDS: DONEPEZIL HCL 10 MG TAB PO SCH ×2 (10:15→21:26)
[2020-03-25] MEDS: CHOLECALCIFEROL 1,000 UNITS 25 MCG TAB PO SCH (10:15)
[2020-03-25] MEDS: APIXABAN 5 MG TABLET PO SCH ×2 (10:15→21:26)
[2020-03-25] MEDS: ESCITALOPRAM OXALATE 10 MG TAB PO SCH (10:16)
[2020-03-25] MEDS: MULTIVITAMIN TAB PO SCH (10:16)
[2020-03-25] MEDS: ACETAMINOPHEN 325 MG TAB PO SCH ×2 (10:17→21:29)
--- NOTE | 2020-03-25 12:01 | Hospitalist Progress Note ---
Date of Service March 25, 2020 Assessment & Plan (1) Alzheimer's disease: No longer coping at home was the initial reason for admission Family reports a gradual decline in her cognitive abilities over at least the last 6 months Continue usual medications - donepezil and memantine TSH WNL PT/OT/discharge planning for need of placement (2) Abdominal pain: Developed acute epigastric pain with belching on the morning of 03/25 ECG negative for ischemia, troponin negative, KUB with nonobstructive ileus but did have a bowel movement earlier that morning No reported melena as per nursing Total bilirubin and alkaline phosphatase mildly elevated similar to upon admission Symptoms resolved within 20 minutes of receiving Maalox and subsequent Pepcid Does have a history of gastric bypass surgery and is at risk for anastomotic ulcers but remains on PPI twice daily -We will give MiraLAX x1 now Since all symptoms resolved, okay to continue diet -Continue PPI twice daily and added on Pepcid twice daily (3) Confusion: as above, progressive over many months as per family reports (4) Obstructive sleep apnea: Noted history of this. Patient reports not on CPAP but unknown if this is reliable. Monitor for nocturnal hypoxia. (5) Constipation: Noted history of this. Had a BM on the morning of 03/25 -MiraLAX given (6) Generalized osteoarthritis of multiple sites: Noted history of this. Currently no pain noted by patient (7) Status post gastric bypass for obesity: Noted history of this. Prior B12 level WNL -Would avoid NSAIDs (8) Bilateral pulmonary embolism: History of such Remains on Eliquis-Home dose is prescribed as 5 mg once daily-unclear why this dosing-I have increased it to twice daily here (9) DVT prophylaxis: SCDs Dispo-awaiting placement Admission and Anticipated Discharge Date Admission Date: March 23, 2020 Subjective Patient had an episode of epigastric pain and significant belching when I saw her in the midmorning. She had had a bowel movement as per nursing in the morning that was nonbloody, no melena. She denied any nausea or vomiting. She cannot recall if she has had anything like this before. She was given Maalox shortly before I came to see her. ECG was performed which showed no ischemic changes and no change from previous. KUB showed nonobstructive ileus. Labs were obtained showed mild elevation bilirubin similar to previous. Symptoms resolved within 20 minutes after receiving Maalox and subsequent Pepcid. She does have a history of gastric bypass surgery. Review of Systems Review of Systems: All systems reviewed & are unremarkable except as noted in HPI & below Physical Exam Constitutional: WD/WN, vitals as above Eyes: + anicteric sclerae Neck: trachea midline, no thyromegaly Respiratory: normal respiratory effort, lungs clear to auscultation Cardiovascular: RRR, no murmur, no edema Chest (Breasts): Chest: normal inspection of chest Gastrointestinal (Abdomen): Inspection/Auscultation: abdomen normal to inspection and normal bowel sounds; abdomen not distended Percuss ion/Palpation: + abdomen tender (Minimal positive tenderness palpation epigastric region without guarding or rebound tenderness) and abdomen soft Musculoskeletal: Extremities: extremities normal to inspection; no cyanosis and no clubbing Skin: no rashes, warm and dry Neurologic: moves all extremities and awake; no focal motor deficits Psychiatric: Orientation: alert, oriented to person and cooperative; + not oriented to place and + not oriented to time Lymphatic: no lymphedema Results & Data Results & Data ([facility]) Vital Signs (Past 12 Hours) Vital Signs Temp Pulse Resp BP Pulse Ox 03/25/20 07:11 36.8 C 63 16 110/69 97 03/25/20 04:32 96 Laboratory Results 03/25/20 03/25/20 03/25/20 Range/Units 12:22 12:22 12:22 WBC 9.97 (4.8-10.8) K/uL RBC 4.58 (4.2-5.4) M/uL Hgb 11.8 L (12.0-16.0) g/dL Hct 38.4 (37-47) % MCV 83.8 (80-100) fL MCH 25.8 (25-34) pg MCHC 30.7 L (32-36) g/dL RDW Std Deviation 56.1 H (36.4-46.3) fL RDW Coeff of Sebastian 18.3 H (11.5-14.5) % Plt Count 379 (130-400) K/uL MPV 10.2 (7.4-10.4) fL Immature Gran % (Auto) 0.2 % Neut % (Auto) 85.7 % Lymph % (Auto) 8.7 % [place] % (Auto) 4.5 % Eos % (Auto) 0.6 % Baso % (Auto) 0.3 % Neut # (Auto) 8.54 H (1.4-6.5) K/uL Lymph # (Auto) 0.87 L (1.2-3.4) K/uL [place] # (Auto) 0.45 (0.11-0.59) K/uL Eos # (Auto) 0.06 (0-0.5) K/uL Baso # (Auto) 0.03 (0-0.2) K/uL Immature Gran # (Auto) 0.02 (0.00-0.02) K/uL Sodium 139 (136-145) mmol/L Potassium 3.6 (3.5-5.1) mmol/L Chloride 110 H (98-107) mmol/L Carbon Dioxide 18 L (21-32) mmol/L Anion Gap 11.0 (3-11) BUN 14 (7-18) mg/dl Creatinine 0.84 (0.6-1.2) mg/dl Est Cr Clr Drug Dosing 51.0 ml/min Est GFR ( Amer) 75.0 Est GFR (Non-Af Amer) 64.7 BUN/Creatinine Ratio 17.0 (10-20) Glucose 86 (70-99) mg/dl Calcium 9.6 (8.5-10.1) mg/dl Total Bilirubin 1.5 H D (0.2-1) mg/dl AST 22 (15-37) U/L ALT 19 (12-78) U/L Alkaline Phosphatase 128 H (45-117) U/L Troponin I < 0.015 (0-0.045) ng/ml Total Protein 7.8 (6.4-8.2) gm/dl Albumin 3.5 (3.4-5.0) gm/dl Globulin 4.3 H (2.5-4.0) gm/dl Albumin/Globulin Ratio 0.8 L (0.9-2) Diagnostic Findings KUB image personally reviewed by me and agree with the following report: XR KUB/Abdomen 1 view CLINICAL HISTORY: abdominal pain pain COMPARISON STUDY: 08/29/2017 FINDINGS: Bowel pattern is consistent with a nonobstructive ileus. There are postoperative changes of the lower lumbar spine. The bony structures are intact involving the pelvis and hips. IMPRESSION: Nonobstructive bowel pattern. Moderate nonobstructive ileus. PG Care Time/CCT Total # of Minutes Spent Total Time Spent with Patient: Total time spent is greater than 50% in coordination of care (as documented) at patient's floor/unit and/or counseling patient: Coding Level of Care Code 05889 Subseq Hosp Care Lvl 3 Diagnoses Alzheimer's disease G30.9; F02.80 Abdominal pain R10.9 Confusion R41.0 Obstructive sleep apnea G47.33 Constipation K59.00 Generalized osteoarthritis of multiple sites M15.9 Status post gastric bypass for obesity Z98.84 Bilateral pulmonary embolism I26.99 DVT prophylaxis Z29.9
[2020-03-25 12:39] LABS: Basophils # (auto) 0.03 K/uL (0-0.2); Basophils % (auto) 0.3 %; Eosinophils # (auto) 0.06 K/uL (0-0.5); Eosinophils % (auto) 0.6 %; Hematocrit (blood only) 38.4 % (37-47); Hemoglobin 11.8 g/dL (12.0-16.0); Immature Granulocytes # (auto) 0.02 K/uL (0.00-0.02); Immature Granulocytes % (auto) 0.2 %; Lymphocytes # (auto) 0.87 K/uL (1.2-3.4); Lymphocytes % (auto) 8.7 %; Mean Corpuscular Hemoglobin 25.8 pg (25-34); Mean Corpuscular Hgb Conc 30.7 g/dL (32-36); Mean Corpuscular Volume 83.8 fL (80-100); Mean Platelet Volume 10.2 fL (7.4-10.4); Monocytes # (auto) 0.45 K/uL (0.11-0.59); Monocytes % (auto) 4.5 %; Neutrophils # (auto) 8.54 K/uL (1.4-6.5); Neutrophils % (auto) 85.7 %; Platelet Count 379 K/uL (130-400); RDW Coefficient of Variation 18.3 % (11.5-14.5); RDW Standard Deviation 56.1 fL (36.4-46.3); Red Blood Count 4.58 M/uL (4.2-5.4); White Blood Count 9.97 K/uL (4.8-10.8)
[2020-03-25 13:09] LABS: Albumin Globulin Ratio 0.8 (0.9-2); Albumin Level 3.5 gm/dl (3.4-5.0); Bilirubin,Total 1.5 mg/dl (0.2-1); Calcium 9.6 mg/dl (8.5-10.1); Est GFR (Non-African American) 64.7; Globulin 4.3 gm/dl (2.5-4.0); Potassium 3.6 mmol/L (3.5-5.1); Total Protein 7.8 gm/dl (6.4-8.2)
--- NOTE | 2020-03-25 13:28 | Electrocardiogram Report ---
Test Reason : Blood Pressure : / mmHG Vent. Rate : 071 BPM Atrial Rate : 071 BPM P-R Int : 128 ms QRS Dur : 080 ms QT Int : 436 ms P-R-T Axes : 052 024 070 degrees QTc Int : 473 ms Poor data quality, interpretation may be adversely affected Normal sinus rhythm Normal ECG When compared with ECG of 23-MAR-2020; No significant change Confirmed by Wood Julian ([id number] on 03/25/2020 1:28:16 PM Referred By: REFERRED SELF Confirmed By:Wood Julian
--- NOTE | 2020-03-25 13:57 | XRay Report ---
XR KUB/Abdomen 1 view CLINICAL HISTORY: abdominal pain pain COMPARISON STUDY: 08/29/2017 FINDINGS: Bowel pattern is consistent with a nonobstructive ileus. There are postoperative changes of the lower lumbar spine. The bony structures are intact involving the pelvis and hips. IMPRESSION: Nonobstructive bowel pattern. Moderate nonobstructive ileus. ACT 112: Negative or not required by law. The above report was generated using voice recognition software. It may contain grammatical, syntax or spelling errors. Electronically signed by: Lemuel Gunn M.D. 03/25/2020 1:56 PM
[2020-03-25] MEDS: FAMOTIDINE 20 MG TAB PO SCH ×2 (14:06→21:27)
[2020-03-25] MEDS ORDERED: POLYETHYLENE (MIRALAX) 17 GM PACK PO ONE (18:15)
[2020-03-26 07:12] LABS: Basophils # (auto) 0.06 K/uL (0-0.2); Basophils % (auto) 0.9 %; Eosinophils # (auto) 0.25 K/uL (0-0.5); Eosinophils % (auto) 3.8 %; Hematocrit (blood only) 35.7 % (37-47); Hemoglobin 10.5 g/dL (12.0-16.0); Immature Granulocytes # (auto) 0.01 K/uL (0.00-0.02); Immature Granulocytes % (auto) 0.2 %; Lymphocytes # (auto) 0.62 K/uL (1.2-3.4); Lymphocytes % (auto) 9.4 %; Mean Corpuscular Hemoglobin 24.9 pg (25-34); Mean Corpuscular Hgb Conc 29.4 g/dL (32-36); Mean Corpuscular Volume 84.6 fL (80-100); Mean Platelet Volume 9.9 fL (7.4-10.4); Monocytes # (auto) 0.48 K/uL (0.11-0.59); Monocytes % (auto) 7.2 %; Neutrophils # (auto) 5.21 K/uL (1.4-6.5); Neutrophils % (auto) 78.5 %; Platelet Count 325 K/uL (130-400); RDW Coefficient of Variation 18.1 % (11.5-14.5); RDW Standard Deviation 55.9 fL (36.4-46.3); Red Blood Count 4.22 M/uL (4.2-5.4); White Blood Count 6.63 K/uL (4.8-10.8)
[2020-03-26 07:46] LABS: Albumin Level 2.9 gm/dl (3.4-5.0); BUN Creatinine Ratio 23.3 (10-20); Bilirubin Direct 0.2 mg/dl (0-0.2); Calcium 9.1 mg/dl (8.5-10.1); Creatinine Clr Calc Pharmacy 64.9 ml/min; Est GFR (African American) 95.3; Est GFR (Non-African American) 82.3; Potassium 3.7 mmol/L (3.5-5.1)
[2020-03-26 07:48] LABS: Bilirubin,Total 1.1 mg/dl (0.2-1); Total Protein 6.5 gm/dl (6.4-8.2)
[2020-03-26] MEDS: POLYETHYLENE (MIRALAX) 17 GM PACK PO SCH (08:21)
[2020-03-26] MEDS: DONEPEZIL HCL 10 MG TAB PO SCH ×2 (08:22→20:59)
[2020-03-26] MEDS: MEMANTINE HCL 10 MG TAB PO SCH ×2 (08:22→20:59)
[2020-03-26] MEDS: CHOLECALCIFEROL 1,000 UNITS 25 MCG TAB PO SCH (08:22)
[2020-03-26] MEDS: APIXABAN 5 MG TABLET PO SCH ×2 (08:22→20:59)
[2020-03-26] MEDS: ESCITALOPRAM OXALATE 10 MG TAB PO SCH (08:22)
[2020-03-26] MEDS: PANTOprazole 40 MG TAB PO SCH ×2 (08:22→20:59)
[2020-03-26] MEDS: FAMOTIDINE 20 MG TAB PO SCH ×2 (08:22→20:59)
[2020-03-26] MEDS: MULTIVITAMIN TAB PO SCH (08:23)
[2020-03-26] MEDS: ACETAMINOPHEN 325 MG TAB PO SCH ×2 (08:27→21:01)
--- NOTE | 2020-03-26 15:11 | Hospitalist Progress Note ---
Date of Service March 26, 2020 Assessment & Plan (1) Alzheimer's disease: No longer coping at home was the initial reason for admission Family reports a gradual decline in her cognitive abilities over at least the last 6 months Continue usual medications - donepezil and memantine TSH WNL -check B12, folate, B1 levels PT/OT/discharge planning for need of placement (2) Abdominal pain: Developed acute epigastric pain with belching on the morning of 03/25 ECG negative for ischemia, troponin negative, KUB with nonobstructive ileus but did have a bowel movement earlier that morning No reported melena as per nursing Total bilirubin and alkaline phosphatase mildly elevated similar to upon admission and now improved Symptoms resolved within 20 minutes of receiving Maalox and subsequent Pepcid Does have a history of gastric bypass surgery and is at risk for anastomotic ulcers but remains on PPI twice daily No recurrence since then - continue reg diet -Continue PPI twice daily and added on Pepcid twice daily -bowel regimen (3) Confusion: as above, progressive over many months as per family reports (4) Obstructive sleep apnea: Noted history of this. Patient reports not on CPAP but unknown if this is reliable. Monitor for nocturnal hypoxia. (5) Constipation: Noted history of this. Had a BM on the morning of 03/25 -MiraLAX given (6) Generalized osteoarthritis of multiple sites: Noted history of this. Currently no pain noted by patient (7) Status post gastric bypass for obesity: Noted history of this. -Would avoid NSAIDs (8) Bilateral pulmonary embolism: History of such Remains on Eliquis-Home dose is prescribed as 5 mg once daily-unclear why this dosing-I have increased it to twice daily here (9) Anemia: hgb 10 normocytic check B12, folate, Fe studies TSH normal (10) DVT prophylaxis: SCDs Dispo-awaiting placement, likely won't be for a while as no beds available at [facility] Admission and Anticipated Discharge Date Admission Date: March 23, 2020 Subjective Pt feels well today, seems much less confused. Denies any abdominal pain today- states "Oh yes that's something I always get. It comes and goes." No more belching. No chest pain or SOB. No pain anywhere. Today she knows she is in the hospital. Says she wants to get back to her apartment to take care of her kitten, but that her neighbors can take care of it while she is here. When asked if she knows where she is, she reports "of course, I am in the hospital." Review of Systems Review of Systems: All systems reviewed & are unremarkable except as noted in HPI & below Physical Exam Constitutional: WD/WN, vitals as above Eyes: + anicteric sclerae Neck: trachea midline, no thyromegaly Respiratory: normal respiratory effort, lungs clear to auscultation Cardiovascular: RRR, no murmur, no edema Chest (Breasts): Chest: normal inspection of chest Gastrointestinal (Abdomen): normal bowel sounds, soft, nontender, no hepatosplenomegaly Musculoskeletal: Extremities: extremities normal to inspection; no cyanosis and no clubbing Skin: no rashes, warm and dry Neurologic: moves all extremities and awake; no focal motor deficits Psychiatric: Orientation: alert, oriented to person, oriented to place and cooperative Lymphatic: no lymphedema Results & Data Results & Data ([facility]) Vital Signs (Past 12 Hours) Vital Signs Temp Pulse Resp BP Pulse Ox 03/26/20 06:53 36.8 C 70 20 152/80 H 95 Laboratory Results 03/26/20 03/26/20 Range/Units 06:32 06:32 WBC 6.63 (4.8-10.8) K/uL RBC 4.22 (4.2-5.4) M/uL Hgb 10.5 L (12.0-16.0) g/dL Hct 35.7 L (37-47) % MCV 84.6 (80-100) fL MCH 24.9 L (25-34) pg MCHC 29.4 L (32-36) g/dL RDW Std Deviation 55.9 H (36.4-46.3) fL RDW Coeff of Sebastian 18.1 H (11.5-14.5) % Plt Count 325 (130-400) K/uL MPV 9.9 (7.4-10.4) fL Immature Gran % (Auto) 0.2 % Neut % (Auto) 78.5 % Lymph % (Auto) 9.4 % [place] % (Auto) 7.2 % Eos % (Auto) 3.8 % Baso % (Auto) 0.9 % Neut # (Auto) 5.21 (1.4-6.5) K/uL Lymph # (Auto) 0.62 L (1.2-3.4) K/uL [place] # (Auto) 0.48 (0.11-0.59) K/uL Eos # (Auto) 0.25 (0-0.5) K/uL Baso # (Auto) 0.06 (0-0.2) K/uL Immature Gran # (Auto) 0.01 (0.00-0.02) K/uL Sodium 140 (136-145) mmol/L Potassium 3.7 (3.5-5.1) mmol/L Chloride 109 H (98-107) mmol/L Carbon Dioxide 26 (21-32) mmol/L Anion Gap 5.0 (3-11) BUN 15 (7-18) mg/dl Creatinine 0.66 (0.6-1.2) mg/dl Est Cr Clr Drug Dosing 64.9 ml/min Est GFR ( Amer) 95.3 Est GFR (Non-Af Amer) 82.3 BUN/Creatinine Ratio 23.3 H (10-20) Glucose 93 (70-99) mg/dl Calcium 9.1 (8.5-10.1) mg/dl Total Bilirubin 1.1 H (0.2-1) mg/dl Direct Bilirubin 0.2 (0-0.2) mg/dl AST 19 (15-37) U/L ALT 16 (12-78) U/L Alkaline Phosphatase 104 (45-117) U/L Total Protein 6.5 (6.4-8.2) gm/dl Albumin 2.9 L (3.4-5.0) gm/dl PG Care Time/CCT Total # of Minutes Spent Total Time Spent with Patient: Total time spent is greater than 50% in coordination of care (as documented) at patient's floor/unit and/or counseling patient: Coding Level of Care Code 26533 Subseq Hosp Care Lvl 2 Diagnoses Alzheimer's disease G30.9; F02.80 Abdominal pain R10.9 Confusion R41.0 Obstructive sleep apnea G47.33 Constipation K59.00 Generalized osteoarthritis of multiple sites M15.9 Status post gastric bypass for obesity Z98.84 Bilateral pulmonary embolism I26.99 Anemia D64.9 DVT prophylaxis Z29.9
[2020-03-26 16:23] LABS: Ferritin 9.9 ng/ml (8-388)
[2020-03-26 16:45] LABS: Folate (Folic Acid) 15.86 ng/ml (>5.38)
[2020-03-27] MEDS: MULTIVITAMIN TAB PO SCH (08:20)
[2020-03-27] MEDS: DONEPEZIL HCL 10 MG TAB PO SCH ×2 (08:20→21:59)
[2020-03-27] MEDS: ESCITALOPRAM OXALATE 10 MG TAB PO SCH (08:20)
[2020-03-27] MEDS: APIXABAN 5 MG TABLET PO SCH ×2 (08:20→21:59)
[2020-03-27] MEDS: POLYETHYLENE (MIRALAX) 17 GM PACK PO SCH (08:20)
[2020-03-27] MEDS: PANTOprazole 40 MG TAB PO SCH ×2 (08:21→21:59)
[2020-03-27] MEDS: FAMOTIDINE 20 MG TAB PO SCH ×2 (08:21→21:59)
[2020-03-27] MEDS: CHOLECALCIFEROL 1,000 UNITS 25 MCG TAB PO SCH (08:21)
[2020-03-27] MEDS: MEMANTINE HCL 10 MG TAB PO SCH ×2 (08:21→21:59)
[2020-03-27] MEDS: ACETAMINOPHEN 325 MG TAB PO SCH ×2 (08:27→22:05)
[2020-03-27] MEDS: SUCRALFATE 1 GM/10 ML UDC PO SCH ×4 (10:07→21:58)
[2020-03-27] MEDS: IRON SUCROSE 300 MG in SODIUM CHLORIDE 0.9% 250 ML IV SCH (10:07)
--- NOTE | 2020-03-27 15:37 | Hospitalist Progress Note ---
Date of Service March 27, 2020 Assessment & Plan (1) Alzheimer's disease: No longer coping at home was the initial reason for admission Family reports a gradual decline in her cognitive abilities over at least the last 6 months Continue usual medications - donepezil and memantine TSH WNL -checked B12, folate-normal - B1 level pending PT/OT/discharge planning for need of placement (2) Abdominal pain: Developed acute epigastric pain with belching on the morning of 03/25 ECG negative for ischemia, troponin negative, KUB with nonobstructive ileus but did have a bowel movement earlier that morning No reported melena as per nursing Total bilirubin and alkaline phosphatase mildly elevated similar to upon admission and now improved Symptoms resolved within 20 minutes of receiving Maalox and subsequent Pepcid Does have a history of gastric bypass surgery and has a h/o anastomotic ulcers but remains on PPI twice daily No recurrence since then - continue reg diet -Continue PPI twice daily and added on Pepcid twice daily -bowel regimen (3) Confusion: as above, progressive over many months as per family reports (4) Obstructive sleep apnea: Noted history of this. Patient reports not on CPAP but unknown if this is reliable. Monitor for nocturnal hypoxia. (5) Constipation: Noted history of this. Had a BM on the morning of 03/25 -MiraLAX given (6) Generalized osteoarthritis of multiple sites: Noted history of this. Currently no pain noted by patient (7) Status post gastric bypass for obesity: Noted history of this. -Would avoid NSAIDs (8) Bilateral pulmonary embolism: History of such Remains on Eliquis-Home dose is prescribed as 5 mg once daily-unclear why this dosing-I have increased it to twice daily here (9) Anemia: hgb 10 normocytic - B12, folate levels normal, but with significant iron deficiency-->ferritin only 9 and Fe sat 7% Secondary to poor absorption from gastric bypass surgery, but could have chronic blood loss too TSH normal -give IV Venofer 300mg IV daily x 3 days here -follow CBC as outpt -needs GI workup with EGD/colonoscopy if desired as an outpt (10) DVT prophylaxis: SCDs Dispo-awaiting placement, likely won't be for a while as no beds available at [facility]. Daughter looking into places in [place] as well. Admission and Anticipated Discharge Date Admission Date: March 23, 2020 Subjective Pt has no concerns. SHe denies chest pain or SOB, no abd pain. She is upset that she has not heard from any of her children when I mentioned that I spoke to her son on the phone yesterday. Then she said "I have five children...I think. Well, maybe I have six children, I don't know." Review of Systems Review of Systems: All systems reviewed & are unremarkable except as noted in HPI & below Physical Exam Constitutional: WD/WN, vitals as above Eyes: + anicteric sclerae Neck: trachea midline, no thyromegaly Respiratory: normal respiratory effort, lungs clear to auscultation Cardiovascular: RRR, no murmur, no edema Chest (Breasts): Chest: normal inspection of chest Gastrointestinal (Abdomen): normal bowel sounds, soft, nontender, no hepatosplenomegaly Musculoskeletal: Extremities: extremities normal to inspection; no cyanosis and no clubbing Skin: no rashes, warm and dry Neurologic: moves all extremities and awake; no focal motor deficits Psychiatric: Orientation: alert, oriented to person, oriented to place and cooperative Lymphatic: no lymphedema Results & Data Results & Data ([facility]) Vital Signs (Past 12 Hours) Vital Signs Temp Pulse Resp BP BP Pulse Ox 03/27/20 14:46 37.4 C 58 L 18 132/69 93 03/27/20 10:12 71 16 103/52 L 03/27/20 07:04 36.5 C 66 16 154/85 H 95 Laboratory Results 03/26/20 03/26/20 03/26/20 Range/Units 15:42 15:42 15:42 Iron 29 L (35-150) mcg/dl TIBC 369 (250-450) mcg/dl Transferrin 291 (200-360) mg/dl Transferrin % Sat 7 L (15-50) % Ferritin 9.9 (8-388) ng/ml Whole Bld Vitamin B1 Pending Vitamin B12 437 (211-911) pg/ml Folate 15.86 (>5.38) ng/ml PG Care Time/CCT Total # of Minutes Spent Total Time Spent with Patient: Total time spent is greater than 50% in coordination of care (as documented) at patient's floor/unit and/or counseling patient: Coding Level of Care Code 89477 Subseq Hosp Care Lvl 2 Diagnoses Alzheimer's disease G30.9; F02.80 Abdominal pain R10.9 Confusion R41.0 Obstructive sleep apnea G47.33 Constipation K59.00 Generalized osteoarthritis of multiple sites M15.9 Status post gastric bypass for obesity Z98.84 Bilateral pulmonary embolism I26.99 Anemia D64.9 DVT prophylaxis Z29.9
[2020-03-27] MEDS ORDERED: FERROUS SULFATE 325 MG TAB PO SCH (17:00)
[2020-03-28] MEDS: SUCRALFATE 1 GM/10 ML UDC PO SCH ×4 (09:18→20:39)
[2020-03-28] MEDS: CHOLECALCIFEROL 1,000 UNITS 25 MCG TAB PO SCH (09:18)
[2020-03-28] MEDS: MULTIVITAMIN TAB PO SCH (09:18)
[2020-03-28] MEDS: PANTOprazole 40 MG TAB PO SCH ×2 (09:19→20:40)
[2020-03-28] MEDS: ESCITALOPRAM OXALATE 10 MG TAB PO SCH (09:19)
[2020-03-28] MEDS: DONEPEZIL HCL 10 MG TAB PO SCH ×2 (09:19→20:40)
[2020-03-28] MEDS: MEMANTINE HCL 10 MG TAB PO SCH ×2 (09:19→20:41)
[2020-03-28] MEDS: APIXABAN 5 MG TABLET PO SCH ×2 (09:19→20:40)
[2020-03-28] MEDS: POLYETHYLENE (MIRALAX) 17 GM PACK PO SCH (09:19)
[2020-03-28] MEDS: FAMOTIDINE 20 MG TAB PO SCH ×2 (09:19→20:39)
[2020-03-28] MEDS: ACETAMINOPHEN 325 MG TAB PO SCH ×2 (09:26→20:46)
[2020-03-28] MEDS: IRON SUCROSE 300 MG in SODIUM CHLORIDE 0.9% 250 ML IV SCH (09:26)
--- NOTE | 2020-03-28 18:25 | Hospitalist Progress Note ---
Date of Service March 28, 2020 Assessment & Plan (1) Alzheimer's disease: No longer coping at home was the initial reason for admission Family reports a gradual decline in her cognitive abilities over at least the last 6 months Continue usual medications - donepezil and memantine TSH WNL -checked B12, folate-normal - B1 level pending PT/OT/discharge planning for need of placement (2) Abdominal pain: Developed acute epigastric pain with belching on the morning of 03/25 ECG negative for ischemia, troponin negative, KUB with nonobstructive ileus but did have a bowel movement earlier that morning No reported melena as per nursing Total bilirubin and alkaline phosphatase mildly elevated similar to upon admission and now improved Symptoms resolved within 20 minutes of receiving Maalox and subsequent Pepcid Does have a history of gastric bypass surgery and has a h/o anastomotic ulcers but remains on PPI twice daily No recurrence since then - continue reg diet -Continue PPI twice daily and added on Pepcid twice daily -bowel regimen (3) Confusion: as above, progressive over many months as per family reports Here with intermittent agitation and outbursts -is becoming unsafe at times, getting out of bed and chair on her own and unsteady on her feet. -will add Seroquel 12.5mg bid prn agitation -supportive care keep blinds open during daytime, reorient (4) Obstructive sleep apnea: Noted history of this. Patient reports not on CPAP but unknown if this is reliable. Monitor for nocturnal hypoxia. (5) Constipation: Noted history of this. Had a BM on the morning of 03/25 -MiraLAX given and will give again as has been 3 days (6) Generalized osteoarthritis of multiple sites: Noted history of this. Currently no pain noted by patient (7) Status post gastric bypass for obesity: Noted history of this. -Would avoid NSAIDs (8) Bilateral pulmonary embolism: History of such Remains on Eliquis-Home dose is prescribed as 5 mg once daily-unclear why this dosing-I have increased it to twice daily here (9) Anemia: hgb 10 normocytic - B12, folate levels normal, but with significant iron deficiency-->ferritin only 9 and Fe sat 7% Secondary to poor absorption from gastric bypass surgery, but could have chronic blood loss too TSH normal -give IV Venofer 300mg IV daily x 3 days here -follow CBC as outpt -needs GI workup with EGD/colonoscopy if desired as an outpt (10) DVT prophylaxis: SCDs Dispo-awaiting placement, likely won't be until at least Tuesday as multiple places without any beds that can take her insurance Admission and Anticipated Discharge Date Admission Date: March 23, 2020 Subjective Pt has been very agitated all afternoon. Crying asking me for her son and angry he didn't come to visit her today. Says "I need to get back down there!" I believe in reference to her apartment, going home. Denies abd pain. Is angry that her tea is cold. We tried to call her son from her room p denise but he did not answer Review of Systems Review of Systems: Unobtainable due to cognitive status Physical Exam Constitutional: WD/WN, vitals as above Eyes: + anicteric sclerae Neck: trachea midline, no thyromegaly Respiratory: normal respiratory effort, lungs clear to auscultation Cardiovascular: RRR, no murmur, no edema Chest (Breasts): Chest: normal inspection of chest Musculoskeletal: Extremities: extremities normal to inspection; no cyanosis and no clubbing Skin: no rashes, warm and dry Neurologic: moves all extremities and awake; no focal motor deficits Psychiatric: Orientation: alert and + guarded; + not oriented x 3 Speech: + pressured speech and + loud speech Mood: + angry mood Lymphatic: no lymphedema Results & Data Results & Data ([facility]) Vital Signs (Past 12 Hours) Vital Signs Temp Pulse Resp BP Pulse Ox 03/28/20 14:40 36.9 C 62 18 110/72 95 03/28/20 07:35 37 C 84 16 113/66 96 Laboratory Results 03/27/20 Range/Units 23:35 Stool Occult Bld Scrn Negative (Negative) PG Care Time/CCT Total # of Minutes Spent Total Time Spent with Patient: Total time spent is greater than 50% in coordination of care (as documented) at patient's floor/unit and/or counseling patient: Coding Level of Care Code 87959 Subseq Hosp Care Lvl 2 Diagnoses Alzheimer's disease G30.9; F02.80 Abdominal pain R10.9 Confusion R41.0 Obstructive sleep apnea G47.33 Constipation K59.00 Generalized osteoarthritis of multiple sites M15.9 Status post gastric bypass for obesity Z98.84 Bilateral pulmonary embolism I26.99 Anemia D64.9 DVT prophylaxis Z29.9
[2020-03-28] MEDS ORDERED: DOCUSATE SODIUM/SENNA 50/8.6MG TAB PO SCH (18:45)
[2020-03-28] MEDS: QUETIAPINE FUMARATE 25 MG TABLET PO PRN (19:48)
[2020-03-29] MEDS: ESCITALOPRAM OXALATE 10 MG TAB PO SCH (09:57)
[2020-03-29] MEDS: FAMOTIDINE 20 MG TAB PO SCH ×2 (09:57→20:56)
[2020-03-29] MEDS: PANTOprazole 40 MG TAB PO SCH ×2 (09:58→20:57)
[2020-03-29] MEDS: MULTIVITAMIN TAB PO SCH (09:58)
[2020-03-29] MEDS: CHOLECALCIFEROL 1,000 UNITS 25 MCG TAB PO SCH (09:58)
[2020-03-29] MEDS: SUCRALFATE 1 GM/10 ML UDC PO SCH ×4 (09:59→20:56)
[2020-03-29] MEDS: APIXABAN 5 MG TABLET PO SCH ×2 (09:59→20:57)
[2020-03-29] MEDS: DONEPEZIL HCL 10 MG TAB PO SCH ×2 (09:59→20:56)
[2020-03-29] MEDS: MEMANTINE HCL 10 MG TAB PO SCH ×2 (09:59→20:56)
[2020-03-29] MEDS: POLYETHYLENE (MIRALAX) 17 GM PACK PO SCH (10:00)
[2020-03-29] MEDS: ACETAMINOPHEN 325 MG TAB PO SCH ×2 (10:00→20:58)
[2020-03-29] MEDS: IRON SUCROSE 300 MG in SODIUM CHLORIDE 0.9% 250 ML IV SCH (10:20)
--- NOTE | 2020-03-29 19:23 | Hospitalist Progress Note ---
Date of Service March 29, 2020 Assessment & Plan (1) Alzheimer's disease: No longer coping at home was the initial reason for admission Family reports a gradual decline in her cognitive abilities over at least the last 6 months Continue usual medications - donepezil and memantine TSH WNL -checked B12, folate-normal - B1 level pending PT/OT/discharge planning for need of placement (2) Abdominal pain: Developed acute epigastric pain with belching on the morning of 03/25 ECG negative for ischemia, troponin negative, KUB with nonobstructive ileus but did have a bowel movement earlier that morning No reported melena as per nursing Total bilirubin and alkaline phosphatase mildly elevated similar to upon admission and now improved Symptoms resolved within 20 minutes of receiving Maalox and subsequent Pepcid Does have a history of gastric bypass surgery and has a h/o anastomotic ulcers but remains on PPI twice daily No recurrence since then - continue reg diet -Continue PPI twice daily and added on Pepcid twice daily -bowel regimen (3) Confusion: as above, progressive over many months as per family reports Here with intermittent agitation and outbursts -Was becoming unsafe at times, getting out of bed and chair on her own and unsteady on her feet. -Added Seroquel 12.5mg bid prn agitation-she had 1 dose on 03/28 and is now much improved -supportive care keep blinds open during daytime, reorient (4) Obstructive sleep apnea: Noted history of this. Patient reports not on CPAP but unknown if this is reliable. Monitor for nocturnal hypoxia. (5) Constipation: Noted history of this. Had a BM on 03/28 -Continue bowel regimen (6) Generalized osteoarthritis of multiple sites: Noted history of this. Currently no pain noted by patient (7) Status post gastric bypass for obesity: Noted history of this. -Would avoid NSAIDs (8) Bilateral pulmonary embolism: History of such Remains on Eliquis-Home dose is prescribed as 5 mg once daily-unclear why this dosing-I have increased it to twice daily here (9) Anemia: hgb 10 normocytic - B12, folate levels normal, but with significant iron deficiency-->ferritin only 9 and Fe sat 7% Secondary to poor absorption from gastric bypass surgery, but could have chronic blood loss too TSH normal -give IV Venofer 300mg IV daily x 3 days here -follow CBC as outpt -needs GI workup with EGD/colonoscopy if desired as an outpt (10) DVT prophylaxis: SCDs Dispo-awaiting placement, likely won't be until at least Tuesday as multiple places without any beds that can take her insurance Admission and Anticipated Discharge Date Admission Date: March 23, 2020 Subjective Patient much more pleasant today and less agitated. Reports she got good sleep last night. Denies any pain or problems. She is still frustrated that she feels like her children have abandoned her. Review of Systems Review of Systems: All systems reviewed & are unremarkable except as noted in HPI & below Physical Exam Constitutional: WD/WN, vitals as above Eyes: + anicteric sclerae Neck: trachea midline, no thyromegaly Respiratory: normal respiratory effort, lungs clear to auscultation Cardiovascular: RRR, no murmur, no edema Chest (Breasts): Chest: normal inspection of chest Gastrointestinal (Abdomen): normal bowel sounds, soft, nontender, no hepatosplenomegaly Musculoskeletal: Extremities: extremities normal to inspection; no cyanosis and no clubbing Skin: no rashes, warm and dry Neurologic: moves all extremities and awake; no focal motor deficits Psychiatric: Orientation: alert; + not oriented x 3 Results & Data Results & Data ([facility]) Vital Signs (Past 12 Hours) Vital Signs Temp Pulse Pulse Resp BP BP Pulse Ox 03/29/20 15:03 36.9 C 67 16 133/74 97 03/29/20 12:47 63 142/84 H 03/29/20 12:05 68 137/78 03/29/20 11:10 65 137/67 PG Care Time/CCT Total # of Minutes Spent Total Time Spent with Patient: Total time spent is greater than 50% in coordination of care (as documented) at patient's floor/unit and/or counseling patient: Coding Level of Care Code 46672 Subseq Hosp Care Lvl 1 Diagnoses Alzheimer's disease G30.9; F02.80 Abdominal pain R10.9 Confusion R41.0 Obstructive sleep apnea G47.33 Constipation K59.00 Generalized osteoarthritis of multiple sites M15.9 Status post gastric bypass for obesity Z98.84 Bilateral pulmonary embolism I26.99 Anemia D64.9 DVT prophylaxis Z29.9
[2020-03-30] MEDS: APIXABAN 5 MG TABLET PO SCH ×2 (08:52→21:05)
[2020-03-30] MEDS: DONEPEZIL HCL 10 MG TAB PO SCH ×2 (08:52→21:05)
[2020-03-30] MEDS: ESCITALOPRAM OXALATE 10 MG TAB PO SCH (08:52)
[2020-03-30] MEDS: MEMANTINE HCL 10 MG TAB PO SCH ×2 (08:53→21:05)
[2020-03-30] MEDS: MULTIVITAMIN TAB PO SCH (08:53)
[2020-03-30] MEDS: PANTOprazole 40 MG TAB PO SCH ×2 (08:53→21:04)
[2020-03-30] MEDS: FAMOTIDINE 20 MG TAB PO SCH ×2 (08:53→21:06)
[2020-03-30] MEDS: CHOLECALCIFEROL 1,000 UNITS 25 MCG TAB PO SCH (08:54)
[2020-03-30] MEDS: ACETAMINOPHEN 325 MG TAB PO SCH ×2 (08:56→21:07)
[2020-03-30] MEDS: SUCRALFATE 1 GM/10 ML UDC PO SCH ×4 (08:56→21:04)
[2020-03-30] MEDS: IRON SUCROSE 300 MG in SODIUM CHLORIDE 0.9% 250 ML IV SCH (08:57)
[2020-03-30] MEDS: POLYETHYLENE (MIRALAX) 17 GM PACK PO SCH (08:57)
[2020-03-30] MEDS: QUETIAPINE FUMARATE 25 MG TABLET PO PRN (11:28)
--- NOTE | 2020-03-30 16:05 | Hospitalist Progress Note ---
Date of Service March 30, 2020 Assessment & Plan (1) Alzheimer's disease: No longer coping at home was the initial reason for admission Family reports a gradual decline in her cognitive abilities over at least the last 6 months Continue usual medications - donepezil and memantine TSH WNL -checked B12, folate-normal - B1 level still pending PT/OT/discharge planning for need of placement (2) Abdominal pain: Developed acute epigastric pain with belching on the morning of 03/25 ECG negative for ischemia, troponin negative, KUB with nonobstructive ileus but did have a bowel movement earlier that morning No reported melena as per nursing Total bilirubin and alkaline phosphatase mildly elevated similar to upon admission and now improved Symptoms resolved within 20 minutes of receiving Maalox and subsequent Pepcid Does have a history of gastric bypass surgery and has a h/o anastomotic ulcers but remains on PPI twice daily No recurrence since then - continue reg diet -Continue PPI twice daily and added on Pepcid twice daily -bowel regimen (3) Confusion: as above, progressive over many months as per family reports Here with intermittent agitation and outbursts -Was becoming unsafe at times, getting out of bed and chair on her own and unsteady on her feet. -Added Seroquel 12.5mg bid prn agitation-she had 1 dose on 03/28 and another on 03/30 with good results -supportive care keep blinds open during daytime, reorient -asked her son to come to visit as she gets angry wondering where her children are-he will try to come on Tuesday (4) Obstructive sleep apnea: Noted history of this. Patient reports not on CPAP but unknown if this is reliable. Monitor for nocturnal hypoxia. (5) Constipation: Noted history of this. Having BMs here -Continue bowel regimen (6) Generalized osteoarthritis of multiple sites: Noted history of this. Currently no pain noted by patient (7) Status post gastric bypass for obesity: Noted history of this. -Would avoid NSAIDs (8) Bilateral pulmonary embolism: History of such Remains on Eliquis-Home dose is prescribed as 5 mg once daily-unclear why this dosing-I have increased it to twice daily here (9) Anemia: hgb 10 normocytic - B12, folate levels normal, but with significant iron deficiency-->ferritin only 9 and Fe sat 7% Secondary to poor absorption from gastric bypass surgery, but could have chronic blood loss too TSH normal -gave IV Venofer 300mg IV daily x 3 days here -follow CBC as outpt -needs GI workup with EGD/colonoscopy if desired as an outpt-discussed with her son on the phone (10) DVT prophylaxis: SCDs Dispo-awaiting placement, likely won't be until at least Tuesday as multiple places without any beds that can take her insurance Admission and Anticipated Discharge Date Admission Date: March 23, 2020 Subjective Pt agitated today, says Physical Exam Constitutional: WD/WN, vitals as above Eyes: + anicteric sclerae Neck: trachea midline, no thyromegaly Respiratory: normal respiratory effort, lungs clear to auscultation Cardiovascular: RRR, no murmur, no edema Chest (Breasts): Chest: normal inspection of chest Gastrointestinal (Abdomen): normal bowel sounds, soft, nontender, no hepatosplenomegaly Inspection/Auscultation: abdomen normal to inspection and normal bowel sounds; abdomen not distended Percussion/Palpation: + abdomen tender (Minimal positive tenderness palpation epigastric region without guarding or rebound tenderness) and abdomen soft Musculoskeletal: Extremities: extremities normal to inspection; no cyanosis and no clubbing Skin: no rashes, warm and dry Neurologic: moves all extremities and awake; no focal motor deficits Psychiatric: Orientation: alert; + not oriented x 3 Speech: + pressured speech and + loud speech Mood: + angry mood Lymphatic: no lymphedema Results & Data Results & Data ([facility]) Vital Signs (Past 12 Hours) Vital Signs Temp Pulse Pulse Resp BP BP Pulse Ox 03/30/20 14:52 36.9 C 71 20 109/64 95 03/30/20 07:15 36.7 C 57 L 16 149/78 H 95 PG Care Time/CCT Total # of Minutes Spent Total Time Spent with Patient: Total time spent is greater than 50% in coordination of care (as documented) at patient's floor/unit and/or counseling patient: Coding Level of Care Code 64027 Subseq Hosp Care Lvl 1 Diagnoses Alzheimer's disease G30.9; F02.80 Abdominal pain R10.9 Confusion R41.0 Obstructive sleep apnea G47.33 Constipation K59.00 Generalized osteoarthritis of multiple sites M15.9 Status post gastric bypass for obesity Z98.84 Bilateral pulmonary embolism I26.99 Anemia D64.9 DVT prophylaxis Z29.9
[2020-03-30] MEDS ORDERED: QUETIAPINE FUMARATE 25 MG TABLET PO ONE (18:11)
[2020-03-31] MEDS: CHOLECALCIFEROL 1,000 UNITS 25 MCG TAB PO SCH (09:58)
[2020-03-31] MEDS: FAMOTIDINE 20 MG TAB PO SCH (09:59)
[2020-03-31] MEDS: APIXABAN 5 MG TABLET PO SCH (09:59)
[2020-03-31] MEDS: ESCITALOPRAM OXALATE 10 MG TAB PO SCH (09:59)
[2020-03-31] MEDS: MEMANTINE HCL 10 MG TAB PO SCH (10:00)
[2020-03-31] MEDS: MULTIVITAMIN TAB PO SCH (10:00)
[2020-03-31] MEDS: DONEPEZIL HCL 10 MG TAB PO SCH (10:00)
[2020-03-31] MEDS: PANTOprazole 40 MG TAB PO SCH (10:00)
[2020-03-31] MEDS: POLYETHYLENE (MIRALAX) 17 GM PACK PO SCH (10:00)
[2020-03-31] MEDS: SUCRALFATE 1 GM/10 ML UDC PO SCH ×2 (10:01→12:35)
[2020-03-31] MEDS: ACETAMINOPHEN 325 MG TAB PO SCH (10:02)
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
[2020-03-31 10:38] LABS: Basophils # (auto) 0.03 K/uL (0-0.2); Basophils % (auto) 0.5 %; Eosinophils # (auto) 0.09 K/uL (0-0.5); Eosinophils % (auto) 1.6 %; Hematocrit (blood only) 36.2 % (37-47); Hemoglobin 11.2 g/dL (12.0-16.0); Immature Granulocytes # (auto) 0.03 K/uL (0.00-0.02); Immature Granulocytes % (auto) 0.5 %; Lymphocytes # (auto) 0.45 K/uL (1.2-3.4); Lymphocytes % (auto) 8.2 %; Mean Corpuscular Hemoglobin 26.5 pg (25-34); Mean Corpuscular Hgb Conc 30.9 g/dL (32-36); Mean Corpuscular Volume 85.8 fL (80-100); Mean Platelet Volume 9.7 fL (7.4-10.4); Monocytes # (auto) 0.33 K/uL (0.11-0.59); Neutrophils # (auto) 4.56 K/uL (1.4-6.5); Neutrophils % (auto) 83.2 %; Nucleated RBC # (auto) 0.03 K/uL (0-0); Nucleated RBC % (auto) 0.5 %; Platelet Count 339 K/uL (130-400); RDW Standard Deviation 57.3 fL (36.4-46.3); Red Blood Count 4.22 M/uL (4.2-5.4); White Blood Count 5.49 K/uL (4.8-10.8)
[2020-03-31 10:58] LABS: Albumin Level 3.2 gm/dl (3.4-5.0); BUN Creatinine Ratio 19.2 (10-20); Calcium 9.3 mg/dl (8.5-10.1); Creatinine Clr Calc Pharmacy 59.5 ml/min; Est GFR (African American) 90.4; Potassium 3.4 mmol/L (3.5-5.1)
[2020-03-31 11:00] LABS: Albumin Globulin Ratio 0.9 (0.9-2); Bilirubin,Total 0.9 mg/dl (0.2-1); Globulin 3.7 gm/dl (2.5-4.0); Total Protein 6.9 gm/dl (6.4-8.2)
[2020-03-31] MEDS ORDERED: POTASSIUM CHLORIDE 20 MEQ TABCR PO STA (11:06)
--- NOTE | 2020-04-01 06:23 | Electrocardiogram Report ---
Test Reason : Blood Pressure : / mmHG Vent. Rate : 058 BPM Atrial Rate : 058 BPM P-R Int : 188 ms QRS Dur : 092 ms QT Int : 436 ms P-R-T Axes : 079 036 071 degrees QTc Int : 428 ms Sinus bradycardia Otherwise normal ECG When compared with ECG of 25-MAR-2020 12:38, No significant change Confirmed by Kamar Gabriel ([id number]) on 04/01/2020 6:23:04 AM Referred By: REFERRED SELF Confirmed By:Kamar Gabriel
== END 2020-03-31 13:52 | DRG 57 ==
LOC: ED 13:56 → 2W 18:56 → SUATTDRO 18:56 → 2W 19:34 → 2N 03-24 18:13 → 3N 03-24 23:38

== ENCOUNTER 2022-07-15 10:38 | Observation (INO) ==
--- NOTE | 2022-07-15 11:13 | Emergency Department Note ---
History of Present Illness General Chief complaint: Syncope Stated complaint: SYNCOPE Time Seen by Provider: 07/15/22 11:00 Source: patient, EMS, RN notes reviewed and old records reviewed Mode of arrival: EMS Limitations: other ( ) History of Present Illness This patient is a 86-year-old female who has a history of dementia and is from the [facility] side, comes in after apparently having a syncopal episode. She had a syncopal episode and had seizure-like activity afterwards briefly. There is no tongue biting. She is at her baseline at present she is alert to person only she answers questions vaguely but appropriately and does follow commands. She denies any complaints at present except for belching a lot no chest pain no shortness of breath no focal numbness or weakness denies any recent illness. Home Medications Medication Instructions Recorded Confirmed Type cranberry extract 500 mg capsule 450 mg PO DAILY 08/09/19 11/09/21 History (Cranberry Concentrate) multivitamin (Daily-Tone tablet) 1 tab PO DAILY 08/09/19 11/09/21 History pantoprazole 40 mg tablet,delayed 40 mg PO BID #60 tabs 10/12/19 11/09/21 Rx release (Protonix) diaper,brief,adult,disposable #160 ea 03/12/20 08/06/21 Rx donepezil 10 mg tablet (Aricept) 10 mg PO BID #60 tabs 03/12/20 11/09/21 Rx vitamins A,C,D-mxtz-jlzsad 2,148 1 tab PO BID #60 tabs 03/12/20 11/09/21 Rx mcg-113 mg-45 mg-17.4 mg tablet (PreserVision AREDS) ferrous sulfate 325 mg (65 mg 325 mg PO QPM 03/21/20 11/09/21 History iron) tablet,delayed release apixaban 5 mg tablet (Eliquis) 5 mg PO BID #30 tabs 03/31/20 11/09/21 Rx sucralfate 1 gram tablet (Carafate) 1 g PO ACHS 09/07/21 11/09/21 History bisacodyl 5 mg tablet 20 mg PO UD 10/26/21 10/26/21 History cholecalciferol (vitamin D3) 25 1,000 unit PO DAILY 10/26/21 11/09/21 History mcg (1,000 unit) tablet (Vitamin D3) escitalopram oxalate 10 mg tablet 5 mg PO Q2D 10/26/21 11/09/21 History ibuprofen 200 mg tablet 400 mg PO Q4H PRN PAIN LEVEL 1-4 10/26/21 10/26/21 History lanolin alcohols-mineral 1 applic topical UD PRN UPPER 10/26/21 10/26/21 History oil-w.petrolatum-ceresin topical EXTREMITIES cream (Eucerin topical cream) magnesium hydroxide 800 mg/5 mL 1,200 mg PO UD PRN Constipation 10/26/21 10/26/21 History oral suspension mineral oil 118 ml [place] UD PRN Constipation 10/26/21 10/26/21 History polyethylene glycol 1 ea miscellaneous UD PRN 10/26/21 10/26/21 History COLONOSCOPY PREP tramadol 50 mg tablet 50 mg PO Q4H PRN PAIN LEVEL 5-10 10/26/21 10/26/21 History Allergies Allergy/AdvReac Type Severity Reaction Status Date / Time procaine Allergy Severe THROAT Verified 11/09/21 11:59 SWELLING WITH NOVOCAINE - see notes acetaminophen [From Lortab] Allergy Unknown ACETAMINOPHEN Verified 11/09/21 11:59 LISTED, NO REACTION LISTED ON INFORMATION codeine Allergy Unknown NO Verified 11/09/21 11:59 REACTION LISTED ON INFORMATION hydrocodone AdvReac Unknown NO Verified 11/09/21 11:59 REACTION LISTED ON INFORMATION SENT oxycodone AdvReac Unknown NO Verified 11/09/21 11:59 REACTION LISTED ON INFORMATION SENT Past Med/Surg History Medical History Abnormal posture INFO SENT FROM [facility] Acid reflux disease Allergic rhinitis Alzheimer disease INFO SENT FROM [facility] Alzheimer's disease Anemia Anxiety Aortic valve sclerosis Atrial fibrillation, transient Bilateral pulmonary embolism Cardiomyopathy Cardiomyopathy INFO SENT FROM [facility] Chronic diastolic (congestive) heart failure Chronic iron deficiency anemia Cognitive communication deficit INFO SENT FROM [facility] Constipation INFO SENT FROM [facility] Dementia Depression Diabetes mellitus Diabetic peripheral neuropathy associated with type 2 diabetes mellitus Esophagitis Generalized muscle weakness INFO SENT FROM [facility] GERD (gastroesophageal reflux disease) GERD without esophagitis INFO SENT FROM [facility] History of COVID-19 INFO SENT FROM [facility] 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 History of pulmonary embolus (PE) INFO SENT FROM [facility] Hx pulmonary embolism Hypothyroidism Macular degeneration Malabsorption syndrome senior care resident Obstructive sleep apnea DAMIAN (obstructive sleep apnea) INFO SENT FROM [facility] Osteoporosis Other recurrent depressive disorders INFO SENT FROM [facility] Pancreatitis Polyosteoarthritis INFO SENT FROM [facility] PUD (peptic ulcer disease) Pulmonary hypertension Pulmonary nodule Recurrent pancreatitis Sleep apnea TIA (transient ischemic attack) 1992 Type 2 diabetes mellitus without complications Unspecified dementia with behavioral disturbance INFO SENT FROM [facility] Surgical History H/O colonoscopy H/O gastric bypass H/O total knee replacement left History of appendectomy History of bariatric surgery INFO SENT FROM [facility] History of cholecystectomy History of esophagogastroduodenoscopy (EGD) History of shoulder surgery History of tubal ligation History of vaginal hysterectomy Family History Mother Diabetes Liver cancer Father Congestive heart failure Myocardial infarction Stroke syndrome Sister Systemic lupus erythematosus Thrombotic thrombocytopenic purpura Denies family history of Ovarian cancer Prostate cancer Breast cancer Colorectal cancer Social History Smoking Status: Former smoker Second Hand Exposure: No; Hx Alcohol Use: No Hx Substance Use: No Preferred Language: Lebanese Communication Ability: Impaired Communication Ability Comment: Patient confused, baseline Save All Operator Required: No Beliefs That Will Affect Care: None marital status: / Current Living Situation: Personal Care Facility Current Living Situation Comment: [facility] current occupational status: retired Other Information That Helps Us Care for You: No Feels Safe at Home: Declines to Answer Dental Care, Regularly: No Physical Activity Frequency: 1-2 Times per Week Seatbelt Use: always Sunscreen Use: No Assistive Devices: Glasses Review of Systems A total of 10 systems reviewed and were otherwise negative Physical Exam Vital Signs Vital Signs - 24 hr 07/15/22 10:51 07/15/22 11:24 07/15/22 11:24 Temperature 36.4 C L Temperature Source Oral Pulse Rate 47 L 55 L Pulse Rate [Apical] Respiratory Rate 22 18 Respiratory Effort / Characteristics Non-Labored Respiratory Depth Normal Blood Pressure 125/58 L Blood Pressure [Right Arm] Blood Pressure Mean 80 Blood Pressure Mean [Right Arm] Blood Pressure Position Semi-fowlers Pulse Oximetry 99 100 100 Oxygen Delivery Method Room Air Room Air Room Air Sepsis Recent Fever Within 48 Hours No Sepsis New/Unexplained Change in Mental Status No Sepsis Action Taken by Nursing No Action Required 07/15/22 11:31 07/15/22 13:00 Temperature Temperature Source Pulse Rate Pulse Rate [Apical] 48 L 52 L Respiratory Rate 18 18 Respiratory Effort / Characteristics Respiratory Depth Blood Pressure Blood Pressure [Right Arm] 124/59 L 141/49 H Blood Pressure Mean Blood Pressure Mean [Right Arm] 80 79 Blood Pressure Position Pulse Oximetry 97 96 Oxygen Delivery Method Room Air Room Air Sepsis Recent Fever Within 48 Hours Sepsis New/Unexplained Change in Mental Status Sepsis Action Taken by Nursing General: Well developed well nourished older female who is alert to person only but follows commands and answers most questions a probe in no acute distress, breathing comfortably on room air. Normal speech HEENT: Normal cephalic atraumatic. Pupils are equal round and reactive to light. Extraocular movements are intact. Oropharynx is pink with moist mucous membranes. No swelling of the mouth lips or tongue. Neck: Supple with a midline trachea. No meningeal signs or stiffness, no JVD or bruits. No Stridor. Chest: Clear to auscultation bilaterally. No wheezes or rhonchi. No increased work of breathing. Heart: Regular rate and rhythm without murmurs or gallops. Abdomen: Soft nontender, nondistended without rebound guarding or rigidity. Extremities: No cyanosis clubbing or edema. No calf tenderness or assymetry Spine/Back. Non tender to palpation. No CVA tenderness Skin: Good turgor without rashes. Neurologic exam: Cranial nerves two through 12 are intact. Motor and sensation are intact and symmetrical throughout. Course Administered Medications Sucralfate (Sucralfate 1 Gm Tab) 1 gm PO [facility] Stop: 08/14/22 16:29 Last Admin: 07/15/22 16:23 Dose: 1 gm Documented By: RICARDO Medical Decision Making Differential Diagnosis Syncope, arrhythmia, electrolyte or metabolic abnormality, anemia, acute coronary syndrome, neurologic disease Medical Records Attestation: I reviewed the patient's medical records. Home Medications Current Medication List: was personally reviewed by me Laboratory Data Attestation: I reviewed the patient's lab results. Result diagrams: 07/15/22 10:45 07/15/22 10:45 Lab Results 07/15/22 07/15/22 07/15/22 Range/Units 10:45 10:45 10:45 WBC 6.23 (4.8-10.8) K/ul RBC 3.45 L (3.93-5.22) M/uL Hgb 10.7 L (12.0-16.0) g/dl Hct 33.8 L (34.1-44.9) % MCV 98.0 (80.0-100.0) fL MCH 31.0 (25.0-34.0) pg MCHC 31.7 L (32.0-36.0) g/dL RDW Std Deviation 53.8 H (36.4-46.3) fL RDW Coeff of Sebastian 14.7 H (11.5-14.5) % Plt Count 259 (130-400) K/uL MPV 10.6 (9.4-12.3) fL Immature Gran % (Auto) 0.3 % Neut % (Auto) 85.4 % Lymph % (Auto) 6.1 % [place] % (Auto) 5.5 % Eos % (Auto) 1.9 % Baso % (Auto) 0.8 % Neut # (Auto) 5.32 (1.4-6.5) K/uL Lymph # (Auto) 0.38 L (1.2-3.4) K/uL [place] # (Auto) 0.34 (0.24-0.82) K/uL Eos # (Auto) 0.12 (0-0.50) K/uL Baso # (Auto) 0.05 (0-0.2) K/uL Immature Gran # (Auto) 0.02 (0.00-0.02) K/uL PT 11.3 (9.0-12.0) Seconds INR 1.1 (0.9-1.1) APTT 29.6 (21.0-31.0) Seconds PTT Ratio 1.1 Sodium 139 (136-145) mmol/L Potassium 4.0 (3.5-5.1) mmol/L Chloride 106 (98-107) mmol/L Carbon Dioxide 28 (21-32) mmol/L Anion Gap 5 (3-11) BUN 16 (6-23) mg/dl Creatinine 0.46 L (0.6-1.2) mg/dl Est Cr Clr Drug Dosing 72.0 ml/min Est GFR ( Amer) 105.9 ml/min Est GFR (Non-Af Amer) 91.3 ml/min BUN/Creatinine Ratio 34.8 H (10-20) Glucose 98 (70-99(Fasting)) mg/dl Calcium 9.1 (8.5-10.1) mg/dl Magnesium 2.1 (1.7-2.4) mg/dl Total Bilirubin 0.9 (0.2-1.0) mg/dl AST 59 H (13-39) U/L ALT 32 (7-52) U/L Alkaline Phosphatase 80 (34-104) U/L Troponin I High Sens 5.1 (0-14) pg/ml Total Protein 5.8 L (6.0-8.3) gm/dl Albumin 3.2 L (3.4-5.0) gm/dl Globulin 2.6 (2.5-4.0) gm/dl Albumin/Globulin Ratio 1.2 (0.9-2) TSH (0.300-4.500) uIu/ml Free T4 (0.61-1.60) ng/dl Urine Color Urine Appearance (Clear) Urine pH (4.5-7.5) Ur Specific Hugo (1.000-1.030) Urine Protein (Negative) Urine Glucose (UA) (Negative) Urine Ketones (Negative) Urine Blood (Negative) Urine Nitrite (Negative) Urine Bilirubin (Negative) Urine Urobilinogen (Negative) Ur Leukocyte Esterase (Negative) Urine WBC (Auto) (0-5) /hpf Urine RBC (Auto) (0-4) /hpf U Hyaline Cast (Auto) (0-5) /lpf U Epithel Cells (Auto) (0-5) /lpf Urine Bacteria (Auto) (Negative) Ur Renal Epithelial Cell SARS-CoV-2, RNA, NAAT (NEGATIVE) 07/15/22 07/15/22 07/15/22 Range/Units 10:45 11:19 12:15 WBC (4.8-10.8) K/ul RBC (3.93-5.22) M/uL Hgb (12.0-16.0) g/dl Hct (34.1-44.9) % MCV (80.0-100.0) fL MCH (25.0-34.0) pg MCHC (32.0-36.0) g/dL RDW Std Deviation (36.4-46.3) fL RDW Coeff of Sebastian (11.5-14.5) % Plt Count (130-400) K/uL MPV (9.4-12.3) fL Immature Gran % (Auto) % Neut % (Auto) % Lymph % (Auto) % [place] % (Auto) % Eos % (Auto) % Baso % (Auto) % Neut # (Auto) (1.4-6.5) K/uL Lymph # (Auto) (1.2-3.4) K/uL [place] # (Auto) (0.24-0.82) K/uL Eos # (Auto) (0-0.50) K/uL Baso # (Auto) (0-0.2) K/uL Immature Gran # (Auto) (0.00-0.02) K/uL PT (9.0-12.0) Seconds INR (0.9-1.1) APTT (21.0-31.0) Seconds PTT Ratio Sodium (136-145) mmol/L Potassium (3.5-5.1) mmol/L Chloride (98-107) mmol/L Carbon Dioxide (21-32) mmol/L Anion Gap (3-11) BUN (6-23) mg/dl Creatinine (0.6-1.2) mg/dl Est Cr Clr Drug Dosing ml/min Est GFR ( Amer) ml/min Est GFR (Non-Af Amer) ml/min BUN/Creatinine Ratio (10-20) Glucose (70-99(Fasting)) mg/dl Calcium (8.5-10.1) mg/dl Magnesium (1.7-2.4) mg/dl Total Bilirubin (0.2-1.0) mg/dl AST (13-39) U/L ALT (7-52) U/L Alkaline Phosphatase (34-104) U/L Troponin I High Sens (0-14) pg/ml Total Protein (6.0-8.3) gm/dl Albumin (3.4-5.0) gm/dl Globulin (2.5-4.0) gm/dl Albumin/Globulin Ratio (0.9-2) TSH 6.519 H (0.300-4.500) uIu/ml Free T4 1.07 (0.61-1.60) ng/dl Urine Color Dark Yellow Urine Appearance Clear (Clear) Urine pH 6.0 (4.5-7.5) Ur Specific Hugo 1.022 (1.000-1.030) Urine Protein Negative (Negative) Urine Glucose (UA) Negative (Negative) Urine Ketones 1+ H (Negative) Urine Blood Negative (Negative) Urine Nitrite Negative (Negative) Urine Bilirubin Negative (Negative) Urine Urobilinogen Negative (Negative) Ur Leukocyte Esterase Trace H (Negative) Urine WBC (Auto) 5-10 H (0-5) /hpf Urine RBC (Auto) 5-10 H (0-4) /hpf U Hyaline Cast (Auto) 1-5 (0-5) /lpf U Epithel Cells (Auto) >30 H (0-5) /lpf Urine Bacteria (Auto) 1+ H (Negative) Ur Renal Epithelial Cell Not Reportable SARS-CoV-2, RNA, NAAT NEGATIVE (NEGATIVE) Imaging Data Attestation: I personally reviewed and interpreted this imaging study as follows: My Impression: Chest x-rayno acute infiltrate, failure, pneumothorax seen Radiologist's Impression: Chest X-Ray 07/15/22 11:09 XR chest 1V portable HISTORY: syncope COMPARISON: Chest 03/23/2020. FINDINGS: No pneumothorax. No pleural effusions. The cardiac silhouette remains mildly enlarged. There is mild chronic interstitial thickening, unchanged. No new focal lung consolidations to suggest a pneumonia. No evidence for pulmonary edema. Advanced degenerative changes/deformity within the shoulders again noted. Old, healed left-sided rib fractures. IMPRESSION: No significant change compared to the prior study. No acute process. ACT 112: Negative or not required by law. Electronically signed by: Slava Bishop M.D. 07/15/2022 11:39 AM ECG Data Attestation: I personally reviewed and interpreted this ECG as follows: Indication: + syncope Rate (beats per minute): 47 Rhythm: + sinus bradycardia ECG Intervals/blocks: + Normal QRS, + Normal QT and + Normal [place] ECG [place]: + Normal ECG ST segments: + Normal ST segments ECG Findings: + PACs; no PVCs Comparison ECG Date: from (03/31/20) Change: the following changes noted (PACs are now present and rate is slightly slower) MDM Narrative This patient is an 86-year-old female who comes in after having a syncopal episode she is asymptomatic at present her heart rate is low at 47 however last time she was in the 50s. IV access was established and multiple blood testing was obtained . chest x-ray was obtained. She was COVID tested I reviewed her chart. She was reassessed frequently. She has baseline anemia at 10.1. She has no white count or fever to suggest infection or sepsis. I did talk to her son at length and he agrees with the care and does confirm that she is a full code. She has no electrolyte or metabolic abnormalities. Her initial troponin is negative but given her syncopal episode I do think she needs to be admitted/observed for further inpatient treatment and evaluation. I have consulted the hospitalist to see her for these measures Continuous cardiac monitoring: Orders placed in EMR for continuous cardiac monitoring. Upon my interpretation patient was noted to be in sinus bradycardia with a rate of 45 Impression & Plan Syncope, Alzheimer's disease, Bradycardia, sinus, Lab test negative for COVID- 19 virus Discharge Plan Visit Data Chief Complaint: Syncope Stated Complaint: SYNCOPE ED Provider: Vivek Segovia Discharge Problem: Syncope, Alzheimer's disease, Bradycardia, sinus, Lab test negative for COVID- 19 virus Patient Disposition: Admitted As Inpatient Discharge Instructions Interventions: ED Discharge Assessment Last Done: 07/15/22 14:02
[2022-07-15 11:19] LABS: Basophils # (auto) 0.05 K/uL (0-0.2); Basophils % (auto) 0.8 %; Eosinophils # (auto) 0.12 K/uL (0-0.50); Eosinophils % (auto) 1.9 %; Hematocrit (blood only) 33.8 % (34.1-44.9); Hemoglobin 10.7 g/dl (12.0-16.0); Immature Granulocytes # (auto) 0.02 K/uL (0.00-0.02); Immature Granulocytes % (auto) 0.3 %; Lymphocytes # (auto) 0.38 K/uL (1.2-3.4); Lymphocytes % (auto) 6.1 %; Mean Corpuscular Hgb Conc 31.7 g/dL (32.0-36.0); Mean Platelet Volume 10.6 fL (9.4-12.3); Monocytes # (auto) 0.34 K/uL (0.24-0.82); Monocytes % (auto) 5.5 %; Neutrophils # (auto) 5.32 K/uL (1.4-6.5); Neutrophils % (auto) 85.4 %; Platelet Count 259 K/uL (130-400); RDW Coefficient of Variation 14.7 % (11.5-14.5); RDW Standard Deviation 53.8 fL (36.4-46.3); Red Blood Count 3.45 M/uL (3.93-5.22); White Blood Count 6.23 K/ul (4.8-10.8)
[2022-07-15 11:32] LABS: INR 1.1 (0.9-1.1); Partial Thromboplastin Ratio 1.1; Partial Thromboplastin Time 29.6 Seconds (21.0-31.0); Prothrombin Time 11.3 Seconds (9.0-12.0)
--- NOTE | 2022-07-15 11:40 | XRay Report ---
XR chest 1V portable HISTORY: syncope COMPARISON: Chest 03/23/2020. FINDINGS: No pneumothorax. No pleural effusions. The cardiac silhouette remains mildly enlarged. Ther e is mild chronic interstitial thickening, unchanged. No new focal lung consolidations to suggest a p neumonia. No evidence for pulmonary edema. Advanced degenerative changes/deformity within the shoulde rs again noted. Old, healed left-sided rib fractures. IMPRESSION: No significant change compared to the prior study. No acute process. ACT 112: Negative or not required by law. Electronically signed by: Slava Bishop M.D. 07/15/2022 11:39 AM
[2022-07-15 11:42] LABS: Albumin Globulin Ratio 1.2 (0.9-2); Albumin Level 3.2 gm/dl (3.4-5.0); BUN Creatinine Ratio 34.8 (10-20); Bilirubin,Total 0.9 mg/dl (0.2-1.0); Calcium 9.1 mg/dl (8.5-10.1); Est GFR (African American) 105.9 ml/min; Est GFR (Non-African American) 91.3 ml/min; Globulin 2.6 gm/dl (2.5-4.0); Magnesium 2.1 mg/dl (1.7-2.4); Total Protein 5.8 gm/dl (6.0-8.3); Troponin I High Sensitivity 5.1 pg/ml (0-14)
[2022-07-15 11:52] LABS: Thyroid Stimulating Hormone 6.519 uIu/ml (0.300-4.500)
[2022-07-15 12:32] LABS: Appearance Urine Clear (Clear); Bacteria Urine Automated 1+ (Negative); Bilirubin Urine Negative (Negative); Blood Urine Negative (Negative); Color Urine Dark Yellow; Epithelial Cell Urine Auto >30 /lpf (0-5); Glucose Urine UA Negative (Negative); Ketones Urine 1+ (Negative); Leukocyte Esterase Urine Trace (Negative); Nitrite Urine Negative (Negative); Protein Urine Negative (Negative); Specific Gravity Urine 1.022 (1.000-1.030); Urobilinogen Urine Negative (Negative)
[2022-07-15 12:46] LABS: T4 Free Thyroxine 1.07 ng/dl (0.61-1.60)
--- NOTE | 2022-07-15 13:15 | History & Physical Report ---
Date of Service July 15, 2022 Assessment & Plan (1) Syncope: Plan: -Admit to med tele -At this time the etiology of the patient's syncopal episode is not clear at this time, from the story EMS gave the ED staff it sounds more like a vasovagal episode but cannot rule out cardiac causes, stroke, and seizure. It does not appear that the patient has a history of seizures and is not on antiepileptic medications at this time. -Currently afebrile, hemodynamically stable, stable on room air, but in sinus bradycardia in the 40's-50's -No focal neuro defets on exam and the staff at [facility] confirmed with EMS that the patient was back to their neuro baseline prior to transport to the ED. Patient does not appear infectious, no leukocytosis, UA appears clean. -Not on any rate reducing medications at this time but she is on Donepezil which can cause bradycardia -Will monitor on tele, will obtain TTE, obtaining STAT head CT and will then get MRI of the brain with seizure protocol -Will hold Donepezil for now as she had her am dose until the rest of the workup is completed -AM CBC and BMP (2) Bradycardia, sinus: Plan: -Upon review, it appears she has been bradycardic during prior admissions but normally in the 50's -Not on any rate reducing medications but is on Donepezil -Will monitor on tele and do the working mentioned in the syncope section -Will obtain orthostatic vitals (3) Iron deficiency anemia: Plan: -Hgb is stable -Continue ferrous sulfate (4) GERD (gastroesophageal reflux disease): Plan: -Continue protonix (5) Depression with anxiety: Plan: -Continue Lexapro (6) Dementia: Plan: -Normally on Donepezil 10 mg BID, will hold for now while the rest of her workup is completed (7) Bilateral pulmonary embolism: Plan: -Had am dose of Eliquis, will hold eliquis for now until head imaging is obtaine d and we can officially rule out bleeding (8) Obstructive sleep apnea: Plan: -No CPAP machine listed in her documentation, monitor for now (9) Alzheimer's disease: Plan: -See dementia Plan The patient was discussed with Dr. Lynn at the time of the admission History of Present Illness Chief Complaint: Syncope/Questionable seizure activity Primary Care Provider: [facility] Jan is an 86 year old female with a PMH significant for Alzheimer's dementia, hx of BL PE's on Eliquis, depression, anxiety, DAMIAN, diastolic heart failure with mitral regurgitation and aortic valve sclerosis who presented to the [facility] ED from [facility] due to syncope/possible seizure-like activity. In the ED the patient was found to be afebrile, hemodynamically stable, stable on RA, but bradycardic in the 40's-50's. Labs were remarkable for a stable Hgb, WBC WNL, stable kidney function and electrolytes, high sensitivity troponin of 5.1, TSH of 6.5 with Free T4 of 1.07, and UA not suggestive of infection. Chest xray was negative for acute findings. At the time of the exam the patient was sitting comfortably in bed in no acute distress. A reliable history is difficult to obtain from her due to her baseline mental status, she is only oriented to self and had no idea that she had a syncopal episode earlier today. The story from the ED staff is that the patient had a syncopal episode this morning and was noted to having shaking in her arms witnessed by the staff at [facility]. It was reported that the patient was back to her baseline upon waking. The patient is currently calm, pleasant, and cooperative, she denies pain of any kind. Allergies Allergy/AdvReac Type Severity Reaction Status Date / Time procaine Allergy Severe THROAT Verified 11/09/21 11:59 SWELLING WITH NOVOCAINE - see notes acetaminophen [From Lortab] Allergy Unknown ACETAMINOPHEN Verified 11/09/21 11:59 LISTED, NO REACTION LISTED ON INFORMATION codeine Allergy Unknown NO Verified 11/09/21 11:59 REACTION LISTED ON INFORMATION hydrocodone AdvReac Unknown NO Verified 11/09/21 11:59 REACTION LISTED ON INFORMATION SENT oxycodone AdvReac Unknown NO Verified 11/09/21 11:59 REACTION LISTED ON INFORMATION SENT Home Medications Medication Instructions Recorded Confirmed Type cranberry extract 500 mg capsule 450 mg PO DAILY 08/09/19 11/09/21 History (Cranberry Concentrate) multivitamin (Daily-Tone tablet) 1 tab PO DAILY 08/09/19 11/09/21 History pantoprazole 40 mg tablet,delayed 40 mg PO BID #60 tabs 10/12/19 11/09/21 Rx release (Protonix) diaper,brief,adult,disposable #160 ea 03/12/20 08/06/21 Rx donepezil 10 mg tablet (Aricept) 10 mg PO BID #60 tabs 03/12/20 11/09/21 Rx vitamins A,C,D-ofkn-cobaqy 2,148 1 tab PO BID #60 tabs 03/12/20 11/09/21 Rx mcg-113 mg-45 mg-17.4 mg tablet (PreserVision AREDS) ferrous sulfate 325 mg (65 mg 325 mg PO QPM 03/21/20 11/09/21 History iron) tablet,delayed release apixaban 5 mg tablet (Eliquis) 5 mg PO BID #30 tabs 03/31/20 11/09/21 Rx sucralfate 1 gram tablet (Carafate) 1 g PO ACHS 09/07/21 11/09/21 History bisacodyl 5 mg tablet 20 mg PO UD 10/26/21 10/26/21 History cholecalciferol (vitamin D3) 25 1,000 unit PO DAILY 10/26/21 11/09/21 History mcg (1,000 unit) tablet (Vitamin D3) escitalopram oxalate 10 mg tablet 5 mg PO Q2D 10/26/21 11/09/21 History ibuprofen 200 mg tablet 400 mg PO Q4H PRN PAIN LEVEL 1-4 10/26/21 10/26/21 History lanolin alcohols-mineral 1 applic topical UD PRN UPPER 10/26/21 10/26/21 History oil-w.petrolatum-ceresin topical EXTREMITIES cream (Eucerin topical cream) magnesium hydroxide 800 mg/5 mL 1,200 mg PO UD PRN Constipation 10/26/21 10/26/21 History oral suspension mineral oil 118 ml KS UD PRN Constipation 10/26/21 10/26/21 History polyethylene glycol 1 ea miscellaneous UD PRN 10/26/21 10/26/21 History COLONOSCOPY PREP tramadol 50 mg tablet 50 mg PO Q4H PRN PAIN LEVEL 5-10 10/26/21 10/26/21 History Past Med/Surg History Medical History Abnormal posture INFO SENT FROM [facility] Acid reflux disease Allergic rhinitis Alzheimer disease INFO SENT FROM [facility] Alzheimer's disease Anemia Anxiety Aortic valve sclerosis Atrial fibrillation, transient Bilateral pulmonary embolism Cardiomyopathy Cardiomyopathy INFO SENT FROM [facility] Chronic diastolic (congestive) heart failure Chronic iron deficiency anemia Cognitive communication deficit INFO SENT FROM [facility] Constipation INFO SENT FROM [facility] Dementia Depression Diabetes mellitus Diabetic peripheral neuropathy associated with type 2 diabetes mellitus Esophagitis Generalized muscle weakness INFO SENT FROM [facility] GERD (gastroesophageal reflux disease) GERD without esophagitis INFO SENT FROM [facility] History of COVID-19 INFO SENT FROM [facility] 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 History of pulmonary embolus (PE) INFO SENT FROM [facility] Hx pulmonary embolism Hypothyroidism Macular degeneration Malabsorption syndrome [facility] resident Obstructive sleep apnea DAMIAN (obstructive sleep apnea) INFO SENT FROM [facility] Osteoporosis Other recurrent depressive disorders INFO SENT FROM [facility] Pancreatitis Polyosteoarthritis INFO SENT FROM [facility] PUD (peptic ulcer disease) Pulmonary hypertension Pulmonary nodule Recurrent pancreatitis Sleep apnea TIA (transient ischemic attack) 1992 Type 2 diabetes mellitus without complications Unspecified dementia with behavioral disturbance INFO SENT FROM [facility] Surgical History H/O colonoscopy H/O gastric bypass H/O total knee replacement left History of appendectomy History of bariatric surgery INFO SENT FROM [facility] History of cholecystectomy History of esophagogastroduodenoscopy (EGD) History of shoulder surgery History of tubal ligation History of vaginal hysterectomy Family History Mother Diabetes Liver cancer Father Congestive heart failure Myocardial infarction Stroke syndrome Sister Systemic lupus erythematosus Thrombotic thrombocytopenic purpura Denies family history of Ovarian cancer Prostate cancer Breast cancer Colorectal cancer Social History Smoking Status: Former smoker Second Hand Exposure: No; Hx Alcohol Use: No Hx Substance Use: No Preferred Language: [place] Irish Communication Ability: Impaired Communication Ability Comment: Patient confused, baseline 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: No Beliefs That Will Affect Care: None marital status: / Current Living Situation: Personal Care Facility Current Living Situation Comment: [facility] current occupational status: retired Other Information That Helps Us Care for You: No Feels Safe at Home: Declines to Answer Dental Care, Regularly: No Physical Activity Frequency: 1-2 Times per Week Seatbelt Use: always Sunscreen Use: No Assistive Devices: Glasses Review of Systems Review of Systems: Unable to obtain reliable ROS due to the patient's baseline mental status Physical Exam Physical Exam: Physical Exam: General: In no acute distress, stated age, poor hygiene HEENT: Normocephalic, atraumatic, no scleral icterus, pupils around round, symmetrical, and reactive to light, dry mucus membranes, trachea midline, no thyromegaly Chest/Pulm: No respiratory distress, symmetrical chest expansion, clear breath sounds throughout Cardiac: Bradycardic rate, regular rhythm, no murmurs noted Abdomen: Negative for ascites and bruising, normoactive bowel sounds, soft, non-tender to palpation throughout Musculoskeletal: Symmetrical and without signs of acute trauma, upper and lower extremities with full ROM, no atrophy, spasticity, or flaccidity Extremities: Radial, dorsalis pedis, and posterior tibial pulses are intact and symmetrical, no edema noted in the BL LE's Skin: Warm, dry, no rashes , lesions, or scars noted Neuro: Alert and oriented to person only, not to place, month, year, or president, no focal defects, CN II-XII tested and intact, Psych: No acute distress, calm and cooperative during the exam Results & Data Results & [facility] ([facility]) Vital Signs (Past 12 Hours) Vital Signs Temp Pulse Pulse Resp BP BP Pulse Ox 07/15/22 11:31 48 L 18 124/59 L 97 07/15/22 11:24 55 L 18 100 07/15/22 11:24 100 07/15/22 10:51 36.4 C L 47 L 22 125/58 L 99 O2 Del Method 07/15/22 11:31 Room Air 07/15/22 11:24 Room Air 07/15/22 11:24 Room Air 07/15/22 10:51 Room Air Laboratory Results Abnormal lab results 07/15/22 07/15/22 07/15/22 Range/Units 10:45 10:45 10:45 RBC 3.45 L (3.93-5.22) M/uL Hgb 10.7 L (12.0-16.0) g/dl Hct 33.8 L (34.1-44.9) % MCHC 31.7 L (32.0-36.0) g/dL RDW Std Deviation 53.8 H (36.4-46.3) fL RDW Coeff of Sebastian 14.7 H (11.5-14.5) % Lymph # (Auto) 0.38 L (1.2-3.4) K/uL Creatinine 0.46 L (0.6-1.2) mg/dl BUN/Creatinine Ratio 34.8 H (10-20) AST 59 H (13-39) U/L Total Protein 5.8 L (6.0-8.3) gm/dl Albumin 3.2 L (3.4-5.0) gm/dl TSH 6.519 H (0.300-4.500) uIu/ml Urine Ketones (Negative) Ur Leukocyte Esterase (Negative) Urine WBC (Auto) (0-5) /hpf Urine RBC (Auto) (0-4) /hpf U Epithel Cells (Auto) (0-5) /lpf Urine Bacteria (Auto) (Negative) 07/15/22 Range/Units 12:15 RBC (3.93-5.22) M/uL Hgb (12.0-16.0) g/dl Hct (34.1-44.9) % MCHC (32.0-36.0) g/dL RDW Std Deviation (36.4-46.3) fL RDW Coeff of Sebastian (11.5-14.5) % Lymph # (Auto) (1.2-3.4) K/uL Creatinine (0.6-1.2) mg/dl BUN/Creatinine Ratio (10-20) AST (13-39) U/L Total Protein (6.0-8.3) gm/dl Albumin (3.4-5.0) gm/dl TSH (0.300-4.500) uIu/ml Urine Ketones 1+ H (Negative) Ur Leukocyte Esterase Trace H (Negative) Urine WBC (Auto) 5-10 H (0-5) /hpf Urine RBC (Auto) 5-10 H (0-4) /hpf U Epithel Cells (Auto) >30 H (0-5) /lpf Urine Bacteria (Auto) 1+ H (Negative) Diagnostic Findings Chest X-Ray 07/15/22 11:09 XR chest 1V portable HISTORY: syncope COMPARISON: Chest 03/23/2020. FINDINGS: No pneumothorax. No pleural effusions. The cardiac silhouette remains mildly enlarged. There is mild chronic interstitial thickening, unchanged. No new focal lung consolidations to suggest a pneumonia. No evidence for pulmonary edema. Advanced degenerative changes/deformity within the shoulders again noted. Old, healed left-sided rib fractures. IMPRESSION: No significant change compared to the prior study. No acute process. ACT 112: Negative or not required by law. Electronically signed by: Slava Bishop M.D. 07/15/2022 11:39 AM ECG Additional Comments: Undetermined rhythm Cannot rule out Anterior infarct , age undetermined Abnormal ECG When compared with ECG of 31-MAR-2020 10:45, Current undetermined rhythm precludes rhythm comparison, needs review Code Status & VTE Plan Code Status Full code VTE Prophylaxis Plan VTE Prophylaxis will be ordered: Yes Supervising Physician Co-Signing Physician Notes I personally saw and examined the patient. I verified all shook points and agree with Dario Norton PA-C with the following exceptions and/or additions: 86 year old female admission for syncope / seizure like activity. No history obtainable from patient due to dementia. O/E alert, disorientated x3, HS1+2, no murmurs, Chest CTAB, Moving all 4 limbs, PERRL, unable to follow commands for full neurological exam A/p Syncope / seizures - suspect syncope related to bradycardia, TTE, MRI brain seizure protocol, monitor on telemetry for arrhythmias/symptomatic bradycardia. PG Care Time/CCT Total # of Minutes Spent Total Time Spent with Patient: Total time spent is greater than 50% in coordination of care (as documented) at patient's floor/unit and/or counseling patient: Coding Level of Care Code Established Pt INT OBSERVATION CARE 50M LVL 2 Patient Type Established Medical Decision Making Moderate Complexity Diagnoses Syncope R55 Bradycardia, sinus R00.1 Iron deficiency anemia D50.9 GERD (gastroesophageal reflux disease) K21.9 Depression with anxiety F41.8 Dementia G30.9; F02.80 Alzheimer's disease onset: unspecified onset Dementia behavioral disturbance: without behavioral disturbance Dementia type: Alzheimer's disease Bilateral pulmonary embolism I26.99 Obstructive sleep apnea G47.33 Alzheimer's disease G30.9; F02.80 (1) Dementia Alzheimer's disease onset: unspecified onset Dementia behavioral disturbance: without behavioral disturbance Dementia type: Alzheimer's disease Qualified Code(s): G30.9 - Alzheimer's disease, unspecified; F02.80 - Dementia in other diseases classified elsewhere without behavioral disturbance
--- NOTE | 2022-07-15 14:09 | CT Scan Report ---
CT head/brain wo con CLINICAL HISTORY: 86 years-old Female with syncope. Acute syncope TECHNIQUE: Multiple axial CT images of the head were obtained without contrast. A dose lowering tech nique was utilized adhering to the principles of ALARA. CT DOSE: 614.27 mGy.cm COMPARISON: Head CT 03/23/2020. FINDINGS: No acute intracranial hemorrhage, midline shift, intracranial mass, hydrocephalus, territorial ischem ia or abnormal extra-axial collection. Age-related involutional changes. White matter hypodensities s uggest chronic microvascular ischemic disease. The calvarium is intact. Trace mastoid effusions. The paranasal sinuses appear generally clear. Unre markable soft tissues. IMPRESSION: No acute intracranial abnormality or calvarial fracture. ACT 112: Negative or not required by law. The above report was generated using voice recognition software. It may contain grammatical, syntax o r spelling errors. Electronically signed by: Rikki Padilla M.D. 07/15/2022 2:08 PM
[2022-07-15] MEDS ORDERED: ACETAMINOPHEN 325 MG TAB PO PRN (14:43)
[2022-07-15] MEDS ORDERED: INFLUENZA VACCINE HIGH DOSE PF 65+ 0.7 ML SYR IM ONE (15:06)
--- NOTE | 2022-07-15 15:30 | Electrocardiogram Report ---
Test Reason : Blood Pressure : / mmHG Vent. Rate : 047 BPM Atrial Rate : 039 BPM P-R Int : 000 ms QRS Dur : 090 ms QT Int : 496 ms P-R-T Axes : 000 033 058 degrees QTc Int : 438 ms Sinus rhythm with frequent Premature atrial complexes with occasional Premature ventricular complexes Abnormal ECG When compared with ECG of 31-MAR-2020 10:45, Premature atrial complexes now present Premature ventricular complexes now present Confirmed by Wood Julian ([id number]) on 07/15/2022 3:30:25 PM Referred By: ER Confirmed By:Wood Julian
--- NOTE | 2022-07-15 16:09 | XCELERA ---
[id number]
[2022-07-15] MEDS: SUCRALFATE 1 GM TAB PO SCH ×2 (16:23→20:02)
[2022-07-15] MEDS ORDERED: LORAZEPAM IV STA (19:53)
[2022-07-15] MEDS: FERROUS SULFATE 325 MG TAB PO SCH (20:01)
[2022-07-15] MEDS: PANTOprazole 40 MG TAB PO SCH (20:02)
--- NOTE | 2022-07-15 20:05 | Communication Note ---
Date of Service: July 15, 2022 8PM: per hospital monitor, she has newly had 2-3 second sinus pauses every few minutes, new since 7PM. She is not on beta blockers. Consider cardiology consult for possible conduction disease. MRI head statrad report: No acute infarct. No intracranial hemorrhage, mass- effect or midline shift. Small bilateral mastoid effusions. Electronically sign ed by Dana Almazan MD on 07-15-22 at 2255.
--- NOTE | 2022-07-16 07:37 | Magnetic Resonance Report ---
Brain MRI WITH AND WITHOUT CONTRAST HISTORY: seizure-like activity TECHNIQUE: Multiplanar multisequence MRI of the brain was performed both before and after the intrave nous administration of contrast. COMPARISON STUDY: Head CT 07/15/2022. Brain MRI 09/01/2017. FINDINGS: Motion artifact. There is no mass, hematoma, midline shift, or acute infarct. The paranasal sinuses are clear. Small bilateral mastoid effusions. The ventricles and sulci demonstrate mild age- related involutional changes. Scattered foci of T2 hyperintensity seen within the periventricular and subcortical white matter are nonspecific but suggestive of mild microvascular ischemic changes. The major vascular flow voids at the skull base are well-maintained. IMPRESSION: Motion artifact. No definite acute intracranial abnormality. ACT 112: Negative or not required by law. Electronically signed by: Slava Bishop M.D. 07/16/2022 7:35 AM
[2022-07-16] MEDS: CEROVITE ADV FORMULA TAB PO SCH (08:16)
[2022-07-16] MEDS: PANTOprazole 40 MG TAB PO SCH ×2 (08:16→19:29)
[2022-07-16] MEDS: CHOLECALCIFEROL 1,000 UNITS 25 MCG TAB PO SCH (08:16)
[2022-07-16] MEDS: ESCITALOPRAM OXALATE 10 MG TAB PO SCH (08:16)
[2022-07-16] MEDS: SUCRALFATE 1 GM TAB PO SCH ×4 (08:16→19:29)
[2022-07-16 08:44] LABS: Hematocrit (blood only) 36.5 % (34.1-44.9); Hemoglobin 11.9 g/dl (12.0-16.0); Mean Corpuscular Hemoglobin 30.9 pg (25.0-34.0); Mean Corpuscular Hgb Conc 32.6 g/dL (32.0-36.0); Mean Corpuscular Volume 94.8 fL (80.0-100.0); Mean Platelet Volume 10.3 fL (9.4-12.3); Platelet Count 283 K/uL (130-400); RDW Coefficient of Variation 14.6 % (11.5-14.5); RDW Standard Deviation 50.5 fL (36.4-46.3); Red Blood Count 3.85 M/uL (3.93-5.22); White Blood Count 6.02 K/ul (4.8-10.8)
[2022-07-16] MEDS ORDERED: MULTIVITAMIN TAB PO SCH (09:00)
[2022-07-16 09:06] LABS: BUN Creatinine Ratio 21.2 (10-20); Calcium 9.5 mg/dl (8.5-10.1); Creatinine Clr Calc Pharmacy 63.7 ml/min; Est GFR (African American) 101.7 ml/min; Est GFR (Non-African American) 87.7 ml/min; Potassium 3.8 mmol/L (3.5-5.1)
[2022-07-16] MEDS ORDERED: ESCITALOPRAM OXALATE 10 MG TAB PO SCH (13:45)
[2022-07-16] MEDS: OLANZapine 5 MG TABLET PO SCH ×2 (16:10→19:29)
--- NOTE | 2022-07-16 17:55 | Hospitalist Progress Note ---
Date of Service July 16, 2022 Assessment & Plan (1) Syncope: Plan: Patient was admitted with syncope presumed secondary to bradycardia Patient uncooperative with treatment and she will be placed on close monitoring as her heart rate was reported to be in the 40s last night Continue to hold donepezil which can cause bradycardia Monitor labs and telemetry if patient cooperates Patient will be placed on Zyprexa to control her agitation and prevent self-harm -At this time the etiology of the patient's syncopal episode is not clear at this time, from the story EMS gave the ED staff it sounds more like a vasovagal episode but cannot rule out cardiac causes, stroke, and seizure. It does not appear that the patient has a history of seizures and is not on antiepileptic medications at this time. -Currently afebrile, hemodynamically stable, stable on room air, but in sinus bradycardia in the 40's-50's -Will hold Donepezil for now as she had her am dose until the rest of the workup is completed -AM CBC and BMP (2) Bradycardia, sinus: Plan: -Upon review, it appears she has been bradycardic during prior admissions but normally in the 50's -Not on any rate reducing medications but is on Donepezil -Will monitor on tele and do the working mentioned in the syncope section -Will obtain orthostatic vitals (3) Iron deficiency anemia: Plan: -Hgb is stable -Continue ferrous sulfate (4) GERD (gastroesophageal reflux disease): Plan: -Continue protonix (5) Depression with anxiety: Plan: -Continue Lexapro (6) Dementia: Plan: -Normally on Donepezil 10 mg BID, will hold for now while the rest of her workup is completed (7) Bilateral pulmonary embolism: Plan: -Had am dose of Eliquis, will hold eliquis for now until head imaging is obtained and we can officially rule out bleeding (8) Obstructive sleep apnea: Plan: -No CPAP machine listed in her documentation, monitor for now (9) Alzheimer's disease: Plan: -See dementia Plan The patient was discussed with Dr. Lynn at the time of the admission Admission and Anticipated Discharge Date Admission Date: July 15, 2022 Subjective Patient very agitated and combative to nursing staff Patient placed on one-to-one monitoring patient was reported to have heart rates in the 40s last night Heart rate increased to 60s when patient became agitated Review of Systems Review of Systems: Patient denies any acute chest pain or shortness of breath at this time But appears very agitated Not oriented to time or place unable to redirect patient Physical Exam Physical Exam: Head and ENT normocephalic atraumatic Neck no JVD Cardiovascular S1-S2 heard normally no S3 Lungs bilateral air entry slightly diminished at bases Abdomen patient is not cooperating with full exam but abdomen is soft Extremities no edema Results & Data Results & Data ([facility]) Vital Signs (Past 12 Hours) Vital Signs Pulse Pulse Resp BP Pulse Ox O2 Del Method 07/16/22 14:10 58 L 07/16/22 07:15 66 18 121/63 97 Room Air 07/16/22 07:00 45 L Laboratory Results Short CBC 07/16/22 Range/Units 08:26 WBC 6.02 (4.8-10.8) K/ul Hgb 11.9 L (12.0-16.0) g/dl Hct 36.5 (34.1-44.9) % Plt Count 283 (130-400) K/uL BMP 07/16/22 08:26 Sodium 136 Potassium 3.8 Chloride 105 Carbon Dioxide 24 BUN 11 Creatinine 0.52 L Glucose 160 H Calcium 9.5 PG Care Time/CCT Total # of Minutes Spent Total Time Spent with Patient: Total time spent is greater than 50% in coordination of care (as documented) at patient's floor/unit and/or counseling patient: Coding Level of Care Code None Diagnoses Syncope R55 Syncope type: unspecified Bradycardia, sinus R00.1 Iron deficiency anemia D50.9 GERD (gastroesophageal reflux disease) K21.9 Depression with anxiety F41.8 Dementia G30.9; F02.80 Alzheimer's disease onset: unspecified onset Dementia behavioral disturbance: without behavioral disturbance Dementia type: Alzheimer's disease Bilateral pulmonary embolism I26.99 Obstructive sleep apnea G47.33 Alzheimer's disease G30.9; F02.80 (1) Syncope Syncope type: unspecified Qualified Code(s): R55 - Syncope and collapse (2) Dementia Alzheimer's disease onset: unspecified onset Dementia behavioral disturbance: without behavioral disturbance Dementia type: Alzheimer's disease Qualified Code(s): G30.9 - Alzheimer's disease, unspecified; F02.80 - Dementia in other diseases classified elsewhere without behavioral disturbance
[2022-07-16] MEDS: FERROUS SULFATE 325 MG TAB PO SCH (19:29)
[2022-07-17 07:08] LABS: Hematocrit (blood only) 30.6 % (34.1-44.9); Hemoglobin 9.9 g/dl (12.0-16.0); Mean Corpuscular Hemoglobin 30.8 pg (25.0-34.0); Mean Corpuscular Hgb Conc 32.4 g/dL (32.0-36.0); Mean Corpuscular Volume 95.3 fL (80.0-100.0); Mean Platelet Volume 10.7 fL (9.4-12.3); Platelet Count 234 K/uL (130-400); RDW Coefficient of Variation 14.6 % (11.5-14.5); RDW Standard Deviation 50.8 fL (36.4-46.3); Red Blood Count 3.21 M/uL (3.93-5.22); White Blood Count 5.86 K/ul (4.8-10.8)
[2022-07-17 07:42] LABS: BUN Creatinine Ratio 23.5 (10-20); Calcium 8.9 mg/dl (8.5-10.1); Creatinine Clr Calc Pharmacy 64.9 ml/min; Est GFR (African American) 102.3 ml/min; Est GFR (Non-African American) 88.3 ml/min; Potassium 3.7 mmol/L (3.5-5.1)
[2022-07-17] MEDS: CHOLECALCIFEROL 1,000 UNITS 25 MCG TAB PO SCH (08:20)
[2022-07-17] MEDS: CEROVITE ADV FORMULA TAB PO SCH (08:20)
[2022-07-17] MEDS: PANTOprazole 40 MG TAB PO SCH ×2 (08:20→20:04)
[2022-07-17] MEDS: ESCITALOPRAM OXALATE 10 MG TAB PO SCH (08:20)
[2022-07-17] MEDS: OLANZapine 5 MG TABLET PO SCH ×2 (08:21→20:04)
[2022-07-17] MEDS: SUCRALFATE 1 GM TAB PO SCH ×4 (08:21→20:04)
--- NOTE | 2022-07-17 16:32 | Hospitalist Progress Note ---
Date of Service July 17, 2022 Assessment & Plan (1) Syncope: Plan: Patient was admitted with syncope presumed secondary to bradycardia Patient uncooperative with treatment and she will be placed on close monitoring as her heart rate was reported to be in the 40s last night Continue to hold donepezil which can cause bradycardia Monitor labs and telemetry if patient cooperates Continue Zyprexa to control her agitation and prevent self-harm -At this time the etiology of the patient's syncopal episode is not clear at this time, from the story EMS gave the ED staff it sounds more like a vasovagal episode but cannot rule out cardiac causes, stroke, and seizure. It does not appear that the patient has a history of seizures and is not on antiepileptic medications at this time. -Currently afebrile, hemodynamically stable, stable on room air, -Will hold Donepezil for now as she had her am dose until the rest of the workup is completed -AM CBC and BMP If patient remains on telemetry stable and is not agitated we will target discharging the patient to the nursing facility in 1 to 2 days (2) Bradycardia, sinus: Plan: -Upon review, it appears she has been bradycardic during prior admissions but normally in the 50's -Not on any rate reducing medications but is on Donepezil -Will monitor on tele and do the working mentioned in the syncope section -Will obtain orthostatic vitals (3) Iron deficiency anemia: Plan: -Hgb is stable -Continue ferrous sulfate (4) GERD (gastroesophageal reflux disease): Plan: -Continue protonix (5) Depression with anxiety: Plan: -Continue Lexapro (6) Dementia: Plan: -Normally on Donepezil 10 mg BID, will hold for now while the rest of her workup is completed (7) Bilateral pulmonary embolism: Plan: -Had am dose of Eliquis, will hold eliquis for now until head imaging is obtained and we can officially rule out bleeding (8) Obstructive sleep apnea: Plan: -No CPAP machine listed in her documentation, monitor for now (9) Alzheimer's disease: Plan: -See dementia Plan Admission and Anticipated Discharge Date Admission Date: July 15, 2022 Subjective Patient has improvement in her agitation with initiation of Zyprexa Patient more cooperative for cardiac monitoring at this time Review of Systems Review of Systems: Patient denies any acute chest pain or shortness of breath at this time Agitation is improved Not oriented to time Physical Exam Physical Exam: Head and ENT normocephalic atraumatic Neck no JVD Cardiovascular S1-S2 heard normally no S3 Lungs bilateral air entry slightly diminished at bases Abdomen patient is not cooperating with full exam but abdomen is soft Extremities no edema Results & Data Results & Data ([facility]) Vital Signs (Past 12 Hours) Vital Signs Temp Pulse Pulse Resp BP BP Pulse Ox 07/17/22 11:13 36.8 C 72 18 90/57 L 90/51 L 98 07/17/22 07:34 48 L 07/17/22 06:16 36.6 C 50 L 18 106/67 95 O2 Del Method 07/17/22 11:13 Room Air 07/17/22 07:34 07/17/22 06:16 Room Air PG Care Time/CCT Total # of Minutes Spent Total Time Spent with Patient: Total time spent is greater than 50% in coordination of care (as documented) at patient's floor/unit and/or counseling patient: Coding Level of Care Code None Diagnoses Syncope R55 Syncope type: unspecified Bradycardia, sinus R00.1 Iron deficiency anemia D50.9 GERD (gastroesophageal reflux disease) K21.9 Depression with anxiety F41.8 Dementia G30.9; F02.80 Alzheimer's disease onset: unspecified onset Dementia behavioral disturbance: without behavioral disturbance Dementia type: Alzheimer's disease Bilateral pulmonary embolism I26.99 Obstructive sleep apnea G47.33 Alzheimer's disease G30.9; F02.80 (1) Syncope Syncope type: unspecified Qualified Code(s): R55 - Syncope and collapse (2) Dementia Alzheimer's disease onset: unspecified onset Dementia behavioral disturbance: without behavioral disturbance Dementia type: Alzheimer's disease Qualified Code(s): G30.9 - Alzheimer's disease, unspecified; F02.80 - Dementia in other diseases classified elsewhere without behavioral disturbance
[2022-07-17] MEDS: FERROUS SULFATE 325 MG TAB PO SCH (20:04)
[2022-07-18 07:06] LABS: Hematocrit (blood only) 31.2 % (34.1-44.9); Mean Corpuscular Hemoglobin 31.3 pg (25.0-34.0); Mean Corpuscular Hgb Conc 32.1 g/dL (32.0-36.0); Mean Corpuscular Volume 97.5 fL (80.0-100.0); Mean Platelet Volume 10.4 fL (9.4-12.3); Platelet Count 221 K/uL (130-400); RDW Coefficient of Variation 14.8 % (11.5-14.5); RDW Standard Deviation 53.3 fL (36.4-46.3); White Blood Count 6.04 K/ul (4.8-10.8)
[2022-07-18 07:31] LABS: BUN Creatinine Ratio 44.4 (10-20); Calcium 8.8 mg/dl (8.5-10.1); Creatinine Clr Calc Pharmacy 73.6 ml/min; Est GFR (African American) 106.6 ml/min; Potassium 3.7 mmol/L (3.5-5.1)
[2022-07-18] MEDS: ESCITALOPRAM OXALATE 10 MG TAB PO SCH (08:03)
[2022-07-18] MEDS: SUCRALFATE 1 GM TAB PO SCH (08:04)
[2022-07-18] MEDS: PANTOprazole 40 MG TAB PO SCH (08:05)
[2022-07-18] MEDS: OLANZapine 5 MG TABLET PO SCH (08:05)
[2022-07-18] MEDS: CEROVITE ADV FORMULA TAB PO SCH (08:07)
[2022-07-18] MEDS: CHOLECALCIFEROL 1,000 UNITS 25 MCG TAB PO SCH (08:07)
--- NOTE | 2022-07-18 14:45 | Discharge Summary ---
Date of Service July 18, 2022 Admission HPI Per Admitting Provider Jan is an 86 year old female with a PMH significant for Alzheimer's dementia, hx of BL PE's on Eliquis, depression, anxiety, DAMIAN, diastolic heart failure with mitral regurgitation and aortic valve sclerosis who presented to the [facility] ED from [facility] due to syncope/possible seizure-like activity. In the ED the patient was found to be afebrile, hemodynamically stable, stable on RA, but bradycardic in the 40's-50's. Labs were remarkable for a stable Hgb, WBC WNL, stable kidney function and electrolytes, high sensitivity troponin of 5.1, TSH of 6.5 with Free T4 of 1.07, and UA not suggestive of infection. Chest xray was negative for acute findings. At the time of the exam the patient was sitting comfortably in bed in no acute distress. A reliable history is difficult to obtain from her due to her baseline mental status, she is only oriented to self and had no idea that she had a syncopal episode earlier today. The story from the ED staff is that the patient had a syncopal episode this morning and was noted to having shaking in her arms witnessed by the staff at [facility]. It was reported that the patient was back to her baseline upon waking. The patient is currently calm, pleasant, and cooperative, she denies pain of any kind. Principal Diagnosis Presyncope secondary to bradycardia Discharge Exam Cardiovascular S1-S2 heard normally heart rate 68 Lungs clear to auscultation bilaterally Abdomen soft nontender nondistended Extremity trace edema Discharge Data Allergies Allergy/AdvReac Type Severity Reaction Status Date / Time procaine Allergy Severe THROAT Verified 11/09/21 11:59 SWELLING WITH NOVOCAINE - see notes acetaminophen [From Lortab] Allergy Unknown ACETAMINOPHEN Verified 11/09/21 11:59 LISTED, NO REACTION LISTED ON INFORMATION codeine Allergy Unknown NO Verified 11/09/21 11:59 REACTION LISTED ON INFORMATION hydrocodone AdvReac Unknown NO Verified 11/09/21 11:59 REACTION LISTED ON INFORMATION SENT oxycodone AdvReac Unknown NO Verified 11/09/21 11:59 REACTION LISTED ON INFORMATION SENT Consultations 07/15/22 13:01 ED Decision to Admit Stat Ordered Studies 07/15/22 13:28 CT head/brain wo con Stat 07/15/22 13:38 MRI Brain [MR brain seizure wo con] Urgent Hospital Course (1) Syncope: Patient was admitted with syncope presumed secondary to bradycardia Patient uncooperative with treatment and she will be placed on close monitoring as her heart rate was reported to be in the 40s last night Continue to hold donepezil which can cause bradycardia Monitor labs and telemetry if patient cooperates Continue Zyprexa to control her agitation and prevent self-harm -At this time the etiology of the patient's syncopal episode is not clear at this time, from the story EMS gave the ED staff it sounds more like a vasovagal episode but cannot rule out cardiac causes, stroke, and seizure. It does not appear that the patient has a history of seizures and is not on antiepileptic medications at this time. -Currently afebrile, hemodynamically stable, stable on room air, -Will hold Donepezil for now as she had her am dose until the rest of the workup is completed -Sinus bradycardia is improved with discontinuing donepezil (2) Bradycardia, sinus: -Upon review, it appears she has been bradycardic during prior admissions but normally in the 50's Patient heart rate is remained over 60 after donepezil discontinued (3) Iron deficiency anemia: -Hgb is stable -Continue ferrous sulfate (4) GERD (gastroesophageal reflux disease): -Continue protonix (5) Depression with anxiety: -Continue Lexapro (6) Dementia: -Normally on Donepezil 10 mg BID, will hold for now while the rest of her workup is completed (7) Bilateral pulmonary embolism: -Had am dose of Eliquis, will hold eliquis for now until head imaging is obtained and we can officially rule out bleeding (8) Obstructive sleep apnea: -No CPAP machine listed in her documentation, monitor for now (9) Alzheimer's disease: -See dementia Plan Total Time Total Time Spent Total Time Spent (In Minutes): 20 Discharge Plan Discharge Items Patient Disposition: Transfer [facility] Reason For Visit: SYNCOPE Discharge Diagnosis: Sinus bradycardia and vasovagal syncope Activity: Resume your previous activity Lifting: No more than 5 pounds Bathing: No limitations Weightbearing: Full weightbearing Non-emergency contact: Primary Care Provider and Therapist Call non-emergency contact if: you have any medication questions Follow-up/Referrals: [facility] [Primary Care Provider] - Diet: Heart Healthy Addtl Attending Provider Instructions: Patient discharged to nursing facility Pending Studies at Discharge: No Stand-Alone Forms: My [facility] Skilled Items Patient informed of condition?: Yes DNR: No Discharge Level of Care: Skilled Communicable Disease: No Discharge Prognosis: Stable Lines: None Urinary Catheter: No Medications and DC Order Prescriptions: Continued pantoprazole [Protonix] 40 mg tablet,delayed release (DR/EC) 40 mg PO BID Qty: 60 5RF (DME) diaper,brief,adult,disposable Misc See Rx Instructions .ROUTE .MEDSUPPLY Qty: 160 5RF Rx Instructions: Use 5 pull-up (size S/M) daily PRN donepezil [Aricept] 10 mg tablet 10 mg PO BID Qty: 60 0RF PreserVision AREDS [id number] nbwo-hi-floc tablet 1 tab PO BID Qty: 60 5RF multivitamin [Daily-Tone] tablet 1 tab PO DAILY cranberry extract [Cranberry Concentrate] 500 mg capsule 450 mg PO DAILY ferrous sulfate 325 mg (65 mg iron) tablet,delayed release (DR/EC) 325 mg PO QPM Eliquis 5 mg Tablet 5 mg PO BID Qty: 30 0RF sucralfate [Carafate] 1 gram Tablet 1 g PO ACHS tramadol 50 mg Tablet 50 mg PO Q4H PRN (Reason: PAIN LEVEL 5-10 ) ibuprofen 200 mg Tablet 400 mg PO Q4H PRN (Reason: PAIN LEVEL 1-4 ) magnesium hydroxide 800 mg/5 mL Suspension 1,200 mg PO UD PRN (Reason: Constipation) polyethylene glycol Liquid 1 ea MISCELLANEOUS UD PRN (Reason: COLONOSCOPY PREP) bisacodyl 5 mg Tablet 20 mg PO UD Eucerin Cream 1 applic TOPICAL UD PRN (Reason: UPPER EXTREMITIES) escitalopram oxalate 10 mg tablet 5 mg PO Q2D Rx Instructions: TAKE 1 TABLET BY MOUTH ONCE DAILY IN THE MORNING cholecalciferol (vitamin D3) [Vitamin D3] 25 mcg (1,000 unit) tablet 1,000 unit PO DAILY Discontinued mineral oil Enema 118 ml GA UD PRN (Reason: Constipation) Label Comments: INFO SENT FROM [facility] Discharge Orders: Discharge Order (Routine); Ordered 07/18/22 Ordered By: Daniel Zaman Admission Data Admit Date/Time: 07/15/22 13:06 Attending Provider: Daniel Zaman Admit Provider: Chandrakant Lynn Primary Care Provider: [facility] Other Providers: Chandrakant Lynn Other Interventions: Discharge Summary Assessment (RN) Last Done: 07/18/22 09:40 Coding Level of Care Code None Diagnoses Syncope R55 Syncope type: unspecified Bradycardia, sinus R00.1 Iron deficiency anemia D50.9 GERD (gastroesophageal reflux disease) K21.9 Depression with anxiety F41.8 Dementia G30.9; F02.80 Alzheimer's disease onset: unspecified onset Dementia behavioral disturbance: without behavioral disturbance Dementia type: Alzheimer's disease Bilateral pulmonary embolism I26.99 Obstructive sleep apnea G47.33 Alzheimer's disease G30.9; F02.80
== END 2022-07-18 11:30 ==
LOC: 2W 10:38 → ED 10:38 → SUATTDRO 13:06 → 2W 14:02

== ENCOUNTER 2023-11-04 02:29 | Observation (INO) ==
[2023-11-04] MEDS: ACETAMINOPHEN 500 MG TAB PO STA (03:59)
[2023-11-04] MEDS: OLANZapine ZYDIS 5 MG ORALLY DIS. TAB PO STA (04:00)
[2023-11-04] MEDS: SODIUM CHLORIDE 0.9% 1,000 ML IV SCH (06:30)
--- NOTE | 2023-11-04 07:00 | XRay Report ---
KUB CLINICAL HISTORY: Ileus. COMPARISON STUDY: CT of the abdomen and pelvis November 28, 2018. KUB March 25, 2020. FINDINGS: Postoperative findings within the spine and cholecystectomy clips are incidentally noted. S everal loops of mildly dilated small bowel are present. There is a moderate amount of stool within th e rectum. No evidence for free air on supine exam. IMPRESSION: 1. Several prominent loops of small bowel without convincing evidence for a bowel obstruction or ileu s. 2. Moderate amount of stool within the rectum. ACT 112: Negative or not required by law. Electronically signed by: Joe Galvin M.D. 11/04/2023 6:59 AM
[2023-11-04 07:01] LABS: Hematocrit (blood only) 31.9 % (37.0-47.0); Hemoglobin 10.3 g/dl (12.0-16.0); Mean Corpuscular Hemoglobin 31.7 pg (25.0-34.0); Mean Corpuscular Hgb Conc 32.3 g/dL (32.0-36.0); Mean Corpuscular Volume 98.2 fL (80.0-100.0); Mean Platelet Volume 11.7 fL (9.4-12.4); Platelet Count 181 K/uL (130-400); RDW Standard Deviation 50.4 fL (36.4-46.3); Red Blood Count 3.25 M/uL (4.20-5.40); White Blood Count 9.76 K/ul (4.8-10.8)
--- NOTE | 2023-11-04 07:04 | XRay Report ---
XR shoulder LT min 2V routine HISTORY: 88 years-old Female shoulder pain chronic bilateral shoulder pain COMPARISON: 11/03/2023, July 15, 2022. TECHNIQUE: 3 views of the left shoulder FINDINGS: Severe left glenohumeral joint osteoarthritis is again noted with deformity of the left humeral head and remodeling of the left humeral neck and proximal shaft, unchanged compared to July 15, 2022. N o evidence for dislocation. No osseous lesions. IMPRESSION: 1. Unchanged exam compared to yesterday's study. No acute fracture or dislocation within the left laura ulder. 2. Severe left glenohumeral joint osteoarthritis redemonstrated. ACT 112: Negative or not required by law. The above report was generated using voice recognition software. It may contain grammatical, syntax o r spelling errors. Electronically signed by: Rikki Padilla M.D. 11/04/2023 7:03 AM
[2023-11-04 07:12] LABS: Alanine Aminotransferase 19 U/L (7-52); Albumin Globulin Ratio 1.2 (0.9-2); Alkaline Phosphatase 84 U/L (34-104); Anion Gap 5 (3-11); Aspartate Aminotransferase 14 U/L (13-39); BUN Creatinine Ratio 64.3 (10-20); Bilirubin,Total 2.7 mg/dl (0.2-1.0); Blood Urea Nitrogen 27 mg/dl (6-23); Calcium 10.1 mg/dl (8.6-10.3); Carbon Dioxide 27 mmol/L (21-32); Chloride 105 mmol/L (98-107); Est GFR (African American) 107.6 ml/min; Est GFR (Non-African American) 92.8 ml/min; Globulin 2.5 gm/dl (2.5-4.0); Glucose 120 mg/dl (70-99(Fasting)); Potassium 3.8 mmol/L (3.5-5.1); Sodium 137 mmol/L (136-145); Total Protein 5.5 gm/dl (6.0-8.3)
--- NOTE | 2023-11-04 07:15 | XRay Report ---
XR shoulder RT min 2V routine CLINICAL HISTORY: shoulder pain COMPARISON: Right shoulder radiographs November 03, 2023. FINDINGS: Severe right glenohumeral joint osteoarthritis with chronic deformity of the right head an d glenoid is again noted. This is similar to chest radiograph of July 15, 2022. There is no eviden ce for dislocation or acute fracture within the right shoulder. IMPRESSION: 1. No acute fracture or dislocation within the right shoulder. 2. Severe right glenohumeral joint osteoarthritis with chronic deformity and flattening of the right humeral head, unchanged since chest radiograph of July 15, 2022. ACT 112: Negative or not required by law. Electronically signed by: Joe Galvin M.D. 11/04/2023 7:14 AM
--- NOTE | 2023-11-04 07:16 | CT Scan Report ---
ABDOMEN AND PELVIS CT WITHOUT CONTRAST CT DOSE: 829.93 mGy.cm HISTORY: Acute generalized abdominal pain abd pain, ileus TECHNIQUE: Multiaxial CT images of the abdomen and pelvis were performed without contrast. A dose lo wering technique was utilized adhering to the principles of ALARA. COMPARISON STUDY: 11/28/2018 FINDINGS: Limited study secondary to positioning, lack of contrast and artifact from the spinal hardw are. Cardiomegaly with decreased attenuation of the cardiac blood pool suggestive of anemia. Extensive cor onary artery calcifications. Dilation of the pulmonary arteries suggestive of pulmonary arterial hype rtension. Small pericardial and pleural effusions. Pulmonary edema with mild bibasilar opacities sugg estive of atelectasis. No free air. The unenhanced spleen, mildly atrophic pancreas and right adrenal gland are unremarkable. There is un changed nodular left adrenal gland thickening. Cholecystectomy. Unremarkable liver with probable cyst within the left hepatic lobe. Probable left renal sinus cysts. No renal or ureteral calculi or hydro nephrosis identified. Partially decompressed urinary bladder. Atherosclerosis of the aorta. No lympha denopathy. Luciano-en-Y gastric bypass. No bowel obstruction identified. Trace abdominal pelvic ascites. Mild wall thickening is noted within a few loops of small bowel. Moderate fecal retention in the rectum. Coloni c diverticulosis. The appendix is not visualized. Anasarca. Subcutaneous emphysema of the anterior ab dominal wall, likely secondary to medicinal injection sites. Demineralized appearance of the bones. N o acute fracture identified. Posterior and bilateral Luschka fusion hardware redemonstrated at L4-S1 with unchanged L4-L5 anterolisthesis. IMPRESSION: 1. Limited exam as above. 2. Cardiomegaly with pulmonary edema, small pericardial and pleural effusions, small volume of ascite s with anasarca. 3. No bowel obstruction or pneumoperitoneum. 4. There is mild wall thickening noted within loops of large and small bowel which may be secondary t o the aforementioned edematous state. A mild nonspecific enterocolitis considered less likely. 5. Colonic diverticulosis. ACT 112: Negative or not required by law. The above report was generated using voice recognition software. It may contain grammatical, syntax o r spelling errors. Electronically signed by: Rikki Padilla M.D. 11/04/2023 7:14 AM
--- NOTE | 2023-11-04 07:39 | History & Physical Report ---
Date of Service November 04, 2023 Assessment & Plan (1) Iron deficiency anemia: Plan: Concern over possible active GI bleed. will consult GI (2) Dementia: Plan: Patient with severe dementia. Will resume home meds (3) GERD (gastroesophageal reflux disease): Plan: resume home meds (4) Chronic diastolic (congestive) heart failure: Plan: resume home meds (5) Acute gastrointestinal bleeding: Plan: as noted in problem 1 (6) DVT prophylaxis: Plan: scd History of Present Illness Chief Complaint: pain in arms Primary Care Provider: Seamus Gorman 88-year-old female who presents via [facility] as patient was having increased pain in her upper extremities with passive movement. Patient is a poor historian due to her severe dementia. halfway records do not also indicate patient was recently diagnosed with an ileus but records indicates she did have a bowel movement last night. ED was also concerned about possible GI bleed. Patient denies any abdominal pain during my exam. Allergies Allergy/AdvReac Type Severity Reaction Status Date / Time procaine Allergy Severe THROAT Verified 11/04/23 02:53 SWELLING WITH NOVOCAINE - see notes acetaminophen [From Lortab] Allergy Unknown ACETAMINOPHEN Verified 11/04/23 02:53 LISTED, NO REACTION LISTED ON INFORMATION codeine Allergy Unknown NO Verified 11/04/23 02:53 REACTION LISTED ON INFORMATION hydrocodone AdvReac Unknown NO Verified 11/04/23 02:53 REACTION LISTED ON INFORMATION SENT oxycodone AdvReac Unknown NO Verified 11/04/23 02:53 REACTION LISTED ON INFORMATION SENT Home Medications Medication Instructions Recorded Confirmed Type cranberry extract 500 mg capsule 450 mg PO DAILY 08/09/19 11/04/23 History (Cranberry Concentrate) multivitamin (Daily-Tone tablet) 1 tab PO DAILY 08/09/19 11/04/23 History pantoprazole 40 mg tablet,delayed 40 mg PO BID #60 tabs 10/12/19 11/04/23 Rx release (Protonix) diaper,brief,adult,disposable #160 ea 03/12/20 08/06/21 Rx donepezil 10 mg tablet (Aricept) 10 mg PO BID #60 tabs 03/12/20 11/04/23 Rx vitamins A,C,O-vjzg-uotmhr 2,148 1 tab PO BID #60 tabs 03/12/20 11/04/23 Rx mcg-113 mg-45 mg-17.4 mg tablet (PreserVision AREDS) ferrous sulfate 325 mg (65 mg 325 mg PO QPM 03/21/20 11/04/23 History iron) tablet,delayed release apixaban 5 mg tablet (Eliquis) 5 mg PO BID #30 tabs 03/31/20 11/04/23 Rx sucralfate 1 gram tablet (Carafate) 1 g PO AC 09/07/21 11/04/23 History cholecalciferol (vitamin D3) 25 1,000 unit PO DAILY 10/26/21 11/04/23 History mcg (1,000 unit) tablet (Vitamin D3) lanolin alcohols-mineral 1 applic topical TID 10/26/21 11/04/23 History oil-w.petrolatum-ceresin topical cream (Eucerin topical cream) tramadol 50 mg tablet 50 mg PO Q12 PAIN LEVEL 5-10 10/26/21 11/04/23 History Saccharomyces boulardii 250 mg 250 mg PO DAILY 11/03/23 11/04/23 History capsule (Florastor) divalproex 125 mg capsule,delayed See Rx Instructions .Route .COMPLEX 11/03/23 11/04/23 History release sprinkle (Depakote Sprinkles) escitalopram oxalate 20 mg tablet 20 mg PO DAILY 11/03/23 11/04/23 History (Lexapro) mirtazapine 15 mg tablet 15 mg PO HS 11/03/23 11/04/23 History Past Med/Surg History Medical History (Updated 11/06/23 @ 00:05 by Reese Garcia) Rotator cuff tear arthropathy of both shoulders Type 2 diabetes mellitus without complications Cognitive communication deficit INFO SENT FROM [facility] Constipation INFO SENT FROM [facility] GERD without esophagitis INFO SENT FROM [facility] History of pulmonary embolus (PE) INFO SENT FROM [facility] Other recurrent depressive disorders INFO SENT FROM [facility] Cardiomyopathy INFO SENT FROM [facility] Polyosteoarthritis INFO SENT FROM [facility] DAMIAN (obstructive sleep apnea) INFO SENT FROM [facility] Alzheimer disease INFO SENT FROM [facility] History of COVID-19 INFO SENT FROM [facility] Abnormal posture INFO SENT FROM [facility] Generalized muscle weakness INFO SENT FROM [facility] Unspecified dementia with behavioral disturbance INFO SENT FROM [facility] Diabetes mellitus Esophagitis Dementia Hx pulmonary embolism Depression Cardiomyopathy halfway resident Anemia Acid reflux disease Allergic rhinitis Alzheimer's disease Aortic valve sclerosis 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 Malabsorption syndrome Obstructive sleep apnea Osteoporosis Bilateral pulmonary embolism Hypothyroidism TIA (transient ischemic attack) 1992 Pulmonary hypertension Atrial fibrillation, transient Sleep apnea Pulmonary nodule PUD (peptic ulcer disease) Recurrent pancreatitis GERD (gastroesophageal reflux disease) Pancreatitis Anxiety Chronic iron deficiency anemia Diabetic peripheral neuropathy associated with type 2 diabetes mellitus Chronic diastolic (congestive) heart failure Surgical History History of bariatric surgery INFO SENT FROM [facility] History of vaginal hysterectomy History of tubal ligation History of shoulder surgery H/O total knee replacement left H/O colonoscopy History of esophagogastroduodenoscopy (EGD) History of appendectomy H/O gastric bypass History of cholecystectomy Family History Mother Diabetes Liver cancer Father Congestive heart failure Myocardial infarction Stroke syndrome Sister Systemic lupus erythematosus Thrombotic thrombocytopenic purpura Denies family history of Ovarian cancer Prostate cancer Breast cancer Colorectal cancer Social History Smoking Status: Unknown if ever smoked Second Hand Exposure: No; Do You Dip or Chew Tobacco: No; Hx Alcohol Use: No Hx Substance Use: No Preferred Language: Bruneian Communication Ability: Impaired Communication Ability Comment: Pt. 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: No Beliefs That Will Affect Care: None marital status: / Current Living Situation: Long Term [facility] current [facility] status: retired Feels Safe at Home: Declines to Answer Dental Care, Regularly: No Physical Activity Frequency: 1-2 Times per Week Seatbelt Use: always Sunscreen Use: No Assistive Devices: Walker Review of Systems Review of Systems: Unobtainable due to cognitive status Physical Exam Constitutional: WD/WN, vitals as above Eyes: PERRL, conjunctivae normal, anicteric sclerae Neck: trachea midline, no thyromegaly Respiratory: normal respiratory effort, lungs clear to auscultation Cardiovascular: RRR, no murmur, no edema Gastrointestinal (Abdomen): normal bowel sounds, soft, nontender, no hepa tosplenomegaly Results & Data Results & Data Vital Signs (Past 12 Hours) Vital Signs Temp Pulse Pulse Resp BP BP Pulse Ox 11/04/23 06:38 87 11/04/23 06:35 87 28 H 101/63 97 11/04/23 02:45 88 11/04/23 02:24 36.5 C 86 22 143/68 H 92 O2 Del Method 11/04/23 06:38 11/04/23 06:35 11/04/23 02:45 11/04/23 02:24 Room Air Code Status & VTE Plan VTE Prophylaxis Plan VTE Prophylaxis will be ordered: Yes PG Care Time/CCT Total # of Minutes Spent Total Time Spent with Patient: Total time spent is greater than 50% in coordination of care (as documented) at patient's floor/unit and/or counseling patient: Coding Level of Care Code 10388 INT INP/OBS CARE 3/75MIN Diagnoses Iron deficiency anemia D50.9 Dementia F03.90 GERD (gastroesophageal reflux disease) K21.9 Chronic diastolic (congestive) heart failure I50.32 Acute gastrointestinal bleeding K92.2 DVT prophylaxis Z29.9
[2023-11-04 07:41] LABS: Basophils # (auto) 0.02 K/uL (0.00-0.20); Basophils % (auto) 0.2 %; Immature Granulocytes # (auto) 0.06 K/uL (0.01-0.20); Immature Granulocytes % (auto) 0.6 %; Lymphocytes # (auto) 0.16 K/uL (1.20-3.40); Lymphocytes % (auto) 1.6 %; Monocytes # (auto) 0.62 K/uL (0.11-0.59); Monocytes % (auto) 6.4 %; Neutrophils % (auto) 91.2 %
[2023-11-04] MEDS ORDERED: ONDANSETRON INJ 2 MG/ML 2 ML VIAL IV PRN (07:47)
--- NOTE | 2023-11-04 08:15 | XRay Report ---
XR chest 1V portable CLINICAL HISTORY: pleural effusions COMPARISON STUDY: Chest CT September 14, 2019. Chest radiograph July 15, 2022. FINDINGS: Trace bilateral pleural effusions shown on the abdominal CT performed earlier today are not well-visualized by radiography. Moderate cardiomegaly is noted. Subtle interstitial thickening is pr esent. No consolidation is identified to suggest pneumonia. 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 IMPRESSION: 1. Cardiomegaly with suspected mild interstitial pulmonary edema. 2. Trace bilateral pleural effusions, better shown on recent abdominal CT. ACT 112: Negative or not required by law. Electronically signed by: Joe Galvin M.D. 11/04/2023 8:13 AM
[2023-11-04] MEDS: PANTOprazole 40 MG in SYRINGE 0 ML IV SCH (08:31)
--- NOTE | 2023-11-04 10:53 | Gastrointestinal Consultation ---
Date of Consultation November 04, 2023 Assessment & Plan (1) Acute gastrointestinal bleeding: Reviewed case with Dr. Gallagher who helped advise on plan. - No GI bleeding has been reported after discussion with nursing in the ED as well as nursing on the floor. In absence of GI bleeding, no plans for any inp atient endoscopy. - monitor Hgb/hct. Supervising Physician Co-Signing Physician Notes I saw the patient and agree with the findings as documented by MARTHA Lassiter History of Present Illness Reason for Consultation: GIB Requesting Physician: Vikas Busby MD Attending Physician: Vikas Busby History of Present Illness Patient is an 88 year old female who presented to the ED from her senior living due to concern for increased pain predominantly in the upper extremities with any movement. Patient with a history of significant dementia and unable to provide any additional history - she does not answer questions appropriately. she is alert and appears to be in no distress. A consult was placed for GI bleeding but I had discussed with the patient's nurse in the ED as well as on the floor and there have not been any signs of bleeding or gastrointestinal issues. Main concern seems to be pain in her extremities. patient tells me her pain is only in her arms. Allergies Allergy/AdvReac Type Severity Reaction Status Date / Time procaine Allergy Severe THROAT Verified 11/04/23 02:53 SWELLING WITH NOVOCAINE - see notes acetaminophen [From Lortab] Allergy Unknown ACETAMINOPHEN Verified 11/04/23 02:53 LISTED, NO REACTION LISTED ON INFORMATION codeine Allergy Unknown NO Verified 11/04/23 02:53 REACTION LISTED ON INFORMATION hydrocodone AdvReac Unknown NO Verified 11/04/23 02:53 REACTION LISTED ON INFORMATION SENT oxycodone AdvReac Unknown NO Verified 11/04/23 02:53 REACTION LISTED ON INFORMATION SENT Home Medications Medication Instructions Recorded Confirmed Type cranberry extract 500 mg capsule 450 mg PO DAILY 08/09/19 11/04/23 History (Cranberry Concentrate) multivitamin (Daily-Tone tablet) 1 tab PO DAILY 08/09/19 11/04/23 History pantoprazole 40 mg tablet,delayed 40 mg PO BID #60 tabs 10/12/19 11/04/23 Rx release (Protonix) diaper,brief,adult,disposable #160 ea 03/12/20 08/06/21 Rx donepezil 10 mg tablet (Aricept) 10 mg PO BID #60 tabs 03/12/20 11/04/23 Rx vitamins A,C,Z-utwr-wkchkz 2,148 1 tab PO BID #60 tabs 03/12/20 11/04/23 Rx mcg-113 mg-45 mg-17.4 mg tablet (PreserVision AREDS) ferrous sulfate 325 mg (65 mg 325 mg PO QPM 03/21/20 11/04/23 History iron) tablet,delayed release apixaban 5 mg tablet (Eliquis) 5 mg PO BID #30 tabs 03/31/20 11/04/23 Rx sucralfate 1 gram tablet (Carafate) 1 g PO AC 09/07/21 11/04/23 History cholecalciferol (vitamin D3) 25 1,000 unit PO DAILY 10/26/21 11/04/23 History mcg (1,000 unit) tablet (Vitamin D3) lanolin alcohols-mineral 1 applic topical TID 10/26/21 11/04/23 History oil-w.petrolatum-ceresin topical cream (Eucerin topical cream) tramadol 50 mg tablet 50 mg PO Q12 PAIN LEVEL 5-10 10/26/21 11/04/23 History Saccharomyces boulardii 250 mg 250 mg PO DAILY 11/03/23 11/04/23 History capsule (Florastor) divalproex 125 mg capsule,delayed See Rx Instructions .Route .COMPLEX 11/03/23 11/04/23 History release sprinkle (Depakote Sprinkles) escitalopram oxalate 20 mg tablet 20 mg PO DAILY 11/03/23 11/04/23 History (Lexapro) mirtazapine 15 mg tablet 15 mg PO HS 11/03/23 11/04/23 History Patient History Medical History Type 2 diabetes mellitus without complications Cognitive communication deficit INFO SENT FROM [facility] Constipation INFO SENT FROM [facility] GERD without esophagitis INFO SENT FROM [facility] History of pulmonary embolus (PE) INFO SENT FROM [facility] Other recurrent depressive disorders INFO SENT FROM [facility] Cardiomyopathy INFO SENT FROM [facility] Polyosteoarthritis INFO SENT FROM [facility] DAMIAN (obstructive sleep apnea) INFO SENT FROM [facility] Alzheimer disease INFO SENT FROM [facility] History of COVID-19 INFO SENT FROM [facility] Abnormal posture INFO SENT FROM [facility] Generalized muscle weakness INFO SENT FROM [facility] Unspecified dementia with behavioral disturbance INFO SENT FROM [facility] Diabetes mellitus Esophagitis Dementia Hx pulmonary embolism Depression Cardiomyopathy senior care resident Anemia Acid reflux disease Allergic rhinitis Alzheimer's disease Aortic valve sclerosis 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 Malabsorption syndrome Obstructive sleep apnea Osteoporosis Bilateral pulmonary embolism Hypothyroidism TIA (transient ischemic attack) 1992 Pulmonary hypertension Atrial fibrillation, transient Sleep apnea Pulmonary nodule PUD (peptic ulcer disease) Recurrent pancreatitis GERD (gastroesophageal reflux disease) Pancreatitis Anxiety Chronic iron deficiency anemia Diabetic peripheral neuropathy associated with type 2 diabetes mellitus Chronic diastolic (congestive) heart failure Surgical History History of bariatric surgery INFO SENT FROM [facility] History of vaginal hysterectomy History of tubal ligation History of shoulder surgery H/O total knee replacement left H/O colonoscopy History of esophagogastroduodenoscopy (EGD) History of appendectomy H/O gastric bypass History of cholecystectomy Family History Mother Diabetes Liver cancer Father Congestive heart failure Myocardial infarction Stroke syndrome Sister Systemic lupus erythematosus Thrombotic thrombocytopenic purpura Denies family history of Ovarian cancer Prostate cancer Breast cancer Colorectal cancer Social History Smoking Status: Unknown if ever smoked Second Hand Exposure: No; Do You Dip or Chew Tobacco: No; Hx Alcohol Use: No Hx Substance Use: No Preferred Language: Sami Communication Ability: Impaired Communication Ability Comment: Pt. 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 Beliefs That Will Affect Care: None marital status: / Current Living Situation: Assisted Current Living Situation Comment: [facility] current occupational status: retired Feels Safe at Home: Declines to Answer Dental Care, Regularly: No Physical Activity Frequency: 1-2 Times per Week Seatbelt Use: always Sunscreen Use: No Assistive Devices: Walker Review of Systems Review of Systems: Unobtainable due to cognitive status Physical Exam Constitutional: WD/WN, vitals as above Respiratory: normal respiratory effort, lungs clear to auscultation Cardiovascular: RRR, no murmur, no edema Gastrointestinal (Abdomen): normal bowel sounds, soft, nontender, no hepatosplenomegaly Psychiatric: Orientation: alert Affect: euthymic affect not oriented Results & Data Vital Signs (Past 12 Hours) Vital Signs Temp Pulse Pulse Resp BP BP Pulse Ox 11/04/23 10:07 97.7 F 81 18 125/75 95 11/04/23 08:37 85 18 114/79 96 11/04/23 06:38 87 11/04/23 06:35 87 28 H 101/63 97 11/04/23 02:45 88 11/04/23 02:24 97.7 F 86 22 143/68 H 92 O2 Del Method 11/04/23 10:07 Room Air 11/04/23 08:37 Room Air 11/04/23 06:38 11/04/23 06:35 11/04/23 02:45 11/04/23 02:24 Room Air PG Care Time/CCT Total # of Minutes Spent Total Time Spent with Patient: Total time spent is greater than 50% in coordination of care (as documented) at patient's floor/unit and/or counseling patient: Coding Level of Care Code 31247 INT INP/OBS CARE 1/40MIN Diagnoses Acute gastrointestinal bleeding K92.2
[2023-11-04] MEDS: ESCITALOPRAM OXALATE 20 MG TAB PO SCH (11:16)
[2023-11-04] MEDS: SACCHAROMYCES BOULARDII 250 MG CAP PO SCH (11:16)
[2023-11-04] MEDS: DIVALPROEX SODIUM SPRINKLE/DEL-REL 125 MG CAP PO SCH ×2 (11:16→20:04)
[2023-11-04] MEDS: DONEPEZIL HCL 10 MG TAB PO SCH (11:16)
[2023-11-04 12:06] LABS: Hematocrit (blood only) 35.1 % (37.0-47.0); Hemoglobin 11.4 g/dl (12.0-16.0)
[2023-11-04] MEDS: ACETAMINOPHEN 1,000 MG/100 ML VIAL IV SCH (12:09)
[2023-11-04 12:21] LABS: Bilirubin Direct 0.8 mg/dl (0-0.2); Bilirubin,Total 3.2 mg/dl (0.2-1.0)
[2023-11-04 12:47] LABS: Troponin I High Sensitivity 40.1 pg/ml (0-14)
[2023-11-04] MEDS: traMADol HCL 50 MG TABLET PO SCH (12:54)
[2023-11-04] MEDS: POLYETHYLENE (MIRALAX) 17 GM PACK PO SCH (12:55)
--- NOTE | 2023-11-04 13:48 | XRay Report ---
LEFT WRIST 5 VIEWS CLINICAL HISTORY: Left arm pain. FINDINGS: 5 portable views of the left wrist are compared to study dated 05/24/2017. The skeletal stru ctures are osteopenic. No fracture is seen. There is negative ulnar variance with advanced degenerati ve change at the distal radioulnar joint. There is widening between the scaphoid and lunate, with terri roximately 4 mm separation. There is mild proximal migration of the capitate, and this is consistent with a chronic ligamentous injury and SLAC (scapholunate advanced collapse) wrist. Severe osteoarthri tic change is noted at the first carpometacarpal joint where there is bony sclerosis, overgrowth, and mild subluxation. Milder arthritic change is seen throughout the remainder of the wrist. Cystic dege nerative changes seen throughout the carpal bones. Mild soft tissue swelling is seen around the wrist . There is atherosclerotic calcification of the regional arteries. IMPRESSION: 1. Soft tissue swelling with no acute fracture identified. 2. Osteopenia with chronic and degenerative changes above including evidence of a SLAC wrist. Electronically signed by: Luc Michaud M.D. 11/04/2023 1:47 PM
--- NOTE | 2023-11-04 14:29 | XRay Report ---
XR elbow LT min 3V routine CLINICAL HISTORY: Left arm pain. COMPARISON: None FINDINGS: An IV within the left antecubital fossa is incidentally noted. Alignment of the left elbow is anatomic. There is no acute fracture. No evidence for a joint effusion. No osseous lesions. IMPRESSION: No fractures within the left elbow. No evidence for a joint effusion. ACT 112: Negative or not required by law. Electronically signed by: Joe Galvin M.D. 11/04/2023 2:28 PM
[2023-11-04 14:52] LABS: Hematocrit (blood only) 30.4 % (37.0-47.0); Hemoglobin 9.8 g/dl (12.0-16.0)
--- NOTE | 2023-11-04 15:23 | Orthopedic Consultation ---
Date of Service November 04, 2023 Assessment & Plan (1) Pain of both shoulder joints: (2) Shoulder arthritis: She has bilateral shoulder DJD. I called her son Mazin and left a message, trying to discuss further management if any for her shoulders. Discussed with Dr. Delaney and would recommend orthopedic follow up as outpatient for possible injections. Patient was seen by myself and examined, Daniel Delaney MD. Agree with above. Patient's got severe bilateral shoulder rotator cuff arthropathy. She got ex treme just discomfort and a type of movement of her arms. She difficult to tell localization of the pain specifically. Certainly has reason to have pain in her shoulders. It is unlikely injections are going to help her significantly. Certainly can do this as an outpatient if needed. Recommend medical management and supportive care. We did try and contact family members about injections. Once again I think it is unlikely to help much. Can be done as an outpatient. History of Present Illness Reason for Consultation: . Requesting Physician: . Attending Physician: Vikas Busby .Jan is a 88 year old patient with dementia. It appears she was admitted for possible GI bleed. She had xrays showing bilateral shoulder DJD and orthopedics was consulted. History obtained from the chart. Allergies Allergy/AdvReac Type Severity Reaction Status Date / Time procaine Allergy Severe THROAT Verified 11/04/23 02:53 SWELLING WITH NOVOCAINE - see notes acetaminophen [From Lortab] Allergy Unknown ACETAMINOPHEN Verified 11/04/23 02:53 LISTED, NO REACTION LISTED ON INFORMATION codeine Allergy Unknown NO Verified 11/04/23 02:53 REACTION LISTED ON INFORMATION hydrocodone AdvReac Unknown NO Verified 11/04/23 02:53 REACTION LISTED ON INFORMATION SENT oxycodone AdvReac Unknown NO Verified 11/04/23 02:53 REACTION LISTED ON INFORMATION SENT Home Medications Medication Instructions Recorded Confirmed Type cranberry extract 500 mg capsule 450 mg PO DAILY 08/09/19 11/04/23 History (Cranberry Concentrate) multivitamin (Daily-Tone tablet) 1 tab PO DAILY 08/09/19 11/04/23 History pantoprazole 40 mg tablet,delayed 40 mg PO BID #60 tabs 10/12/19 11/04/23 Rx release (Protonix) diaper,brief,adult,disposable #160 ea 03/12/20 08/06/21 Rx donepezil 10 mg tablet (Aricept) 10 mg PO BID #60 tabs 03/12/20 11/04/23 Rx vitamins A,C,O-aqga-jpxyqt 2,148 1 tab PO BID #60 tabs 03/12/20 11/04/23 Rx mcg-113 mg-45 mg-17.4 mg tablet (PreserVision AREDS) ferrous sulfate 325 mg (65 mg 325 mg PO QPM 03/21/20 11/04/23 History iron) tablet,delayed release apixaban 5 mg tablet (Eliquis) 5 mg PO BID #30 tabs 03/31/20 11/04/23 Rx sucralfate 1 gram tablet (Carafate) 1 g PO AC 09/07/21 11/04/23 History cholecalciferol (vitamin D3) 25 1,000 unit PO DAILY 10/26/21 11/04/23 History mcg (1,000 unit) tablet (Vitamin D3) lanolin alcohols-mineral 1 applic topical TID 10/26/21 11/04/23 History oil-w.petrolatum-ceresin topical cream (Eucerin topical cream) tramadol 50 mg tablet 50 mg PO Q12 PAIN LEVEL 5-10 10/26/21 11/04/23 History Saccharomyces boulardii 250 mg 250 mg PO DAILY 11/03/23 11/04/23 History capsule (Florastor) divalproex 125 mg capsule,delayed See Rx Instructions .Route .COMPLEX 11/03/23 11/04/23 History release sprinkle (Depakote Sprinkles) escitalopram oxalate 20 mg tablet 20 mg PO DAILY 11/03/23 11/04/23 History (Lexapro) mirtazapine 15 mg tablet 15 mg PO HS 11/03/23 11/04/23 History Past Med/Surg History Medical History Type 2 diabetes mellitus without complications Cognitive communication deficit INFO SENT FROM [facility] Constipation INFO SENT FROM [facility] GERD without esophagitis INFO SENT FROM [facility] History of pulmonary embolus (PE) INFO SENT FROM [facility] Other recurrent depressive disorders INFO SENT FROM [facility] Cardiomyopathy INFO SENT FROM [facility] Polyosteoarthritis INFO SENT FROM [facility] DAMIAN (obstructive sleep apnea) INFO SENT FROM [facility] Alzheimer disease INFO SENT FROM [facility] History of COVID-19 INFO SENT FROM [facility] Abnormal posture INFO SENT FROM [facility] Generalized muscle weakness INFO SENT FROM [facility] Unspecified dementia with behavioral disturbance INFO SENT FROM [facility] Diabetes mellitus Esophagitis Dementia Hx pulmonary embolism Depression Cardiomyopathy detention resident Anemia Acid reflux disease Allergic rhinitis Alzheimer's disease Aortic valve sclerosis 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 Malabsorption syndrome Obstructive sleep apnea Osteoporosis Bilateral pulmonary embolism Hypothyroidism TIA (transient ischemic attack) 1992 Pulmonary hypertension Atrial fibrillation, transient Sleep apnea Pulmonary nodule PUD (peptic ulcer disease) Recurrent pancreatitis GERD (gastroesophageal reflux disease) Pancreatitis Anxiety Chronic iron deficiency anemia Diabetic peripheral neuropathy associated with type 2 diabetes mellitus Chronic diastolic (congestive) heart failure Surgical History History of bariatric surgery INFO SENT FROM [facility] History of vaginal hysterectomy History of tubal ligation History of shoulder surgery H/O total knee replacement left H/O colonoscopy History of esophagogastroduodenoscopy (EGD) History of appendectomy H/O gastric bypass History of cholecystectomy Family History Mother Diabetes Liver cancer Father Congestive heart failure Myocardial infarction Stroke syndrome Sister Systemic lupus erythematosus Thrombotic thrombocytopenic purpura Denies family history of Ovarian cancer Prostate cancer Breast cancer Colorectal cancer Social History Smoking Status: Unknown if ever smoked Second Hand Exposure: No; Do You Dip or Chew Tobacco: No; Hx Alcohol Use: No Hx Substance Use: No Preferred Language: Egyptian Communication Ability: Impaired Communication Ability Comment: Pt. 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 Physical Exam . She is confused/history of dementia. Bilateral upper extremities: limited shoulder motion due to stiffness and pain. Some swelling of her shoulders. Results & Data Results & Data Laboratory Results . Diagnostic Findings .xrays of bilateral shoulders shows severe advanced DJD with humeral head deformity. PG Care Time/CCT Total # of Minutes Spent Total Time Spent with Patient: Total time spent is greater than 50% in coordination of care (as documented) at patient's floor/unit and/or counseling patient: Coding Level of Care Code 21121 IN/OBS CONSULT LVL 3,45M Diagnoses Pain of both shoulder joints M25.511; M25.512 Shoulder arthritis M19.019
[2023-11-04] MEDS: EUCERIN LOTION EXT SCH (16:43)
[2023-11-04 19:14] LABS: Hematocrit (blood only) 29.5 % (37.0-47.0); Hemoglobin 9.5 g/dl (12.0-16.0)
[2023-11-04] MEDS: MIRTAZAPINE TAB 15 MG TAB PO SCH (20:04)
[2023-11-04] MEDS: EUCERIN CR 120 GM JAR EXT SCH (23:35)
--- NOTE | 2023-11-05 07:22 | Emergency Department Note ---
Impression & Plan Acute blood loss anemia (ABLA), Dementia, GIB (gastrointestinal bleeding) ED Provider Note CHIEF COMPLAINT: Agitation HISTORY OF PRESENT ILLNESS: This 88 yo female patient with PMH of dementia, anemia, gastric bypass, thyroiditis, PE, PUD, DM II, CHF presents to the emergency department with c/o agitation. Pt was seen in the ED yesterday d/t concerns for abdominal pain and B shoulder pain. No reported trauma. XR were performed and no fractures were identified. Pt was sent in today b/c she has been yelling, and d/t dementia, staff was concerned. REVIEW OF SYSTEMS: Unable to obtain d/t dementia. ALLERGIES: see below MEDICATIONS: see below PMH: see below SOCIAL HISTORY: see below DDx: occult fx, UTI, ICH, ICM, ACS, constipation, abdominal etiology, among others PHYSICAL EXAM: Vital signs reviewed. General: Elderly, chronically ill appearing 88 yo, in no significant distress. HEENT: No scleral icterus, PERRLA, neck supple. MMM. Cardiovascular: Irregular rate controlled, no extra sounds. Pulmonary: Clear to auscultation bilaterally, normal work of breathing. Abdomen: Soft, nontender, nondistended, positive bowel sounds. Musculoskeletal: Atraumatic, no peripheral edema. Neurologic: Patient awake, agitated. Unable to follow commands. Equal strength in 4 extremities. Skin: Warm, dry, no rash EMERGENCY DEPARTMENT COURSE/MDM: This pt was evaluated and appeared to be anxious but in no distress. IV access was obtained that was drawn. Patient was placed on clinical research monitor and noted to be in rate controlled atrial fibrillation. The HAND SPLITTER from pt's SNF called and relayed concerns for abd etiology. Pt did have a BM in ED yesterday by report. Hgb has dropped 2 points, although is still at 10. With pt's h/o gastric bypass, PUD and GIB, rectal exam was performed and is heme positive. KUB reveals one concerning dilated loop of bowel to my review and CT imaging was performed and is negative for acute process, some edema noted. Pt's case was d/w the hospitalist service for further management. MONITORING: An order for cardiac monitoring was placed and the patient is noted to be in a rate controlled atrial fib at 70 beats per minute. RADIOLOGY: Bilateral shoulder XR to my interpretation are negative for acute fx, degenerative changes noted. Abd XR to my interpretation reveals a dilated loop of bowel in mid abd, no clear obstruction or FA. Defer to rads overread CT imaging of abd/pelvis per rads reveals: 1. Limited exam as above. 2. Cardiomegaly with pulmonary edema, small pericardial and pleural effusions, small volume of ascites with anasarca. 3. No bowel obstruction or pneumoperitoneum. 4. There is mild wall thickening noted within loops of large and small bowel which may be secondary to the aforementioned edematous state. A mild nonspecific enterocolitis considered less likely. 5. Colonic diverticulosis. 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 Type 2 diabetes mellitus without complications Cognitive communication deficit INFO SENT FROM [facility] Constipation INFO SENT FROM [facility] GERD without esophagitis INFO SENT FROM [facility] History of pulmonary embolus (PE) INFO SENT FROM [facility] Other recurrent depressive disorders INFO SENT FROM [facility] Cardiomyopathy INFO SENT FROM [facility] Polyosteoarthritis INFO SENT FROM [facility] DAMIAN (obstructive sleep apnea) INFO SENT FROM [facility] Alzheimer disease INFO SENT FROM [facility] History of COVID-19 INFO SENT FROM [facility] Abnormal posture INFO SENT FROM [facility] Generalized muscle weakness INFO SENT FROM [facility] Unspecified dementia with behavioral disturbance INFO SENT FROM [facility] Diabetes mellitus Esophagitis Dementia Hx pulmonary embolism Depression Cardiomyopathy [facility] resident Anemia Acid reflux disease Allergic rhinitis Alzheimer's disease Aortic valve sclerosis 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 Malabsorption syndrome Obstructive sleep apnea Osteoporosis Bilateral pulmonary embolism Hypothyroidism TIA (transient ischemic attack) 1992 Pulmonary hypertension Atrial fibrillation, transient Sleep apnea Pulmonary nodule PUD (peptic ulcer disease) Recurrent pancreatitis GERD (gastroesophageal reflux disease) Pancreatitis Anxiety Chronic iron deficiency anemia Diabetic peripheral neuropathy associated with type 2 diabetes mellitus Chronic diastolic (congestive) heart failure Surgical History History of bariatric surgery INFO SENT FROM [facility] History of vaginal hysterectomy History of tubal ligation History of shoulder surgery H/O total knee replacement left H/O colonoscopy History of esophagogastroduodenoscopy (EGD) History of appendectomy H/O gastric bypass History of cholecystectomy Family History Mother Diabetes Liver cancer Father Congestive heart failure Myocardial infarction Stroke syndrome Sister Systemic lupus erythematosus Thrombotic thrombocytopenic purpura Denies family history of Ovarian cancer Prostate cancer Breast cancer Colorectal cancer Social History Smoking Status: Unknown if ever smoked Second Hand Exposure: No; Do You Dip or Chew Tobacco: No; Hx Alcohol Use: No Hx Substance Use: No Preferred Language: Kinyarwanda Communication Ability: Impaired Communication Ability Comment: Pt. confused at baseline Skilled Nursing Facility Counselor Required: No Beliefs That Will Affect Care: None marital status: / Current Living Situation: Senior Living Current Living Situation Comment: [facility] current occupational status: retired Feels Safe at Home: Declines to Answer Dental Care, Regularly: No Physical Activity Frequency: 1-2 Times per Week Seatbelt Use: always Sunscreen Use: No Assistive Devices: Walker Allergies Allergies Allergy/AdvReac Type Severity Reaction Status Date / Time procaine Allergy Severe THROAT Verified 11/04/23 02:53 SWELLING WITH NOVOCAINE - see notes acetaminophen [From Lortab] Allergy Unknown ACETAMINOPHEN Verified 11/04/23 02:53 LISTED, NO REACTION LISTED ON INFORMATION codeine Allergy Unknown NO Verified 11/04/23 02:53 REACTION LISTED ON INFORMATION hydrocodone AdvReac Unknown NO Verified 11/04/23 02:53 REACTION LISTED ON INFORMATION SENT oxycodone AdvReac Unknown NO Verified 11/04/23 02:53 REACTION LISTED ON INFORMATION SENT Home Meds Home Medications Medication Instructions Recorded Confirmed cranberry extract 500 mg capsule 450 mg PO DAILY 08/09/19 11/04/23 (Cranberry Concentrate) multivitamin (Daily-Tone tablet) 1 tab PO DAILY 08/09/19 11/04/23 ferrous sulfate 325 mg (65 mg 325 mg PO QPM 03/21/20 11/04/23 iron) tablet,delayed release sucralfate 1 gram tablet (Carafate) 1 g PO AC 09/07/21 11/04/23 cholecalciferol (vitamin D3) 25 1,000 unit PO DAILY 10/26/21 11/04/23 mcg (1,000 unit) tablet (Vitamin D3) lanolin alcohols-mineral 1 applic topical TID 10/26/21 11/04/23 oil-w.petrolatum-ceresin topical cream (Eucerin topical cream) tramadol 50 mg tablet 50 mg PO Q12 PAIN LEVEL 5-10 10/26/21 11/04/23 Saccharomyces boulardii 250 mg 250 mg PO DAILY 11/03/23 11/04/23 capsule (Florastor) divalproex 125 mg capsule,delayed See Rx Instructions .Route .COMPLEX 11/03/23 11/04/23 release sprinkle (Depakote Sprinkles) escitalopram oxalate 20 mg tablet 20 mg PO DAILY 11/03/23 11/04/23 (Lexapro) mirtazapine 15 mg tablet 15 mg PO HS 11/03/23 11/04/23 Previous Rx's Medication Instructions Recorded pantoprazole 40 mg tablet,delayed 40 mg PO BID #60 tabs 10/12/19 release (Protonix) diaper,brief,adult,disposable #160 ea 03/12/20 donepezil 10 mg tablet (Aricept) 10 mg PO BID #60 tabs 03/12/20 vitamins A,C,Z-hagu-ibmmvi 2,148 1 tab PO BID #60 tabs 03/12/20 mcg-113 mg-45 mg-17.4 mg tablet (PreserVision AREDS) apixaban 5 mg tablet (Eliquis) 5 mg PO BID #30 tabs 03/31/20 Results & Data (ED) Home Medications Current Medication List: was personally reviewed by me Laboratory Data Attestation: I reviewed the patient's lab results. 11/04/23 18:51 11/04/23 06:25 Lab Results 11/04/23 Range/Units 06:25 WBC 9.76 (4.8-10.8) K/ul RBC 3.25 L (4.20-5.40) M/uL Hgb 10.3 L (12.0-16.0) g/dl Hct 31.9 L (37.0-47.0) % MCV 98.2 (80.0-100.0) fL MCH 31.7 (25.0-34.0) pg MCHC 32.3 (32.0-36.0) g/dL RDW Std Deviation 50.4 H (36.4-46.3) fL RDW Coeff of Sebastian 14.0 (11.5-14.5) % Plt Count 181 (130-400) K/uL MPV 11.7 (9.4-12.4) fL Immature Gran % (Auto) 0.6 % Neut % (Auto) 91.2 % Lymph % (Auto) 1.6 % Turner % (Auto) 6.4 % Eos % (Auto) 0.0 % Baso % (Auto) 0.2 % Neut # (Auto) 8.90 H (1.40-6.50) K/uL Lymph # (Auto) 0.16 L (1.20-3.40) K/uL Turner # (Auto) 0.62 H (0.11-0.59) K/uL Eos # (Auto) 0.00 (0.00-0.50) K/uL Baso # (Auto) 0.02 (0.00-0.20) K/uL Immature Gran # (Auto) 0.06 (0.01-0.20) K/uL Sodium 137 (136-145) mmol/L Potassium 3.8 (3.5-5.1) mmol/L Chloride 105 (98-107) mmol/L Carbon Dioxide 27 (21-32) mmol/L Anion Gap 5 (3-11) BUN 27 H (6-23) mg/dl Creatinine 0.42 L (0.6-1.2) mg/dl Est Cr Clr Drug Dosing Not Reportable Est GFR ( Amer) 107.6 ml/min Est GFR (Non-Af Amer) 92.8 ml/min BUN/Creatinine Ratio 64.3 H (10-20) Glucose 120 H (70-99(Fasting)) mg/dl Calcium 10.1 (8.6-10.3) mg/dl Ferritin 1627.0 H (8-388) ng/ml Total Bilirubin 2.7 H (0.2-1.0) mg/dl AST 14 (13-39) U/L ALT 19 (7-52) U/L Alkaline Phosphatase 84 (34-104) U/L Total Protein 5.5 L (6.0-8.3) gm/dl Albumin 3.0 L (3.4-5.0) gm/dl Globulin 2.5 (2.5-4.0) gm/dl Albumin/Globulin Ratio 1.2 (0.9-2) Administered Medications Divalproex Sodium (Divalproex Sodium Sprinkle/Del-Rel 125 Mg Cap) 250 mg PO HS SHERRIE Stop: 12/04/23 20:59 Last Admin: 11/04/23 20:04 Dose: 250 mg Documented By: PATTI Divalproex Sodium (Divalproex Sodium Sprinkle/Del-Rel 125 Mg Cap) 125 mg PO QAM SHERRIE Stop: 12/04/23 10:14 Last Admin: 11/04/23 11:16 Dose: 125 mg Documented By: KELLY Donepezil HCl (Donepezil Hcl 10 Mg Tab) 10 mg PO BID SHERRIE Stop: 12/04/23 10:14 Last Admin: 11/04/23 20:04 Dose: 10 mg Documented By: Admin: 11/04/23 11:16 Dose: 10 mg Documented By: KELLY Escitalopram Oxalate (Escitalopram Oxalate 20 Mg Tab) 20 mg PO DAILY SHERRIE Stop: 12/04/23 10:14 Last Admin: 11/04/23 11:16 Dose: 20 mg Documented By: KELLY Sodium Chloride (Nss) 1,000 mls @ 100 mls/hr IV .Q10H SHERRIE Stop: 12/04/23 05:59 Last Admin: 11/05/23 02:05 Dose: 100 mls/hr Documented By: Infusion: 11/05/23 02:05 Dose: Infused Documented By: Admin: 11/04/23 16:43 Dose: 100 mls/hr Documented By: Infusion: 11/04/23 16:30 Dose: Infused Documented By: Admin: 11/04/23 06:30 Dose: 100 mls/hr Documented By: SALOMON Pantoprazole Sodium 40 mg/ (Syringe) 10 mls @ 5 mls/min IV BID SHERRIE Stop: 12/04/23 08:59 Last Admin: 11/04/23 20:24 Dose: 5 mls/min Documented By: Admin: 11/04/23 08:31 Dose: 5 mls/min Documented By: APRYL Acetaminophen (Ofirmev) 1,000 mg in 100 mls @ 400 mls/hr IV Q8H SHERRIE Stop: 11/07/23 11:59 Last Infusion: 11/05/23 03:50 Dose: Infused Documented By: Admin: 11/05/23 03:35 Dose: 400 mls/hr Documented By: Infusion: 11/04/23 20:40 Dose: Infused Documented By: Admin: 11/04/23 20:23 Dose: 400 mls/hr Documented By: Infusion: 11/04/23 12:26 Dose: Infused Documented By: Admin: 11/04/23 12:09 Dose: 400 mls/hr Documented By: KELLY Mirtazapine (Mirtazapine Tab 15 Mg Tab) 15 mg PO HS SHERRIE Stop: 12/04/23 20:59 Last Admin: 11/04/23 20:04 Dose: 15 mg Documented By: PATTI Multi-Ingredient Cream (Eucerin Cr 120 Gm Jar) 1 appln EXT TID SHERRIE Stop: 12/04/23 22:59 Last Admin: 11/04/23 23:35 Dose: 1 appln Documented By: PATTI Polyethylene Glycol (Polyethylene (Miralax) 17 Gm Pack) 17 gm PO DAILY SHERRIE Stop: 12/04/23 12:44 Last Admin: 11/04/23 12:55 Dose: 17 gm Documented By: KELLY Saccharomyces Boulardii (Saccharomyces Boulardii 250 Mg Cap) 250 mg PO DAILY SHERRIE Stop: 12/04/23 10:14 Last Admin: 11/04/23 11:16 Dose: 250 mg Documented By: KELLY Tramadol HCl (Tramadol Hcl 50 Mg Tablet) 50 mg PO BID SHERRIE Stop: 12/04/23 11:59 Last Admin: 11/04/23 20:04 Dose: 50 mg Documented By: Admin: 11/04/23 12:54 Dose: 50 mg Documented By: KELLY Discontinued Medications Acetaminophen (Acetaminophen 500 Mg Tab) 1,000 mg PO NOW STA Stop: 11/04/23 03:36 Last Admin: 11/04/23 03:59 Dose: 1,000 mg Documented By: SALOMON Multi-Ingredient Lotion (Eucerin Lotion 590 Ml Btl) 1 appln EXT TID SHERRIE Stop: 12/04/23 13:59 Last Admin: 11/04/23 23:34 Dose: Not Given Documented By: Admin: 11/04/23 16:43 Dose: Not Given Documented By: KELLY Olanzapine (Olanzapine Zydis 5 Mg Orally Dis. Tab) 2.5 mg PO NOW STA Stop: 11/04/23 03:36 Last Admin: 11/04/23 04:00 Dose: 2.5 mg Documented By: [facility] [employer] Data Radiologist's Impression: Shoulder X-Ray 11/04/23 03:32 XR shoulder LT min 2V routine HISTORY: 88 years-old Female shoulder pain chronic bilateral shoulder pain COMPARISON: 11/03/2023, July 15, 2022. TECHNIQUE: 3 views of the left shoulder FINDINGS: Severe left glenohumeral joint osteoarthritis is again noted with deformity of the left humeral head and remodeling of the left humeral neck and proximal shaft, unchanged compared to July 15, 2022. No evidence for dislocation. No osseous lesions. IMPRESSION: 1. Unchanged exam compared to yesterday's study. No acute fracture or dislocation within the left shoulder. 2. Severe left glenohumeral joint osteoarthritis redemonstrated. ACT 112: Negative or not required by law. The above report was generated using voice recognition software. It may contain grammatical, syntax or spelling errors. Electronically signed by: Rikki Padilla M.D. 11/04/2023 7:03 AM Shoulder X-Ray 11/04/23 03:32 XR shoulder RT min 2V routine CLINICAL HISTORY: shoulder pain COMPARISON: Right shoulder radiographs November 03, 2023. FINDINGS: Severe right glenohumeral joint osteoarthritis with chronic deformity of the right head and glenoid is again noted. This is similar to chest radiograph of July 15, 2022. There is no evidence for dislocation or acute fracture within the right shoulder. IMPRESSION: 1. No acute fracture or dislocation within the right shoulder. 2. Severe right glenohumeral joint osteoarthritis with chronic deformity and flattening of the right humeral head, unchanged since chest radiograph of July 15, 2022. ACT 112: Negative or not required by law. Electronically signed by: Joe Galvin M.D. 11/04/2023 7:14 AM KUB X-Ray 11/04/23 05:05 KUB CLINICAL HISTORY: Ileus. COMPARISON STUDY: CT of the abdomen and pelvis November 28, 2018. KUB March 25, 2020. FINDINGS: Postoperative findings within the spine and cholecystectomy clips are incidentally noted. Several loops of mildly dilated small bowel are present. There is a moderate amount of stool within the rectum. No evidence for free air on supine exam. IMPRESSION: 1. Several prominent loops of small bowel without convincing evidence for a bowel obstruction or ileus. 2. Moderate amount of stool within the rectum. ACT 112: Negative or not required by law. Electronically signed by: Joe Galvin M.D. 11/04/2023 6:59 AM Abdomen/Pelvis CT 11/04/23 05:[address] WITHOUT CONTRAST CT DOSE: 829.93 mGy.cm HISTORY: Acute generalized abdominal pain abd pain, ileus TECHNIQUE: Multiaxial CT images of the abdomen and pelvis were performed without contrast. A dose lowering technique was utilized adhering to the principles of ALARA. COMPARISON STUDY: 11/28/2018 FINDINGS: Limited study secondary to positioning, lack of contrast and artifact from the spinal hardware. Cardiomegaly with decreased attenuation of the cardiac blood pool suggestive of anemia. Extensive coronary artery calcifications. Dilation of the pulmonary arteries suggestive of pulmonary arterial hypertension. Small pericardial and pleural effusions. Pulmonary edema with mild bibasilar opacities suggestive of atelectasis. No free air. The unenhanced spleen, mildly atrophic pancreas and right adrenal gland are unremarkable. There is unchanged nodular left adrenal gland thickening. Cholecystectomy. Unremarkable liver with probable cyst within the left hepatic lobe. Probable left renal sinus cysts. No renal or ureteral calculi or hydronephrosis identified. Partially decompressed urinary bladder. Atherosclerosis of the aorta. No lymphadenopathy. Luciano-en-Y gastric bypass. No bowel obstruction identified. Trace abdominal pelvic ascites. Mild wall thickening is noted within a few loops of small bowel. Moderate fecal retention in the rectum. Colonic diverticulosis. The appendix is not visualized. Anasarca. Subcutaneous emphysema of the anterior abdominal wall, likely secondary to medicinal injection sites. Demineralized appearance of the bones. No acute fracture identified. Posterior and bilateral Luschka fusion hardware redemonstrated at L4-S1 with unchanged L4-L5 anterolisthesis. IMPRESSION: 1. Limited exam as above. 2. Cardiomegaly with pulmonary edema, small pericardial and pleural effusions, small volume of ascites with anasarca. 3. No bowel obstruction or pneumoperitoneum. 4. There is mild wall thickening noted within loops of large and small bowel which may be secondary to the aforementioned edematous state. A mild nonspecific enterocolitis considered less likely. 5. Colonic diverticulosis. ACT 112: Negative or not required by law. The above report was generated using voice recognition software. It may contain grammatical, syntax or spelling errors. Electronically signed by: Rikki Padilla M.D. 11/04/2023 7:14 AM Discharge Plan Visit Data Chief Complaint: Arm Pain Stated Complaint: Arm Pain, Altered ED Provider: Ena Cruz Discharge Problem: Acute blood loss anemia (ABLA), Dementia, GIB (gastrointestinal bleeding) Patient Disposition: Admitted As Inpatient Discharge Instructions Interventions: ED Discharge Assessment Last Done: 11/04/23 08:59 Discharge Problem: Dementia Qualifiers: Dementia type: Alzheimer's Alzheimer's disease onset: unspecified onset D ementia severity: severe Dementia behavioral or psychological symptom: with agitation Qualified Code(s): G30.9 - Alzheimer's disease, unspecified; F02.C11 - Dementia in other diseases classified elsewhere, severe, with agitation GIB (gastrointestinal bleeding) Qualifiers: GI bleed type/associated pathology: unspecified gastrointestinal hemorrhage type Qualified Code(s): K92.2 - Gastrointestinal hemorrhage, unspecified
--- NOTE | 2023-11-05 07:50 | Surgery Progress Note ---
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 Certainly she is got a reason to have shoulder pain. It is really difficult to localize her pain is any type of movement seems to hurt her and she went since then cries out. Based on her x-rays I think it is unlikely injections given prior to any real significant benefit. We can certainly try that. We tried to contact family have not had a response. If strongly desired we can do so. This can be done as an outpatient as well. If you need any further assistance called or contact us. My cell [facility] [phone]. Organ to just continue medical management at this point. If injection strongly desired he can let us know but this can be done as an outpatient and unlikely to give any long-term benefit. Admission and Anticipated Discharge Date Admission Date: November 04, 2023 Subjective 88-year-old female with underlying dementia admitted with possible GI bleed. We have been asked to see her for shoulder pain. She does not complain of any shoulder pain with initial asking. She does apparently have any type of pain with attempted movement of her upper extremities. Difficult to localize her pain. Once again she did not really complain of specific shoulder pain. Physical Exam Physical Exam: Physical examination of both shoulders reveals obvious rotator cuff arthropathy. She got superior humeral head migration on both sides. She does have small effusions. Very thin soft tissue envelope. She really refused to move her arms much at all. She is got pain with any attempted passive motion of either upper extremity. 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
[2023-11-05] MEDS ORDERED: EUCERIN LOTION EXT SCH (09:00)
[2023-11-05 12:46] LABS: Hematocrit (blood only) 28.5 % (37.0-47.0); Hemoglobin 9.3 g/dl (12.0-16.0); Mean Corpuscular Hemoglobin 31.7 pg (25.0-34.0); Mean Corpuscular Hgb Conc 32.6 g/dL (32.0-36.0); Mean Corpuscular Volume 97.3 fL (80.0-100.0); Mean Platelet Volume 11.1 fL (9.4-12.4); Platelet Count 202 K/uL (130-400); RDW Coefficient of Variation 14.6 % (11.5-14.5); RDW Standard Deviation 52.2 fL (36.4-46.3); Red Blood Count 2.93 M/uL (4.20-5.40); White Blood Count 10.13 K/ul (4.8-10.8)
[2023-11-05] MEDS: IRON SUCROSE 300 MG in SODIUM CHLORIDE 0.9% 250 ML IV ONE (13:04)
[2023-11-05 13:06] LABS: Alanine Aminotransferase 16 U/L (7-52); Albumin Globulin Ratio 1.1 (0.9-2); Albumin Level 2.6 gm/dl (3.4-5.0); Alkaline Phosphatase 82 U/L (34-104); Anion Gap 3 (3-11); Aspartate Aminotransferase 13 U/L (13-39); BUN Creatinine Ratio 60.6 (10-20); Bilirubin,Total 1.9 mg/dl (0.2-1.0); Blood Urea Nitrogen 20 mg/dl (6-23); Calcium 9.7 mg/dl (8.6-10.3); Carbon Dioxide 25 mmol/L (21-32); Chloride 109 mmol/L (98-107); Est GFR (African American) 116.5 ml/min; Est GFR (Non-African American) 100.5 ml/min; Globulin 2.4 gm/dl (2.5-4.0); Glucose 98 mg/dl (70-99(Fasting)); Potassium 3.7 mmol/L (3.5-5.1); Sodium 137 mmol/L (136-145)
--- NOTE | 2023-11-05 20:21 | Hospitalist Progress Note ---
Date of Service November 05, 2023 Assessment & Plan (1) Iron deficiency anemia: Plan: Concern over possible active GI bleed. will consult GI no signs oif GI bleed (2) Shoulder arthritis: Plan: consult ortho. POssible injection. (3) Dementia: Plan: Patient with severe dementia. Will resume home meds (4) GERD (gastroesophageal reflux disease): Plan: resume home meds (5) Chronic diastolic (congestive) heart failure: Plan: resume home meds (6) Acute gastrointestinal bleeding: Plan: as noted in problem 1 (7) DVT prophylaxis: Plan: scd Admission and Anticipated Discharge Date Admission Date: November 04, 2023 Subjective 88 yo female is a poor historian. Review of Systems Review of Systems: All systems reviewed & are unremarkable except as noted in HPI & below Physical Exam Constitutional: WD/WN, vitals as above Eyes: PERRL, conjunctivae normal, anicteric sclerae Neck: trachea midline, no thyromegaly Respiratory: normal respiratory effort, lungs clear to auscultation Cardiovascular: RRR, no murmur, no edema Gastrointestinal (Abdomen): normal bowel sounds, soft, nontender, no hepatosplenomegaly Results & Data Results & Data Vital Signs (Past 12 Hours) Vital Signs Temp Pulse Pulse Resp BP Pulse Ox O2 Del Method 11/05/23 19:34 36.6 C 91 H 18 111/75 95 Room Air 11/05/23 15:13 36.9 C 83 18 103/66 97 Room Air 11/05/23 11:17 36.6 C 79 18 99/64 L 98 Room Air 11/05/23 11:13 Room Air 11/05/23 09:33 77 PG Care Time/CCT Total # of Minutes Spent Total Time Spent with Patient: Total time spent is greater than 50% in coordination of care (as documented) at patient's floor/unit and/or counseling patient: Coding Level of Care Code 94796 SUB INP/OBS CARE 2/35MIN Diagnoses Iron deficiency anemia D50.9 Shoulder arthritis M19.019 Dementia F03.90 GERD (gastroesophageal reflux disease) K21.9 Chronic diastolic (congestive) heart failure I50.32 Acute gastrointestinal bleeding K92.2 DVT prophylaxis Z29.9
[2023-11-06 06:40] LABS: Hematocrit (blood only) 29.3 % (37.0-47.0); Hemoglobin 9.4 g/dl (12.0-16.0); Mean Corpuscular Hemoglobin 31.4 pg (25.0-34.0); Mean Corpuscular Hgb Conc 32.1 g/dL (32.0-36.0); Mean Platelet Volume 11.1 fL (9.4-12.4); Platelet Count 212 K/uL (130-400); RDW Coefficient of Variation 14.5 % (11.5-14.5); RDW Standard Deviation 52.2 fL (36.4-46.3); Red Blood Count 2.99 M/uL (4.20-5.40); White Blood Count 10.82 K/ul (4.8-10.8)
[2023-11-06 07:03] LABS: Anion Gap 4 (3-11); BUN Creatinine Ratio 54.8 (10-20); Blood Urea Nitrogen 17 mg/dl (6-23); Carbon Dioxide 25 mmol/L (21-32); Chloride 111 mmol/L (98-107); Est GFR (African American) 118.9 ml/min; Est GFR (Non-African American) 102.6 ml/min; Glucose 81 mg/dl (70-99(Fasting)); Potassium 3.7 mmol/L (3.5-5.1); Sodium 140 mmol/L (136-145)
--- NOTE | 2023-11-06 22:30 | Hospitalist Progress Note ---
Date of Service November 06, 2023 Assessment & Plan (1) Iron deficiency anemia: Plan: Concern over possible active GI bleed. will consult GI no signs oif GI bleed Monitoring hemoglobin. has been stable FOBT + if hemoglobin remains stable will discharge (2) Shoulder arthritis: Plan: consult ortho. POssible injection. (3) Dementia: Plan: Patient with severe dementia. Will resume home meds (4) GERD (gastroesophageal reflux disease): Plan: resume home meds (5) Chronic diastolic (congestive) heart failure: Plan: resume home meds (6) Acute gastrointestinal bleeding: Plan: as noted in problem 1 (7) DVT prophylaxis: Plan: scd Admission and Anticipated Discharge Date Admission Date: November 04, 2023 Subjective Patient is resting comfortably. Review of Systems Review of Systems: Unobtainable due to cognitive status Physical Exam Constitutional: WD/WN, vitals as above Eyes: PERRL, conjunctivae normal, anicteric sclerae Neck: trachea midline, no thyromegaly Respiratory: normal respiratory effort, lungs clear to auscultation Cardiovascular: RRR, no murmur, no edema Gastrointestinal (Abdomen): normal bowel sounds, soft, nontender, no hepatosplenomegaly Results & Data Results & Data Vital Signs (Past 12 Hours) Vital Signs Temp Pulse Resp BP BP Pulse Ox O2 Del Method 11/06/23 19:43 36.4 C L 84 20 119/73 97 Room Air 11/06/23 16:06 36.7 C 83 19 129/82 99 Room Air 11/06/23 11:40 36.4 C L 86 17 105/66 98 Room Air PG Care Time/CCT Total # of Minutes Spent Total Time Spent with Patient: Total time spent is greater than 50% in coordination of care (as documented) at patient's floor/unit and/or counseling patient: Coding Level of Care Code 91178 SUB INP/OBS CARE 2/35MIN Diagnoses Iron deficiency anemia D50.9 Shoulder arthritis M19.019 Dementia F03.90 GERD (gastroesophageal reflux disease) K21.9 Chronic diastolic (congestive) heart failure I50.32 Acute gastrointestinal bleeding K92.2 DVT prophylaxis Z29.9
[2023-11-07 04:55] LABS: Hematocrit (blood only) 31.9 % (37.0-47.0); Hemoglobin 9.8 g/dl (12.0-16.0); Mean Corpuscular Hemoglobin 30.9 pg (25.0-34.0); Mean Corpuscular Hgb Conc 30.7 g/dL (32.0-36.0); Mean Corpuscular Volume 100.6 fL (80.0-100.0); Mean Platelet Volume 10.7 fL (9.4-12.4); Nucleated RBC # (auto) 0.03 K/uL (0.00-0.12); Nucleated RBC % (auto) 0.3 %; Platelet Count 257 K/uL (130-400); RDW Coefficient of Variation 14.6 % (11.5-14.5); RDW Standard Deviation 54.2 fL (36.4-46.3); Red Blood Count 3.17 M/uL (4.20-5.40); White Blood Count 10.61 K/ul (4.8-10.8)
[2023-11-07 05:13] LABS: BUN Creatinine Ratio 65.2 (10-20); Creatinine Clr Calc Pharmacy 148.6 ml/min; Est GFR (African American) 131.1 ml/min; Est GFR (Non-African American) 113.2 ml/min; Potassium 3.8 mmol/L (3.5-5.1)
--- NOTE | 2023-11-07 21:57 | Hospitalist Progress Note ---
Date of Service November 07, 2023 Assessment & Plan (1) Iron deficiency anemia: Plan: Concern over possible active GI bleed. will consult GI no signs oif GI bleed Monitoring hemoglobin. has been stable FOBT + if hemoglobin remains stable will discharge tomorrow due to no transport (2) Shoulder arthritis: Plan: consult ortho. (3) Dementia: Plan: Patient with severe dementia. Will resume home meds (4) GERD (gastroesophageal reflux disease): Plan: resume home meds (5) Chronic diastolic (congestive) heart failure: Plan: resume home meds (6) Acute gastrointestinal bleeding: Plan: as noted in problem 1 (7) DVT prophylaxis: Plan: scd Admission and Anticipated Discharge Date Admission Date: November 04, 2023 Subjective Patient is comfortable. Review of Systems Review of Systems: Unobtainable due to cognitive status Physical Exam Constitutional: WD/WN, vitals as above Eyes: PERRL, conjunctivae normal, anicteric sclerae Neck: trachea midline, no thyromegaly Respiratory: normal respiratory effort, lungs clear to auscultation Cardiovascular: RRR, no murmur, no edema Gastrointestinal (Abdomen): normal bowel sounds, soft, nontender, no hepatosplenomegaly Results & Data Results & Data Vital Signs (Past 12 Hours) Vital Signs Temp Pulse Pulse Resp BP BP Pulse Ox 11/07/23 19:38 36.6 C 119 H 19 134/86 94 11/07/23 15:43 36.7 C 102 H 17 137/63 97 11/07/23 14:01 75 11/07/23 11:51 36.9 C 69 17 137/73 96 O2 Del Method 11/07/23 19:38 Room Air 11/07/23 15:43 Room Air 11/07/23 14:01 11/07/23 11:51 Room Air PG Care Time/CCT Total # of Minutes Spent Total Time Spent with Patient: Total time spent is greater than 50% in coordination of care (as documented) at patient's floor/unit and/or counseling patient: Coding Level of Care Code 83472 SUB INP/OBS CARE 2/35MIN Diagnoses Iron deficiency anemia D50.9 Shoulder arthritis M19.019 Dementia F03.90 GERD (gastroesophageal reflux disease) K21.9 Chronic diastolic (congestive) heart failure I50.32 Acute gastrointestinal bleeding K92.2 DVT prophylaxis Z29.9
[2023-11-08 07:25] LABS: Hematocrit (blood only) 37.9 % (37.0-47.0); Hemoglobin 11.5 g/dl (12.0-16.0); Mean Corpuscular Hemoglobin 31.2 pg (25.0-34.0); Mean Corpuscular Hgb Conc 30.3 g/dL (32.0-36.0); Mean Corpuscular Volume 102.7 fL (80.0-100.0); Mean Platelet Volume 10.4 fL (9.4-12.4); Nucleated RBC # (auto) 0.03 K/uL (0.00-0.12); Nucleated RBC % (auto) 0.3 %; Platelet Count 302 K/uL (130-400); RDW Coefficient of Variation 14.6 % (11.5-14.5); RDW Standard Deviation 55.5 fL (36.4-46.3); Red Blood Count 3.69 M/uL (4.20-5.40); White Blood Count 9.42 K/ul (4.8-10.8)
[2023-11-08 07:47] LABS: BUN Creatinine Ratio 51.6 (10-20); Creatinine Clr Calc Pharmacy 112.5 ml/min; Est GFR (African American) 118.9 ml/min; Est GFR (Non-African American) 102.6 ml/min; Potassium 4.3 mmol/L (3.5-5.1)
--- NOTE | 2023-11-08 12:16 | Discharge Summary ---
Date of Service November 08, 2023 Admission HPI Per Admitting Provider 88-year-old female who presents via [facility] as patient was having increased pain in her upper extremities with passive movement. Patient is a poor historian due to her severe dementia. [facility] records do not also indicate patient was recently diagnosed with an ileus but records indicates she did have a bowel movement last night. ED was also concerned about possible GI bleed. Patient denies any abdominal pain during my exam. Principal Diagnosis iron deficiency anemia Discharge Exam Constitutional WD/WN, vitals as above Eyes PERRL, conjunctivae normal, anicteric sclerae Neck trachea midline, no thyromegaly Respiratory normal respiratory effort, lungs clear to auscultation Cardiovascular RRR, no murmur, no edema Gastrointestinal (Abdomen) normal bowel sounds, soft, nontender, no hepatosplenomegaly Discharge Data Allergies Allergy/AdvReac Type Severity Reaction Status Date / Time procaine Allergy Severe THROAT Verified 11/04/23 02:53 SWELLING WITH NOVOCAINE - see notes acetaminophen [From Lortab] Allergy Unknown ACETAMINOPHEN Verified 11/04/23 02 :53 LISTED, NO REACTION LISTED ON INFORMATION codeine Allergy Unknown NO Verified 11/04/23 02:53 REACTION LISTED ON INFORMATION hydrocodone AdvReac Unknown NO Verified 11/04/23 02:53 REACTION LISTED ON INFORMATION SENT oxycodone AdvReac Unknown NO Verified 11/04/23 02:53 REACTION LISTED ON INFORMATION SENT Consultations 11/04/23 06:58 ED Decision to Admit Stat 11/04/23 07:41 Consult Gastroenterology Routine 11/04/23 11:23 Consult Orthopedic Surgery Routine Ordered Studies 11/04/23 05:47 CT abd pelvis wo con Stat Hospital Course (1) Iron deficiency anemia: Concern over possible active GI bleed. will consult GI no signs oif GI bleed Monitored hemoglobin. has been stable FOBT + hemoglobin remained stable will discharge (2) Shoulder arthritis: consult ortho. (3) Dementia: Patient with severe dementia. Will resume home meds (4) GERD (gastroesophageal reflux disease): resume home meds (5) Chronic diastolic (congestive) heart failure: resume home meds (6) Acute gastrointestinal bleeding: as noted in problem 1 (7) DVT prophylaxis: scd Total Time Total Time Spent Total Time Spent (In Minutes): 32 Discharge Plan Discharge Items Patient Disposition: Transfer Longterm Fac Reason For Visit: GI BLEED Discharge Diagnosis: Anemia Activity: Resume your previous activity Non-emergency contact: Primary Care Provider Call non-emergency contact if: you have any medication questions Follow-up/Referrals: Seamus Gorman [Primary Care Provider] - Diet: Regular Diet Texture: Dental soft (bite-sized) Diet Comment: easy to chew, soft bite sized/ resume to your prior diet Addtl Attending Provider Instructions: Admitted for concern of a GI bleed. However, your hemoglobin has been stable. resume previous diet and continue iron supplements. In regards to your pain, imaging showed severe Degenerative joint disease, essentially wear and tear. We could try an injection, but this seems unlikely to help. If this is something you would like to try, we could have you followup with [facility]. Pending Studies at Discharge: No Stand-Alone Forms: My [facility] Skilled Items Patient informed of condition?: Yes DNR: No Discharge Level of Care: Skilled Communicable Disease: No Discharge Prognosis: Stable Lines: None Urinary Catheter: No Medications and DC Order Prescriptions: New polyethylene glycol 3350 [Miralax] 17 gram Powder In Packet 17 g PO DAILY PRN (Reason: constipation) Qty: 14 0RF Continued pantoprazole [Protonix] 40 mg tablet,delayed release (DR/EC) 40 mg PO BID Qty: 60 5RF (DME) diaper,brief,adult,disposable Misc See Rx Instructions .ROUTE .MEDSUPPLY Qty: 160 5RF Rx Instructions: Use 5 pull-up (size S/M) daily PRN donepezil [Aricept] 10 mg tablet 10 mg PO BID Qty: 60 0RF PreserVision AREDS [id number] tablet 1 tab PO BID Qty: 60 5RF multivitamin [Daily-Tone] tablet 1 tab PO DAILY cranberry extract [Cranberry Concentrate] 500 mg capsule 450 mg PO DAILY ferrous sulfate 325 mg (65 mg iron) tablet,delayed release (DR/EC) 325 mg PO QPM sucralfate [Carafate] 1 gram Tablet 1 g PO AC tramadol 50 mg Tablet 50 mg PO Q12 Eucerin Cream 1 applic TOPICAL TID Rx Instructions: UPPER EXTREMITIES ONCE PER SHIFT INFO SENT FROM [facility] cholecalciferol (vitamin D3) [Vitamin D3] 25 mcg (1,000 unit) tablet 1,000 unit PO DAILY mirtazapine 15 mg Tablet 15 mg PO HS divalproex [Depakote Sprinkles] 125 mg Capsule, Delayed Rel Sprinkle See Rx Instructions .ROUTE .COMPLEX Rx Instructions: TAKES 125 MG QAM, THEN 250 MG QHS escitalopram oxalate [Lexapro] 20 mg Tablet 20 mg PO DAILY Saccharomyces boulardii [Florastor] 250 mg Capsule 250 mg PO DAILY Held Eliquis 5 mg Tablet 5 mg PO BID Qty: 30 0RF Hold Instructions: Resume on 11/19/23. Discharge Orders: Discharge Order (Routine); Ordered 11/08/23 Ordered By: Vikas Busby Admission Data Admit Date/Time: 11/04/23 07:35 Attending Provider: Vikas Busby Admit Provider: Vikas Busby Primary Care Provider: Seamus Gorman Other Providers: Vikas Busby; Laureen Butt; Juanjose Nuñez; Erika Marino; Sally Reina; Lisa Zazueta; Joellen Wisdom; Aileen,Vitor; Seamus Fletcher; Jaky Marquez; Josefina Multani; Jennie Espino; Lauren Blankenship; Yu Atkins; Viv Barragan; Bev Cesar; Valdez Gongora; Cuate Latif; Jurgen Smalls; Leah Garcia; Adrienne Leon Jr; Dario Carter; Hafsa Isbell; Radha Sahu; Magdi Pandya; Steffany Smith; Daniel Delaney; Lydia Spann; Simon Ricks; Vivek Zelaya; Leah Camargo; Vivek Sosa; Rikki Stone Other Interventions: Discharge Summary Assessment (RN) Last Done: 11/08/23 12:21 Coding Level of Care Code 03236 INP/OBS DISCH >30 MIN Diagnoses Iron deficiency anemia D50.9 Shoulder arthritis M19.019 Dementia F03.90 GERD (gastroesophageal reflux disease) K21.9 Chronic diastolic (congestive) heart failure I50.32 Acute gastrointestinal bleeding K92.2 DVT prophylaxis Z29.9
== END 2023-11-08 13:05 | DRG 812 ==
LOC: SUATTDRO → ED 02:29 → 4W 07:35 → INTOOBSV 07:35 → 4W 09:00